=== PATIENT | male | born 1955 | race African-American/Black ===

== ENCOUNTER 2017-02-27 03:49 | Inpatient (IN) ==
[2017-02-27] MEDS ORDERED: ONDANSETRON 4 MG/2 ML VIAL IV STA (04:16)
[2017-02-27] MEDS ORDERED: SODIUM CHLORIDE 0.9% 1,000 ML IV STA (04:16)
[2017-02-27] MEDS ORDERED: PANTOPRAZOLE 40 MG VIAL IV STA (04:16)
[2017-02-27] MEDS ORDERED: PANTOPRAZOLE 40 MG VIAL IV ONE (04:25)
[2017-02-27] MEDS ORDERED: ONDANSETRON 4 MG/2 ML VIAL ONE (04:25)
[2017-02-27 04:26] LABS: Basophils % 0.3 % (0.0-0.8); Eosinophils % 0.2 % (0.00-10.9); Hematocrit 25.3 VOL% (42.0-52.0); Hemoglobin 8.1 GM/DL (14.0-18.0); Immature Granulocytes % 1.2 %; Immature Granulocytes Absolute 0.16 #; Lymphocytes # 1.4 10*3/uL (1.4-4.0); Lymphocytes % 10.1 % (21.2-54.2); Mean Corpuscular Hemoglobin 28 PG (27-34); Mean Corpuscular Volume 88.8 FL (87-102); Mean Platelet Volume 10.1 FL (9.6-12.0); Monocytes # 0.7 10*3/uL (0.11-0.8); Monocytes % 5.2 % (1.7-12.7); Neutrophils # 11.4 10*3/uL (1.4-7.4); Platelet Count 324 T/CUMM (130-400); Red Blood Count 2.85 MC/CUMM (3.8-5.5); White Blood Count 13.7 T/CUMM (4-12)
[2017-02-27 04:35] LABS: INR 1.1; PT Patient Result 11.2 SECS
--- NOTE | 2017-02-27 04:36 | Emergency Department Note ---
Bonifacio Andre Hilary, am scribing for, and in the presence of, Kris Cheatham MD 04:20. Linden Andre Robert M, MD, personally performed the services described in this documentation, ascribed by Vicky Valdovinos in my presence, and it is both accurate and complete 436 . Arrival - Arrival Chief Complaint: GI Bleed/Rectal ED Nursing Triage Note: Pt arrives via ems from home with complaints of abd pain. States that he woke up an vomited some blood and that he felt short of breath afterwards. PT states that he has been having "stomach problems" and that his Primary doctor is suppose to get him an appointment with [facility] to be seen by gastro but that he has not heard from him and that tonight the pain worsened. Pt is in no distress at time of triage. Last BM yesterday Mode of Arrival: Stretcher Limitations: No Limitations Source: Patient, RN Notes Reviewed Time Seen by Provider: 02/27/17 04:10 - History of Present Illness HPI Narrative: Pt is a 61 y/o black male brought to the ED via EMS with c/o abdominal pain which onset a few nights ago. Pt states that he woke up and vomited blood. He has lost a significant amount of weight recently due to a change in diet and reports hat he has been having "stomach problems" and that his Primary doctor is suppose to get him an appointment with [facility] to be seen by gastro but that he has not heard from him and that tonight the pain worsened. Pt also confirms Melena over the past few days. No other complaints or problems stated in the ED. Onset (ago): day(s) Allergies/Adverse Reactions: Allergies Allergy/AdvReac Type Severity Reaction Status Date / Time No Known Allergies Allergy Verified 02/27/17 04:07 Home Medications: Home Medications Medication Instructions Recorded Confirmed Type Furosemide Tab [Lasix Tab] 40 mg PO BID DIURETIC 02/27/17 02/27/17 History HYDROcodone/ACETAMIN 10-325 [[place] 1 tablet PO Q4H PRN 02/27/17 02/27/17 History 10-325] Lisinopril 40 mg PO DAILY 02/27/17 02/27/17 History Review of System - Review of System 12 point system: reviewed and no additional remarkable complaints except as stated - Review of System Constitutional: Absent: fever Gastrointestinal: Present: abdominal pain, hematemesis, melena Medical,Surgical,& Family Hx - Medical History Cardio: History of: Hypertension Gastrointestinal: History of: GERD - Social History Smoking Status: Never smoker Frequency of Alcohol Use: None Type of Drug Use: None Exam Vital Signs: Vital Signs Temperature 97.6 F 02/27/17 03:49 Pulse Rate 105 H 02/27/17 03:49 Respiratory Rate 22 02/27/17 03:49 Blood Pressure 83/59 02/27/17 03:49 O2 Sat by Pulse Oximetry 97 02/27/17 03:49 - General General appearance: alert, in no apparent distress - Head Head exam: Present: atraumatic, normocephalic - Eye Eye exam: Present: normal appearance, PERRL, EOMI - ENT ENT exam: Present: mucous membranes moist, TM's normal bilaterally. Absent: mucous membranes dry - Neck Neck exam: Present: full ROM, trachea midline. Absent: tenderness - Chest Chest inspection: Present: symmetric chest wall rise. Absent: tenderness - Respiratory Respiratory exam: Present: normal lung sounds bilaterally. Absent: respiratory distress - Cardiovascular Cardiovascular exam: Present: regular rate, normal rhythm, normal heart sounds. Absent: murmur, rubs, gallop - Abdominal Exam Abdominal exam: Present: soft, normal bowel sounds. Absent: distention, tenderness - Extremities Exam Extremities exam: Present: full ROM. Absent: tenderness - Back Exam Back exam: Present: full ROM. Absent: tenderness - Neurological Exam Neurological exam: Present: alert, oriented X3, CN II-XII intact. Absent: motor sensory deficit - Psychiatric Psychiatric exam: Present: normal affect, normal mood - Skin Skin exam: Present: warm, dry, intact, normal color. Absent: rash Course - Consultations Consultation #1: ana Andrea PA for the hospitalist service, will evaluate and admit the patient. Time: 05:08 Results - Labs CBC & BMP: 02/27/17 04:10 02/27/17 04:10 Lab Results: I have reviewed the patients labs Labs: Lab Results WBC 13.7 T/CUMM (4-12) H 02/27/17 04:10 RBC 2.85 MC/CUMM (3.8-5.5) L 02/27/17 04:10 Hgb 8.1 GM/DL (14.0-18.0) L 02/27/17 04:10 Hct 25.3 VOL% (42.0-52.0) L 02/27/17 04:10 MCV 88.8 FL (87-102) 02/27/17 04:10 MCH 28 PG (27-34) 02/27/17 04:10 MCHC 32.0 GM/DL (32-36) 02/27/17 04:10 RDW 16.0 % (9.3-17.3) 02/27/17 04:10 Plt Count 324 T/CUMM (130-400) 02/27/17 04:10 MPV 10.1 FL (9.6-12.0) 02/27/17 04:10 Neut % (Auto) 83.0 % (38.7-73.9) H 02/27/17 04:10 Lymph % (Auto) 10.1 % (21.2-54.2) L 02/27/17 04:10 [place] % (Auto) 5.2 % (1.7-12.7) 02/27/17 04:10 Eos % (Auto) 0.2 % (0.00-10.9) 02/27/17 04:10 Baso % (Auto) 0.3 % (0.0-0.8) 02/27/17 04:10 Neut # (Auto) 11.4 10*3/uL (1.4-7.4) H 02/27/17 04:10 Lymph # (Auto) 1.4 10*3/uL (1.4-4.0) 02/27/17 04:10 [place] # (Auto) 0.7 10*3/uL (0.11-0.8) 02/27/17 04:10 Eos # (Auto) 0.0 10*3/uL (0.0-0.87) 02/27/17 04:10 Baso # (Auto) 0.0 10*3/uL (0.0-0.2) 02/27/17 04:10 Immature Gran % 1.2 % 02/27/17 04:10 Nucleated RBC % 0.0 /100WBC 02/27/17 04:10 Immature Gran # 0.16 # 02/27/17 04:10 Nucleated RBCs # 0.00 10*3/uL 02/27/17 04:10 INR 1.1 02/27/17 04:10 PT Patient/Control Mix 11.2 SECS 02/27/17 04:10 Sodium 147 MMOL/L (136-145) H 02/27/17 04:10 Potassium 3.8 MMOL/L (3.5-5.1) 02/27/17 04:10 Chloride 108 MMOL/L (98-107) H 02/27/17 04:10 Carbon Dioxide 30 MMOL/L (21-32) 02/27/17 04:10 Anion Gap 12.8 MMOL/L (5.0-15.0) 02/27/17 04:10 BUN 37 MG/DL (7-18) H 02/27/17 04:10 Creatinine 0.90 MG/DL (0.70-1.30) 02/27/17 04:10 GFR Calculation 166 ML/MIN 02/27/17 04:10 BUN/Creatinine Ratio 41.00 RATIO (6.00-20.00) H 02/27/17 04:10 Glucose 143 MG/DL (74-106) H 02/27/17 04:10 Calculated Osmolality 302.4 MOS/KG (273-304) 02/27/17 04:10 Calcium 8.3 MG/DL (8.5-10.1) L 02/27/17 04:10 Magnesium 1.9 MG/DL (1.8-2.4) 02/27/17 04:10 Total Bilirubin < 0.39 MG/DL (0.2-1.0) 02/27/17 04:10 AST 16 U/L (0-37) 02/27/17 04:10 ALT 26 U/L (16-61) 02/27/17 04:10 Alkaline Phosphatase 53 U/L (45-117) 02/27/17 04:10 Troponin I 0.025 NG/ML (0.00-0.045) 02/27/17 04:10 Total Protein 4.8 G/DL (6.4-8.3) L 02/27/17 04:10 Albumin 2.7 G/DL (3.4-5.0) L 02/27/17 04:10 Globulin 2.1 G/DL (2.3-3.5) L 02/27/17 04:10 Albumin/Globulin Ratio 1.2 RATIO (1.1-2.2) 02/27/17 04:10 Disposition Clinical Impression: Upper GI bleed, Symptomatic anemia Case discussed with: patient, patient's family Disposition: Still a Patient Condition: Stable Time of Disposition: 05:08
[2017-02-27 05:01] LABS: Alanine Aminotransferase 26 U/L (16-61); Albumin 2.7 G/DL (3.4-5.0); Alkaline Phosphatase 53 U/L (45-117); Aspartate Amino Transferase 16 U/L (0-37); Bilirubin,Total < 0.39 MG/DL (0.2-1.0); Blood Urea Nitrogen 37 MG/DL (7-18); Calcium 8.3 MG/DL (8.5-10.1); Glucose 143 MG/DL (74-106); Magnesium 1.9 MG/DL (1.8-2.4); Osmolality,Calculated 302.4 MOS/KG (273-304); Potassium 3.8 MMOL/L (3.5-5.1); Sodium 147 MMOL/L (136-145); Total Protein 4.8 G/DL (6.4-8.3); Troponin I Only 0.025 NG/ML (0.00-0.045)
[2017-02-27] MEDS ORDERED: ONDANSETRON 4 MG/2 ML VIAL IV PRN (05:07)
[2017-02-27] MEDS ORDERED: MORPHINE 2 MG/1 ML SYRINGE IV PRN (05:07)
[2017-02-27] MEDS ORDERED: ACETAMINOPHEN 325 MG TABLET PO PRN (05:07)
--- NOTE | 2017-02-27 05:55 | Hospitalist History & Physical ---
Assessment and Plan - Time spent with patient Time spent with patient: Greater than 30 minutes (1) Upper GI bleed Status: Acute Assessment and plan: H&H 8.1 and 25.3. Patient complained of melena and hematemesis. Type and Screen. IV fluids. Consult GI for possible EGD. Patient is NPO. Current Visit: Yes (2) Symptomatic anemia Status: Acute Assessment and plan: H&H 8.1 and 25.3. IV fluids. Type and screen. Repeat CBC. Current Visit: Yes (3) Hypertension Status: Acute Assessment and plan: Patient unable to provide list of home medication. His daughter agreed to bring them back with her later today. Patient was hypotensive on admission (83/59). After a liter bolus, he normalized to 119 systolic. Start IV fluids at 125 mls/ hr. Hold antihypertensives. Current Visit: Yes History of Present Illness Chief complaint: GI Bleed History of present illness: Mr. Hector is a 61 year old male with a past medical history significant for hypertension, heart failure, obstructive sleep apnea who presents to the ED via EMS with complaints of abdominal pain and hematemesis since last night. The patient reports that he has been experiencing abdominal pain and a "weak stomach " for the past few weeks. He states that he recently noticed dark tarry stool. He admits to a decreased appetite, feeling slightly lightheaded, and increased abdominal pain. The patient mentioned that his PCP was supposed to refer him to a GI specialist in [place], [place]; however, he has yet to see one. He notes that he recently lost approximately 75 pounds in the last year. He states that his blood pressure has been symptomatically lower, and he feels as though this has something to do with his recent weight loss and continued use antihypertensives at the same strength. Preliminary lab work shows WBC 13.7, Hgb 8.1, Hct 25.3. He will be admitted to the hospital medicine service for further evaluation and treatment for GI bleed. GI has been consulted. The patient is a full code. Home Medications Medication Instructions Recorded Confirmed Type Furosemide Tab [Lasix Tab] 40 mg PO BID DIURETIC 02/27/17 02/27/17 History HYDROcodone/ACETAMIN 10-325 [[place] 1 tablet PO Q4H PRN 02/27/17 02/27/17 History 10-325] Lisinopril 40 mg PO DAILY 02/27/17 02/27/17 History Allergies Allergy/AdvReac Type Severity Reaction Status Date / Time No Known Allergies Allergy Verified 02/27/17 04:07 Medical,Surgical,& Family Hx - Medical History Cardio: History of: Hypertension Gastrointestinal: History of: GERD - Surgical History Abdominal Surgeries: Surgical HX of: Appendectomy - Family History Family History: Reports;: Family Hypertension - Social History Smoking Status: Never smoker Have you smoked in the last 12 months: No Frequency of Alcohol Use: None Type of Drug Use: None Marital Status: Single Lives With:: Alone Functional capacity: independent ambulation - Constitutional Constitutional: Present: fatigue, weakness. Absent: chills, night sweats - EENT Eyes: Absent: blurry vision, loss of vision Nose, mouth and throat: Absent: headache(s), sore throat - Cardiovascular Cardiovascular: Present: dyspnea. Absent: edema, radiating jaw, neck or arm pain - Respiratory Respiratory: Present: cough - Gastrointestinal Gastrointestinal: Present: abdominal pain, hematemesis, melena - Genitourinary Genitourinary: Absent: difficulty urinating, dysuria, flank pain, hematuria - Musculoskeletal Musculoskeletal: Absent: back pain, limited range of motion - Neurological Neurological: Absent: confusion, dizziness, syncope - Psychiatric Psychiatric: Absent: anxiety, confusion - Endocrine Endocrine: Absent: cold intolerance, heat intolerance - Hematologic/Lymphatic Hematologic/Lymphatic: Absent: easy bleeding, easy bruising Exam - Constitutional Exam: General appearance: obese, no acute distress - Head Head exam: Present: normocephalic, atraumatic - Eye Eye exam: Present: EOMI. Absent: conjunctival injection, nystagmus Pupils: Present: CRIS, normal accommodation - ENT ENT exam: Present: normal exam, normal external ear exam - Neck Neck exam: Present: normal inspection. Absent: lymphadenopathy, tenderness, thyromegaly - Respiratory Respiratory exam: Present: clear to auscultation bilaterally. Absent: rales, rhonchi, wheezes - Cardiovascular Cardiovascular exam: Present: regular rate and rhythm. Absent: carotid bruit, gallop, rubs - GI/Abdominal GI/Abdominal exam: Present: normal bowel sounds, soft, nontender Absent: ascites, distended, mass - Extremities Exam Extremities exam: Present: normal inspection, normal capillary refill. Absent: edema - Back Exam Back exam: Absent: CVA tenderness (L), CVA tenderness (R) - Neurological Exam Neurological exam: Present: alert, oriented X3 - Psychiatric Psychiatric exam: Present: normal affect, normal mood - Skin Skin exam: Present: normal color, warm, dry Results - Labs CBC & BMP: 02/27/17 04:10 02/27/17 04:10 Lab Results: I have reviewed the past 24 hour labs - EKG EKG results: interpreted by MARQUISE
[2017-02-27] MEDS: SODIUM CHLORIDE 0.9% 1,000 ML IV SCH ×5 (06:33→22:15)
--- NOTE | 2017-02-27 07:49 | EKG Report ---
Stationary ECG Study [facility] ER Test Date: 02/27/2017 3:55:39 AM Pat Name: DIOGENES CLEANING Department: Room: 235 Gender: M Soil Checker: : 1955 Requested by: Kris Cheatham Order Number: [id number] Reading MD: LONA RUEDA Intervals [place] Rate: 110 P: 62 [place]: 140 QRS: -59 QRSD: 107 T: 42 QT: 319 QTc: 384 Interpretive Statements SINUS TACHYCARDIA INCOMPLETE RIGHT BUNDLE BRANCH BLOCK LEFT ANTERIOR FASCICULAR BLOCK Electronically Signed On 02-27-17 17:20:15 CDT by LONA RUEDA [email or web address]
[2017-02-27] MEDS ORDERED: FUROSEMIDE 40 MG TABLET PO SCH (08:00)
[2017-02-27] MEDS ORDERED: PANTOPRAZOLE 40 MG TABLET PO SCH (09:00)
[2017-02-27] MEDS ORDERED: LISINOPRIL 20 MG TABLET PO SCH (09:00)
[2017-02-27] MEDS ORDERED: SODIUM CHLORIDE 0.9% 250 ML IV PRN (09:49)
--- NOTE | 2017-02-27 09:59 | Hospitalist Progress Note ---
Assessment and Plan - Time spent with patient Time spent with patient: Greater than 30 minutes (1) Upper GI bleed Status: Acute Assessment and plan: Large bright red BM this morning may represent brisk upper GI bleed. Patient will require transfer to the ICU, stat HG lkevel, pRBCs, PPI drip, serial Hg. GI is aware. D/C antihypertensives. Bolus NS. Current Visit: Yes Hospitalist: Subjective Interval history: Patient had very large bright red bloody BM this AM and afterwards was noted to be confused and disoriented. DOSIER OPERATOR was called. BP was noted to be 60s systolic however repeat was 100s. NS was bolused. 2 units pRBC ordered stat. Patient was transferred to ICU. Exam - Constitutional Vitals: Period Temp Pulse Resp BP Sys/Watson Pulse Ox Last 24 Hr 97.6 F-98.9 F 88-98 20-20 92-120/57-74 97 General appearance: no acute distress, mild distress, morbidly obese - Head Head exam: Present: normocephalic, atraumatic - Eye Eye exam: Present: EOMI Pupils: Present: CRIS - ENT ENT exam: Present: normal exam - Neck Neck exam: Present: normal inspection - Respiratory Respiratory exam: Present: clear to auscultation bilaterally. Absent: rhonchi, wheezes - Cardiovascular Cardiovascular exam: Present: regular rate and rhythm. Absent: gallop, rubs, systolic murmur - GI/Abdominal GI/Abdominal exam: Present: normal bowel sounds, soft. Absent: distended, firm , guarding, tenderness, rebound - Extremities Exam Extremities exam: Present: normal inspection. Absent: calf tenderness, edema Results - Labs CBC & BMP: 02/27/17 04:10 02/27/17 04:10 Lab Results: I have reviewed the past 24 hour labs
[2017-02-27 10:00] LABS: Hemoglobin 7.6 GM/DL (14.0-18.0)
--- NOTE | 2017-02-27 10:13 | Gastrointestinal Consult Note ---
<Romy Maldonado - Last Filed: 02/27/17 10:07> Assessment and Plan (1) GI bleed Status: Acute Assessment and plan: 02/27-several day history of abdominal pain/discomfort with onset of hematemesis morning and episode of large amount of hematochezia now, symptomatic with hypotension and syncope. Hemoglobin 8.19 on admission now to 7.6. Discussed with Dr. Morataya. Plan for EGD today to further evaluate. Further plan and addendum followed by Dr. Morataya Current Visit: Yes History of Present Illness Chief complaint: Upper and lower GI bleed History of present illness: Mr. Hector is a 61 year old male who was admitted to the hospital early this morning with complaints of abdominal pain and hematemesis, as well as melena. Attempted initially to see the patient however he was in the restroom during that time and I was asked to return after. Before I could return, and FUR SORTER was called due to patient became syncopal with hypotension. Patient was in the restroom he had a very large bright red bloody bowel movement. He is not reported to have any hematemesis since arrival to the ER per nursing staff. Patient is able to provide some history however at this time he is somewhat lethargic unable to provide details. Patient was admitted this morning in with reports of waking up in the middle the night and began vomiting bright red blood. He states his stomach has not felt well for the last several days and went to see his PCP for evaluation and was referred to [facility] to see a merchandise coordinator however he never received confirmation for an appointment for this. He also reports that over the last several days he has noticed some dark tarry stools. He denies having a GI bleed in the past. He reports that he recently has lost a great deal of weight after changing his diet and was able to come off of some of his hypertension medicine. He denies taking any anticoagulants or any NSAID use. Upon admission his hemoglobin was noted at 8.1. He had a stat repeat hemoglobin a few minutes ago and is down to 7.6. BUN /creatinine ratio is 41. Patient denies any fever or chills. Home Medications Medication Instructions Recorded Confirmed Type Furosemide Tab [Lasix Tab] 40 mg PO BID DIURETIC 02/27/17 02/27/17 History HYDROcodone/ACETAMIN 10-325 [[place] 1 tablet PO Q4H PRN 05/19/17 05/19/17 History 10-325] Lisinopril 40 mg PO DAILY 02/27/17 02/27/17 History Allergies Allergy/AdvReac Type Severity Reaction Status Date / Time No Known Allergies Allergy Verified 02/27/17 04:07 Medical,Surgical,& Family Hx - Medical History Cardio: History of: CHF, Hypertension Respiratory: History of: Obstructive Sleep Apnea Gastrointestinal: History of: GERD Musculoskeletal: No history of: Amputation - Surgical History Cardiac Surgeries: Patient Denies: Cardiac Catheterization Neurologic Surgeries: Patient denies: Neurologic Surgery HEENT Surgeries: Patient denies: Tonsilectomy & Adenoidectomy Abdominal Surgeries: Surgical HX of: Appendectomy Patient denies: Abdominal Surgery - Family History Family History: Reports;: Family Hypertension - Social History Smoking Status: Never smoker Frequency of Alcohol Use: None Type of Drug Use: None ROS unobtainable: due to mental status Exam - Constitutional Vitals: Period Temp Pulse Resp BP Sys/Watson Pulse Ox Last 24 Hr 97.6 F-98.9 F 88-98 20-20 92-120/57-74 97 General appearance: no acute distress, over weight - Head Head exam: Present: normal inspection, normocephalic - Eye Eye exam: Present: other (Lids and conjunctive are unremarkable). Absent: scleral icterus - ENT ENT exam: Present: normal exam, normal oropharynx - Neck Neck exam: Present: normal inspection - Respiratory Respiratory exam: Present: clear to auscultation bilaterally. Absent: rales, rhonchi, wheezes - Cardiovascular Cardiovascular exam: Present: regular rate and rhythm. Absent: diastolic murmur , JVD, systolic murmur - GI/Abdominal GI/Abdominal exam: Present: normal bowel sounds, tenderness (Epigastric), soft. Absent: ascites, distended, mass, organomegaly - Extremities Exam Extremities exam: Present: normal inspection, full ROM - Back Exam Back exam: Present: normal inspection - Neurological Exam Neurological exam: Present: alert, altered - Psychiatric Psychiatric exam: Present: other - Skin Skin exam: Present: normal color, warm, dry Results - Labs CBC & BMP: 02/27/17 09:53 02/27/17 04:10 Lab Results: I have reviewed the past 24 hour labs <Vikram Morataya - Last Filed: 02/27/17 12:29> History of Present Illness History of present illness: Mr. Hector is a 61 year old male Exam - Constitutional Vitals: Period Temp Pulse Resp BP Sys/Watson Pulse Ox Last 24 Hr 97.6 F-98.9 F 79-104 18-20 68-120/39-74 97-100 Results - Labs CBC & BMP: 02/27/17 09:53 02/27/17 04:10
[2017-02-27] MEDS: PANTOPRAZOLE INJ 200 MG in SODIUM CHLORIDE 0.9% 250 ML IV SCH (11:04)
[2017-02-27] MEDS ORDERED: PROPOFOL 200 MG/20 ML VIAL IV ONE (12:26)
[2017-02-27] MEDS ORDERED: LIDOCAINE 2% 5 ML VIAL ONE (12:26)
--- NOTE | 2017-02-27 13:05 | History and Physical Update ---
History and Physical Update - History and Physical H&P was reviewed, the patient examined and there: are no changes in the patients condition since last H&P was completed. - Physical Exam Mental Status: alert and oriented Heart: regular rate and rhythm Lung: clear to auscultation Abdomen: within normal limits Vitals: within normal limits
--- NOTE | 2017-02-27 13:12 | Operative Note ---
Date of procedure: 02/27/17 Pre-op diagnosis: Upper GI bleed Procedure: Procedure: Esophagogastroduodenoscopy with epinephrine injection and heater probe coagulation of gastric ulcer visible vessel Brief clinical abstract: Patient is a 61-year-old male who presented with hematemesis and weakness. He had onset of vomiting blood last night. He had systolic blood pressure in the 60s in the emergency room this morning with resuscitation now with normal hemodynamics. He is being transfused with his second unit of packed red blood cells. Indication for procedure: Upper GI bleeding Endoscopic findings:[After informed consent was obtained, the patient was placed in the left lateral decubitus position. The gastroscope was inserted in the upper esophagus under direct vision with no resistance encountered. Esophageal mucosa appeared normal with squamocolumnar junction sharply demarcated at the diaphragmatic indentation. The endoscope was advanced in the stomach which was carefully examined including retroflexed view of the cardia and fundus. There was a moderate amount of old blood in the proximal stomach most of which we were able to suction. Along the lesser curve above the angularis was a large approximately 1.5-2 cm diameter deep ulcer. Prominent visible vessel was present in the base of this. The pyloric channel, duodenal bulb, second and third portion of the duodenum were normal. The endoscope was withdrawn back into the stomach. I attempted twice to place an instinct clip on the vessel but could never get in optimal position endoscopically to do this. Sclerotherapy needle was then advanced. A total of 5 cc of 1: 10,000 concentration epinephrine was injected in and around the visible vessel. Then heater probe on a setting of 30 W was used. The vessel was coagulated with a total of 5 separate 5 second applications administered. There appeared to be adequate ablation of the vessel. It initially bled with coagulation but then good hemostasis was noted afterwards. The endoscope was removed and patient appeared to tolerate the procedure well. Impression: Gastric ulcer-with visible vessel; status post endoscopic therapy as above Recommendations: Continue high-dose PPI therapy and ICU observation for now. gastric ulcer with visible vessel---------------------> Fafter heater probe therapy-------------------------> F Anesthesia: MAC Surgeon / Physician: Vikram Morataya Estimated blood loss: minimal Specimens: none sent Condition: stable Disposition: post procedure unit Results - Labs CBC & BMP: 02/27/17 09:53 02/27/17 04:10 Discharge Plan - Discharge Medications No Action Furosemide Tab [Lasix Tab] 40 mg PO BID DIURETIC Lisinopril 40 mg PO DAILY HYDROcodone/ACETAMIN 10-325 [[place] 10-325] 1 tablet PO Q4H PRN PRN Reason: Pain - Follow Up or Referral - Forms/Instructions
--- NOTE | 2017-02-27 13:13 | Anesthesia Post-Op ---
Anesthesia Post OP - Post Ansesthetic Evaluation Patient seen in post op: Yes Resp: within normal limits CV: within normal limits Mental: within normal limits Temp: within normal limits [id number]: within normal limits Nausea and Vomiting: within normal limits Pain: within normal limits
[2017-02-27 13:56] LABS: Hematocrit 24.1 VOL% (42.0-52.0); Hemoglobin 7.8 GM/DL (14.0-18.0)
[2017-02-27 22:20] LABS: Hematocrit 26.9 VOL% (42.0-52.0); Hemoglobin 8.4 GM/DL (14.0-18.0)
[2017-02-28 05:37] LABS: Basophils % 0.2 % (0.0-0.8); Eosinophils # 0.1 10*3/uL (0.0-0.87); Eosinophils % 0.8 % (0.00-10.9); Hematocrit 29.8 VOL% (42.0-52.0); Hemoglobin 9.3 GM/DL (14.0-18.0); Immature Granulocytes % 1.3 %; Immature Granulocytes Absolute 0.12 #; Lymphocytes # 1.5 10*3/uL (1.4-4.0); Lymphocytes % 16.2 % (21.2-54.2); Mean Corpuscular HGB Conc 31.2 GM/DL (32-36); Mean Corpuscular Hemoglobin 28 PG (27-34); Mean Corpuscular Volume 90.6 FL (87-102); Mean Platelet Volume 10.2 FL (9.6-12.0); Monocytes # 0.7 10*3/uL (0.11-0.8); Monocytes % 7.3 % (1.7-12.7); NRBC # 0.02 10*3/uL; Neutrophils # 6.8 10*3/uL (1.4-7.4); Neutrophils % 74.2 % (38.7-73.9); Platelet Count 282 T/CUMM (130-400); Red Blood Count 3.29 MC/CUMM (3.8-5.5); White Blood Count 9.2 T/CUMM (4-12)
[2017-02-28 06:13] LABS: Calcium 8.3 MG/DL (8.5-10.1); Osmolality,Calculated 298.1 MOS/KG (273-304); Potassium 4.2 MMOL/L (3.5-5.1)
[2017-02-28] MEDS: SODIUM CHLORIDE 0.9% 1,000 ML IV SCH ×2 (07:18→15:45)
--- NOTE | 2017-02-28 10:28 | Gastrointestinal Progress Note ---
Assessment and Plan - Time spent with patient Time spent with patient: Greater than 30 minutes (1) Gastric ulcer Status: Acute Current Visit: Yes (2) Upper GI bleed Status: Acute Current Visit: Yes (3) Blood loss anemia Status: Acute Current Visit: Yes (4) Other specified counseling Status: Acute Current Visit: Yes Exam (Progress Note) - Constitutional Vitals: Period Temp Pulse Resp BP Sys/Watson Pulse Ox Last 24 Hr 96.7 F-99.3 F 76-104 13-23 63-132/37-88 83-100 Results - Labs CBC & BMP: 02/28/17 04:32 02/28/17 04:32 Note Addendum: PLEASE NOTE -- automatic citation of patient information is unavoidable in this electronic note. I have made a reasonable effort to review the information cited , but it is not a part of my evaluation, impression, or recommendation unless specifically discussed in the dictated text that follows. As well, voice recognition software was used in the creation of this clinical note. Reasonable effort was made to identify and correct gross errors. Despite proofreading, errors in catalytic converter operator helper may be present, including nonsense verbiage at times. If you encounter such an error, please contact me at for discussion and correction. -- Angella Chief complaint: gastrointestinal bleeding Subjective: the patient is a 61-year-old male seen for follow-up of gastrointestinal bleeding. The patient underwent upper endoscopy yesterday with finding of a 2 cm ulcer in the gastric antrum with a prominent visible vessel. This was treated with injection of epinephrine and full Gratian of the vessel. The patient was continued on high-dose proton pump inhibitor and monitored in the intensive care unit overnight. The patient received a total of four units of packed red blood cells yesterday. He has remained hemodynamically stable. His blood counts are improved after the transfusions. He is not having nausea or vomiting. He has not had any bowel movements this morning. Medications: Tylenol, [place], morphine, Zofran, Protonix, normal saline infusion Review of Symptoms: 12 point review of symptoms was negative except as noted above Physical examination: Vital Signs: Current vital signs reviewed. General Appearance: well-appearing. Not acutely ill. Head: Normocephalic. Eyes: no scleral icterus. No scleral injection. No conjunctival pallor. Oral Cavity: Odor of breath was normal. No drooling was observed. Lips showed no abnormalities. Lungs: Respiration rhythm and depth was normal. Cardiovascular: Heart rate and rhythm were normal. Abdomen: abdomen was not distended. Abdominal auscultation revealed no abnormalities. Ascites was not discovered. Abdominal palpation revealed no tenderness and no hepatosplenomegaly. Musculoskeletal System: musculoskeletal system was grossly normal. Neurological: level of consciousness was normal. Speech was normal. No coordination/cerebellum abnormalities were noted. Skin: Gen. appearance was normal. Color and pigmentation were normal. No skin lesions were appreciated. Laboratory: white blood count 9.2, hemoglobin 9.3, hematocrit 29.8, platelets 282, INR 1.1, PT 11.2 Radiology: reviewed Impressions: 1. Gastric ulcer -- this has been treated and endoscopically and hemostasis seems to have been achieved. I recommend continued high-dose proton pump inhibitor, advance diet to full liquids, continued monitoring of blood counts, continued aggressive volume management, and further transfusion as indicated. 2. Upper gastrointestinal bleeding -- gastric ulcer as documented above. 3. Acute blood loss anemia -- patient has received transfusion for same. I recommend continued monitoring and further transfusion as indicated. The patient will also need outpatient monitoring and management until blood counts have returned to normal. 4. Other specified counseling -- Patient seen for greater than 30 minutes. Greater than 50% of this time was spent counseling regarding differential diagnosis, likely diagnosis,, diagnostic and therapeutic options, risks, benefits, and alternatives to procedures and medications, informed consent, and plan of care generally. Patient has expressed understanding and wishes to proceed. Recommendations: -- continued proton pump inhibitor -- aggressive volume management -- continued monitoring of blood counts with further transfusion as indicated -- advance diet as tolerated -- inpatient and outpatient monitoring/management of anemia until normal -- we will continue to follow with you
[2017-02-28] MEDS: PANTOPRAZOLE INJ 200 MG in SODIUM CHLORIDE 0.9% 250 ML IV SCH (11:24)
--- NOTE | 2017-02-28 12:39 | Hospitalist Progress Note ---
Assessment and Plan (1) Upper GI bleed Status: Acute Current Visit: Yes (2) Symptomatic anemia Status: Acute Current Visit: Yes (3) Gastric ulcer Status: Acute Current Visit: Yes (4) Blood loss anemia Status: Acute Current Visit: Yes Hospitalist: Subjective Interval history: No acute events overnight. No episodes of bleeding overnight. GI managing. Starting liquid diet today. Exam - Constitutional Vitals: Period Temp Pulse Resp BP Sys/Awtson Pulse Ox Last 24 Hr 96.7 F-99.3 F 76-99 13-23 63-132/37-88 83-100 General appearance: over weight - Head Head exam: Present: normocephalic, atraumatic - Eye Eye exam: Present: EOMI Pupils: Present: CRIS - ENT ENT exam: Present: normal exam - Neck Neck exam: Present: normal inspection - Respiratory Respiratory exam: Present: clear to auscultation bilaterally. Absent: rhonchi, wheezes - Cardiovascular Cardiovascular exam: Present: regular rate and rhythm - GI/Abdominal GI/Abdominal exam: Present: normal bowel sounds, soft. Absent: tenderness, rebound - Extremities Exam Extremities exam: Present: normal inspection - Back Exam Back exam: Present: normal inspection - Neurological Exam Neurological exam: Present: alert, oriented X3 - Psychiatric Psychiatric exam: Present: normal affect, normal mood - Skin Skin exam: Present: warm, intact Results - Labs CBC & BMP: 02/28/17 04:32 02/28/17 04:32
[2017-02-28] MEDS: guaiFENesin 200 MG/10 ML UDCUP PO PRN ×2 (13:02→18:01)
[2017-03-01] MEDS: SODIUM CHLORIDE 0.9% 1,000 ML IV SCH ×4 (00:01→23:01)
[2017-03-01] MEDS: guaiFENesin 200 MG/10 ML UDCUP PO PRN ×2 (01:22→21:22)
[2017-03-01 06:19] LABS: Basophils % 0.2 % (0.0-0.8); Eosinophils # 0.2 10*3/uL (0.0-0.87); Eosinophils % 3.2 % (0.00-10.9); Hematocrit 24.4 VOL% (42.0-52.0); Hemoglobin 7.5 GM/DL (14.0-18.0); Immature Granulocytes % 0.8 %; Immature Granulocytes Absolute 0.05 #; Lymphocytes # 1.3 10*3/uL (1.4-4.0); Lymphocytes % 21.6 % (21.2-54.2); Mean Corpuscular HGB Conc 30.7 GM/DL (32-36); Mean Corpuscular Hemoglobin 28 PG (27-34); Mean Platelet Volume 9.9 FL (9.6-12.0); Monocytes # 0.5 10*3/uL (0.11-0.8); Monocytes % 8.6 % (1.7-12.7); Neutrophils % 65.6 % (38.7-73.9); Platelet Count 270 T/CUMM (130-400); Red Blood Count 2.71 MC/CUMM (3.8-5.5); Red Cell Distribution Width 16.7 % (9.3-17.3)
[2017-03-01 06:50] LABS: Calcium 8.2 MG/DL (8.5-10.1); Magnesium 1.9 MG/DL (1.8-2.4); Osmolality,Calculated 290.4 MOS/KG (273-304); Potassium 3.9 MMOL/L (3.5-5.1)
--- NOTE | 2017-03-01 08:41 | Gastrointestinal Progress Note ---
Assessment and Plan - Time spent with patient Time spent with patient: Greater than 30 minutes (1) Gastric ulcer Status: Acute Current Visit: Yes (2) Upper GI bleed Status: Acute Current Visit: Yes (3) Blood loss anemia Status: Acute Current Visit: Yes (4) Other specified counseling Status: Acute Current Visit: Yes Exam (Progress Note) - Constitutional Vitals: Period Temp Pulse Resp BP Sys/Watson Pulse Ox Last 24 Hr 97.1 F-98.7 F 80-95 18-22 96-153/52-87 92-100 Results - Labs CBC & BMP: 03/01/17 05:44 03/01/17 05:44 Note Addendum: PLEASE NOTE -- automatic citation of patient information is unavoidable in this electronic note. I have made a reasonable effort to review the information cited , but it is not a part of my evaluation, impression, or recommendation unless specifically discussed in the dictated text that follows. As well, voice recognition software was used in the creation of this clinical note. Reasonable effort was made to identify and correct gross errors. Despite proofreading, errors in commissary superintendent may be present, including nonsense verbiage at times. If you encounter such an error, please contact me at for discussion and correction. -- Angella Chief complaint: gastrointestinal bleeding Subjective: the patient is a 61-year-old male seen for follow-up of gastrointestinal bleeding. He had been transferred out of the intensive care unit but had a episode of particular tachycardia transferred back to the intensive care unit. He has remained hemodynamically stable, however. His blood counts are down compared to yesterday. He is not having nausea or vomiting. He had one bowel movement this morning with "a little blood" in it. He is comfortable at present. Medications: Tylenol, [place], morphine, Zofran, Protonix, normal saline infusion Review of Symptoms: 12 point review of symptoms was negative except as noted above Physical examination: Vital Signs: Current vital signs reviewed. General Appearance: well-appearing. Not acutely ill. Head: Normocephalic. Eyes: no scleral icterus. No scleral injection. No conjunctival pallor. Oral Cavity: Odor of breath was normal. No drooling was observed. Lips showed no abnormalities. Lungs: Respiration rhythm and depth was normal. Cardiovascular: Heart rate and rhythm were normal. Abdomen: abdomen was not distended. Abdominal auscultation revealed no abnormalities. Ascites was not discovered. Abdominal palpation revealed no tenderness and no hepatosplenomegaly. Musculoskeletal System: musculoskeletal system was grossly normal. Neurological: level of consciousness was normal. Speech was normal. No coordination/cerebellum abnormalities were noted. Skin: Gen. appearance was normal. Color and pigmentation were normal. No skin lesions were appreciated. Laboratory: white blood count 6.0, hemoglobin 7.5, hematocrit 24.4, platelets 270 Radiology: reviewed Impressions: 1. Gastric ulcer -- this has been treated endoscopically but blood counts have dropped overnight. I recommend continued high-dose proton pump inhibitor, continued monitoring of blood counts, continued aggressive volume management, and further transfusion as indicated. 2. Upper gastrointestinal bleeding -- gastric ulcer as documented above. 3. Acute blood loss anemia -- patient has received transfusion for same. I recommend continued monitoring and further transfusion as indicated. The patient will also need outpatient monitoring and management until blood counts have returned to normal. 4. Other specified counseling -- Patient seen for greater than 30 minutes. Greater than 50% of this time was spent counseling regarding differential diagnosis, likely diagnosis,, diagnostic and therapeutic options, risks, benefits, and alternatives to procedures and medications, informed consent, and plan of care generally. Patient has expressed understanding and wishes to proceed. Recommendations: -- continued proton pump inhibitor -- aggressive volume management -- continued monitoring of blood counts with further transfusion as indicated -- hold NPO for now -- inpatient and outpatient monitoring/management of anemia until normal -- we will continue to follow with you. Dr. Morataya will resume G.I. care for this patient tomorrow.
[2017-03-01] MEDS: PANTOPRAZOLE INJ 200 MG in SODIUM CHLORIDE 0.9% 250 ML IV SCH ×2 (11:15→15:10)
--- NOTE | 2017-03-01 12:24 | Hospitalist Progress Note ---
Assessment and Plan - Time spent with patient Time spent with patient: Greater than 30 minutes (1) Upper GI bleed Status: Acute Assessment and plan: Stable, doing well, stool is still dark. GI is following. Hg stable. Current Visit: Yes Hospitalist: Subjective Interval history: No complaints, stable. No overnight events. Exam - Constitutional Vitals: Period Temp Pulse Resp BP Sys/Watson Pulse Ox Last 24 Hr 97.1 F-98.9 F 68-95 18-22 102-153/56-87 92-100 General appearance: no acute distress - Head Head exam: Present: normocephalic, atraumatic - Eye Eye exam: Present: EOMI Pupils: Present: CRIS - ENT ENT exam: Present: normal exam - Neck Neck exam: Present: normal inspection - Respiratory Respiratory exam: Present: clear to auscultation bilaterally. Absent: rhonchi, wheezes - Cardiovascular Cardiovascular exam: Present: regular rate and rhythm. Absent: gallop, rubs, systolic murmur - GI/Abdominal GI/Abdominal exam: Present: normal bowel sounds, soft. Absent: distended, firm , guarding, tenderness, rebound - Extremities Exam Extremities exam: Present: normal inspection. Absent: calf tenderness, edema Results - Labs CBC & BMP: 03/01/17 05:44 03/01/17 05:44 Lab Results: I have reviewed the past 24 hour labs
--- NOTE | 2017-03-01 13:00 | EKG Report ---
Stationary ECG Study [facility] Test Date: 03/01/2017 12:59:25 PM Pat Name: DIOGENES CLEANING Department: Room: 218 Gender: M Chief Hospital Administrator: : 1955 Requested by: Lisa Chavez Order Number: [id number] Reading MD: LEIF CHINO Intervals [place] Rate: 163 P: 999 ME: 0 QRS: -52 QRSD: 110 T: 63 QT: 258 QTc: 348 Interpretive Statements ATRIAL FLUTTER/TACHYCARDIA WITH RAPID VENTRICULAR RESPONSE LOW QRS VOLTAGE IN PRECORDIAL LEADS INCOMPLETE RIGHT BUNDLE BRANCH BLOCK LEFT ANTERIOR FASCICULAR BLOCK POSSIBLE ANTERIOR MYOCARDIAL INFARCTION, PROBABLY OLD Electronically Signed On 03-02-17 07:02:14 CDT by LEIF CHINO [email or web address]
[2017-03-01] MEDS ORDERED: SODIUM CHLORIDE 0.9% 250 ML IV PRN (13:12)
[2017-03-01 14:00] LABS: Hematocrit 25.6 VOL% (42.0-52.0); Hemoglobin 8.1 GM/DL (14.0-18.0)
[2017-03-01 22:12] LABS: Hematocrit 29.6 VOL% (42.0-52.0); Hemoglobin 9.2 GM/DL (14.0-18.0)
[2017-03-02 03:20] LABS: Hematocrit 28.6 VOL% (42.0-52.0)
[2017-03-02 03:27] LABS: Basophils % 0.2 % (0.0-0.8); Eosinophils # 0.2 10*3/uL (0.0-0.87); Eosinophils % 4.6 % (0.00-10.9); Hematocrit 28.5 VOL% (42.0-52.0); Immature Granulocytes Absolute 0.05 #; Lymphocytes # 1.5 10*3/uL (1.4-4.0); Lymphocytes % 30.5 % (21.2-54.2); Mean Corpuscular HGB Conc 31.6 GM/DL (32-36); Mean Corpuscular Hemoglobin 28 PG (27-34); Mean Corpuscular Volume 88.5 FL (87-102); Mean Platelet Volume 9.8 FL (9.6-12.0); Monocytes # 0.5 10*3/uL (0.11-0.8); Neutrophils # 2.7 10*3/uL (1.4-7.4); Neutrophils % 54.7 % (38.7-73.9); Platelet Count 267 T/CUMM (130-400); Red Blood Count 3.22 MC/CUMM (3.8-5.5); Red Cell Distribution Width 16.7 % (9.3-17.3)
[2017-03-02] MEDS: guaiFENesin 200 MG/10 ML UDCUP PO PRN ×2 (04:07→20:44)
[2017-03-02 04:14] LABS: Calcium 8.4 MG/DL (8.5-10.1); Osmolality,Calculated 284.7 MOS/KG (273-304); Potassium 3.9 MMOL/L (3.5-5.1)
[2017-03-02 05:56] LABS: Hematocrit 29.3 VOL% (42.0-52.0); Hemoglobin 9.2 GM/DL (14.0-18.0)
--- NOTE | 2017-03-02 08:47 | Cardiology Consult Note ---
Assessment and Plan - Time spent with patient Time spent with patient: Greater than 30 minutes (1) Hypertension Status: Chronic Assessment and plan: SEE PLAN OF CARE LISTED BELOW Current Visit: Yes (2) Sleep apnea Status: Chronic Assessment and plan: SEE PLAN OF CARE LISTED BELOW Current Visit: Yes (3) Obesity Status: Chronic Assessment and plan: SEE PLAN OF CARE LISTED BELOW Current Visit: Yes (4) Atrial flutter Status: Acute Assessment and plan: SEE PLAN OF CARE LISTED BELOW Current Visit: Yes (5) Gastric ulcer Status: Acute Assessment and plan: SEE PLAN OF CARE LISTED BELOW Current Visit: Yes (6) Hypertension Status: Chronic Assessment and plan: SEE PLAN OF CARE LISTED BELOW Current Visit: Yes History of Present Illness - Data of Consult Patient: new to practice Consult date: 03/02/17 Requesting Physician: Lisa Pena - Consult Narrative Reason for consult: atrial flutter History of present illness: 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 Hector, 61BM, has previously been followed by a lecturer of portuguese in [place], [place] (he does not remember his name) for history of "irregular heart rhythm." Risk factors include: hypertension, and obesity. History of sleep apnea and uses device routinely. Denies a history of known coronary artery disease, SD. Patient was admitted February 27, 2017 with GI bleed. Reports she has been having dark and tarry stools for several weeks. night, patient began to experience abdominal pain and felt a "weak stomach". Reports that he "coughed up" blood evening and for this reason he felt as if he should be evaluated in the emergency department. He was found to be anemic, hypotensive. He received several units of packed red blood cells. Thursday afternoon underwent EGD and was found to have a bleeding gastric ulcer. He underwent sclerotherapy. Initially, it bled with coagulation but then hemostasis was noted afterwards per EGD report. Thursday afternoon, patient was found to have atrial flutter with a heart rate around 150 bpm. IV Cardizem was initiated and has now been discontinued. This morning, he is in normal sinus rhythm, 75 bpm. Patient denies chest pain, heaviness or tightness. He tells me he has known he has had an irregular heart rhythm for approximately 2 years. He was hospitalized in [place] when this occurred. It sounds as if he received DCCV during the hospital stay. He was given an aspirin to take daily. He denies a history of a CVA or TIA. He has not felt his heart racing until he came to the hospital this weekend. He tells me he is lost over 70 pounds over the past few years. He was told he had severe sleep apnea causing congestive heart failure and he needs to lose weight. This morning, I will order an echocardiogram, fasted lipid profile, TSH, and magnesium. He is taking full liquids this morning. I will add short acting Cardizem as his systolic blood pressure is 150s. Holding anticoagulants at this time due to his recent GI bleed. Will further discuss with Dr. Hunter and await additional recommendations. ASSESSMENT/PLAN: 1. ATRIAL FLUTTER WITH RVR - currently normal sinus rhythm. Will initiate short acting Cardizem. Avoiding anticoagulation at this point. 2. ANEMIA - continue to follow closely. 3. GASTRIC ULCER - sclerotherapy was performed during EGD. We will watch closely for recurrent bleeding. 4. HYPERTENSION - adjust medications accordingly during hospital stay 5. UNKNOWN LIPID STATUS - FLP this morning 6. OBESITY - continued weight loss encouraged 7. SLEEP APNEA - using sleep device routinely. CC: Td Spicer MD - Home Medications and Allergies Home Medications: Home Medications Medication Instructions Recorded Confirmed Type Furosemide Tab [Lasix Tab] 40 mg PO BID DIURETIC 02/27/17 02/27/17 History HYDROcodone/ACETAMIN 10-325 [[place] 1 tablet PO Q4H PRN 02/27/17 02/27/17 History 10-325] Lisinopril 40 mg PO DAILY 02/27/17 02/27/17 History Allergies/Adverse Reactions: Allergies Allergy/AdvReac Type Severity Reaction Status Date / Time No Known Allergies Allergy Verified 02/27/17 04:07 Review of systems: REVIEW OF SYSTEMS: - Constitutional Constitutional: Present: Fatigue. Absent: syncope, anorexia, night sweats - EENT Eyes: Absent: blurry vision, loss of vision, diplopia Ears: Absent: decreased hearing, ear pain, ear discharge - Cardiovascular Cardiovascular: Denies chest pain with exertion, dyspnea on exertion. Occasional bilateral lower extremity edema. Absent: chest pain with deep breath , claudication - Respiratory Respiratory: Recent ROWELL, cough. Absent: wheezing, hemoptysis, change in phlegm color - Gastrointestinal Gastrointestinal: Denies constipation. Recent abdominal pain, hematemesis and melena. - Genitourinary Genitourinary: Absent: difficulty urinating, dysuria, urinary hesitancy, flank pain - Musculoskeletal Musculoskeletal: Present: back pain Absent: joint swelling, muscle cramps, muscle weakness - Neurological Neurological: Present: normal gait without frequent falls. Absent: dizziness, hemiparesis - Psychiatric Psychiatric: Absent: anxiety, depression, difficulty concentrating - Endocrine Endocrine: Present: fatigue. Absent: cold intolerance, heat intolerance, polyuria, polyphagia, polydipsia - Hematologic/Lymphatic Hematologic/Lymphatic: Present: easy bruising. Absent: easy bleeding -Integumentary Integumentary: Absent: lesions, rashes, skin breakdown Medical,Surgical,& Family Hx - Medical History Cardio: History of: CHF, Hypertension No history of: CAD, SD Respiratory: History of: Obstructive Sleep Apnea Gastrointestinal: History of: GERD Musculoskeletal: No history of: Amputation - Surgical History Cardiac Surgeries: Patient Denies: Cardiac Catheterization Neurologic Surgeries: Patient denies: Neurologic Surgery HEENT Surgeries: Patient denies: Tonsilectomy & Adenoidectomy Abdominal Surgeries: Surgical HX of: Appendectomy Patient denies: Abdominal Surgery - Family History Family History: Reports;: Family Hypertension - Social History Smoking Status: Never smoker Frequency of Alcohol Use: None Type of Drug Use: None Physical Examination Vital Signs Temp Pulse Resp BP Pulse Ox 97.6 F 105 H 22 83/59 97 02/27/17 03:49 02/27/17 03:49 02/27/17 03:49 02/27/17 03:49 02/27/17 03:49 General: [Appears well with no apparent distress.] [Pleasant and cooperative. ] [Appears comfortable.] HEENT: [PERRL, normocephalic, atraumatic. Mucous membranes moist. No jaundice noted. Conjunctiva moist and clear, sclerae anicteric] Neck: Difficult to assess for JVD due to habitus. No thyromegaly or lymphadenopathy noted. No carotid bruit appreciated Cardiac: [Regular rate and rhythm.] [No obvious murmur rub or gallop.] Lungs: [Clear to auscultation without accessory muscle use to assist the respiratory pattern.] Oxygen in use via nasal cannula as needed Abdomen: Soft, bowel sounds normoactive. Nontender and nondistended. No abdominal bruit or thrill noted. No masses noted. Musculoskeletal: No fluid collection. Decreased range of motion is noted. Extremities: No clubbing, cyanosis noted. [Trace bilateral lower extremity edema noted..] Upper extremity pulses 2+. Lower extremity pulses 2+. Capillary refill less than 3 seconds. Skin: No unusual lesions or rashes. No skin breakdown appreciated. Neuro: Awake, alert and oriented 3. Moves all extremities well without hemiparesis or paralysis. No essential tremor is appreciated. Result/EKG - Labs CBC & BMP: 03/02/17 05:51 03/02/17 03:09 Lab Results: I have reviewed the past 24 hour labs Labs: Laboratory Results - last 24 hr 03/01/17 03/01/17 03/01/17 13:51 22:08 Unknown WBC RBC Hgb 8.1 L 9.2 L Hct 25.6 L 29.6 L MCV MCH MCHC RDW Plt Count MPV Neut % (Auto) Lymph % (Auto) [place] % (Auto) Eos % (Auto) Baso % (Auto) Neut # (Auto) Lymph # (Auto) [place] # (Auto) Eos # (Auto) Baso # (Auto) Immature Gran % Nucleated RBC % Immature Gran # Nucleated RBCs # Sodium Potassium Chloride Carbon Dioxide Anion Gap BUN Creatinine GFR Calculation BUN/Creatinine Ratio Glucose Calculated Osmolality Calcium Blood Type Cancelled Antibody Screen Cancelled Crossmatch See Detail Blood Bank Comment Cancelled 03/02/17 03/02/17 03/02/17 03:09 03:09 03:09 WBC 5.0 RBC 3.22 L Hgb 9.0 L 9.0 L Hct 28.6 L 28.5 L MCV 88.5 MCH 28 MCHC 31.6 L RDW 16.7 Plt Count 267 MPV 9.8 Neut % (Auto) 54.7 Lymph % (Auto) 30.5 [place]ill % (Auto) 9.0 Eos % (Auto) 4.6 Baso % (Auto) 0.2 Neut # (Auto) 2.7 Lymph # (Auto) 1.5 [place] # (Auto) 0.5 Eos # (Auto) 0.2 Baso # (Auto) 0.0 Immature Gran % 1.0 Nucleated RBC % 0.0 Immature Gran # 0.05 Nucleated RBCs # 0.00 Sodium 145 Potassium 3.9 Chloride 109 H Carbon Dioxide 32 Anion Gap 7.9 BUN 7 Creatinine 0.70 GFR Calculation 191 BUN/Creatinine Ratio 10.00 Glucose 86 Calculated Osmolality 284.7 Calcium 8.4 L Blood Type Antibody Screen Crossmatch Blood Bank Comment 03/02/17 05:51 WBC RBC Hgb 9.2 L Hct 29.3 L MCV MCH MCHC RDW Plt Count MPV Neut % (Auto) Lymph % (Auto) Traill % (Auto) Eos % (Auto) Baso % (Auto) Neut # (Auto) Lymph # (Auto) [place]ill # (Auto) Eos # (Auto) Baso # (Auto) Immature Gran % Nucleated RBC % Immature Gran # Nucleated RBCs # Sodium Potassium Chloride Carbon Dioxide Anion Gap BUN Creatinine GFR Calculation BUN/Creatinine Ratio Glucose Calculated Osmolality Calcium Blood Type Antibody Screen Crossmatch Blood Bank Comment - Diagnostic Findings Procedure: Chest x-ray: report reviewed by me - EKG EKG results: interpreted by nh EKG shows: sinus rhythm, atrial fibrillation (Atrial flutter on Thursday)
[2017-03-02] MEDS ORDERED: DILTIAZEM 30 MG TABLET PO SCH (09:00)
[2017-03-02 09:44] LABS: Hematocrit 31.2 VOL% (42.0-52.0); Hemoglobin 9.9 GM/DL (14.0-18.0)
[2017-03-02 10:23] LABS: Risk Ratio 3.65; VLDL CHOLESTEROL 18.4 MG/DL
[2017-03-02 10:29] LABS: Free T4 (Free Thyroxine) 0.86 NG/DL (0.76-1.46); Thyroid Stimulating Hormone 0.69 uIU/ml (0.358-3.74)
[2017-03-02] MEDS ORDERED: DILTIAZEM 30 MG TABLET PO PRN (10:32)
[2017-03-02] MEDS: METOPROLOL SUCCINATE XL 50 MG TABLET PO SCH (11:07)
--- NOTE | 2017-03-02 11:08 | Physician Query Form ---
CLICK EDIT DOCUMENT TO SELECT QUERY ANSWER --> OK --> SIGN Charlene Rivas RN Clinical Access Services Representative W) [phone] (f) [phone] [email or web address]: Make your selection(s) from the choices in EACH section by typing an "x" and enter comments in the comment section. Please use your independent medical judgment in providing your response. This request does not imply that any particular answer is desired or expected. CLINICAL INDICATORS: (Providers should not edit this section) Based on documentation of "Acute upper GI bleed" "Very large bright red bloody BM this AM and afterwards noted to be confused and disoriented. PAINTER SHIPYARD called. BP noted to be 60's systolic" "NS was bolus and 2 units PRBC ordered stat" Transfused total of 6PRBC. BP 83/59. HR 105 Please clarify which, if any, of the following is the etiology of the above symptoms and treatment rendered: ( ) Hypovolemic shock ( ) Septic shock ( ) Cardiogenic shock ( x) Hemorrhagic shock ( ) Traumatic shock ( ) Shock due to, please specify etiology: ( ) Shock, unknown etiology ( ) Drug induced, please specify substance: ( ) Iatrogenic Hypotension ( ) Orthostatic Hypotension ( ) Hypotension, unknown etiology ( ) Other, please specify: ( ) Clinically unable to determine COMMENTS: PLEASE ALSO DOCUMENT RESPONSE IN PROGRESS NOTES AND/OR DISCHARGE SUMMARY Use of terms such as suspected, likely, or probable (associated with a specific diagnosis that is being evaluated, monitored, or treated as if it exists) are acceptable and can be restated in the discharge summary if not ruled out. MTDD
--- NOTE | 2017-03-02 11:53 | Hospitalist Progress Note ---
Assessment and Plan (1) Upper GI bleed Status: Acute Assessment and plan: Gastric ulcer with visible vessel on EGD Current Visit: Yes (2) Symptomatic anemia Status: Acute Current Visit: Yes (3) Gastric ulcer Status: Acute Assessment and plan: With visible vessel on EGD. S/p repair by GI Still with some blood in his stool Required transfusion yesterday GI following Current Visit: Yes (4) Blood loss anemia Status: Acute Current Visit: Yes (5) Tachycardia Status: Acute Assessment and plan: Cardiology assisting Started metoprolol today has dilt prn Checking echo, tfts Current Visit: Yes Hospitalist: Subjective Interval history: Yesterday patient with episode of tachycardia up to 180. He was given dilt and transferred to the ICU. He was transfused 2 units PRBCs due to drop in H/H. Cardiology was consulted. HR this am is controlled. Started on metoprolol with dilt prn. Will transfer him to the telemetry floor today. He does report a small amount of blood in his stools yesterday. Exam - Constitutional Vitals: Period Temp Pulse Resp BP Sys/Watson Pulse Ox Last 24 Hr 96.9 F-98.9 F 67-90 17-22 109-160/56-100 91-100 General appearance: over weight - Head Head exam: Present: normocephalic, atraumatic - Eye Eye exam: Present: EOMI Pupils: Present: CRIS - ENT ENT exam: Present: normal exam - Neck Neck exam: Present: normal inspection - Respiratory Respiratory exam: Present: clear to auscultation bilaterally. Absent: rhonchi, wheezes - Cardiovascular Cardiovascular exam: Present: regular rate and rhythm - GI/Abdominal GI/Abdominal exam: Present: normal bowel sounds, soft. Absent: tenderness, rebound - Extremities Exam Extremities exam: Present: normal inspection - Back Exam Back exam: Present: normal inspection - Neurological Exam Neurological exam: Present: alert, oriented X3 - Psychiatric Psychiatric exam: Present: normal affect, normal mood - Skin Skin exam: Present: warm, intact Results - Labs CBC & BMP: 03/02/17 09:33 03/02/17 03:09
--- NOTE | 2017-03-02 12:57 | Gastrointestinal Progress Note ---
Assessment and Plan (1) GI bleed Status: Acute Assessment and plan: 03/02-hemoglobin stable at 9.0. Total of 6 units of packed red blood cells transfused since admission. Small amount of hematochezia yesterday. To be transferred to telemetry today. Plan an addendum to followed by Dr. Morataya. 02/27-several day history of abdominal pain/discomfort with onset of hematemesis morning and episode of large amount of hematochezia now, symptomatic with hypotension and syncope. Hemoglobin 8.19 on admission now to 7.6. Discussed with Dr. Morataya. Plan for EGD today to further evaluate. Further plan and addendum followed by Dr. Morataya Current Visit: Yes Gastroenterology - PN: Subj Interval history: CC: GI bleed Patient is seen awake and alert. States he is feeling some better. Denies any abdominal pain. He did report having one small episode of some bright red blood on yesterday but has had no further overt bleeding since this time. He has had 2 bowel movements this morning. Hemoglobin is holding stable at 9.9. He has had a total of 6 units of blood since admission with 2 units transfused yesterday following a drop in his hemoglobin. Denies any nausea or vomiting. Abdomen is soft, nontender. ROS: Denies shortness of breath or chest pain Exam (Progress Note) - Constitutional Vitals: Period Temp Pulse Resp BP Sys/Watson Pulse Ox Last 24 Hr 96.9 F-98.8 F 67-90 17-22 109-186/56-100 91-100 General appearance: normal weight, no acute distress - Head Head exam: Present: normal inspection, normocephalic - Eye Eye exam: Present: other (Lids and conjunctive are unremarkable). Absent: scleral icterus - ENT ENT exam: Present: normal exam, normal oropharynx - Neck Neck exam: Present: normal inspection - Respiratory Respiratory exam: Present: clear to auscultation bilaterally. Absent: rales, rhonchi, wheezes - Cardiovascular Cardiovascular exam: Present: regular rate and rhythm. Absent: diastolic murmur , JVD, systolic murmur - GI/Abdominal GI/Abdominal exam: Present: normal bowel sounds, soft. Absent: ascites, distended, mass, organomegaly, tenderness - Extremities Exam Extremities exam: Present: normal inspection, full ROM - Back Exam Back exam: Present: normal inspection - Neurological Exam Neurological exam: Present: alert, oriented X3 - Psychiatric Psychiatric exam: Present: normal affect, normal mood - Skin Skin exam: Present: normal color, warm, dry Results - Labs CBC & BMP: 03/02/17 09:33 03/02/17 03:09 Lab Results: I have reviewed the past 24 hour labs
[2017-03-02] MEDS: SODIUM CHLORIDE 0.9% 1,000 ML IV SCH (13:15)
--- NOTE | 2017-03-02 19:11 | ECHO Report ---
Richard Hector Exam Date: 03/02/2017 10:36 Referring Physician: Technologist: Anabela Rodriguez Age: 61 Ht (in): 74 Wt (lb): 362 Gender: M Exam Location: [facility] Echo Indications: Atrial flutter, GI Bleed BP: 141 / 78 HR: 69 Rhythm: Atrial flutter Technical Quality: Poor IMPRESSIONS Normal LV systolic function, ejection fraction 65%. Grade 1/4 diastolic dysfunction. Mild concentric left ventricular hypertrophy. Mild biatrial enlargement. Right ventricular dilation with right ventricular hypokinesis. Mild tricuspid regurgitation. Trace to mild mitral regurgitation. Mild pulmonary hypertension. MEASUREMENTS (Male / Female) Normal Values 2D ECHO LV Diastolic Diameter PLAX 4.6 cm 4.2 - 5.9 / 3.9 - 5.3 cm LV Systolic Diameter PLAX 4.0 cm LV Fractional Shortening PLAX 11.2 % IVS Diastolic Thickness 1.2 cm 0.6 - 1.0 / 0.6 - 0.9 cm LVPW Diastolic Thickness 1.4 cm 0.6 - 1.0 / 0.6 - 0.9 cm RV Internal Dim ED PLAX 3.7 cm Aortic Root Diameter 3.7 cm LA Systolic Diameter LX 4.7 cm 3.0 - 4.0 / 2.7 - 3.8 cm DOPPLER TR Peak Velocity 304.0 cm/s TR Peak Gradient 37.0 mmHg FINDINGS Left Ventricle Normal left ventricular cavity size. Mild left ventricular hypertrophy. Left ventricular ejection fraction is estimated at 65%. Right Ventricle The right ventricle is mildly dilated and hypokinetic. Right Atrium The right atrium is mildly enlarged. Left Atrium Mildly enlarged. Mitral Valve Mildly thickened mitral valve. Trace to mild mitral valve regurgitation. Aortic Valve Morphologically normal aortic valve without significant sclerosis or stenosis. There is no aortic regurgitation. Tricuspid Valve Morphologically normal tricuspid valve. Mild tricuspid valve regurgitation. Tricuspid regurgitation velocities suggest a PAP of 47 mmHg. Pulmonic Valve Morphologically normal pulmonic valve without significant stenosis. There is no pulmonic regurgitation. Pericardium Normal pericardium without effusion. Aorta Normal ascending aorta dimension. Alison Boone MD (Electronically Signed) Final Date: 02 Mar 2017 19:09
[2017-03-02] MEDS: PANTOPRAZOLE 40 MG TABLET PO SCH (20:44)
[2017-03-02] MEDS ORDERED: PANTOPRAZOLE 40 MG VIAL IV SCH (21:00)
[2017-03-03 08:52] LABS: Basophils % 0.3 % (0.0-0.8); Eosinophils # 0.2 10*3/uL (0.0-0.87); Eosinophils % 2.3 % (0.00-10.9); Hematocrit 30.6 VOL% (42.0-52.0); Hemoglobin 9.7 GM/DL (14.0-18.0); Immature Granulocytes % 0.9 %; Immature Granulocytes Absolute 0.06 #; Lymphocytes # 0.9 10*3/uL (1.4-4.0); Lymphocytes % 13.3 % (21.2-54.2); Mean Corpuscular HGB Conc 31.7 GM/DL (32-36); Mean Corpuscular Hemoglobin 28 PG (27-34); Mean Corpuscular Volume 88.4 FL (87-102); Mean Platelet Volume 9.8 FL (9.6-12.0); Monocytes # 0.5 10*3/uL (0.11-0.8); Neutrophils # 4.9 10*3/uL (1.4-7.4); Neutrophils % 75.2 % (38.7-73.9); Platelet Count 306 T/CUMM (130-400); Red Blood Count 3.46 MC/CUMM (3.8-5.5); Red Cell Distribution Width 16.6 % (9.3-17.3); White Blood Count 6.5 T/CUMM (4-12)
[2017-03-03] MEDS: PANTOPRAZOLE 40 MG TABLET PO SCH ×2 (09:02→20:44)
[2017-03-03] MEDS: METOPROLOL SUCCINATE XL 50 MG TABLET PO SCH (09:02)
[2017-03-03 09:45] LABS: Calcium 8.9 MG/DL (8.5-10.1); Free T4 (Free Thyroxine) 1.02 NG/DL (0.76-1.46); Osmolality,Calculated 283.7 MOS/KG (273-304); Potassium 4.1 MMOL/L (3.5-5.1); Thyroid Stimulating Hormone 0.998 uIU/ml (0.358-3.74)
--- NOTE | 2017-03-03 10:33 | Gastrointestinal Progress Note ---
Assessment and Plan (1) GI bleed Status: Acute Assessment and plan: 03/03-hemoglobin stable at 9.7. No overt bleeding. Tolerating diet. Okay to discharge from GI standpoint. Plan an addendum to followed by Dr. Morataya 03/02-hemoglobin stable at 9.0. Total of 6 units of packed red blood cells transfused since admission. Small amount of hematochezia yesterday. To be transferred to telemetry today. Plan an addendum to followed by Dr. Morataya. 02/27-several day history of abdominal pain/discomfort with onset of hematemesis morning and episode of large amount of hematochezia now, symptomatic with hypotension and syncope. Hemoglobin 8.19 on admission now to 7.6. Discussed with Dr. Morataya. Plan for EGD today to further evaluate. Further plan and addendum followed by Dr. Morataya Current Visit: Yes Gastroenterology - PN: Subj Interval history: CC: Upper GI bleed Patient is seen awake alert sitting on side of bed. States he had a restful night. Denies any nausea, vomiting or abdominal pain. Denies any overt bleeding. Abdomen is soft, nontender. Hemoglobin is holding at 9.7. He has a good appetite and tolerating his diet well. ROS: Denies shortness of breath or chest pain Exam (Progress Note) - Constitutional Vitals: Period Temp Pulse Resp BP Sys/Watson Pulse Ox Last 24 Hr 97.4 F-98.7 F 54-70 16-21 128-186/73-98 90-99 - Other Additional findings: General appearance: normal weight, no acute distress - Head Head exam: Present: normal inspection, normocephalic - Eye Eye exam: Present: other (Lids and conjunctive are unremarkable). Absent: scleral icterus - ENT ENT exam: Present: normal exam, normal oropharynx - Neck Neck exam: Present: normal inspection - Respiratory Respiratory exam: Present: clear to auscultation bilaterally. Absent: rales, rhonchi, wheezes - Cardiovascular Cardiovascular exam: Present: regular rate and rhythm. Absent: diastolic murmur , JVD, systolic murmur - GI/Abdominal GI/Abdominal exam: Present: normal bowel sounds, soft. Absent: ascites, distended, mass, organomegaly, tenderness - Extremities Exam Extremities exam: Present: normal inspection, full ROM - Back Exam Back exam: Present: normal inspection - Neurological Exam Neurological exam: Present: alert, oriented X3 - Psychiatric Psychiatric exam: Present: normal affect, normal mood - Skin Skin exam: Present: normal color, warm, dry Results - Labs CBC & BMP: 03/03/17 08:25 03/03/17 08:25 Lab Results: I have reviewed the past 24 hour labs
--- NOTE | 2017-03-03 15:11 | Cardiology Progress Note ---
Assessment and Plan - Time spent with patient Time spent with patient: Less than 30 minutes (1) SVT (supraventricular tachycardia) Status: Acute Assessment and plan: SEE PLAN OF CARE LISTED BELOW. Current Visit: Yes (2) Blood loss anemia Status: Acute Assessment and plan: SEE PLAN OF CARE LISTED BELOW. Current Visit: Yes (3) Gastric ulcer Status: Acute Assessment and plan: SEE PLAN OF CARE LISTED BELOW. Current Visit: Yes (4) Hypertension Status: Chronic Assessment and plan: SEE PLAN OF CARE LISTED BELOW. Current Visit: Yes (5) Obesity Status: Chronic Assessment and plan: SEE PLAN OF CARE LISTED BELOW. Current Visit: Yes (6) Sleep apnea Status: Chronic Assessment and plan: SEE PLAN OF CARE LISTED BELOW. 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 Hector, 61BM, has previously been followed by a feather maker in [place], [place] (he does not remember his name) for history of "irregular heart rhythm." Patient was admitted February 27, 2017 with GI bleed. He received several units of packed red blood cells. Thursday afternoon underwent EGD and was found to have a bleeding gastric ulcer. He underwent sclerotherapy. Initially, it bled with coagulation but then hemostasis was noted afterwards per EGD report. Thursday afternoon, he had some hemodynamically stable SVT, EKG morphology suggestive of PAT or macro reentrant SVT. Not typical for atrial flutter or fibrillation. Had symptomatic SVT 2 years ago, which required pharmacological cardioversion. He has had some frequent, asymptomatic PACs but no ACS or CHF. He was started on Toprol XL 50mg PO Daily as well as Cardizem 30mg PO Q6H PRN SVT. Rhythm has been stable throughout the day. FLP was checked and revealed triglycerides 92, cholesterol 124, LDL 78, HDL 34. Echocardiogram was done and revealed EF 65% with grade I/IV diastolic dysfunction, mild LVH, mild biatrial enlargement, mild TR, trace to mild MR, mild pulmonary hypertension. He reports he is feeling much better today. ASSESSMENT/PLAN: 1. SVT - currently normal sinus rhythm. He has been started on Toprol XL. His arrhythmia is morphologically more suggestive of SVT/AT than atrial fibrillation or flutter. He would not be a candidate for anticoagulation at this time, due to acute GI bleed, anemia. We will continue to monitor and replete electrolytes. 2. ANEMIA - continue to follow closely. 3. GASTRIC ULCER - sclerotherapy was performed during EGD. We will watch closely for recurrent bleeding. 4. HYPERTENSION - adjust medications accordingly during hospital stay 5. OBESITY - continued weight loss encouraged 6. SLEEP APNEA - using sleep device routinely. Exam (Progress Note) - Constitutional Vitals: Period Temp Pulse Resp BP Sys/Watson Pulse Ox Last 24 Hr 97.8 F-98.8 F 54-70 16-20 128-163/76-98 90-99 Exam: General: [Appears well with no apparent distress.] [Pleasant and cooperative. ] [Appears comfortable.] HEENT: [PERRL, normocephalic, atraumatic. Mucous membranes moist. No jaundice noted. Conjunctiva moist and clear, sclerae anicteric] Neck: Difficult to assess for JVD due to habitus. No thyromegaly or lymphadenopathy noted. No carotid bruit appreciated Cardiac: [Regular rate and rhythm.] [No obvious murmur rub or gallop.] Lungs: [Clear to auscultation without accessory muscle use to assist the respiratory pattern.] Oxygen in use via nasal cannula as needed Abdomen: Soft, bowel sounds normoactive. Nontender and nondistended. No abdominal bruit or thrill noted. No masses noted. Musculoskeletal: No fluid collection. Decreased range of motion is noted. Extremities: No clubbing, cyanosis noted. [Trace bilateral lower extremity edema noted..] Upper extremity pulses 2+. Lower extremity pulses 2+. Capillary refill less than 3 seconds. Skin: No unusual lesions or rashes. No skin breakdown appreciated. Neuro: Awake, alert and oriented 3. Moves all extremities well without hemiparesis or paralysis. No essential tremor is appreciated. Result/EKG - Labs CBC & BMP: 03/03/17 08:25 03/03/17 08:25 Lab Results: I have reviewed the past 24 hour labs Labs: Laboratory Results - last 24 hr 03/03/17 03/03/17 03/03/17 07:08 08:25 08:25 WBC 6.5 RBC 3.46 L Hgb 9.7 L Hct 30.6 L MCV 88.4 MCH 28 MCHC 31.7 L RDW 16.6 Plt Count 306 MPV 9.8 Neut % (Auto) 75.2 H Lymph % (Auto) 13.3 L Bartholomew % (Auto) 8.0 Eos % (Auto) 2.3 Baso % (Auto) 0.3 Neut # (Auto) 4.9 Lymph # (Auto) 0.9 L Bartholomew # (Auto) 0.5 Eos # (Auto) 0.2 Baso # (Auto) 0.0 Immature Gran % 0.9 Nucleated RBC % 0.0 Immature Gran # 0.06 Nucleated RBCs # 0.00 Sodium 145 Potassium 4.1 Chloride 106 Carbon Dioxide 34 H Anion Gap 9.1 BUN 5 L Creatinine 0.70 GFR Calculation 191 BUN/Creatinine Ratio 7.00 Glucose 86 POC Glucose 94 Hemoglobin A1c Calculated Osmolality 283.7 Calcium 8.9 Magnesium 2.0 Free T4 TSH 3rd Generation 03/03/17 03/03/17 03/03/17 08:25 08:25 11:52 WBC RBC Hgb Hct MCV MCH MCHC RDW Plt Count MPV Neut % (Auto) Lymph % (Auto) Bartholomew % (Auto) Eos % (Auto) Baso % (Auto) Neut # (Auto) Lymph # (Auto) Bartholomew # (Auto) Eos # (Auto) Baso # (Auto) Immature Gran % Nucleated RBC % Immature Gran # Nucleated RBCs # Sodium Potassium Chloride Carbon Dioxide Anion Gap BUN Creatinine GFR Calculation BUN/Creatinine Ratio Glucose POC Glucose 127 H Hemoglobin A1c 6.0 Calculated Osmolality Calcium Magnesium Free T4 1.02 TSH 3rd Generation 0.998 - EKG EKG results: interpreted by me, sinus rhythm
--- NOTE | 2017-03-03 15:38 | Hospitalist Progress Note ---
Hospitalist: Subjective Interval history: No cp, sob, lightheadedness or dizziness. ambulating without difficulty. No nausea, vomiting. Tolerating po. No abd pain. No melena or brbpr. Pt states he just does not feel he is ready for dc. Exam - Constitutional Vitals: Period Temp Pulse Resp BP Sys/Watson Pulse Ox Last 24 Hr 97.8 F-98.8 F 54-70 16-20 128-163/76-98 90-99 Exam: A and O x 3, chronically ill appearing RRR no M CTAB nonlabored Soft, NT, ND, +BS Warm no c/c/e Results - Labs CBC & BMP: 03/03/17 08:25 03/03/17 08:25 - Impressions (1) Upper GI bleed due to gastric ulcer s/p EGD and sclerotherapy Status: Acute Assessment and plan: Current Visit: Yes - PPI. GI has cleared for DC as H and H stable. (2) Acute blood loss anemia due to GIB Status: Acute Current Visit: Yes - a/p transfusion 03/01. H and H stable. Avoid NSAIDS, ASA, or blood thinners. (3) Supraventricular Tachycardia Status: Acute Assessment and plan: Cardiology following Cont metoprolol today has dilt prn Echo showed grade 1/4 diastolic dysfunction. TSH wnl. Current Visit: Yes (4) Essential HTN- relatively controlled. (5) Obesity- recommend dietary and physical activity modifications (6) JACK -DC home in am if cards agrees. Needs CBC in 1 week.
[2017-03-03] MEDS: guaiFENesin 200 MG/10 ML UDCUP PO PRN (21:34)
[2017-03-04 07:28] LABS: Basophils % 0.3 % (0.0-0.8); Eosinophils # 0.2 10*3/uL (0.0-0.87); Eosinophils % 2.2 % (0.00-10.9); Hematocrit 31.2 VOL% (42.0-52.0); Hemoglobin 10.2 GM/DL (14.0-18.0); Immature Granulocytes % 0.6 %; Immature Granulocytes Absolute 0.04 #; Lymphocytes # 1.1 10*3/uL (1.4-4.0); Lymphocytes % 14.8 % (21.2-54.2); Mean Corpuscular HGB Conc 32.7 GM/DL (32-36); Mean Corpuscular Hemoglobin 29 PG (27-34); Mean Corpuscular Volume 87.4 FL (87-102); Mean Platelet Volume 9.6 FL (9.6-12.0); Monocytes # 0.7 10*3/uL (0.11-0.8); Monocytes % 9.2 % (1.7-12.7); NRBC # 0.02 10*3/uL; Neutrophils # 5.2 10*3/uL (1.4-7.4); Neutrophils % 72.9 % (38.7-73.9); Platelet Count 328 T/CUMM (130-400); Red Blood Count 3.57 MC/CUMM (3.8-5.5); Red Cell Distribution Width 16.5 % (9.3-17.3); White Blood Count 7.2 T/CUMM (4-12)
[2017-03-04 07:53] LABS: Calcium 8.9 MG/DL (8.5-10.1); Magnesium 2.1 MG/DL (1.8-2.4); Osmolality,Calculated 286.6 MOS/KG (273-304); Potassium 3.9 MMOL/L (3.5-5.1)
[2017-03-04] MEDS ORDERED: METOPROLOL SUCCINATE XL 50 MG TABLET PO SCH (09:00)
[2017-03-04] MEDS: PANTOPRAZOLE 40 MG TABLET PO SCH (09:38)
--- NOTE | 2017-03-04 12:49 | Discharge Summary ---
Hospital Course - Hospital Course Hospital Course: Patient is a 61-year-old -[place] male with a history of diastolic dysfunction who presented to the hospital with a chief complaint of dark stools , hematemesis, and abdominal pain. Serial H&H's were done. He was transfused 2 units of packed red blood cells on 03/01. He was also treated with IV Protonix every 12. GI was consulted to assist with his management. He underwent an EGD with sclerotherapy by GI. Once. Patient was noted to be hemodynamically stable and H&H was stable GI has cleared him for discharge. He was instructed to avoid any NSAIDs, aspirin, or blood thinners. While hospitalized patient developed supraventricular tachycardia. Cardiology was consulted. Cardiac enzymes were unremarkable. He was started on metoprolol scheduled and diltiazem as needed. Echocardiogram showed grade 1 out of 4 diastolic dysfunction. TSH was within normal limits. Electrolytes were replaced as needed. I suspect he has obstructive sleep apnea and needs an outpatient sleep study with CPAP at night. His home Lasix was changed to as needed for edema and patient instructed to weigh himself daily and if his weight increases or decreases by more than 3 pounds he was notified to call his primary care provider. Once he was cleared by all consultants, patient was discharged to home for ongoing care with recommendations for CBC in approximately 1 week. - Time spent with patient Time with patient DS: Greater than 30 minutes (35 minutes to arrange this discharge) Specialty Discharge - Follow Up or Referrals Follow up with: , PCP [Other] - 03/12/17 1:30 pm (appt with Dr. Rocky Benson on March 12 at 1:30 with lab work (CBC and BMP)) Wade Hunter MD [Physician] - 1 Month (follow up with your regular experience specialist Steve Keith on March 19 at 9:30 AM. Be sure to get a medicaid referral number from Dr. Benson before you go; Dr. Keith will need that before he can see you.) Vikram Morataya MD [Physician] - 1 Month (When you see Dr. Benson on March 12 ask him to refer you to a local fiberglass autobody repairer for follow up.) Clementine Cuba MD [Physician] - 03/30/17 2:15 pm (appt with Dr. Cuba to be evaluated for sleep study) Isidro Jolley MD [Physician] - 2 Weeks (for outpatient sleep study with titration) Discharge Plan - Discharge Data Disposition: Disch To Home/Self Care Condition at Discharge: Stable Discharge Diet: other (soft, cardiac diet) Activity: other (Weigh self daily. If weight increases or decreases by more than 3 pounds, notify MD) Weight Bearing at Discharge: full weight bearing Contact your physician if you experience:: fever over 101, Difficulty voiding, Redness or swelling, Nausea/Vomiting, Shortness of breath, Bleeding, pain uncontrolled by pain medications - Discharge Medications New Metoprolol Succinate Xl [Toprol Xl] 50 mg PO BID #60 tablet Pantoprazole Tab [Protonix Tab] 40 mg PO BID #60 tablet Continue Lisinopril 40 mg PO DAILY HYDROcodone/ACETAMIN 10-325 [Evans 10-325] 1 tablet PO Q4H PRN PRN Reason: Pain Changed Furosemide Tab [Lasix Tab] 40 mg PO BID DIURETIC PRN #0 PRN Reason: Edema - Follow Up or Referral Follow Up: , PCP [Other] - 03/12/17 1:30 pm (appt with Dr. Rocky Benson on March 12 at 1:30 with lab work (CBC and BMP)) Wade Hunter MD [Physician] - 1 Month (follow up with your regular experience specialist Steve Keith on March 19 at 9:30 AM. Be sure to get a medicaid referral number from Dr. Benson before you go; Dr. Keith will need that before he can see you.) Vikram Morataya MD [Physician] - 1 Month (When you see Dr. Benson on March 12 ask him to refer you to a local fiberglass autobody repairer for follow up.) Clementine Cuba MD [Physician] - 03/30/17 2:15 pm (appt with Dr. Cuba to be evaluated for sleep study) Isidro Jolley MD [Physician] - 2 Weeks (for outpatient sleep study with titration) - Forms/Instructions Instructions: Supraventricular Tachycardia (DC), Gastrointestinal Bleeding (DC) Additional Discharge Instructions: cbc, bmp in 1 week Exam - Constitutional Vitals: Period Temp Pulse Resp BP Sys/Watson Pulse Ox Last 24 Hr 97.8 F-99.3 F 62-68 16-22 131-170/69-88 90-100 Exam: Please see physical exam from 03/03/2017 as the physical exam is currently unchanged Discharge Results Procedures and tests throughout hospitalization: Pending Orders 03/05/17 04:00 BMP w/ Mg [Basic Metabolic Panel w/Mg] IN AM CBC [Comp Blood Count Auto Diff] IN AM 03/06/17 04:00 BMP w/ Mg [Basic Metabolic Panel w/Mg] IN AM CBC [Comp Blood Count Auto Diff] IN AM Labs on day of discharge: Labs from last 24 hours 03/04/17 03/04/17 07:20 07:20 WBC 7.2 RBC 3.57 L Hgb 10.2 L Hct 31.2 L MCV 87.4 MCH 29 MCHC 32.7 RDW 16.5 Plt Count 328 MPV 9.6 Neut % (Auto) 72.9 Lymph % (Auto) 14.8 L Moore % (Auto) 9.2 Eos % (Auto) 2.2 Baso % (Auto) 0.3 Neut # (Auto) 5.2 Lymph # (Auto) 1.1 L Moore # (Auto) 0.7 Eos # (Auto) 0.2 Baso # (Auto) 0.0 Immature Gran % 0.6 Nucleated RBC % 0.3 Immature Gran # 0.04 Nucleated RBCs # 0.02 Sodium 146 H Potassium 3.9 Chloride 106 Carbon Dioxide 34 H Anion Gap 9.9 BUN 5 L Creatinine 0.80 GFR Calculation 181 BUN/Creatinine Ratio 6.00 Glucose 90 Calculated Osmolality 286.6 Calcium 8.9 Magnesium 2.1 DS: Provider Date of admission: 02/27/17 05:18 Primary care physician: . No PCP Attending physician on admission: Yimi Jackson MD Consults: 03/01/17 13:24 Consult to Physician [CONS] Routine Comment: atrial flutter RVR paroxysmal Consulting Provider: Migel Perez Consulting Provider Notified: Yes Consult to Specialist Group: Cardiology When should Consulting Provider be notified: Now Person Notified: Dr. Perez Date Notified: 03/01/17 Time Notified: 13:45 Discharging clinician: Adela Canales MD
--- NOTE | 2017-03-04 13:04 | Cardiology Progress Note ---
Assessment and Plan - Time spent with patient Time spent with patient: Less than 30 minutes (1) SVT (supraventricular tachycardia) Status: Acute Assessment and plan: SEE PLAN OF CARE LISTED BELOW. Current Visit: Yes (2) Blood loss anemia Status: Acute Assessment and plan: SEE PLAN OF CARE LISTED BELOW. Current Visit: Yes (3) Gastric ulcer Status: Acute Assessment and plan: SEE PLAN OF CARE LISTED BELOW. Current Visit: Yes (4) Hypertension Status: Chronic Assessment and plan: SEE PLAN OF CARE LISTED BELOW. Current Visit: Yes (5) Obesity Status: Chronic Assessment and plan: SEE PLAN OF CARE LISTED BELOW. Current Visit: Yes (6) Sleep apnea Status: Chronic Assessment and plan: SEE PLAN OF CARE LISTED BELOW. 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 Hector, 61BM, has previously been followed by a it consultant in [place], [place] (he does not remember his name) for history of "irregular heart rhythm." Patient was admitted February 27, 2017 with GI bleed. He received several units of packed red blood cells. Thursday afternoon underwent EGD and was found to have a bleeding gastric ulcer. He underwent sclerotherapy. Initially, it bled with coagulation but then hemostasis was noted afterwards per EGD report. Thursday afternoon, he had some hemodynamically stable SVT, EKG morphology suggestive of PAT or macro reentrant SVT. Not typical for atrial flutter or fibrillation. Had symptomatic SVT 2 years ago, which required pharmacological cardioversion. He has had some frequent, asymptomatic PACs but no ACS or CHF. He was started on Toprol XL 50mg PO Daily as well as Cardizem 30mg PO Q6H PRN SVT. Rhythm has been stable throughout the day. FLP was checked and revealed triglycerides 92, cholesterol 124, LDL 78, HDL 34. Echocardiogram was done and revealed EF 65% with grade I/IV diastolic dysfunction, mild LVH, mild biatrial enlargement, mild TR, trace to mild MR, mild pulmonary hypertension. He reports he is feeling much better. He is being discharged home today. Agree with resuming Lasix and Lisinopril at discharge as his blood pressure has been borderline hypertensive yesterday afternoon and today. I instructed patient he is to check his blood pressure daily since starting new medication (Toprol XL). He needs to follow up with his PCP in 1 week with CBC, BMP. He also needs to follow up with his it consultant in [place], [place] in 2 weeks. ASSESSMENT/PLAN: 1. SVT - currently normal sinus rhythm. He has been started on Toprol XL. His arrhythmia is morphologically more suggestive of SVT/AT than atrial fibrillation or flutter. He would not be a candidate for anticoagulation at this time, due to acute GI bleed, anemia. We will continue to monitor and replete electrolytes. 2. ANEMIA - continue to follow closely. 3. GASTRIC ULCER - sclerotherapy was performed during EGD. We will watch closely for recurrent bleeding. 4. HYPERTENSION - adjust medications accordingly during hospital stay 5. OBESITY - continued weight loss encouraged 6. SLEEP APNEA - using sleep device routinely. Exam (Progress Note) - Constitutional Vitals: Period Temp Pulse Resp BP Sys/Watson Pulse Ox Last 24 Hr 97.8 F-99.3 F 62-68 16-22 131-170/69-88 90-100 Exam: General: [Appears well with no apparent distress.] [Pleasant and cooperative. ] [Appears comfortable.] HEENT: [PERRL, normocephalic, atraumatic. Mucous membranes moist. No jaundice noted. Conjunctiva moist and clear, sclerae anicteric] Neck: Difficult to assess for JVD due to habitus. No thyromegaly or lymphadenopathy noted. No carotid bruit appreciated Cardiac: [Regular rate and rhythm.] [No obvious murmur rub or gallop.] Lungs: [Clear to auscultation without accessory muscle use to assist the respiratory pattern.] Oxygen in use via nasal cannula as needed Abdomen: Soft, bowel sounds normoactive. Nontender and nondistended. No abdominal bruit or thrill noted. No masses noted. Musculoskeletal: No fluid collection. Decreased range of motion is noted. Extremities: No clubbing, cyanosis noted. [Trace bilateral lower extremity edema noted..] Upper extremity pulses 2+. Lower extremity pulses 2+. Capillary refill less than 3 seconds. Skin: No unusual lesions or rashes. No skin breakdown appreciated. Neuro: Awake, alert and oriented 3. Moves all extremities well without hemiparesis or paralysis. No essential tremor is appreciated. Result/EKG - Labs CBC & BMP: 03/04/17 07:20 03/04/17 07:20 Lab Results: I have reviewed the past 24 hour labs Labs: Laboratory Results - last 24 hr 03/04/17 03/04/17 07:20 07:20 WBC 7.2 RBC 3.57 L Hgb 10.2 L Hct 31.2 L MCV 87.4 MCH 29 MCHC 32.7 RDW 16.5 Plt Count 328 MPV 9.6 Neut % (Auto) 72.9 Lymph % (Auto) 14.8 L [place] % (Auto) 9.2 Eos % (Auto) 2.2 Baso % (Auto) 0.3 Neut # (Auto) 5.2 Lymph # (Auto) 1.1 L [place] # (Auto) 0.7 Eos # (Auto) 0.2 Baso # (Auto) 0.0 Immature Gran % 0.6 Nucleated RBC % 0.3 Immature Gran # 0.04 Nucleated RBCs # 0.02 Sodium 146 H Potassium 3.9 Chloride 106 Carbon Dioxide 34 H Anion Gap 9.9 BUN 5 L Creatinine 0.80 GFR Calculation 181 BUN/Creatinine Ratio 6.00 Glucose 90 Calculated Osmolality 286.6 Calcium 8.9 Magnesium 2.1 - EKG EKG results: interpreted by me, sinus rhythm Specialty Discharge - Follow Up or Referrals Follow up with: md, PCP [Other] - 1 Week Wade Hunter MD [Physician] - 1 Month Vikram Morataya MD [Physician] - 1 Month Isidro Jolley MD [Physician] - 2 Weeks (for outpatient sleep study with titration)
[2017-03-04 17:06] VITALS: BP 147/96
== END 2017-03-04 18:20 | disposition home or self-care (01) | DRG 377 ==
LOC: EDBD → EDUNIT# → N.ED 03:49 → SUATTDRO 05:07 → N.EDINP 05:07 → SUATTDRO 05:18 → N.2E 05:46 → N.ICU 10:07 → N.2E 02-28 16:41 → N.ICU 03-01 13:30 → N.TELEN 03-02 12:59
PROVIDERS: ADMIT Family Medicine; ATTEND Pediatrics

== ENCOUNTER 2020-11-10 11:46 | Inpatient (IN) ==
[2020-11-10] MEDS ORDERED: FUROSEMIDE 40 MG/4 ML VIAL IV STA (12:04)
[2020-11-10 13:07] LABS: Basophils % 0.5 % (0.0-0.8); Eosinophils % 0.5 % (0.00-10.9); Hematocrit 39.2 VOL% (42.0-52.0); Hemoglobin 12.4 GM/DL (14.0-18.0); Immature Granulocytes % 0.6 %; Immature Granulocytes Absolute 0.04 #; Lymphocytes # 0.7 10*3/uL (1.4-4.0); Lymphocytes % 10.2 % (21.2-54.2); Mean Corpuscular HGB Conc 31.6 GM/DL (32-36); Mean Corpuscular Volume 91.8 FL (87-102); Mean Platelet Volume 10.2 FL (9.6-12.0); Monocytes % 15.9 % (1.7-12.7); Neutrophils % 72.3 % (38.7-73.9); Platelet Count 334 T/CUMM (130-400); Red Blood Count 4.27 MC/CUMM (3.8-5.5); Red Cell Distribution Width 17.9 % (9.3-17.3); White Blood Count 6.7 T/CUMM (4-12)
[2020-11-10 13:15] LABS: INR 1.3; PT Patient Result 13.5 SECS (9.8-11.9)
[2020-11-10 13:25] LABS: CKMB % 1.2 %; Troponin I 0.029 NG/ML (0.00-0.045)
[2020-11-10 13:33] LABS: Bilirubin,Total 2.2 MG/DL (0.2-1.0); Calcium 8.9 MG/DL (8.5-10.1); Osmolality,Calculated 273.8 MOS/KG (273-304); Potassium 4.3 MMOL/L (3.5-5.1); Total Protein 6.6 G/DL (6.4-8.3)
[2020-11-10] MEDS ORDERED: VANCOMYCIN INJ 1,500 MG in SODIUM CHLORIDE 0.9% 500 ML IV STA (13:51)
[2020-11-10 14:17] LABS: Band Neutrophils 1 % (0-10); Eosinophils 3 % (0-10); Hypochromasia 1+; Lymphocytes 9 % (20-55); Platelet Estimate Normal; Polychromasia Slight; Segmented Neutrophils 73 % (50-85); Total Cells Counted 100
[2020-11-10] MEDS ORDERED: METOPROLOL TARTRATE 50 MG TABLET PO STA (14:33)
[2020-11-10] MEDS ORDERED: GLUCAGON 1 MG VIAL IM PRN (14:48)
[2020-11-10] MEDS ORDERED: DEXTROSE 50% 25 GM/50 ML VIAL IV PRN (14:48)
[2020-11-10] MEDS ORDERED: DOCUSATE SODIUM 100 MG CAPSULE PO PRN (14:48)
[2020-11-10] MEDS ORDERED: ONDANSETRON 4 MG/2 ML VIAL IV PRN (14:48)
[2020-11-10] MEDS ORDERED: MAGNESIUM SULF RIDER 2 GM in PREMIX 1 EACH IV ONE (14:57)
[2020-11-10] MEDS ORDERED: ENOXAPARIN 40 MG/0.4 ML SYRINGE SUBCUT SCH (15:00)
[2020-11-10 15:15] LABS: ABG Base Excess 2.4 MMOL/L (-2.5-2.5); ABG HCO3 26.3 MMOL/L (20-26); ABG Oxygen Saturation 90.6 % (95-100); ABG TCO2 31.1 MMOL/L (23-27)
[2020-11-10 15:19] LABS: ABG PCO2 88.2 MM HG (35-48); ABG PH 7.196 (7.35-7.45)
[2020-11-10 15:25] LABS: Thyroid Stimulating Hormone 1.08 uIU/ml (0.358-3.74)
[2020-11-10 16:12] LABS: Hepatitis B Core IgM Quant < 0.05 Index; Hepatitis B Surface Ag Quant < 0.10 Index; Hepatitis B Surface Ag Result Non-Reactive (NonReactive); Hepatitis C Virus Ab Quant 0.06 Index; Hepatitis C Virus Ab Result Non-Reactive (NonReactive)
[2020-11-10] MEDS ORDERED: ENOXAPARIN 150 MG/ML SYRINGE SUBCUT SCH (17:00)
[2020-11-10 17:23] LABS: ABG Base Excess 4.2 MMOL/L (-2.5-2.5); ABG Oxygen Saturation 91.6 % (95-100); ABG PH 7.275 (7.35-7.45); ABG PO2 70.4 MM HG (80-95); ABG TCO2 30.3 MMOL/L (23-27); Allen Test Positive
[2020-11-10 17:27] LABS: ABG PCO2 73.1 MM HG (35-48)
[2020-11-10] MEDS: FUROSEMIDE 40 MG/4 ML VIAL IV SCH (18:36)
[2020-11-10 21:16] LABS: ABG Base Excess 4.1 MMOL/L (-2.5-2.5); ABG HCO3 27.7 MMOL/L (20-26); ABG Oxygen Saturation 79.7 % (95-100); ABG PO2 50.8 MM HG (80-95); ABG TCO2 30.6 MMOL/L (23-27)
[2020-11-10 23:38] LABS: ABG Base Excess 6.3 MMOL/L (-2.5-2.5); ABG HCO3 35.8 MMOL/L (20-26); ABG Oxygen Saturation 88.3 % (95-100); ABG PH 7.275 (7.35-7.45); ABG PO2 61.4 MM HG (80-95); ABG TCO2 38.2 MMOL/L (23-27); Allen Test Positive; Pt O2 Delivery Device BIPAP
[2020-11-11 00:03] LABS: ABG PCO2 78.9 MM HG (35-48)
[2020-11-11] MEDS: hydrALAZINE 25 MG TABLET PO SCH ×4 (00:15→22:33)
[2020-11-11] MEDS: METOPROLOL TARTRATE 50 MG TABLET PO SCH ×3 (00:15→22:33)
[2020-11-11 03:57] LABS: Bilirubin,Urine Negative (Negative); Blood, Urine Negative (Negative); Glucose,Urine (UA) Negative (Negative); Ketones,Urine Negative (Negative); Nitrite,Urine Negative (Negative); Protein,Urine Negative; Urine Appearance CLEAR (Clear); Urine Color Amber (Yellow); Urine Specific Gravity 1.051 (1.001-1.035)
[2020-11-11 07:24] LABS: Basophils % 0.7 % (0.0-0.8); Eosinophils % 0.7 % (0.00-10.9); Hematocrit 41.2 VOL% (42.0-52.0); Hemoglobin 13.5 GM/DL (14.0-18.0); Immature Granulocytes % 0.4 %; Immature Granulocytes Absolute 0.02 #; Lymphocytes # 0.7 10*3/uL (1.4-4.0); Lymphocytes % 12.2 % (21.2-54.2); Mean Corpuscular HGB Conc 32.8 GM/DL (32-36); Mean Corpuscular Volume 87.8 FL (87-102); Mean Platelet Volume 11.4 FL (9.6-12.0); Monocytes % 16.8 % (1.7-12.7); Neutrophils % 69.2 % (38.7-73.9); Platelet Count 146 T/CUMM (130-400); Red Blood Count 4.69 MC/CUMM (3.8-5.5); Red Cell Distribution Width 17.9 % (9.3-17.3); White Blood Count 5.7 T/CUMM (4-12)
[2020-11-11 07:32] LABS: Bilirubin,Direct 1.7 MG/DL (0.0-0.20); Bilirubin,Indirect 1.3 MG/DL (0.0-1.0); Calcium 9.1 MG/DL (8.5-10.1); Osmolality,Calculated 278.5 MOS/KG (273-304); Potassium 4.7 MMOL/L (3.5-5.1); Risk Ratio 7.82; Total Protein 7.2 G/DL (6.4-8.3); VLDL CHOLESTEROL 16.2 MG/DL
[2020-11-11] MEDS: PANTOPRAZOLE 40 MG TABLET PO SCH (08:50)
[2020-11-11] MEDS: FUROSEMIDE 40 MG/4 ML VIAL IV SCH ×2 (08:50→16:29)
[2020-11-11] MEDS: ASPIRIN EC 325 MG TABLET PO SCH (08:50)
[2020-11-11 09:16] LABS: Band Neutrophils 1 % (0-10); Hypochromasia Slight; Lymphocytes 20 % (20-55); Platelet Estimate Adequate; Segmented Neutrophils 63 % (50-85); Total Cells Counted 100
[2020-11-11 11:04] LABS: ABG HCO3 27.8 MMOL/L (20-26); ABG Oxygen Saturation 90.4 % (95-100); ABG PCO2 52.3 MM HG (35-48); ABG PH 7.375 (7.35-7.45); ABG PO2 56.8 MM HG (80-95); ABG TCO2 26.9 MMOL/L (23-27)
[2020-11-11] MEDS: ENOXAPARIN 40 MG/0.4 ML SYRINGE SUBCUT SCH (11:50)
[2020-11-11 16:18] LABS: ABG Base Excess 6.2 MMOL/L (-2.5-2.5); ABG HCO3 29.9 MMOL/L (20-26); ABG Oxygen Saturation 90.9 % (95-100); ABG PCO2 58.3 MM HG (35-48); ABG PH 7.368 (7.35-7.45); ABG PO2 64.5 MM HG (80-95); ABG TCO2 29.6 MMOL/L (23-27); Allen Test Positive; Pt O2 Delivery Device Room Air
[2020-11-11] MEDS ORDERED: POTASSIUM CHLORIDE 20 MEQ TABLET PO PRN (21:05)
[2020-11-11] MEDS ORDERED: POTASSIUM CHLORIDE RIDER 10 MEQ in PREMIX 1 EACH IV PRN (21:05)
[2020-11-11] MEDS: lisinopriL 20 MG TABLET PO SCH (22:29)
[2020-11-12 04:01] LABS: ABG Base Excess 5.5 MMOL/L (-2.5-2.5); ABG HCO3 31.7 MMOL/L (20-26); ABG Oxygen Saturation 89.8 % (95-100); ABG PCO2 52.7 MM HG (35-48); ABG PH 7.397 (7.35-7.45); ABG PO2 61.5 MM HG (80-95); ABG TCO2 33.3 MMOL/L (23-27); Allen Test Positive; Pt O2 Delivery Device BIPAP
[2020-11-12 05:24] LABS: Basophils # 0.1 10*3/uL (0.0-0.2); Basophils % 0.7 % (0.0-0.8); Eosinophils % 0.1 % (0.00-10.9); Hematocrit 40.8 VOL% (42.0-52.0); Hemoglobin 13.6 GM/DL (14.0-18.0); Immature Granulocytes % 0.4 %; Immature Granulocytes Absolute 0.03 #; Lymphocytes # 0.8 10*3/uL (1.4-4.0); Lymphocytes % 11.1 % (21.2-54.2); Mean Corpuscular HGB Conc 33.3 GM/DL (32-36); Mean Corpuscular Volume 86.8 FL (87-102); Mean Platelet Volume 10.2 FL (9.6-12.0); Monocytes % 12.7 % (1.7-12.7); Platelet Count 364 T/CUMM (130-400); Red Cell Distribution Width 17.7 % (9.3-17.3)
[2020-11-12 06:11] LABS: Calcium 9.8 MG/DL (8.5-10.1); Potassium 4.3 MMOL/L (3.5-5.1)
[2020-11-12 06:14] LABS: Albumin 3.1 G/DL (3.4-5.0); Bilirubin,Direct 1.57 MG/DL (0.0-0.20); Bilirubin,Indirect 1.5 MG/DL (0.0-1.0); Bilirubin,Total 3.1 MG/DL (0.2-1.0); Total Protein 7.6 G/DL (6.4-8.3)
[2020-11-12] MEDS: METOPROLOL TARTRATE 50 MG TABLET PO SCH (09:19)
[2020-11-12] MEDS: FUROSEMIDE 40 MG/4 ML VIAL IV SCH ×2 (09:19→15:46)
[2020-11-12] MEDS: hydrALAZINE 25 MG TABLET PO SCH ×3 (09:19→20:24)
[2020-11-12] MEDS: lisinopriL 20 MG TABLET PO SCH (09:19)
[2020-11-12] MEDS: PANTOPRAZOLE 40 MG TABLET PO SCH (09:19)
[2020-11-12] MEDS: ASPIRIN EC 325 MG TABLET PO SCH (09:19)
[2020-11-12] MEDS: ENOXAPARIN 40 MG/0.4 ML SYRINGE SUBCUT SCH (12:10)
[2020-11-12] MEDS ORDERED: MIDAZOLAM 2 MG/2 ML VIAL IV ONE ×2 (19:07→19:30)
[2020-11-12] MEDS: MIDAZOLAM 100 MG in SODIUM CHLORIDE 0.9% 80 ML IV PRN (19:45)
[2020-11-12] MEDS: TRIAMCINOLONE 0.025% CREAM 15 GM TUBE TOP SCH (20:24)
[2020-11-12 20:40] LABS: ABG Base Excess 4.5 MMOL/L (-2.5-2.5); ABG HCO3 28.5 MMOL/L (20-26); ABG PCO2 55.3 MM HG (35-48); ABG PH 7.362 (7.35-7.45); ABG TCO2 27.9 MMOL/L (23-27)
[2020-11-12] MEDS: PHENYLEPHRINE DRIP 40 MG/250 ML PREMIX IV PRN (21:28)
[2020-11-12 21:35] LABS: Basophils % 0.1 % (0.0-0.8); Hematocrit 36.2 VOL% (42.0-52.0); Hemoglobin 11.7 GM/DL (14.0-18.0); Immature Granulocytes % 0.9 %; Immature Granulocytes Absolute 0.06 #; Lymphocytes # 0.4 10*3/uL (1.4-4.0); Lymphocytes % 6.3 % (21.2-54.2); Mean Corpuscular HGB Conc 32.3 GM/DL (32-36); Mean Corpuscular Volume 88.7 FL (87-102); Mean Platelet Volume 10.1 FL (9.6-12.0); Monocytes % 11.5 % (1.7-12.7); NRBC # 0.02 10*3/uL; Neutrophils % 81.2 % (38.7-73.9); Platelet Count 346 T/CUMM (130-400); Red Blood Count 4.08 MC/CUMM (3.8-5.5); Red Cell Distribution Width 17.9 % (9.3-17.3); White Blood Count 6.7 T/CUMM (4-12)
[2020-11-12 21:46] LABS: INR 1.4; PT Patient Result 14.6 SECS (9.8-11.9); Partial Thromboplastin Time 27.3 SECS (23.9-33.8)
[2020-11-12 21:53] LABS: Albumin 2.6 G/DL (3.4-5.0); Bilirubin,Total 1.7 MG/DL (0.2-1.0); Calcium 8.8 MG/DL (8.5-10.1); Osmolality,Calculated 282.7 MOS/KG (273-304); Potassium 4.1 MMOL/L (3.5-5.1); Total Protein 6.1 G/DL (6.4-8.3)
[2020-11-13] MEDS: MIDAZOLAM 100 MG in SODIUM CHLORIDE 0.9% 80 ML IV PRN ×3 (01:45→21:21)
[2020-11-13 04:00] LABS: ABG Base Excess 7.2 MMOL/L (-2.5-2.5); ABG HCO3 31.2 MMOL/L (20-26); ABG Oxygen Saturation 99.5 % (95-100); ABG PCO2 41.8 MM HG (35-48); ABG PH 7.491 (7.35-7.45); ABG PO2 311.6 MM HG (80-95); ABG TCO2 32.5 MMOL/L (23-27); Allen Test Positive; Pt O2 Delivery Device Ventilator
[2020-11-13 04:32] LABS: Basophils % 0.3 % (0.0-0.8); Eosinophils % 0.1 % (0.00-10.9); Hematocrit 35.6 VOL% (42.0-52.0); Hemoglobin 12.1 GM/DL (14.0-18.0); Immature Granulocytes % 0.8 %; Immature Granulocytes Absolute 0.06 #; Lymphocytes # 0.8 10*3/uL (1.4-4.0); Lymphocytes % 10.1 % (21.2-54.2); Mean Corpuscular Volume 85.6 FL (87-102); Mean Platelet Volume 9.9 FL (9.6-12.0); Monocytes % 15.4 % (1.7-12.7); NRBC # 0.02 10*3/uL; Neutrophils % 73.3 % (38.7-73.9); Platelet Count 350 T/CUMM (130-400); Red Blood Count 4.16 MC/CUMM (3.8-5.5); Red Cell Distribution Width 17.5 % (9.3-17.3); White Blood Count 7.5 T/CUMM (4-12)
[2020-11-13 04:46] LABS: Calcium 8.8 MG/DL (8.5-10.1); Osmolality,Calculated 285.5 MOS/KG (273-304); Potassium 3.8 MMOL/L (3.5-5.1)
[2020-11-13 05:19] LABS: Albumin 2.3 G/DL (3.4-5.0); Bilirubin,Direct 1.22 MG/DL (0.0-0.20); Bilirubin,Indirect 0.7 MG/DL (0.0-1.0); Bilirubin,Total 1.9 MG/DL (0.2-1.0); Total Protein 5.8 G/DL (6.4-8.3)
[2020-11-13] MEDS: PHENYLEPHRINE DRIP 40 MG/250 ML PREMIX IV PRN ×3 (06:19→22:25)
[2020-11-13] MEDS: hydrALAZINE 25 MG TABLET PO SCH (08:03)
[2020-11-13] MEDS: PANTOPRAZOLE 40 MG TABLET PO SCH (08:28)
[2020-11-13] MEDS: RIVAROXABAN 20 MG TABLET PO SCH (08:28)
[2020-11-13] MEDS: ASPIRIN EC 325 MG TABLET PO SCH (08:28)
[2020-11-13] MEDS: methylPREDNISolone SOD SUC 40 MG/1 ML VIAL IV SCH ×2 (08:29→20:00)
[2020-11-13] MEDS: cefTRIAXone 1,000 MG in SYRINGE 1 EACH IV SCH (08:30)
[2020-11-13] MEDS: TRIAMCINOLONE 0.025% CREAM 15 GM TUBE TOP SCH ×2 (09:55→21:06)
[2020-11-13] MEDS: ALBUTEROL/IPRATROPIUM 3 ML NEB RESP TX SCH ×2 (13:50→19:36)
[2020-11-13] MEDS ORDERED: DOCUSATE SODIUM 100 MG/10 ML UDCUP NG PRN (14:00)
[2020-11-14] MEDS: ALBUTEROL/IPRATROPIUM 3 ML NEB RESP TX SCH ×4 (01:50→19:14)
[2020-11-14 03:46] LABS: ABG Base Excess 5.7 MMOL/L (-2.5-2.5); ABG HCO3 28.9 MMOL/L (20-26); ABG Oxygen Saturation 96.5 % (95-100); ABG PCO2 37.1 MM HG (35-48); ABG PH 7.509 (7.35-7.45); ABG PO2 85.2 MM HG (80-95); Allen Test Positive; Pt O2 Delivery Device Ventilator
[2020-11-14 04:10] LABS: Basophils % 0.1 % (0.0-0.8); Hematocrit 37.5 VOL% (42.0-52.0); Hemoglobin 12.6 GM/DL (14.0-18.0); Immature Granulocytes % 0.9 %; Immature Granulocytes Absolute 0.07 #; Lymphocytes # 0.5 10*3/uL (1.4-4.0); Lymphocytes % 5.7 % (21.2-54.2); Mean Corpuscular HGB Conc 33.6 GM/DL (32-36); Mean Corpuscular Volume 84.7 FL (87-102); Mean Platelet Volume 10.1 FL (9.6-12.0); Monocytes % 7.6 % (1.7-12.7); Neutrophils % 85.7 % (38.7-73.9); Platelet Count 331 T/CUMM (130-400); Red Blood Count 4.43 MC/CUMM (3.8-5.5); White Blood Count 8.2 T/CUMM (4-12)
[2020-11-14 04:33] LABS: Calcium 8.8 MG/DL (8.5-10.1); Osmolality,Calculated 286.3 MOS/KG (273-304)
[2020-11-14] MEDS ORDERED: DEXTROSE 50% 25 GM/50 ML VIAL IV PRN (08:09)
[2020-11-14] MEDS: RIVAROXABAN 20 MG TABLET PO SCH (08:54)
[2020-11-14] MEDS: ASPIRIN 325 MG TABLET NG SCH (08:54)
[2020-11-14] MEDS: methylPREDNISolone SOD SUC 40 MG/1 ML VIAL IV SCH ×2 (08:55→20:52)
[2020-11-14] MEDS: cefTRIAXone 1,000 MG in SYRINGE 1 EACH IV SCH (08:58)
[2020-11-14] MEDS: FUROSEMIDE 40 MG/4 ML VIAL IV SCH ×2 (08:58→17:18)
[2020-11-14] MEDS: PANTOPRAZOLE 40 MG VIAL IV SCH (09:01)
[2020-11-14] MEDS: TRIAMCINOLONE 0.025% CREAM 15 GM TUBE TOP SCH ×2 (09:06→21:00)
[2020-11-14] MEDS: METOPROLOL TARTRATE 25 MG TABLET PO SCH ×2 (10:24→20:53)
[2020-11-14] MEDS: MIDAZOLAM 100 MG in SODIUM CHLORIDE 0.9% 80 ML IV PRN ×2 (10:43→18:49)
[2020-11-14] MEDS: INSULIN LISPRO 100 UNIT/ML SUBCUT SCH ×2 (11:12→17:18)
[2020-11-15] MEDS: ALBUTEROL/IPRATROPIUM 3 ML NEB RESP TX SCH ×4 (00:45→19:04)
[2020-11-15] MEDS: INSULIN LISPRO 100 UNIT/ML SUBCUT SCH ×4 (01:15→18:14)
[2020-11-15] MEDS: MIDAZOLAM 100 MG in SODIUM CHLORIDE 0.9% 80 ML IV PRN ×3 (03:15→20:56)
[2020-11-15 04:00] LABS: Basophils % 0.1 % (0.0-0.8); Hematocrit 38.2 VOL% (42.0-52.0); Immature Granulocytes % 0.4 %; Immature Granulocytes Absolute 0.03 #; Lymphocytes # 0.4 10*3/uL (1.4-4.0); Lymphocytes % 5.1 % (21.2-54.2); Mean Corpuscular Volume 84.3 FL (87-102); Mean Platelet Volume 10.4 FL (9.6-12.0); Monocytes % 5.5 % (1.7-12.7); NRBC # 0.03 10*3/uL; Neutrophils % 88.9 % (38.7-73.9); Platelet Count 331 T/CUMM (130-400); Red Blood Count 4.53 MC/CUMM (3.8-5.5); Red Cell Distribution Width 18.5 % (9.3-17.3); White Blood Count 6.9 T/CUMM (4-12)
[2020-11-15 04:19] LABS: ABG Base Excess 7.8 MMOL/L (-2.5-2.5); ABG HCO3 31.6 MMOL/L (20-26); ABG Oxygen Saturation 97.2 % (95-100); ABG PCO2 45.6 MM HG (35-48); ABG PH 7.464 (7.35-7.45); ABG TCO2 28.3 MMOL/L (23-27); Allen Test Positive; Pt O2 Delivery Device Ventilator
[2020-11-15 04:29] LABS: Calcium 8.9 MG/DL (8.5-10.1); Osmolality,Calculated 289.3 MOS/KG (273-304); Potassium 4.2 MMOL/L (3.5-5.1)
[2020-11-15] MEDS: PANTOPRAZOLE 40 MG VIAL IV SCH (08:11)
[2020-11-15] MEDS: cefTRIAXone 1,000 MG in SYRINGE 1 EACH IV SCH (08:11)
[2020-11-15] MEDS: RIVAROXABAN 20 MG TABLET PO SCH (08:12)
[2020-11-15] MEDS: FUROSEMIDE 40 MG/4 ML VIAL IV SCH ×2 (08:12→16:59)
[2020-11-15] MEDS: methylPREDNISolone SOD SUC 40 MG/1 ML VIAL IV SCH ×2 (08:12→20:49)
[2020-11-15] MEDS: ASPIRIN 325 MG TABLET NG SCH (08:12)
[2020-11-15] MEDS: TRIAMCINOLONE 0.025% CREAM 15 GM TUBE TOP SCH ×2 (08:12→21:49)
[2020-11-15] MEDS: METOPROLOL TARTRATE 25 MG TABLET PO SCH ×2 (08:12→21:49)
[2020-11-15] MEDS: SPIRONOLACTONE 50 MG TABLET PER TUBE SCH ×2 (08:27→21:49)
[2020-11-16] MEDS: INSULIN LISPRO 100 UNIT/ML SUBCUT SCH ×4 (00:17→18:28)
[2020-11-16] MEDS: ALBUTEROL/IPRATROPIUM 3 ML NEB RESP TX SCH ×4 (01:23→19:36)
[2020-11-16 04:20] LABS: Basophils % 0.1 % (0.0-0.8); Hemoglobin 12.6 GM/DL (14.0-18.0); Immature Granulocytes % 0.7 %; Immature Granulocytes Absolute 0.06 #; Lymphocytes # 0.3 10*3/uL (1.4-4.0); Lymphocytes % 3.1 % (21.2-54.2); Mean Corpuscular HGB Conc 33.2 GM/DL (32-36); Mean Corpuscular Volume 86.6 FL (87-102); Mean Platelet Volume 10.1 FL (9.6-12.0); Monocytes % 8.8 % (1.7-12.7); NRBC # 0.04 10*3/uL; Neutrophils % 87.3 % (38.7-73.9); Platelet Count 331 T/CUMM (130-400); Red Blood Count 4.39 MC/CUMM (3.8-5.5); Red Cell Distribution Width 18.4 % (9.3-17.3); White Blood Count 8.9 T/CUMM (4-12)
[2020-11-16 04:41] LABS: ABG Base Excess 6.7 MMOL/L (-2.5-2.5); ABG HCO3 31.4 MMOL/L (20-26); ABG Oxygen Saturation 95.4 % (95-100); ABG PCO2 44.9 MM HG (35-48); ABG PH 7.462 (7.35-7.45); ABG TCO2 32.7 MMOL/L (23-27); Allen Test Positive; Pt O2 Delivery Device Ventilator
[2020-11-16 04:47] LABS: Osmolality,Calculated 294.1 MOS/KG (273-304); Potassium 4.3 MMOL/L (3.5-5.1)
[2020-11-16 04:50] LABS: Band Neutrophils 1 % (0-10); Lymphocytes 12 % (20-55); Segmented Neutrophils 82 % (50-85); Total Cells Counted 100
[2020-11-16 04:51] LABS: Platelet Estimate Normal
[2020-11-16] MEDS ORDERED: DIGOXIN 0.5 MG/2 ML AMP IV ONE ×2 (06:53→13:00)
[2020-11-16] MEDS: MIDAZOLAM 100 MG in SODIUM CHLORIDE 0.9% 80 ML IV PRN (08:41)
[2020-11-16] MEDS: METOPROLOL TARTRATE 25 MG TABLET PO SCH (08:42)
[2020-11-16] MEDS: cefTRIAXone 1,000 MG in SYRINGE 1 EACH IV SCH (09:43)
[2020-11-16] MEDS: FUROSEMIDE 40 MG/4 ML VIAL IV SCH (09:43)
[2020-11-16] MEDS: PANTOPRAZOLE 40 MG VIAL IV SCH (09:43)
[2020-11-16] MEDS: ASPIRIN 325 MG TABLET NG SCH (09:43)
[2020-11-16] MEDS: RIVAROXABAN 20 MG TABLET PO SCH (09:43)
[2020-11-16] MEDS: TRIAMCINOLONE 0.025% CREAM 15 GM TUBE TOP SCH ×2 (09:44→21:00)
[2020-11-16] MEDS: methylPREDNISolone SOD SUC 40 MG/1 ML VIAL IV SCH ×2 (09:44→18:28)
[2020-11-16] MEDS: SPIRONOLACTONE 50 MG TABLET PER TUBE SCH (11:41)
[2020-11-17] MEDS: INSULIN LISPRO 100 UNIT/ML SUBCUT SCH ×4 (01:00→19:25)
[2020-11-17] MEDS: methylPREDNISolone SOD SUC 40 MG/1 ML VIAL IV SCH ×3 (01:10→17:32)
[2020-11-17] MEDS: ALBUTEROL/IPRATROPIUM 3 ML NEB RESP TX SCH ×4 (01:23→19:23)
[2020-11-17] MEDS: MIDAZOLAM 100 MG in SODIUM CHLORIDE 0.9% 80 ML IV PRN ×2 (03:15→17:55)
[2020-11-17 03:17] LABS: ABG Base Excess 7.6 MMOL/L (-2.5-2.5); ABG HCO3 31.2 MMOL/L (20-26); ABG Oxygen Saturation 91.5 % (95-100); ABG PCO2 53.1 MM HG (35-48); ABG PH 7.414 (7.35-7.45); ABG PO2 67.1 MM HG (80-95); ABG TCO2 29.6 MMOL/L (23-27); Allen Test Positive; Pt O2 Delivery Device Ventilator
[2020-11-17 04:41] LABS: Basophils % 0.1 % (0.0-0.8); Hematocrit 38.6 VOL% (42.0-52.0); Hemoglobin 12.6 GM/DL (14.0-18.0); Immature Granulocytes % 0.7 %; Immature Granulocytes Absolute 0.07 #; Lymphocytes # 0.2 10*3/uL (1.4-4.0); Lymphocytes % 2.3 % (21.2-54.2); Mean Corpuscular HGB Conc 32.6 GM/DL (32-36); Mean Corpuscular Volume 85.8 FL (87-102); Mean Platelet Volume 10.1 FL (9.6-12.0); Monocytes % 8.4 % (1.7-12.7); Neutrophils % 88.5 % (38.7-73.9); Platelet Count 329 T/CUMM (130-400); Red Cell Distribution Width 18.5 % (9.3-17.3); White Blood Count 10.3 T/CUMM (4-12)
[2020-11-17 05:00] LABS: Lymphocytes 3 % (20-55); Segmented Neutrophils 90 % (50-85); Total Cells Counted 100
[2020-11-17 05:01] LABS: Hypochromasia 1+; Microcytosis 1+; Platelet Estimate Adequate
[2020-11-17 05:12] LABS: Calcium 8.8 MG/DL (8.5-10.1); Osmolality,Calculated 300.1 MOS/KG (273-304); Potassium 4.9 MMOL/L (3.5-5.1)
[2020-11-17] MEDS: cefTRIAXone 1,000 MG in SYRINGE 1 EACH IV SCH (09:31)
[2020-11-17] MEDS: ASPIRIN 325 MG TABLET NG SCH (09:32)
[2020-11-17] MEDS: PANTOPRAZOLE 40 MG VIAL IV SCH (09:32)
[2020-11-17] MEDS: RIVAROXABAN 20 MG TABLET PO SCH (09:32)
[2020-11-17] MEDS: DIGOXIN 0.125 MG TABLET PO SCH (14:24)
[2020-11-17] MEDS: TRIAMCINOLONE 0.025% CREAM 15 GM TUBE TOP SCH ×2 (17:33→21:00)
[2020-11-17] MEDS ORDERED: fentaNYL 100 MCG/2 ML VIAL IV ONE (20:43)
[2020-11-17] MEDS ORDERED: fentaNYL 100 MCG/2 ML VIAL IV PRN (21:04)
[2020-11-17] MEDS ORDERED: ROCURONIUM 100 MG/10 ML VIAL IV ONE ×2 (22:28→22:42)
[2020-11-17] MEDS ORDERED: ETOMIDATE 20 MG/10 ML VIAL IV ONE ×2 (22:28→22:41)
[2020-11-18] MEDS: INSULIN LISPRO 100 UNIT/ML SUBCUT SCH ×4 (00:22→17:53)
[2020-11-18] MEDS: methylPREDNISolone SOD SUC 40 MG/1 ML VIAL IV SCH ×3 (00:32→16:42)
[2020-11-18] MEDS: ALBUTEROL/IPRATROPIUM 3 ML NEB RESP TX SCH ×5 (00:50→19:19)
[2020-11-18 03:22] LABS: ABG Base Excess 8.8 MMOL/L (-2.5-2.5); ABG HCO3 32.5 MMOL/L (20-26); ABG PCO2 45.2 MM HG (35-48); ABG PH 7.479 (7.35-7.45); ABG PO2 78.1 MM HG (80-95); ABG TCO2 29.2 MMOL/L (23-27)
[2020-11-18 05:28] LABS: Basophils % 0.2 % (0.0-0.8); Hematocrit 37.2 VOL% (42.0-52.0); Hemoglobin 12.7 GM/DL (14.0-18.0); Immature Granulocytes % 0.6 %; Immature Granulocytes Absolute 0.06 #; Lymphocytes # 0.2 10*3/uL (1.4-4.0); Lymphocytes % 2.3 % (21.2-54.2); Mean Corpuscular HGB Conc 34.1 GM/DL (32-36); Mean Corpuscular Volume 84.5 FL (87-102); Mean Platelet Volume 10.4 FL (9.6-12.0); Neutrophils % 89.9 % (38.7-73.9); Platelet Count 285 T/CUMM (130-400); Red Cell Distribution Width 18.3 % (9.3-17.3); White Blood Count 10.2 T/CUMM (4-12)
[2020-11-18 05:43] LABS: Calcium 8.8 MG/DL (8.5-10.1); Osmolality,Calculated 303.1 MOS/KG (273-304); Potassium 5.2 MMOL/L (3.5-5.1)
[2020-11-18 05:52] LABS: Lymphocytes 4 % (20-55); Platelet Estimate Normal; Segmented Neutrophils 90 % (50-85); Total Cells Counted 100
[2020-11-18] MEDS: PANTOPRAZOLE 40 MG VIAL IV SCH (08:03)
[2020-11-18] MEDS: ASPIRIN 325 MG TABLET NG SCH (08:03)
[2020-11-18] MEDS: RIVAROXABAN 20 MG TABLET PO SCH (08:03)
[2020-11-18] MEDS: cefTRIAXone 1,000 MG in SYRINGE 1 EACH IV SCH (08:33)
[2020-11-18] MEDS: SPIRONOLACTONE 50 MG TABLET PER TUBE SCH ×2 (08:34→20:59)
[2020-11-18] MEDS: TRIAMCINOLONE 0.025% CREAM 15 GM TUBE TOP SCH ×2 (08:36→20:59)
[2020-11-18] MEDS: DIGOXIN 0.125 MG TABLET PO SCH (12:56)
[2020-11-19] MEDS: INSULIN LISPRO 100 UNIT/ML SUBCUT SCH ×4 (00:30→17:20)
[2020-11-19] MEDS: methylPREDNISolone SOD SUC 40 MG/1 ML VIAL IV SCH ×3 (00:31→16:09)
[2020-11-19 04:19] LABS: ABG Base Excess 7.6 MMOL/L (-2.5-2.5); ABG HCO3 31.3 MMOL/L (20-26); ABG Oxygen Saturation 94.6 % (95-100); ABG PCO2 43.3 MM HG (35-48); ABG PH 7.478 (7.35-7.45); ABG PO2 73.2 MM HG (80-95); ABG TCO2 27.4 MMOL/L (23-27)
[2020-11-19 05:11] LABS: Basophils % 0.2 % (0.0-0.8); Hemoglobin 14.1 GM/DL (14.0-18.0); Immature Granulocytes % 0.9 %; Immature Granulocytes Absolute 0.13 #; Lymphocytes # 0.2 10*3/uL (1.4-4.0); Lymphocytes % 1.3 % (21.2-54.2); Mean Corpuscular HGB Conc 34.4 GM/DL (32-36); Mean Platelet Volume 9.8 FL (9.6-12.0); Monocytes % 10.3 % (1.7-12.7); Neutrophils % 87.3 % (38.7-73.9); Platelet Count 316 T/CUMM (130-400); Red Blood Count 4.88 MC/CUMM (3.8-5.5); Red Cell Distribution Width 18.6 % (9.3-17.3)
[2020-11-19 05:29] LABS: Lymphocytes 4 % (20-55); Nucleated Red Blood Cells 1 (0-5); Platelet Estimate Adequate; Segmented Neutrophils 88 % (50-85); Target Cells Slight; Total Cells Counted 100
[2020-11-19 05:32] LABS: Calcium 9.1 MG/DL (8.5-10.1); Osmolality,Calculated 304.5 MOS/KG (273-304); Potassium 5.6 MMOL/L (3.5-5.1)
[2020-11-19] MEDS: ALBUTEROL/IPRATROPIUM 3 ML NEB RESP TX SCH ×3 (07:03→19:52)
[2020-11-19] MEDS: cefTRIAXone 1,000 MG in SYRINGE 1 EACH IV SCH (08:08)
[2020-11-19] MEDS: ASPIRIN 325 MG TABLET NG SCH (08:08)
[2020-11-19] MEDS: PANTOPRAZOLE 40 MG VIAL IV SCH (08:09)
[2020-11-19] MEDS: RIVAROXABAN 20 MG TABLET PO SCH (08:10)
[2020-11-19] MEDS: TRIAMCINOLONE 0.025% CREAM 15 GM TUBE TOP SCH ×2 (08:10→21:00)
[2020-11-19] MEDS ORDERED: DEXTROSE 5% NACL 0.9% 1,000 ML IV SCH (08:30)
[2020-11-19] MEDS: LACTULOSE 20 GM/30 ML UDCUP PER TUBE SCH ×2 (08:52→21:00)
[2020-11-19] MEDS: DIGOXIN 0.125 MG TABLET PO SCH (13:59)
[2020-11-20] MEDS: INSULIN LISPRO 100 UNIT/ML SUBCUT SCH ×4 (00:15→17:59)
[2020-11-20] MEDS: methylPREDNISolone SOD SUC 40 MG/1 ML VIAL IV SCH ×3 (00:18→17:09)
[2020-11-20] MEDS: ALBUTEROL/IPRATROPIUM 3 ML NEB RESP TX SCH ×4 (02:02→19:20)
[2020-11-20 04:34] LABS: Allen Test Positive; Pt O2 Delivery Device Ventilator
[2020-11-20 04:38] LABS: ABG HCO3 28.8 MMOL/L (20-26); ABG Oxygen Saturation 93.7 % (95-100); ABG PCO2 52.5 MM HG (35-48); ABG PH 7.387 (7.35-7.45); ABG PO2 73.2 MM HG (80-95); ABG TCO2 27.5 MMOL/L (23-27)
[2020-11-20 05:31] LABS: Calcium 9.1 MG/DL (8.5-10.1); Osmolality,Calculated 315.3 MOS/KG (273-304)
[2020-11-20 05:36] LABS: Potassium 6.3 MMOL/L (3.5-5.1)
[2020-11-20 08:16] LABS: Basophils % 0.1 % (0.0-0.8); Hematocrit 38.7 VOL% (42.0-52.0); Hemoglobin 12.9 GM/DL (14.0-18.0); Immature Granulocytes % 1.2 %; Immature Granulocytes Absolute 0.17 #; Lymphocytes # 0.3 10*3/uL (1.4-4.0); Lymphocytes % 1.8 % (21.2-54.2); Mean Corpuscular HGB Conc 33.3 GM/DL (32-36); Mean Corpuscular Volume 85.1 FL (87-102); Mean Platelet Volume 10.6 FL (9.6-12.0); Monocytes % 6.1 % (1.7-12.7); Neutrophils % 90.8 % (38.7-73.9); Platelet Count 312 T/CUMM (130-400); Red Blood Count 4.55 MC/CUMM (3.8-5.5); Red Cell Distribution Width 18.5 % (9.3-17.3); White Blood Count 14.6 T/CUMM (4-12)
[2020-11-20 08:41] LABS: Lymphocytes 2 % (20-55); Platelet Estimate Adequate; Segmented Neutrophils 95 % (50-85); Total Cells Counted 100
[2020-11-20 08:42] LABS: Hypochromasia 1+; Microcytosis 1+; Ovalocytes Slight
[2020-11-20] MEDS ORDERED: SODIUM POLYSTYRENE SULFATE 15 GM/60 ML BOTTLE PER TUBE ONE (09:00)
[2020-11-20] MEDS: PANTOPRAZOLE 40 MG VIAL IV SCH (10:00)
[2020-11-20] MEDS: cefTRIAXone 1,000 MG in SYRINGE 1 EACH IV SCH (10:01)
[2020-11-20] MEDS: RIVAROXABAN 20 MG TABLET PO SCH (10:02)
[2020-11-20] MEDS: LACTULOSE 20 GM/30 ML UDCUP PER TUBE SCH (10:02)
[2020-11-20] MEDS: ASPIRIN CHEW 81 MG TABLET PO SCH (10:02)
[2020-11-20] MEDS: TRIAMCINOLONE 0.025% CREAM 15 GM TUBE TOP SCH ×2 (10:08→20:31)
[2020-11-20] MEDS: METOPROLOL TARTRATE 25 MG TABLET PO SCH ×2 (11:26→20:30)
[2020-11-20 14:21] LABS: Calcium 8.9 MG/DL (8.5-10.1); Osmolality,Calculated 320.3 MOS/KG (273-304)
[2020-11-20 14:23] LABS: Potassium 6.1 MMOL/L (3.5-5.1)
[2020-11-20] MEDS: SODIUM CHLORIDE 0.45% 1,000 ML IV SCH ×2 (14:24→18:28)
[2020-11-20] MEDS ORDERED: SODIUM POLYSTYRENE SULFATE 15 GM/60 ML BOTTLE PO ONE (15:30)
[2020-11-21] MEDS: INSULIN LISPRO 100 UNIT/ML SUBCUT SCH ×4 (00:16→17:32)
[2020-11-21] MEDS: ALBUTEROL/IPRATROPIUM 3 ML NEB RESP TX SCH ×4 (00:20→19:02)
[2020-11-21] MEDS: methylPREDNISolone SOD SUC 40 MG/1 ML VIAL IV SCH ×3 (00:26→16:18)
[2020-11-21 04:40] LABS: Allen Test Positive; Pt O2 Delivery Device Ventilator
[2020-11-21 04:41] LABS: ABG Base Excess 3.4 MMOL/L (-2.5-2.5); ABG HCO3 27.3 MMOL/L (20-26); ABG Oxygen Saturation 90.3 % (95-100); ABG PCO2 54.9 MM HG (35-48); ABG PH 7.353 (7.35-7.45); ABG PO2 64.9 MM HG (80-95); ABG TCO2 26.8 MMOL/L (23-27)
[2020-11-21 05:36] LABS: Osmolality,Calculated 321.4 MOS/KG (273-304); Potassium 5.9 MMOL/L (3.5-5.1)
[2020-11-21] MEDS ORDERED: RIVAROXABAN 15 MG TABLET PO SCH (08:00)
[2020-11-21] MEDS: PANTOPRAZOLE 40 MG VIAL IV SCH (08:04)
[2020-11-21] MEDS: ASPIRIN CHEW 81 MG TABLET PO SCH (08:04)
[2020-11-21] MEDS: cefTRIAXone 1,000 MG in SYRINGE 1 EACH IV SCH (08:05)
[2020-11-21] MEDS: METOPROLOL TARTRATE 25 MG TABLET PO SCH ×2 (08:05→21:30)
[2020-11-21] MEDS: TRIAMCINOLONE 0.025% CREAM 15 GM TUBE TOP SCH ×2 (08:32→20:58)
[2020-11-21] MEDS: SODIUM POLYSTYRENE SULFATE 15 GM/60 ML BOTTLE PO SCH ×2 (09:08→14:36)
[2020-11-21 11:43] LABS: Calcium 8.8 MG/DL (8.5-10.1); Osmolality,Calculated 327.4 MOS/KG (273-304); Potassium 5.7 MMOL/L (3.5-5.1)
[2020-11-22] MEDS: methylPREDNISolone SOD SUC 40 MG/1 ML VIAL IV SCH ×3 (00:30→17:56)
[2020-11-22] MEDS: INSULIN LISPRO 100 UNIT/ML SUBCUT SCH ×4 (00:37→17:56)
[2020-11-22] MEDS: ALBUTEROL/IPRATROPIUM 3 ML NEB RESP TX SCH ×4 (01:39→18:47)
[2020-11-22 03:36] LABS: ABG Base Excess 3.5 MMOL/L (-2.5-2.5); ABG Oxygen Saturation 93.4 % (95-100); ABG PCO2 47.7 MM HG (35-48); ABG PH 7.402 (7.35-7.45); ABG PO2 74.5 MM HG (80-95); ABG TCO2 30.5 MMOL/L (23-27); Allen Test Positive; Pt O2 Delivery Device Ventilator
[2020-11-22 05:06] LABS: Basophils % 0.2 % (0.0-0.8); Hematocrit 38.1 VOL% (42.0-52.0); Hemoglobin 12.7 GM/DL (14.0-18.0); Lymphocytes # 0.2 10*3/uL (1.4-4.0); Lymphocytes % 1.8 % (21.2-54.2); Mean Corpuscular HGB Conc 33.3 GM/DL (32-36); Mean Platelet Volume 10.2 FL (9.6-12.0); Monocytes % 7.2 % (1.7-12.7); Neutrophils % 88.8 % (38.7-73.9); Platelet Count 301 T/CUMM (130-400); Red Blood Count 4.48 MC/CUMM (3.8-5.5); Red Cell Distribution Width 18.7 % (9.3-17.3)
[2020-11-22 05:43] LABS: Uric Acid 9.7 MG/DL (3.5-7.2)
[2020-11-22 05:44] LABS: Osmolality,Calculated 335.1 MOS/KG (273-304); Potassium 5.2 MMOL/L (3.5-5.1)
[2020-11-22 05:47] LABS: Bilirubin,Total 1.8 MG/DL (0.2-1.0); Calcium 8.8 MG/DL (8.5-10.1); Osmolality,Calculated 332.1 MOS/KG (273-304); Potassium 5.4 MMOL/L (3.5-5.1); Total Protein 5.6 G/DL (6.4-8.3)
[2020-11-22 05:53] LABS: Lymphocytes 3 % (20-55); Platelet Estimate Normal; Segmented Neutrophils 92 % (50-85); Total Cells Counted 100
[2020-11-22] MEDS: PANTOPRAZOLE 40 MG VIAL IV SCH (09:26)
[2020-11-22] MEDS: LEVOFLOXACIN INJ 750 MG in PREMIX 1 EACH IV SCH (09:28)
[2020-11-22] MEDS: METOPROLOL TARTRATE 25 MG TABLET PO SCH ×2 (09:49→20:33)
[2020-11-22] MEDS: TRIAMCINOLONE 0.025% CREAM 15 GM TUBE TOP SCH ×2 (09:50→20:15)
[2020-11-22] MEDS: ASPIRIN CHEW 81 MG TABLET PO SCH (10:06)
[2020-11-22] MEDS: SODIUM CHLORIDE 0.9% IV SCH ×2 (10:59→20:15)
[2020-11-22] MEDS: TAZOBACTAM IV SCH ×2 (10:59→20:15)
[2020-11-22] MEDS: PIPERACILLIN IV SCH ×2 (10:59→20:15)
[2020-11-22] MEDS ORDERED: ENOXAPARIN 30 MG/0.3 ML SYRINGE SUBCUT SCH (12:00)
[2020-11-22] MEDS: MORPHINE 4 MG/1 ML VIAL IV PRN ×2 (13:35→20:15)
[2020-11-22] MEDS: FUROSEMIDE INJ 100 MG in SODIUM CHLORIDE 0.9% 90 ML IV SCH (15:11)
[2020-11-22 15:24] LABS: Bacteria,Urine Few /HPF (Few); Bilirubin,Urine Negative (Negative); Blood, Urine Large mg/dL (Negative); Glucose,Urine (UA) Negative (Negative); Granular Casts,Urine 12 /LPF (0-1); Hyaline Casts,Urine 6 /LPF (0-3); Ketones,Urine Negative (Negative); Nitrite,Urine Negative (Negative); Protein,Urine 30 MG/DL; RBC,Urine 876 /HPF (0-4); Squamous Epithelial Cell,Urine Occasional /HPF (0-10); Urine Appearance CLOUDY (Clear); Urine Color Yellow (Yellow); Urine Specific Gravity 1.016 (1.001-1.035); Urine Urobilinogen < 2.0 EU/DL (0.2-1.0); WBC,Urine 88 /HPF (0-6)
[2020-11-22] MEDS ORDERED: AMIODARONE INJ 450 MG in DEXTROSE 5% 241 ML IV SCH (16:00)
[2020-11-22] MEDS ORDERED: AMIODARONE 150 MG/3 ML VIAL ONE (17:16)
[2020-11-22 18:02] LABS: Calcium 8.7 MG/DL (8.5-10.1); Osmolality,Calculated 336.8 MOS/KG (273-304); Potassium 5.4 MMOL/L (3.5-5.1)
[2020-11-22] MEDS: AMIODARONE INJ 450 MG in DEXTROSE 5% 241 ML IV SCH (21:59)
[2020-11-23] MEDS: methylPREDNISolone SOD SUC 40 MG/1 ML VIAL IV SCH ×3 (00:33→16:26)
[2020-11-23] MEDS: INSULIN LISPRO 100 UNIT/ML SUBCUT SCH ×4 (00:37→17:30)
[2020-11-23] MEDS: FUROSEMIDE INJ 100 MG in SODIUM CHLORIDE 0.9% 90 ML IV SCH ×3 (00:38→22:45)
[2020-11-23] MEDS: ALBUTEROL/IPRATROPIUM 3 ML NEB RESP TX SCH ×4 (01:18→19:19)
[2020-11-23 03:07] LABS: ABG Base Excess 5.4 MMOL/L (-2.5-2.5); ABG HCO3 29.1 MMOL/L (20-26); ABG Oxygen Saturation 93.5 % (95-100); ABG PCO2 54.5 MM HG (35-48); ABG PH 7.379 (7.35-7.45); ABG TCO2 28.1 MMOL/L (23-27)
[2020-11-23] MEDS: MORPHINE 4 MG/1 ML VIAL IV PRN ×2 (04:02→08:37)
[2020-11-23 05:01] LABS: Basophils % 0.1 % (0.0-0.8); Hematocrit 37.8 VOL% (42.0-52.0); Hemoglobin 12.4 GM/DL (14.0-18.0); Immature Granulocytes % 2.4 %; Immature Granulocytes Absolute 0.22 #; Lymphocytes # 0.1 10*3/uL (1.4-4.0); Lymphocytes % 1.3 % (21.2-54.2); Mean Corpuscular HGB Conc 32.8 GM/DL (32-36); Mean Corpuscular Volume 86.1 FL (87-102); Mean Platelet Volume 10.2 FL (9.6-12.0); Monocytes % 7.3 % (1.7-12.7); NRBC # 0.02 10*3/uL; Neutrophils % 88.9 % (38.7-73.9); Platelet Count 289 T/CUMM (130-400); Red Blood Count 4.39 MC/CUMM (3.8-5.5); Red Cell Distribution Width 18.5 % (9.3-17.3); White Blood Count 9.1 T/CUMM (4-12)
[2020-11-23 05:20] LABS: Calcium 8.6 MG/DL (8.5-10.1); Osmolality,Calculated 341.7 MOS/KG (273-304); Potassium 4.8 MMOL/L (3.5-5.1)
[2020-11-23 05:23] LABS: Albumin 1.8 G/DL (3.4-5.0); Bilirubin,Total 1.7 MG/DL (0.2-1.0); Calcium 8.3 MG/DL (8.5-10.1); Osmolality,Calculated 340.7 MOS/KG (273-304); Total Protein 5.2 G/DL (6.4-8.3)
[2020-11-23 07:16] LABS: Metamyelocytes 2 %; Segmented Neutrophils 85 % (50-85); Total Cells Counted 100
[2020-11-23 07:17] LABS: Hypochromasia 3+; Microcytosis 1+; Platelet Estimate Normal; Schistocytes Few; Target Cells 2+
[2020-11-23] MEDS: ASPIRIN CHEW 81 MG TABLET PO SCH (08:36)
[2020-11-23] MEDS: METOPROLOL TARTRATE 25 MG TABLET PO SCH ×2 (08:36→21:50)
[2020-11-23] MEDS: PANTOPRAZOLE 40 MG VIAL IV SCH (08:36)
[2020-11-23] MEDS: PIPERACILLIN/TAZOBACTAM 3,375 MG in SODIUM CHLORIDE 0.9% 100 ML IV SCH ×2 (08:47→16:26)
[2020-11-23] MEDS ORDERED: PIPERACILLIN IV SCH (09:00)
[2020-11-23] MEDS ORDERED: SODIUM CHLORIDE 0.9% IV SCH (09:00)
[2020-11-23] MEDS ORDERED: TAZOBACTAM IV SCH (09:00)
[2020-11-23] MEDS: TRIAMCINOLONE 0.025% CREAM 15 GM TUBE TOP SCH ×2 (09:23→21:49)
[2020-11-23] MEDS: AMIODARONE 200 MG TABLET NG SCH ×2 (11:25→21:50)
[2020-11-23] MEDS: HEPARIN DRIP 25,000 UNITS/500 ML PREMIX IV SCH ×2 (11:30→22:50)
[2020-11-23] MEDS: AMIODARONE INJ 450 MG in DEXTROSE 5% 241 ML IV SCH (14:25)
[2020-11-24] MEDS: INSULIN LISPRO 100 UNIT/ML SUBCUT SCH ×4 (00:14→18:36)
[2020-11-24] MEDS: ALBUTEROL/IPRATROPIUM 3 ML NEB RESP TX SCH ×4 (00:21→19:21)
[2020-11-24] MEDS: PIPERACILLIN/TAZOBACTAM 3,375 MG in SODIUM CHLORIDE 0.9% 100 ML IV SCH ×2 (00:36→08:16)
[2020-11-24] MEDS: methylPREDNISolone SOD SUC 40 MG/1 ML VIAL IV SCH ×3 (00:36→16:12)
[2020-11-24] MEDS ORDERED: VECURONIUM 10 MG VIAL IV ONE ×2 (01:00→01:02)
[2020-11-24 04:26] LABS: ABG Base Excess 9.7 MMOL/L (-2.5-2.5); ABG HCO3 33.4 MMOL/L (20-26); ABG Oxygen Saturation 94.3 % (95-100); ABG PH 7.478 (7.35-7.45); ABG PO2 70.3 MM HG (80-95); ABG TCO2 30.2 MMOL/L (23-27); Allen Test Positive; Pt O2 Delivery Device Ventilator
[2020-11-24 04:53] LABS: Basophils % 0.2 % (0.0-0.8); Hematocrit 38.1 VOL% (42.0-52.0); Hemoglobin 12.8 GM/DL (14.0-18.0); Immature Granulocytes % 2.5 %; Immature Granulocytes Absolute 0.27 #; Lymphocytes # 0.2 10*3/uL (1.4-4.0); Mean Corpuscular HGB Conc 33.6 GM/DL (32-36); Mean Corpuscular Volume 84.1 FL (87-102); Mean Platelet Volume 10.2 FL (9.6-12.0); Monocytes % 5.5 % (1.7-12.7); Neutrophils % 89.8 % (38.7-73.9); Platelet Count 291 T/CUMM (130-400); Red Blood Count 4.53 MC/CUMM (3.8-5.5); Red Cell Distribution Width 18.1 % (9.3-17.3); White Blood Count 10.7 T/CUMM (4-12)
[2020-11-24 05:01] LABS: Calcium 8.7 MG/DL (8.5-10.1); Osmolality,Calculated 345.4 MOS/KG (273-304); Potassium 4.5 MMOL/L (3.5-5.1)
[2020-11-24] MEDS: FUROSEMIDE INJ 100 MG in SODIUM CHLORIDE 0.9% 90 ML IV SCH ×2 (07:04→10:48)
[2020-11-24 07:15] LABS: Band Neutrophils 1 % (0-10); Eosinophils 2 % (0-10); Hypochromasia Slight; Lymphocytes 6 % (20-55); Segmented Neutrophils 90 % (50-85); Total Cells Counted 100
[2020-11-24 07:16] LABS: Microcytosis Slight; Poikilocytosis 1+; Polychromasia Few; Schistocytes Few; Spherocytes Few; Target Cells 3+
[2020-11-24 07:17] LABS: Platelet Estimate Adequate
[2020-11-24] MEDS: LEVOFLOXACIN INJ 750 MG in PREMIX 1 EACH IV SCH (08:17)
[2020-11-24] MEDS: PANTOPRAZOLE 40 MG VIAL IV SCH (08:17)
[2020-11-24] MEDS: ASPIRIN CHEW 81 MG TABLET PO SCH (08:18)
[2020-11-24] MEDS: METOPROLOL TARTRATE 25 MG TABLET PO SCH ×2 (08:18→22:16)
[2020-11-24] MEDS: AMIODARONE 200 MG TABLET NG SCH ×2 (08:18→22:16)
[2020-11-24] MEDS: TRIAMCINOLONE 0.025% CREAM 15 GM TUBE TOP SCH ×2 (09:26→22:16)
[2020-11-24] MEDS: HEPARIN DRIP 25,000 UNITS/500 ML PREMIX IV SCH ×2 (11:17→21:55)
[2020-11-24] MEDS ORDERED: FUROSEMIDE INJ 100 MG in SODIUM CHLORIDE 0.9% 90 ML IV SCH (12:00)
[2020-11-25] MEDS: methylPREDNISolone SOD SUC 40 MG/1 ML VIAL IV SCH ×3 (00:23→16:41)
[2020-11-25] MEDS: ALBUTEROL/IPRATROPIUM 3 ML NEB RESP TX SCH ×4 (00:23→18:55)
[2020-11-25] MEDS: INSULIN LISPRO 100 UNIT/ML SUBCUT SCH ×4 (00:23→17:58)
[2020-11-25 04:03] LABS: ABG Base Excess 10.1 MMOL/L (-2.5-2.5); ABG HCO3 33.8 MMOL/L (20-26); ABG Oxygen Saturation 95.6 % (95-100); ABG PCO2 57.6 MM HG (35-48); ABG PH 7.418 (7.35-7.45); ABG PO2 81.7 MM HG (80-95); ABG TCO2 32.1 MMOL/L (23-27); Allen Test Positive; Pt O2 Delivery Device Ventilator
[2020-11-25 05:33] LABS: Basophils % 0.2 % (0.0-0.8); Hematocrit 39.5 VOL% (42.0-52.0); Hemoglobin 12.9 GM/DL (14.0-18.0); Immature Granulocytes % 3.7 %; Immature Granulocytes Absolute 0.46 #; Lymphocytes # 0.2 10*3/uL (1.4-4.0); Lymphocytes % 1.5 % (21.2-54.2); Mean Corpuscular HGB Conc 32.7 GM/DL (32-36); Mean Corpuscular Volume 86.1 FL (87-102); Mean Platelet Volume 10.6 FL (9.6-12.0); Monocytes % 6.2 % (1.7-12.7); Neutrophils % 88.4 % (38.7-73.9); Platelet Count 286 T/CUMM (130-400); Red Blood Count 4.59 MC/CUMM (3.8-5.5); Red Cell Distribution Width 18.4 % (9.3-17.3); White Blood Count 12.6 T/CUMM (4-12)
[2020-11-25 05:43] LABS: Calcium 8.9 MG/DL (8.5-10.1); Osmolality,Calculated 352.7 MOS/KG (273-304); Potassium 4.5 MMOL/L (3.5-5.1)
[2020-11-25 06:01] LABS: Anisocytosis 1+; Band Neutrophils 6 % (0-10); Lymphocytes 5 % (20-55); Macrocytosis 1+; Nucleated Red Blood Cells 1 (0-5); Platelet Estimate Normal; Segmented Neutrophils 82 % (50-85); Target Cells 2+; Total Cells Counted 100
[2020-11-25] MEDS: METOPROLOL TARTRATE 25 MG TABLET PO SCH ×2 (08:16→22:38)
[2020-11-25] MEDS: PANTOPRAZOLE 40 MG VIAL IV SCH (08:18)
[2020-11-25] MEDS: AMIODARONE 200 MG TABLET NG SCH ×2 (08:18→22:38)
[2020-11-25] MEDS: ASPIRIN CHEW 81 MG TABLET PO SCH (08:18)
[2020-11-25] MEDS: TRIAMCINOLONE 0.025% CREAM 15 GM TUBE TOP SCH ×2 (08:19→22:41)
[2020-11-25] MEDS ORDERED: DEXMEDETOMIDINE 400 MCG in SODIUM CHLORIDE 0.9% 96 ML IV PRN (10:09)
[2020-11-25] MEDS: MORPHINE 4 MG/1 ML VIAL IV PRN (11:16)
[2020-11-25] MEDS ORDERED: SODIUM CHLORIDE 0.45% 1,000 ML IV SCH (11:30)
[2020-11-25] MEDS: LINEZOLID INJ 600 MG in PREMIX 1 EACH IV SCH (13:21)
[2020-11-25 13:26] LABS: Bacteria,Urine Occasional /HPF (Few); Bilirubin,Urine Negative (Negative); Blood, Urine Large mg/dL (Negative); Glucose,Urine (UA) Negative (Negative); Granular Casts,Urine 29 /LPF (0-1); Hyaline Casts,Urine 29 /LPF (0-3); Ketones,Urine Negative (Negative); Mucus,Urine Occasional /LPF (Occasional); Nitrite,Urine Negative (Negative); Protein,Urine 100 MG/DL; RBC,Urine 6789 /HPF (0-4); Squamous Epithelial Cell,Urine Occasional /HPF (0-10); Urine Appearance CLOUDY (Clear); Urine Color Red (Yellow); Urine Specific Gravity 1.016 (1.001-1.035); Urine Urobilinogen < 2.0 EU/DL (0.2-1.0); WBC,Urine 289 /HPF (0-6)
[2020-11-25] MEDS ORDERED: METOPROLOL TARTRATE 5 MG/5 ML VIAL IV ONE (16:18)
[2020-11-25] MEDS: DEXMEDETOMIDINE 400 MCG in SODIUM CHLORIDE 0.9% 96 ML IV PRN ×4 (16:41→23:50)
[2020-11-25] MEDS: HEPARIN DRIP 25,000 UNITS/500 ML PREMIX IV SCH ×2 (18:06→21:35)
[2020-11-25] MEDS ORDERED: VECURONIUM 10 MG VIAL IV ONE ×2 (20:39→20:44)
[2020-11-25] MEDS ORDERED: ETOMIDATE 20 MG/10 ML VIAL IV ONE ×2 (20:40→20:44)
[2020-11-26] MEDS: ALBUTEROL/IPRATROPIUM 3 ML NEB RESP TX SCH ×4 (00:21→19:26)
[2020-11-26] MEDS: INSULIN LISPRO 100 UNIT/ML SUBCUT SCH ×4 (00:41→17:35)
[2020-11-26] MEDS: LINEZOLID INJ 600 MG in PREMIX 1 EACH IV SCH ×2 (00:42→12:14)
[2020-11-26] MEDS: methylPREDNISolone SOD SUC 40 MG/1 ML VIAL IV SCH ×3 (00:42→16:37)
[2020-11-26] MEDS: DEXMEDETOMIDINE 400 MCG in SODIUM CHLORIDE 0.9% 96 ML IV PRN ×2 (03:50→07:16)
[2020-11-26 04:32] LABS: ABG Base Excess 10.8 MMOL/L (-2.5-2.5); ABG HCO3 35.5 MMOL/L (20-26); ABG Oxygen Saturation 93.7 % (95-100); ABG PCO2 46.5 MM HG (35-48); ABG PH 7.501 (7.35-7.45); ABG PO2 68.9 MM HG (80-95); Allen Test Positive; Pt O2 Delivery Device Ventilator
[2020-11-26 05:21] LABS: Basophils # 0.1 10*3/uL (0.0-0.2); Basophils % 0.4 % (0.0-0.8); Hematocrit 45.6 VOL% (42.0-52.0); Hemoglobin 14.7 GM/DL (14.0-18.0); Immature Granulocytes % 6.6 %; Immature Granulocytes Absolute 1.15 #; Lymphocytes # 0.3 10*3/uL (1.4-4.0); Lymphocytes % 1.4 % (21.2-54.2); Mean Corpuscular HGB Conc 32.2 GM/DL (32-36); Mean Corpuscular Volume 85.9 FL (87-102); Mean Platelet Volume 10.4 FL (9.6-12.0); Monocytes % 7.4 % (1.7-12.7); NRBC # 0.02 10*3/uL; Neutrophils % 84.2 % (38.7-73.9); Platelet Count 278 T/CUMM (130-400); Red Blood Count 5.31 MC/CUMM (3.8-5.5); Red Cell Distribution Width 18.6 % (9.3-17.3); White Blood Count 17.4 T/CUMM (4-12)
[2020-11-26 05:39] LABS: Band Neutrophils 2 % (0-10); Lymphocytes 1 % (20-55); Platelet Estimate Adequate; Segmented Neutrophils 89 % (50-85); Total Cells Counted 100
[2020-11-26 05:40] LABS: Albumin 2.2 G/DL (3.4-5.0); Bilirubin,Direct 1.41 MG/DL (0.0-0.20); Bilirubin,Total 2.4 MG/DL (0.2-1.0); Calcium 9.2 MG/DL (8.5-10.1); Osmolality,Calculated 346.7 MOS/KG (273-304); Potassium 4.5 MMOL/L (3.5-5.1); Total Protein 6.6 G/DL (6.4-8.3)
[2020-11-26] MEDS: LEVOFLOXACIN INJ 750 MG in PREMIX 1 EACH IV SCH (08:38)
[2020-11-26] MEDS: METOPROLOL TARTRATE 25 MG TABLET PO SCH ×2 (08:40→20:54)
[2020-11-26] MEDS: ASPIRIN CHEW 81 MG TABLET PO SCH (08:40)
[2020-11-26] MEDS: PANTOPRAZOLE 40 MG VIAL IV SCH (08:40)
[2020-11-26] MEDS: AMIODARONE 200 MG TABLET NG SCH ×2 (08:40→20:54)
[2020-11-26] MEDS: TRIAMCINOLONE 0.025% CREAM 15 GM TUBE TOP SCH ×2 (08:41→20:54)
[2020-11-26] MEDS: SODIUM CHLORIDE 0.9% IV PRN ×2 (12:08→18:19)
[2020-11-26] MEDS: DEXMEDETOMIDINE IV PRN ×2 (12:08→18:19)
[2020-11-26] MEDS: HEPARIN DRIP 25,000 UNITS/500 ML PREMIX IV SCH ×2 (12:13→21:50)
[2020-11-27] MEDS: ALBUTEROL/IPRATROPIUM 3 ML NEB RESP TX SCH ×5 (00:20→19:26)
[2020-11-27] MEDS: SODIUM CHLORIDE 0.9% IV PRN ×3 (00:32→16:51)
[2020-11-27] MEDS: DEXMEDETOMIDINE IV PRN ×3 (00:32→16:51)
[2020-11-27] MEDS: INSULIN LISPRO 100 UNIT/ML SUBCUT SCH ×4 (00:43→17:29)
[2020-11-27] MEDS: LINEZOLID INJ 600 MG in PREMIX 1 EACH IV SCH ×2 (00:44→12:12)
[2020-11-27] MEDS: methylPREDNISolone SOD SUC 40 MG/1 ML VIAL IV SCH ×3 (00:44→17:36)
[2020-11-27 03:30] LABS: ABG Base Excess 10.3 MMOL/L (-2.5-2.5); ABG Oxygen Saturation 95.7 % (95-100); ABG PCO2 48.6 MM HG (35-48); ABG PH 7.476 (7.35-7.45); ABG PO2 76.6 MM HG (80-95); ABG TCO2 30.1 MMOL/L (23-27)
[2020-11-27 05:52] LABS: Basophils # 0.1 10*3/uL (0.0-0.2); Basophils % 0.5 % (0.0-0.8); Hemoglobin 14.6 GM/DL (14.0-18.0); Immature Granulocytes % 6.4 %; Immature Granulocytes Absolute 1.26 #; Lymphocytes # 0.4 10*3/uL (1.4-4.0); Lymphocytes % 2.2 % (21.2-54.2); Mean Corpuscular HGB Conc 32.4 GM/DL (32-36); Mean Corpuscular Volume 86.7 FL (87-102); Mean Platelet Volume 11.3 FL (9.6-12.0); Monocytes % 6.6 % (1.7-12.7); Neutrophils % 84.3 % (38.7-73.9); Platelet Count 229 T/CUMM (130-400); Red Blood Count 5.19 MC/CUMM (3.8-5.5); Red Cell Distribution Width 19.6 % (9.3-17.3); White Blood Count 19.8 T/CUMM (4-12)
[2020-11-27 06:10] LABS: Calcium 9.1 MG/DL (8.5-10.1); Potassium 5.7 MMOL/L (3.5-5.1)
[2020-11-27 06:16] LABS: Osmolality,Calculated 333.9 MOS/KG (273-304)
[2020-11-27 06:33] LABS: Lymphocytes 3 % (20-55); Platelet Estimate Adequate; Segmented Neutrophils 92 % (50-85); Target Cells Slight; Total Cells Counted 100
[2020-11-27] MEDS: PANTOPRAZOLE 40 MG VIAL IV SCH (08:29)
[2020-11-27] MEDS: AMIODARONE 200 MG TABLET NG SCH ×2 (08:31→21:51)
[2020-11-27] MEDS: METOPROLOL TARTRATE 25 MG TABLET PO SCH ×2 (08:31→21:54)
[2020-11-27] MEDS: TRIAMCINOLONE 0.025% CREAM 15 GM TUBE TOP SCH ×2 (08:31→21:52)
[2020-11-27] MEDS: ASPIRIN CHEW 81 MG TABLET PO SCH (08:31)
[2020-11-27] MEDS ORDERED: SODIUM POLYSTYRENE SULFATE 15 GM/60 ML BOTTLE PO ONE (09:40)
[2020-11-27] MEDS: HEPARIN DRIP 25,000 UNITS/500 ML PREMIX IV SCH ×2 (11:27→21:58)
[2020-11-27 15:53] LABS: Calcium 8.8 MG/DL (8.5-10.1); Osmolality,Calculated 338.2 MOS/KG (273-304); Potassium 5.2 MMOL/L (3.5-5.1)
[2020-11-27] MEDS: ACETAMINOPHEN 325 MG TABLET PO PRN ×2 (17:45→22:50)
[2020-11-28] MEDS: SODIUM CHLORIDE 0.9% IV PRN ×2 (00:12→07:33)
[2020-11-28] MEDS: DEXMEDETOMIDINE IV PRN ×2 (00:12→07:33)
[2020-11-28] MEDS: INSULIN LISPRO 100 UNIT/ML SUBCUT SCH ×4 (00:42→18:11)
[2020-11-28 03:28] LABS: ABG Base Excess 9.2 MMOL/L (-2.5-2.5); ABG Oxygen Saturation 96.3 % (95-100); ABG PCO2 43.8 MM HG (35-48); ABG PH 7.495 (7.35-7.45); ABG PO2 79.8 MM HG (80-95); ABG TCO2 28.5 MMOL/L (23-27); Allen Test Positive; Pt O2 Delivery Device Ventilator
[2020-11-28 05:26] LABS: Basophils # 0.1 10*3/uL (0.0-0.2); Basophils % 0.3 % (0.0-0.8); Hematocrit 43.7 VOL% (42.0-52.0); Hemoglobin 14.2 GM/DL (14.0-18.0); Immature Granulocytes % 5.3 %; Immature Granulocytes Absolute 0.98 #; Lymphocytes # 0.5 10*3/uL (1.4-4.0); Lymphocytes % 2.4 % (21.2-54.2); Mean Corpuscular HGB Conc 32.5 GM/DL (32-36); Mean Corpuscular Volume 86.9 FL (87-102); Mean Platelet Volume 11.5 FL (9.6-12.0); Monocytes % 6.8 % (1.7-12.7); Neutrophils % 85.2 % (38.7-73.9); Platelet Count 154 T/CUMM (130-400); Red Blood Count 5.03 MC/CUMM (3.8-5.5); Red Cell Distribution Width 19.4 % (9.3-17.3); White Blood Count 18.6 T/CUMM (4-12)
[2020-11-28 05:42] LABS: Calcium 8.6 MG/DL (8.5-10.1); Osmolality,Calculated 332.3 MOS/KG (273-304); Potassium 5.5 MMOL/L (3.5-5.1)
[2020-11-28 05:59] LABS: Band Neutrophils 1 % (0-10); Lymphocytes 4 % (20-55); Metamyelocytes 2 %; Platelet Estimate Normal; Segmented Neutrophils 85 % (50-85); Total Cells Counted 100
[2020-11-28 06:00] LABS: Anisocytosis 1+; Macrocytosis Slight; Target Cells 2+
[2020-11-28] MEDS: ALBUTEROL/IPRATROPIUM 3 ML NEB RESP TX SCH ×3 (06:59→19:31)
[2020-11-28] MEDS: LEVOFLOXACIN INJ 750 MG in PREMIX 1 EACH IV SCH (08:01)
[2020-11-28] MEDS: methylPREDNISolone SOD SUC 40 MG/1 ML VIAL IV SCH ×4 (08:02→23:58)
[2020-11-28] MEDS: PANTOPRAZOLE 40 MG VIAL IV SCH (08:02)
[2020-11-28] MEDS: ASPIRIN CHEW 81 MG TABLET PO SCH (08:02)
[2020-11-28] MEDS: METOPROLOL TARTRATE 25 MG TABLET PO SCH ×2 (08:03→21:46)
[2020-11-28] MEDS: ACETAMINOPHEN 325 MG TABLET PO PRN ×2 (08:03→14:23)
[2020-11-28] MEDS: AMIODARONE 200 MG TABLET NG SCH ×2 (08:04→20:49)
[2020-11-28] MEDS: TRIAMCINOLONE 0.025% CREAM 15 GM TUBE TOP SCH ×2 (08:04→20:49)
[2020-11-28] MEDS: HEPARIN DRIP 25,000 UNITS/500 ML PREMIX IV SCH (10:53)
[2020-11-28] MEDS: LINEZOLID INJ 600 MG in PREMIX 1 EACH IV SCH ×2 (11:41)
[2020-11-28 13:41] LABS: Bilirubin,Urine Negative (Negative); Blood, Urine Large mg/dL (Negative); Glucose,Urine (UA) Negative (Negative); Ketones,Urine Negative (Negative); Nitrite,Urine Negative (Negative); Protein,Urine 100 MG/DL; RBC,Urine 4102 /HPF (0-4); Urine Appearance CLOUDY (Clear); Urine Color Yellow (Yellow); Urine Specific Gravity 1.016 (1.001-1.035); Urine Urobilinogen < 2.0 EU/DL (0.2-1.0)
[2020-11-28] MEDS ORDERED: DIGOXIN 0.5 MG/2 ML AMP IV ONE ×2 (15:42→17:00)
[2020-11-28] MEDS: MORPHINE 4 MG/1 ML VIAL IV PRN (18:15)
[2020-11-29] MEDS: ALBUTEROL/IPRATROPIUM 3 ML NEB RESP TX SCH ×4 (00:35→18:46)
[2020-11-29] MEDS: INSULIN LISPRO 100 UNIT/ML SUBCUT SCH ×4 (01:40→17:39)
[2020-11-29] MEDS: HEPARIN DRIP 25,000 UNITS/500 ML PREMIX IV SCH ×2 (03:32→11:44)
[2020-11-29 04:25] LABS: ABG HCO3 29.8 MMOL/L (20-26); ABG Oxygen Saturation 95.6 % (95-100); ABG PCO2 41.8 MM HG (35-48); ABG PH 7.468 (7.35-7.45); ABG PO2 78.4 MM HG (80-95); ABG TCO2 25.5 MMOL/L (23-27); Allen Test Positive; Pt O2 Delivery Device Ventilator
[2020-11-29 04:44] LABS: Basophils % 0.2 % (0.0-0.8); Hematocrit 39.5 VOL% (42.0-52.0); Hemoglobin 12.5 GM/DL (14.0-18.0); Immature Granulocytes % 2.7 %; Immature Granulocytes Absolute 0.51 #; Lymphocytes # 0.6 10*3/uL (1.4-4.0); Mean Corpuscular HGB Conc 31.6 GM/DL (32-36); Monocytes % 3.3 % (1.7-12.7); Neutrophils % 90.8 % (38.7-73.9); Platelet Count 109 T/CUMM (130-400); Red Blood Count 4.44 MC/CUMM (3.8-5.5); Red Cell Distribution Width 18.9 % (9.3-17.3); White Blood Count 19.2 T/CUMM (4-12)
[2020-11-29] MEDS: MORPHINE 4 MG/1 ML VIAL IV PRN ×2 (05:03→16:20)
[2020-11-29 05:19] LABS: Calcium 8.7 MG/DL (8.5-10.1); Osmolality,Calculated 328.7 MOS/KG (273-304); Potassium 5.8 MMOL/L (3.5-5.1)
[2020-11-29 05:43] LABS: Hypochromasia 1+; Lymphocytes 1 % (20-55); Platelet Estimate Decreased; Segmented Neutrophils 98 % (50-85); Target Cells Slight; Total Cells Counted 100
[2020-11-29] MEDS: METOPROLOL TARTRATE 25 MG TABLET PO SCH ×2 (08:14→20:47)
[2020-11-29] MEDS: PANTOPRAZOLE 40 MG VIAL IV SCH (08:14)
[2020-11-29] MEDS: ASPIRIN CHEW 81 MG TABLET PO SCH (08:14)
[2020-11-29] MEDS: TRIAMCINOLONE 0.025% CREAM 15 GM TUBE TOP SCH ×2 (08:14→20:47)
[2020-11-29] MEDS: AMIODARONE 200 MG TABLET NG SCH ×2 (08:14→20:46)
[2020-11-29] MEDS: methylPREDNISolone SOD SUC 40 MG/1 ML VIAL IV SCH ×2 (08:14→17:06)
[2020-11-29] MEDS: SODIUM POLYSTYRENE SULFATE 15 GM/60 ML BOTTLE PER TUBE SCH ×2 (09:53→17:06)
[2020-11-30] MEDS: INSULIN LISPRO 100 UNIT/ML SUBCUT SCH ×4 (00:01→17:51)
[2020-11-30] MEDS: methylPREDNISolone SOD SUC 40 MG/1 ML VIAL IV SCH ×3 (00:01→15:44)
[2020-11-30] MEDS: ALBUTEROL/IPRATROPIUM 3 ML NEB RESP TX SCH ×4 (00:15→19:42)
[2020-11-30 04:15] LABS: Basophils % 0.2 % (0.0-0.8); Hematocrit 33.9 VOL% (42.0-52.0); Hemoglobin 10.8 GM/DL (14.0-18.0); Immature Granulocytes % 1.9 %; Immature Granulocytes Absolute 0.36 #; Lymphocytes # 0.4 10*3/uL (1.4-4.0); Lymphocytes % 2.1 % (21.2-54.2); Mean Corpuscular HGB Conc 31.9 GM/DL (32-36); Mean Corpuscular Volume 88.3 FL (87-102); Monocytes % 4.1 % (1.7-12.7); Neutrophils % 91.7 % (38.7-73.9); Red Blood Count 3.84 MC/CUMM (3.8-5.5); Red Cell Distribution Width 18.6 % (9.3-17.3); White Blood Count 18.8 T/CUMM (4-12)
[2020-11-30 04:16] LABS: Platelet Count 90 T/CUMM (130-400)
[2020-11-30 04:32] LABS: Calcium 8.4 MG/DL (8.5-10.1); Osmolality,Calculated 338.4 MOS/KG (273-304); Potassium 4.8 MMOL/L (3.5-5.1)
[2020-11-30 04:40] LABS: ABG Base Excess 5.7 MMOL/L (-2.5-2.5); ABG HCO3 29.4 MMOL/L (20-26); ABG Oxygen Saturation 97.4 % (95-100); ABG PCO2 39.4 MM HG (35-48); ABG PH 7.491 (7.35-7.45); ABG PO2 100.6 MM HG (80-95); ABG TCO2 30.6 MMOL/L (23-27); Allen Test Positive; Pt O2 Delivery Device Ventilator
[2020-11-30 04:44] LABS: Hypochromasia Slight; Lymphocytes 1 % (20-55); Platelet Estimate Decreased; Segmented Neutrophils 95 % (50-85); Total Cells Counted 100
[2020-11-30] MEDS: MORPHINE 4 MG/1 ML VIAL IV PRN (05:12)
[2020-11-30] MEDS: PANTOPRAZOLE 40 MG VIAL IV SCH (08:07)
[2020-11-30] MEDS: TRIAMCINOLONE 0.025% CREAM 15 GM TUBE TOP SCH ×2 (08:13→20:13)
[2020-11-30] MEDS: FAMOTIDINE 20 MG/2 ML VIAL IV SCH (08:57)
[2020-11-30] MEDS: METOPROLOL TARTRATE 25 MG TABLET PO SCH ×2 (09:20→20:12)
[2020-11-30] MEDS ORDERED: BUPIVACAINE 0.5% 50 ML VIAL ONE (10:21)
[2020-11-30] MEDS: AMIODARONE 200 MG TABLET NG SCH ×3 (11:33→20:12)
[2020-11-30] MEDS: ASPIRIN CHEW 81 MG TABLET PO SCH ×2 (11:33→15:28)
[2020-11-30] MEDS ORDERED: ROCURONIUM 50 MG/5 ML VIAL IV ONE ×2 (12:16→13:19)
[2020-11-30] MEDS ORDERED: MIDAZOLAM 2 MG/2 ML VIAL ONE (12:16)
[2020-11-30] MEDS ORDERED: SEVOFLURANE 1 UNIT/15 MINUTE INH ONE (13:19)
[2020-11-30] MEDS: FONDAPARINUX 10 MG/0.8 ML SYRINGE SUBCUT SCH (21:05)
[2020-12-01] MEDS: ALBUTEROL/IPRATROPIUM 3 ML NEB RESP TX SCH ×4 (01:46→19:16)
[2020-12-01 04:24] LABS: ABG Base Excess 4.2 MMOL/L (-2.5-2.5); ABG HCO3 28.2 MMOL/L (20-26); ABG Oxygen Saturation 98.1 % (95-100); ABG PCO2 44.2 MM HG (35-48); ABG PH 7.426 (7.35-7.45); ABG TCO2 26.5 MMOL/L (23-27)
[2020-12-01 04:35] LABS: Basophils % 0.1 % (0.0-0.8); Hematocrit 30.8 VOL% (42.0-52.0); Hemoglobin 9.7 GM/DL (14.0-18.0); Immature Granulocytes % 2.5 %; Immature Granulocytes Absolute 0.53 #; Lymphocytes # 0.3 10*3/uL (1.4-4.0); Lymphocytes % 1.2 % (21.2-54.2); Mean Corpuscular HGB Conc 31.5 GM/DL (32-36); Monocytes % 4.9 % (1.7-12.7); NRBC # 0.06 10*3/uL; Neutrophils % 91.3 % (38.7-73.9); Platelet Count 87 T/CUMM (130-400); Red Blood Count 3.46 MC/CUMM (3.8-5.5); White Blood Count 21.4 T/CUMM (4-12)
[2020-12-01 04:53] LABS: Calcium 8.3 MG/DL (8.5-10.1); Osmolality,Calculated 344.4 MOS/KG (273-304); Potassium 4.6 MMOL/L (3.5-5.1)
[2020-12-01 05:02] LABS: Hypochromasia Slight; Platelet Estimate Decreased; Segmented Neutrophils 98 % (50-85); Target Cells Few; Total Cells Counted 100
[2020-12-01] MEDS: INSULIN LISPRO 100 UNIT/ML SUBCUT SCH ×4 (05:58→17:42)
[2020-12-01] MEDS: methylPREDNISolone SOD SUC 40 MG/1 ML VIAL IV SCH ×3 (07:30→15:59)
[2020-12-01] MEDS: AMIODARONE 200 MG TABLET NG SCH ×2 (08:07→20:18)
[2020-12-01] MEDS: ASPIRIN CHEW 81 MG TABLET PO SCH (08:07)
[2020-12-01] MEDS: METOPROLOL TARTRATE 25 MG TABLET PO SCH ×2 (08:07→20:18)
[2020-12-01] MEDS: FAMOTIDINE 20 MG/2 ML VIAL IV SCH (08:07)
[2020-12-01] MEDS: TRIAMCINOLONE 0.025% CREAM 15 GM TUBE TOP SCH ×2 (08:10→22:44)
[2020-12-01] MEDS ORDERED: DEXTROSE 5% 1,000 ML IV SCH (09:00)
[2020-12-01] MEDS: LEVOFLOXACIN INJ 750 MG in PREMIX 1 EACH IV SCH (09:57)
[2020-12-01] MEDS ORDERED: ATROPINE 1 MG/10 ML SYRINGE ONE (11:15)
[2020-12-01] MEDS: DOPamine 800 MG/250 ML PREMIX IV PRN ×2 (11:25→12:11)
[2020-12-01] MEDS ORDERED: DOPamine 800 MG/250 ML PREMIX IV ONE (11:25)
[2020-12-01] MEDS ORDERED: ATROPINE 1 MG/10 ML SYRINGE IV ONE (11:28)
[2020-12-01] MEDS ORDERED: EPINEPHrine 1 MG/10 ML SYRINGE IV ONE (11:30)
[2020-12-01 12:18] LABS: Calcium 8.2 MG/DL (8.5-10.1); Potassium 4.5 MMOL/L (3.5-5.1)
[2020-12-01] MEDS: FONDAPARINUX 10 MG/0.8 ML SYRINGE SUBCUT SCH (20:17)
[2020-12-02] MEDS: methylPREDNISolone SOD SUC 40 MG/1 ML VIAL IV SCH ×4 (00:58→21:04)
[2020-12-02] MEDS: INSULIN LISPRO 100 UNIT/ML SUBCUT SCH ×4 (01:07→17:35)
[2020-12-02] MEDS: ALBUTEROL/IPRATROPIUM 3 ML NEB RESP TX SCH ×4 (01:11→19:11)
[2020-12-02 03:48] LABS: ABG Base Excess 1.3 MMOL/L (-2.5-2.5); ABG Oxygen Saturation 93.8 % (95-100); ABG PCO2 41.6 MM HG (35-48); ABG PH 7.414 (7.35-7.45); ABG PO2 74.1 MM HG (80-95); ABG TCO2 27.3 MMOL/L (23-27)
[2020-12-02 04:07] LABS: Basophils # 0.1 10*3/uL (0.0-0.2); Basophils % 0.3 % (0.0-0.8); Hematocrit 32.9 VOL% (42.0-52.0); Hemoglobin 10.4 GM/DL (14.0-18.0); Immature Granulocytes Absolute 0.97 #; Lymphocytes # 0.4 10*3/uL (1.4-4.0); Lymphocytes % 1.5 % (21.2-54.2); Mean Corpuscular HGB Conc 31.6 GM/DL (32-36); Mean Corpuscular Volume 87.7 FL (87-102); NRBC # 0.17 10*3/uL; Neutrophils % 88.2 % (38.7-73.9); Red Blood Count 3.75 MC/CUMM (3.8-5.5); Red Cell Distribution Width 18.8 % (9.3-17.3)
[2020-12-02 04:17] LABS: Platelet Count 88 T/CUMM (130-400)
[2020-12-02 04:19] LABS: Calcium 8.6 MG/DL (8.5-10.1); Osmolality,Calculated 337.7 MOS/KG (273-304); Potassium 4.7 MMOL/L (3.5-5.1)
[2020-12-02 04:27] LABS: Lymphocytes 1 % (20-55); Platelet Estimate Decreased; Segmented Neutrophils 96 % (50-85); Total Cells Counted 100
[2020-12-02] MEDS ORDERED: DEXTROSE 5% 1,000 ML IV SCH (08:30)
[2020-12-02] MEDS: LEVOFLOXACIN INJ 750 MG in PREMIX 1 EACH IV SCH (08:52)
[2020-12-02] MEDS: ASPIRIN CHEW 81 MG TABLET PO SCH (08:52)
[2020-12-02] MEDS: TRIAMCINOLONE 0.025% CREAM 15 GM TUBE TOP SCH ×2 (08:53→21:05)
[2020-12-02] MEDS: METOPROLOL TARTRATE 25 MG TABLET PO SCH ×2 (08:53→21:05)
[2020-12-02] MEDS: AMIODARONE 200 MG TABLET NG SCH ×2 (08:53→21:05)
[2020-12-02] MEDS: FAMOTIDINE 20 MG/2 ML VIAL IV SCH (08:54)
[2020-12-02] MEDS: MORPHINE 4 MG/1 ML VIAL IV PRN (11:51)
[2020-12-02] MEDS: FONDAPARINUX 10 MG/0.8 ML SYRINGE SUBCUT SCH (21:04)
[2020-12-03] MEDS: INSULIN LISPRO 100 UNIT/ML SUBCUT SCH ×5 (00:25→23:21)
[2020-12-03] MEDS: MORPHINE 4 MG/1 ML VIAL IV PRN (00:29)
[2020-12-03] MEDS: ALBUTEROL/IPRATROPIUM 3 ML NEB RESP TX SCH ×4 (01:02→19:08)
[2020-12-03 02:25] LABS: ABG Base Excess 3.5 MMOL/L (-2.5-2.5); ABG HCO3 27.6 MMOL/L (20-26); ABG Oxygen Saturation 97.4 % (95-100); ABG PCO2 42.7 MM HG (35-48); ABG PH 7.428 (7.35-7.45); ABG PO2 89.7 MM HG (80-95); ABG TCO2 25.9 MMOL/L (23-27); Allen Test Positive; Pt O2 Delivery Device Ventilator
[2020-12-03 05:13] LABS: Basophils % 0.1 % (0.0-0.8); Hematocrit 28.7 VOL% (42.0-52.0); Hemoglobin 9.1 GM/DL (14.0-18.0); Immature Granulocytes % 3.4 %; Immature Granulocytes Absolute 0.68 #; Lymphocytes # 0.5 10*3/uL (1.4-4.0); Lymphocytes % 2.4 % (21.2-54.2); Mean Corpuscular HGB Conc 31.7 GM/DL (32-36); Mean Corpuscular Volume 87.2 FL (87-102); Monocytes % 6.6 % (1.7-12.7); NRBC # 0.05 10*3/uL; Neutrophils % 87.5 % (38.7-73.9); Platelet Count 73 T/CUMM (130-400); Red Blood Count 3.29 MC/CUMM (3.8-5.5); Red Cell Distribution Width 18.6 % (9.3-17.3); White Blood Count 19.8 T/CUMM (4-12)
[2020-12-03 05:32] LABS: Albumin 1.9 G/DL (3.4-5.0); Bilirubin,Direct 0.82 MG/DL (0.0-0.20); Bilirubin,Indirect 0.4 MG/DL (0.0-1.0); Bilirubin,Total 1.2 MG/DL (0.2-1.0); Calcium 8.4 MG/DL (8.5-10.1); Osmolality,Calculated 333.9 MOS/KG (273-304); Potassium 4.4 MMOL/L (3.5-5.1); Total Protein 5.3 G/DL (6.4-8.3)
[2020-12-03 05:52] LABS: Hypochromasia 1+; Lymphocytes 4 % (20-55); Metamyelocytes 1 %; Microcytosis 1+; Segmented Neutrophils 92 % (50-85); Total Cells Counted 100
[2020-12-03 05:53] LABS: Anisocytosis 1+; Platelet Estimate Decreased; Target Cells Few
[2020-12-03] MEDS: TRIAMCINOLONE 0.025% CREAM 15 GM TUBE TOP SCH ×2 (09:41→21:27)
[2020-12-03] MEDS: methylPREDNISolone SOD SUC 40 MG/1 ML VIAL IV SCH ×2 (09:41→21:26)
[2020-12-03] MEDS: FAMOTIDINE 20 MG/2 ML VIAL IV SCH (09:41)
[2020-12-03] MEDS: LEVOFLOXACIN INJ 750 MG in PREMIX 1 EACH IV SCH (09:41)
[2020-12-03] MEDS: METOPROLOL TARTRATE 25 MG TABLET PO SCH ×2 (09:41→21:27)
[2020-12-03] MEDS: AMIODARONE 200 MG TABLET NG SCH ×2 (09:41→21:26)
[2020-12-03] MEDS: ASPIRIN CHEW 81 MG TABLET PO SCH (09:41)
[2020-12-03] MEDS: LACTULOSE 20 GM/30 ML UDCUP NG SCH ×2 (10:20→21:26)
[2020-12-03] MEDS: FONDAPARINUX 10 MG/0.8 ML SYRINGE SUBCUT SCH (21:26)
[2020-12-04] MEDS: ALBUTEROL/IPRATROPIUM 3 ML NEB RESP TX SCH ×4 (00:48→19:31)
[2020-12-04 04:29] LABS: ABG Base Excess 3.6 MMOL/L (-2.5-2.5); ABG HCO3 27.7 MMOL/L (20-26); ABG Oxygen Saturation 98.9 % (95-100); ABG PCO2 44.2 MM HG (35-48); ABG PH 7.419 (7.35-7.45); ABG TCO2 25.9 MMOL/L (23-27); Allen Test Positive; Pt O2 Delivery Device Ventilator
[2020-12-04 05:16] LABS: Basophils % 0.2 % (0.0-0.8); Hematocrit 28.5 VOL% (42.0-52.0); Hemoglobin 8.9 GM/DL (14.0-18.0); Immature Granulocytes % 3.1 %; Immature Granulocytes Absolute 0.59 #; Lymphocytes # 0.4 10*3/uL (1.4-4.0); Lymphocytes % 2.2 % (21.2-54.2); Mean Corpuscular HGB Conc 31.2 GM/DL (32-36); Mean Corpuscular Volume 88.2 FL (87-102); Monocytes % 7.1 % (1.7-12.7); Neutrophils % 87.4 % (38.7-73.9); Red Blood Count 3.23 MC/CUMM (3.8-5.5); Red Cell Distribution Width 18.6 % (9.3-17.3); White Blood Count 19.2 T/CUMM (4-12)
[2020-12-04 05:17] LABS: Platelet Count 71 T/CUMM (130-400)
[2020-12-04 05:31] LABS: Calcium 8.5 MG/DL (8.5-10.1); Potassium 4.1 MMOL/L (3.5-5.1)
[2020-12-04 05:34] LABS: Band Neutrophils 1 % (0-10); Lymphocytes 3 % (20-55); Metamyelocytes 1 %; Microcytosis 1+; Segmented Neutrophils 91 % (50-85); Target Cells Few; Total Cells Counted 100
[2020-12-04 05:35] LABS: Hypochromasia 1+; Ovalocytes Slight; Platelet Estimate Decreased
[2020-12-04] MEDS: INSULIN LISPRO 100 UNIT/ML SUBCUT SCH ×3 (05:37→17:48)
[2020-12-04] MEDS: ASPIRIN CHEW 81 MG TABLET PO SCH (09:12)
[2020-12-04] MEDS: methylPREDNISolone SOD SUC 40 MG/1 ML VIAL IV SCH ×2 (09:12→20:42)
[2020-12-04] MEDS: METOPROLOL TARTRATE 25 MG TABLET PO SCH ×2 (09:13→20:43)
[2020-12-04] MEDS: AMIODARONE 200 MG TABLET NG SCH ×2 (09:13→20:42)
[2020-12-04] MEDS: LACTULOSE 20 GM/30 ML UDCUP NG SCH ×2 (09:13→20:42)
[2020-12-04] MEDS: FAMOTIDINE 20 MG/2 ML VIAL IV SCH (09:13)
[2020-12-04] MEDS: TRIAMCINOLONE 0.025% CREAM 15 GM TUBE TOP SCH ×2 (09:13→20:43)
[2020-12-04] MEDS: LEVOFLOXACIN INJ 750 MG in PREMIX 1 EACH IV SCH (09:13)
[2020-12-04] MEDS ORDERED: METOPROLOL TARTRATE 25 MG TABLET NG ONE (11:54)
[2020-12-04] MEDS: FONDAPARINUX 10 MG/0.8 ML SYRINGE SUBCUT SCH (21:09)
[2020-12-05] MEDS: ALBUTEROL/IPRATROPIUM 3 ML NEB RESP TX SCH ×4 (00:24→19:10)
[2020-12-05] MEDS: INSULIN LISPRO 100 UNIT/ML SUBCUT SCH ×4 (00:48→19:33)
[2020-12-05 04:31] LABS: Allen Test Positive; Pt O2 Delivery Device Ventilator
[2020-12-05 04:32] LABS: ABG Base Excess 3.2 MMOL/L (-2.5-2.5); ABG HCO3 27.3 MMOL/L (20-26); ABG Oxygen Saturation 99.2 % (95-100); ABG PCO2 47.9 MM HG (35-48); ABG PH 7.388 (7.35-7.45); ABG TCO2 26.6 MMOL/L (23-27)
[2020-12-05 06:31] LABS: Basophils % 0.2 % (0.0-0.8); Eosinophils % 0.2 % (0.00-10.9); Hemoglobin 8.8 GM/DL (14.0-18.0); Immature Granulocytes % 3.2 %; Immature Granulocytes Absolute 0.54 #; Lymphocytes # 0.4 10*3/uL (1.4-4.0); Lymphocytes % 2.1 % (21.2-54.2); Mean Corpuscular HGB Conc 31.4 GM/DL (32-36); Mean Corpuscular Volume 88.1 FL (87-102); Monocytes % 7.3 % (1.7-12.7); NRBC # 0.02 10*3/uL; Platelet Count 67 T/CUMM (130-400); Red Blood Count 3.18 MC/CUMM (3.8-5.5); Red Cell Distribution Width 18.6 % (9.3-17.3); White Blood Count 16.7 T/CUMM (4-12)
[2020-12-05 07:04] LABS: Calcium 8.5 MG/DL (8.5-10.1); Osmolality,Calculated 315.3 MOS/KG (273-304); Potassium 4.1 MMOL/L (3.5-5.1)
[2020-12-05 07:11] LABS: Hypochromasia 2+; Lymphocytes 2 % (20-55); Microcytosis 1+; Platelet Estimate Decreased; Segmented Neutrophils 89 % (50-85); Total Cells Counted 100
[2020-12-05] MEDS: ASPIRIN CHEW 81 MG TABLET PO SCH (08:58)
[2020-12-05] MEDS: LEVOFLOXACIN INJ 750 MG in PREMIX 1 EACH IV SCH (08:59)
[2020-12-05] MEDS: methylPREDNISolone SOD SUC 40 MG/1 ML VIAL IV SCH ×2 (08:59→21:57)
[2020-12-05] MEDS: LACTULOSE 20 GM/30 ML UDCUP NG SCH ×2 (08:59→21:56)
[2020-12-05] MEDS: METOPROLOL TARTRATE 25 MG TABLET PO SCH ×2 (08:59→21:56)
[2020-12-05] MEDS: AMIODARONE 200 MG TABLET NG SCH ×2 (08:59→21:56)
[2020-12-05] MEDS: FAMOTIDINE 20 MG/2 ML VIAL IV SCH (09:00)
[2020-12-05] MEDS: TRIAMCINOLONE 0.025% CREAM 15 GM TUBE TOP SCH ×2 (09:01→21:56)
[2020-12-05] MEDS: LORazepam 2 MG/1 ML VIAL IV PRN (22:13)
[2020-12-06] MEDS: ALBUTEROL/IPRATROPIUM 3 ML NEB RESP TX SCH ×4 (00:59→19:29)
[2020-12-06 04:57] LABS: Calcium 8.4 MG/DL (8.5-10.1); Potassium 4.3 MMOL/L (3.5-5.1)
[2020-12-06 04:59] LABS: Basophils % 0.1 % (0.0-0.8); Eosinophils % 0.1 % (0.00-10.9); Hemoglobin 8.5 GM/DL (14.0-18.0); Immature Granulocytes % 3.2 %; Immature Granulocytes Absolute 0.43 #; Lymphocytes # 0.3 10*3/uL (1.4-4.0); Mean Corpuscular HGB Conc 31.5 GM/DL (32-36); Mean Corpuscular Volume 87.9 FL (87-102); Mean Platelet Volume 11.8 FL (9.6-12.0); Monocytes % 6.4 % (1.7-12.7); NRBC # 0.06 10*3/uL; Neutrophils % 88.2 % (38.7-73.9); Red Blood Count 3.07 MC/CUMM (3.8-5.5); Red Cell Distribution Width 18.6 % (9.3-17.3); White Blood Count 13.6 T/CUMM (4-12)
[2020-12-06 05:01] LABS: Platelet Count 69 T/CUMM (130-400)
[2020-12-06 05:18] LABS: Band Neutrophils 1 % (0-10); Hypochromasia 1+; Lymphocytes 2 % (20-55); Microcytosis 1+; Platelet Estimate Decreased; Segmented Neutrophils 94 % (50-85); Total Cells Counted 100
[2020-12-06] MEDS: INSULIN LISPRO 100 UNIT/ML SUBCUT SCH ×4 (05:36→18:49)
[2020-12-06] MEDS ORDERED: LORazepam 2 MG/1 ML VIAL ONE ×2 (08:55→16:37)
[2020-12-06] MEDS: FAMOTIDINE 20 MG/2 ML VIAL IV SCH (09:04)
[2020-12-06] MEDS: ASPIRIN CHEW 81 MG TABLET PO SCH (09:04)
[2020-12-06] MEDS: AMIODARONE 200 MG TABLET NG SCH ×2 (09:04→21:19)
[2020-12-06] MEDS: METOPROLOL TARTRATE 25 MG TABLET PO SCH (09:04)
[2020-12-06] MEDS: LACTULOSE 20 GM/30 ML UDCUP NG SCH ×2 (09:04→22:15)
[2020-12-06] MEDS: methylPREDNISolone SOD SUC 40 MG/1 ML VIAL IV SCH ×2 (09:05→21:21)
[2020-12-06] MEDS: LORazepam 2 MG/1 ML VIAL IV PRN (09:07)
[2020-12-06] MEDS: TRIAMCINOLONE 0.025% CREAM 15 GM TUBE TOP SCH ×2 (09:09→21:21)
[2020-12-06] MEDS ORDERED: METOPROLOL TARTRATE 25 MG TABLET PO ONE (09:42)
[2020-12-06] MEDS: METOPROLOL TARTRATE 50 MG TABLET PO SCH (21:19)
[2020-12-07] MEDS ORDERED: LORazepam 2 MG/1 ML VIAL ONE (00:04)
[2020-12-07] MEDS: LORazepam 2 MG/1 ML VIAL IV PRN ×3 (00:09→23:26)
[2020-12-07] MEDS: ALBUTEROL/IPRATROPIUM 3 ML NEB RESP TX SCH ×4 (00:52→19:55)
[2020-12-07] MEDS: INSULIN LISPRO 100 UNIT/ML SUBCUT SCH ×5 (02:30→23:16)
[2020-12-07 04:41] LABS: Basophils % 0.1 % (0.0-0.8); Hematocrit 29.9 VOL% (42.0-52.0); Hemoglobin 9.3 GM/DL (14.0-18.0); Immature Granulocytes Absolute 0.41 #; Lymphocytes # 0.3 10*3/uL (1.4-4.0); Lymphocytes % 1.9 % (21.2-54.2); Mean Corpuscular HGB Conc 31.1 GM/DL (32-36); Mean Corpuscular Volume 90.3 FL (87-102); Mean Platelet Volume 11.1 FL (9.6-12.0); Monocytes % 4.6 % (1.7-12.7); NRBC # 0.09 10*3/uL; Neutrophils % 90.4 % (38.7-73.9); Red Blood Count 3.31 MC/CUMM (3.8-5.5); Red Cell Distribution Width 19.7 % (9.3-17.3); White Blood Count 13.9 T/CUMM (4-12)
[2020-12-07 04:52] LABS: Calcium 8.8 MG/DL (8.5-10.1); Potassium 4.3 MMOL/L (3.5-5.1)
[2020-12-07 05:17] LABS: Platelet Count 92 T/CUMM (130-400)
[2020-12-07 05:41] LABS: Band Neutrophils 1 % (0-10); Lymphocytes 1 % (20-55); Metamyelocytes 2 %; Myelocytes 1 %; Nucleated Red Blood Cells 2 (0-5); Segmented Neutrophils 90 % (50-85); Total Cells Counted 100
[2020-12-07 05:43] LABS: Hypochromasia 1+; Microcytosis 1+
[2020-12-07 05:44] LABS: Polychromasia Slight; Target Cells Slight
[2020-12-07 05:45] LABS: Platelet Estimate Decreased
[2020-12-07 07:49] LABS: INR 1.1; PT Patient Result 11.4 SECS (9.8-11.9)
[2020-12-07] MEDS ORDERED: LACTATED RINGERS 1,000 ML IV SCH (08:00)
[2020-12-07] MEDS: LACTULOSE 20 GM/30 ML UDCUP NG SCH ×2 (08:10→20:59)
[2020-12-07] MEDS: AMIODARONE 200 MG TABLET NG SCH ×2 (08:10→20:59)
[2020-12-07] MEDS: FAMOTIDINE 20 MG/2 ML VIAL IV SCH (08:10)
[2020-12-07] MEDS: ASPIRIN CHEW 81 MG TABLET PO SCH (08:10)
[2020-12-07] MEDS: METOPROLOL TARTRATE 50 MG TABLET PO SCH ×2 (08:10→20:59)
[2020-12-07] MEDS: TRIAMCINOLONE 0.025% CREAM 15 GM TUBE TOP SCH ×2 (08:11→21:00)
[2020-12-07] MEDS ORDERED: DEXTROSE 5% NACL 0.45% 1,000 ML IV SCH (09:00)
[2020-12-07] MEDS ORDERED: DEXT 5% NACL 0.45% KCL 20 MEQ 20 MEQ/1,000 ML BAG IV SCH (09:00)
[2020-12-07] MEDS: ACETAMINOPHEN 325 MG TABLET PO PRN (20:59)
[2020-12-07] MEDS: MORPHINE 4 MG/1 ML VIAL IV PRN (22:31)
[2020-12-08] MEDS: ALBUTEROL/IPRATROPIUM 3 ML NEB RESP TX SCH ×4 (01:43→19:09)
[2020-12-08 03:43] LABS: Basophils % 0.1 % (0.0-0.8); Eosinophils # 0.4 10*3/uL (0.0-0.87); Eosinophils % 3.6 % (0.00-10.9); Hematocrit 27.9 VOL% (42.0-52.0); Hemoglobin 8.6 GM/DL (14.0-18.0); Immature Granulocytes % 3.4 %; Immature Granulocytes Absolute 0.37 #; Lymphocytes # 0.6 10*3/uL (1.4-4.0); Lymphocytes % 5.5 % (21.2-54.2); Mean Corpuscular HGB Conc 30.8 GM/DL (32-36); Mean Corpuscular Volume 90.6 FL (87-102); Mean Platelet Volume 11.3 FL (9.6-12.0); Monocytes % 4.8 % (1.7-12.7); NRBC # 0.07 10*3/uL; Neutrophils % 82.6 % (38.7-73.9); Red Blood Count 3.08 MC/CUMM (3.8-5.5); Red Cell Distribution Width 19.5 % (9.3-17.3)
[2020-12-08 03:46] LABS: Platelet Count 93 T/CUMM (130-400)
[2020-12-08 03:58] LABS: Calcium 8.5 MG/DL (8.5-10.1); Potassium 3.8 MMOL/L (3.5-5.1)
[2020-12-08 04:12] LABS: Osmolality,Calculated 316.9 MOS/KG (273-304)
[2020-12-08] MEDS: LORazepam 2 MG/1 ML VIAL IV PRN (04:25)
[2020-12-08 04:43] LABS: Eosinophils 2 % (0-10); Lymphocytes 7 % (20-55); Metamyelocytes 2 %; Nucleated Red Blood Cells 1 (0-5); Segmented Neutrophils 85 % (50-85); Total Cells Counted 100
[2020-12-08 04:44] LABS: Hypochromasia 2+; Platelet Estimate Decreased; Target Cells Few
[2020-12-08] MEDS: MORPHINE 4 MG/1 ML VIAL IV PRN (04:58)
[2020-12-08 05:02] LABS: ABG Base Excess 3.9 MMOL/L (-2.5-2.5); ABG HCO3 27.9 MMOL/L (20-26); ABG Oxygen Saturation 99.3 % (95-100); ABG PCO2 42.8 MM HG (35-48); ABG PH 7.432 (7.35-7.45); ABG TCO2 26.2 MMOL/L (23-27); Allen Test Positive; Pt O2 Delivery Device Ventilator
[2020-12-08] MEDS: INSULIN LISPRO 100 UNIT/ML SUBCUT SCH ×3 (06:17→17:26)
[2020-12-08] MEDS: ASPIRIN CHEW 81 MG TABLET PO SCH (08:37)
[2020-12-08] MEDS: AMIODARONE 200 MG TABLET NG SCH ×2 (08:37→20:10)
[2020-12-08] MEDS: METOPROLOL TARTRATE 50 MG TABLET PO SCH ×2 (08:37→20:10)
[2020-12-08] MEDS: LACTULOSE 20 GM/30 ML UDCUP NG SCH ×2 (08:37→20:10)
[2020-12-08] MEDS: TRIAMCINOLONE 0.025% CREAM 15 GM TUBE TOP SCH ×2 (08:39→20:11)
[2020-12-08] MEDS: FAMOTIDINE 8 MG/ML 50 ML/BOTTLE PER TUBE SCH (09:20)
[2020-12-09] MEDS: ALBUTEROL/IPRATROPIUM 3 ML NEB RESP TX SCH ×4 (00:48→19:22)
[2020-12-09] MEDS: METOPROLOL TARTRATE 50 MG TABLET PO SCH ×3 (03:05→20:28)
[2020-12-09] MEDS: AMIODARONE 200 MG TABLET NG SCH ×3 (03:05→20:27)
[2020-12-09] MEDS: INSULIN LISPRO 100 UNIT/ML SUBCUT SCH ×4 (03:06→17:09)
[2020-12-09 04:57] LABS: ABG Base Excess 2.7 MMOL/L (-2.5-2.5); ABG HCO3 26.8 MMOL/L (20-26); ABG Oxygen Saturation 99.7 % (95-100); ABG PCO2 43.6 MM HG (35-48); ABG PH 7.409 (7.35-7.45); ABG TCO2 25.8 MMOL/L (23-27); Allen Test Positive; Pt O2 Delivery Device Ventilator
[2020-12-09] MEDS: LORazepam 2 MG/1 ML VIAL IV PRN (08:13)
[2020-12-09] MEDS: ASPIRIN CHEW 81 MG TABLET PO SCH (08:22)
[2020-12-09] MEDS: FAMOTIDINE 8 MG/ML 50 ML/BOTTLE PER TUBE SCH (08:23)
[2020-12-09] MEDS: LACTULOSE 20 GM/30 ML UDCUP NG SCH ×2 (08:23→17:08)
[2020-12-09 09:45] LABS: Basophils % 0.2 % (0.0-0.8); Eosinophils # 0.4 10*3/uL (0.0-0.87); Eosinophils % 3.8 % (0.00-10.9); Hematocrit 27.1 VOL% (42.0-52.0); Hemoglobin 8.7 GM/DL (14.0-18.0); Immature Granulocytes % 2.9 %; Immature Granulocytes Absolute 0.31 #; Lymphocytes # 0.9 10*3/uL (1.4-4.0); Lymphocytes % 8.5 % (21.2-54.2); Mean Corpuscular HGB Conc 32.1 GM/DL (32-36); Mean Corpuscular Volume 88.6 FL (87-102); Mean Platelet Volume 11.3 FL (9.6-12.0); Monocytes % 5.6 % (1.7-12.7); NRBC # 0.08 10*3/uL; Platelet Count 100 T/CUMM (130-400); Red Blood Count 3.06 MC/CUMM (3.8-5.5); Red Cell Distribution Width 19.6 % (9.3-17.3); White Blood Count 10.8 T/CUMM (4-12)
[2020-12-09 10:06] LABS: Calcium 8.4 MG/DL (8.5-10.1); Osmolality,Calculated 313.1 MOS/KG (273-304)
[2020-12-09 10:12] LABS: Band Neutrophils 14 % (0-10); Eosinophils 4 % (0-10); Lymphocytes 7 % (20-55); Metamyelocytes 2 %; Platelet Estimate Adequate; Segmented Neutrophils 68 % (50-85); Total Cells Counted 100
[2020-12-09 10:13] LABS: Anisocytosis 2+; Macrocytosis Slight; Ovalocytes Few; Poikilocytosis Slight; Smudge Cells Few; Target Cells Few
[2020-12-09] MEDS: TRIAMCINOLONE 0.025% CREAM 15 GM TUBE TOP SCH ×2 (10:22→20:29)
[2020-12-09] MEDS: APIXABAN 5 MG TABLET PO SCH ×2 (13:19→20:26)
[2020-12-10] MEDS: INSULIN LISPRO 100 UNIT/ML SUBCUT SCH ×4 (00:08→17:26)
[2020-12-10] MEDS: LACTULOSE 20 GM/30 ML UDCUP NG SCH ×4 (00:08→17:26)
[2020-12-10] MEDS: ALBUTEROL/IPRATROPIUM 3 ML NEB RESP TX SCH ×4 (02:20→19:12)
[2020-12-10 06:56] LABS: Albumin 1.7 G/DL (3.4-5.0); Bilirubin,Total 2.6 MG/DL (0.2-1.0); Calcium 8.4 MG/DL (8.5-10.1); Potassium 3.5 MMOL/L (3.5-5.1); Total Protein 5.1 G/DL (6.4-8.3)
[2020-12-10] MEDS ORDERED: POTASSIUM PHOSPHATE 30 MMOL in SODIUM CHLORIDE 0.9% 250 ML IV ONE (07:02)
[2020-12-10] MEDS: AMIODARONE 200 MG TABLET NG SCH ×2 (08:34→20:11)
[2020-12-10] MEDS: ASPIRIN CHEW 81 MG TABLET PO SCH (08:34)
[2020-12-10] MEDS: APIXABAN 5 MG TABLET PO SCH ×2 (08:34→20:11)
[2020-12-10] MEDS: METOPROLOL TARTRATE 50 MG TABLET PO SCH ×2 (08:34→20:11)
[2020-12-10] MEDS: TRIAMCINOLONE 0.025% CREAM 15 GM TUBE TOP SCH ×2 (08:35→21:03)
[2020-12-10] MEDS: FAMOTIDINE 8 MG/ML 50 ML/BOTTLE PER TUBE SCH (10:35)
[2020-12-10] MEDS: DESITIN 4OZ/NYSTATIN 15 GRAM MIXTURE PASTE TOP SCH ×2 (16:04→21:03)
[2020-12-10] MEDS: POTASSIUM PHOS/SOD PHOS POWDER 250 MG PACK PO SCH (20:11)
[2020-12-11] MEDS: INSULIN LISPRO 100 UNIT/ML SUBCUT SCH ×4 (00:08→17:41)
[2020-12-11] MEDS: LACTULOSE 20 GM/30 ML UDCUP NG SCH ×4 (00:08→17:34)
[2020-12-11] MEDS: ALBUTEROL/IPRATROPIUM 3 ML NEB RESP TX SCH ×4 (01:45→19:28)
[2020-12-11 03:54] LABS: ABG Base Excess 1.7 MMOL/L (-2.5-2.5); ABG Oxygen Saturation 99.2 % (95-100); ABG PH 7.386 (7.35-7.45); ABG TCO2 25.1 MMOL/L (23-27); Allen Test Positive; Pt O2 Delivery Device Ventilator
[2020-12-11 05:54] LABS: Calcium 7.7 MG/DL (8.5-10.1); Osmolality,Calculated 311.9 MOS/KG (273-304); Potassium 3.7 MMOL/L (3.5-5.1)
[2020-12-11] MEDS: POTASSIUM PHOS/SOD PHOS POWDER 250 MG PACK PO SCH ×2 (09:31→21:40)
[2020-12-11] MEDS: METOPROLOL TARTRATE 50 MG TABLET PO SCH ×2 (09:32→21:40)
[2020-12-11] MEDS: AMIODARONE 200 MG TABLET NG SCH ×2 (09:32→21:40)
[2020-12-11] MEDS: APIXABAN 5 MG TABLET PO SCH ×2 (09:32→21:40)
[2020-12-11] MEDS: ASPIRIN CHEW 81 MG TABLET PO SCH (09:32)
[2020-12-11] MEDS: FAMOTIDINE 8 MG/ML 50 ML/BOTTLE PER TUBE SCH (09:33)
[2020-12-11] MEDS: DESITIN 4OZ/NYSTATIN 15 GRAM MIXTURE PASTE TOP SCH ×2 (09:36→21:40)
[2020-12-11] MEDS: TRIAMCINOLONE 0.025% CREAM 15 GM TUBE TOP SCH ×2 (09:36→21:40)
[2020-12-12] MEDS: ALBUTEROL/IPRATROPIUM 3 ML NEB RESP TX SCH ×4 (01:12→19:34)
[2020-12-12] MEDS: LACTULOSE 20 GM/30 ML UDCUP NG SCH ×5 (01:30→17:21)
[2020-12-12] MEDS: INSULIN LISPRO 100 UNIT/ML SUBCUT SCH ×4 (01:42→17:51)
[2020-12-12] MEDS: LORazepam 2 MG/1 ML VIAL IV PRN ×3 (02:32→14:15)
[2020-12-12 04:17] LABS: ABG HCO3 26.3 MMOL/L (20-26); ABG Oxygen Saturation 99.6 % (95-100); ABG PCO2 46.5 MM HG (35-48); ABG TCO2 25.8 MMOL/L (23-27); Allen Test Positive; Pt O2 Delivery Device Ventilator
[2020-12-12 04:23] LABS: Calcium 7.6 MG/DL (8.5-10.1); Potassium 3.8 MMOL/L (3.5-5.1)
[2020-12-12] MEDS: METOPROLOL TARTRATE 50 MG TABLET PO SCH ×2 (08:09→21:26)
[2020-12-12] MEDS: APIXABAN 5 MG TABLET PO SCH ×2 (08:09→21:26)
[2020-12-12] MEDS: AMIODARONE 200 MG TABLET NG SCH ×2 (08:09→21:26)
[2020-12-12] MEDS: ASPIRIN CHEW 81 MG TABLET PO SCH (08:09)
[2020-12-12] MEDS: FAMOTIDINE 8 MG/ML 50 ML/BOTTLE PER TUBE SCH (08:10)
[2020-12-12] MEDS: DESITIN 4OZ/NYSTATIN 15 GRAM MIXTURE PASTE TOP SCH ×2 (08:11→21:27)
[2020-12-12] MEDS: TRIAMCINOLONE 0.025% CREAM 15 GM TUBE TOP SCH ×2 (08:11→21:27)
[2020-12-12] MEDS: POTASSIUM PHOS/SOD PHOS POWDER 250 MG PACK PO SCH ×2 (08:11→21:26)
[2020-12-12] MEDS ORDERED: FUROSEMIDE 40 MG/4 ML VIAL IV ONE (08:16)
[2020-12-12] MEDS: SKIN HEALING OINT (AQUAPHOR) 50 GM TUBE TOP SCH (16:06)
[2020-12-13] MEDS: ALBUTEROL/IPRATROPIUM 3 ML NEB RESP TX SCH ×4 (01:11→19:31)
[2020-12-13 04:23] LABS: Basophils % 0.2 % (0.0-0.8); Eosinophils # 0.3 10*3/uL (0.0-0.87); Eosinophils % 3.9 % (0.00-10.9); Hemoglobin 7.6 GM/DL (14.0-18.0); Immature Granulocytes % 5.3 %; Immature Granulocytes Absolute 0.43 #; Lymphocytes # 1.3 10*3/uL (1.4-4.0); Lymphocytes % 15.4 % (21.2-54.2); Mean Corpuscular HGB Conc 31.7 GM/DL (32-36); Mean Corpuscular Volume 89.9 FL (87-102); Mean Platelet Volume 11.3 FL (9.6-12.0); Monocytes % 6.3 % (1.7-12.7); NRBC # 0.19 10*3/uL; Neutrophils % 68.9 % (38.7-73.9); Platelet Count 201 T/CUMM (130-400); Red Blood Count 2.67 MC/CUMM (3.8-5.5); Red Cell Distribution Width 21.8 % (9.3-17.3); White Blood Count 8.2 T/CUMM (4-12)
[2020-12-13] MEDS: INSULIN LISPRO 100 UNIT/ML SUBCUT SCH ×4 (04:29→18:06)
[2020-12-13] MEDS: LACTULOSE 20 GM/30 ML UDCUP NG SCH ×4 (04:30→18:06)
[2020-12-13 04:36] LABS: Calcium 7.9 MG/DL (8.5-10.1); Osmolality,Calculated 297.7 MOS/KG (273-304); Potassium 3.8 MMOL/L (3.5-5.1)
[2020-12-13 05:02] LABS: ABG Base Excess 2.5 MMOL/L (-2.5-2.5); ABG HCO3 27.2 MMOL/L (20-26); ABG Oxygen Saturation 97.5 % (95-100); ABG PH 7.419 (7.35-7.45); ABG TCO2 28.5 MMOL/L (23-27); Allen Test Positive; Pt O2 Delivery Device Ventilator
[2020-12-13 05:16] LABS: Band Neutrophils 2 % (0-10); Eosinophils 4 % (0-10); Hypochromasia 1+; Lymphocytes 14 % (20-55); Metamyelocytes 2 %; Microcytosis 1+; Myelocytes 1 %; Nucleated Red Blood Cells 4 (0-5); Segmented Neutrophils 74 % (50-85); Total Cells Counted 100
[2020-12-13 05:17] LABS: Polychromasia Slight; Target Cells Slight
[2020-12-13 05:18] LABS: Atypical Lymphocytes Few
[2020-12-13] MEDS: TRIAMCINOLONE 0.025% CREAM 15 GM TUBE TOP SCH ×2 (09:17→20:28)
[2020-12-13] MEDS: SKIN HEALING OINT (AQUAPHOR) 50 GM TUBE TOP SCH (09:17)
[2020-12-13] MEDS: APIXABAN 5 MG TABLET PO SCH ×2 (09:17→20:27)
[2020-12-13] MEDS: AMIODARONE 200 MG TABLET NG SCH ×2 (09:17→20:27)
[2020-12-13] MEDS: ASPIRIN CHEW 81 MG TABLET PO SCH (09:17)
[2020-12-13] MEDS: POTASSIUM PHOS/SOD PHOS POWDER 250 MG PACK PO SCH ×2 (09:17→20:27)
[2020-12-13] MEDS: METOPROLOL TARTRATE 50 MG TABLET PO SCH ×2 (09:17→20:27)
[2020-12-13] MEDS: FAMOTIDINE 8 MG/ML 50 ML/BOTTLE PER TUBE SCH (09:18)
[2020-12-13] MEDS: DESITIN 4OZ/NYSTATIN 15 GRAM MIXTURE PASTE TOP SCH ×2 (09:18→20:28)
[2020-12-14] MEDS: LACTULOSE 20 GM/30 ML UDCUP NG SCH ×4 (00:40→17:40)
[2020-12-14] MEDS: INSULIN LISPRO 100 UNIT/ML SUBCUT SCH ×4 (01:03→17:25)
[2020-12-14] MEDS: ALBUTEROL/IPRATROPIUM 3 ML NEB RESP TX SCH ×4 (01:09→19:21)
[2020-12-14 04:50] LABS: Basophils % 0.1 % (0.0-0.8); Eosinophils # 0.4 10*3/uL (0.0-0.87); Eosinophils % 4.1 % (0.00-10.9); Hematocrit 23.3 VOL% (42.0-52.0); Hemoglobin 7.3 GM/DL (14.0-18.0); Immature Granulocytes % 6.5 %; Immature Granulocytes Absolute 0.56 #; Lymphocytes # 1.8 10*3/uL (1.4-4.0); Lymphocytes % 21.3 % (21.2-54.2); Mean Corpuscular HGB Conc 31.3 GM/DL (32-36); Mean Corpuscular Volume 88.9 FL (87-102); Mean Platelet Volume 10.7 FL (9.6-12.0); Monocytes % 8.1 % (1.7-12.7); NRBC # 0.39 10*3/uL; Neutrophils % 59.9 % (38.7-73.9); Platelet Count 235 T/CUMM (130-400); Red Blood Count 2.62 MC/CUMM (3.8-5.5); Red Cell Distribution Width 21.9 % (9.3-17.3); White Blood Count 8.6 T/CUMM (4-12)
[2020-12-14 04:51] LABS: Allen Test Positive; Pt O2 Delivery Device Ventilator
[2020-12-14 04:52] LABS: ABG Base Excess 2.4 MMOL/L (-2.5-2.5); ABG HCO3 26.6 MMOL/L (20-26); ABG PCO2 39.2 MM HG (35-48); ABG TCO2 24.8 MMOL/L (23-27)
[2020-12-14 05:14] LABS: Calcium 7.8 MG/DL (8.5-10.1)
[2020-12-14 05:22] LABS: Band Neutrophils 3 % (0-10); Eosinophils 5 % (0-10); Lymphocytes 16 % (20-55); Metamyelocytes 2 %; Myelocytes 2 %; Nucleated Red Blood Cells 7 (0-5); Segmented Neutrophils 68 % (50-85); Total Cells Counted 100
[2020-12-14 05:23] LABS: Hypochromasia 1+; Target Cells Few
[2020-12-14 05:24] LABS: Microcytosis 2+; Platelet Estimate Normal; Polychromasia Slight
[2020-12-14] MEDS: ACETAMINOPHEN 325 MG TABLET PO PRN (05:24)
[2020-12-14] MEDS: DESITIN 4OZ/NYSTATIN 15 GRAM MIXTURE PASTE TOP SCH (09:30)
[2020-12-14] MEDS: POTASSIUM PHOS/SOD PHOS POWDER 250 MG PACK PO SCH ×2 (09:45→20:44)
[2020-12-14] MEDS: FAMOTIDINE 8 MG/ML 50 ML/BOTTLE PER TUBE SCH (09:45)
[2020-12-14] MEDS: AMIODARONE 200 MG TABLET NG SCH ×2 (09:45→20:44)
[2020-12-14] MEDS: ASPIRIN CHEW 81 MG TABLET PO SCH (09:45)
[2020-12-14] MEDS: METOPROLOL TARTRATE 50 MG TABLET PO SCH ×2 (09:45→20:43)
[2020-12-14] MEDS: APIXABAN 5 MG TABLET PO SCH ×2 (09:45→20:43)
[2020-12-14] MEDS: SKIN HEALING OINT (AQUAPHOR) 50 GM TUBE TOP SCH (09:45)
[2020-12-14] MEDS: TRIAMCINOLONE 0.025% CREAM 15 GM TUBE TOP SCH (09:50)
[2020-12-14] MEDS ORDERED: LORazepam 2 MG/1 ML VIAL ONE (20:39)
[2020-12-14] MEDS: LORazepam 2 MG/1 ML VIAL IV PRN (20:44)
[2020-12-15] MEDS: ALBUTEROL/IPRATROPIUM 3 ML NEB RESP TX SCH ×4 (00:52→19:37)
[2020-12-15] MEDS: TRIAMCINOLONE 0.025% CREAM 15 GM TUBE TOP SCH ×3 (00:59→20:54)
[2020-12-15] MEDS: LACTULOSE 20 GM/30 ML UDCUP NG SCH ×5 (00:59→23:52)
[2020-12-15] MEDS: DESITIN 4OZ/NYSTATIN 15 GRAM MIXTURE PASTE TOP SCH ×3 (01:00→20:55)
[2020-12-15] MEDS: INSULIN LISPRO 100 UNIT/ML SUBCUT SCH ×5 (01:01→23:52)
[2020-12-15 03:58] LABS: ABG Base Excess 1.5 MMOL/L (-2.5-2.5); ABG HCO3 26.2 MMOL/L (20-26); ABG Oxygen Saturation 98.6 % (95-100); ABG PCO2 41.5 MM HG (35-48); ABG PH 7.418 (7.35-7.45); ABG PO2 141.4 MM HG (80-95); ABG TCO2 27.5 MMOL/L (23-27)
[2020-12-15 04:53] LABS: Basophils % 0.3 % (0.0-0.8); Eosinophils # 0.4 10*3/uL (0.0-0.87); Eosinophils % 4.6 % (0.00-10.9); Hematocrit 23.3 VOL% (42.0-52.0); Hemoglobin 7.1 GM/DL (14.0-18.0); Immature Granulocytes % 6.5 %; Immature Granulocytes Absolute 0.52 #; Lymphocytes # 1.6 10*3/uL (1.4-4.0); Lymphocytes % 20.5 % (21.2-54.2); Mean Corpuscular HGB Conc 30.5 GM/DL (32-36); Mean Corpuscular Volume 91.7 FL (87-102); Mean Platelet Volume 11.4 FL (9.6-12.0); Monocytes % 7.4 % (1.7-12.7); NRBC # 0.38 10*3/uL; Neutrophils % 60.7 % (38.7-73.9); Platelet Count 267 T/CUMM (130-400); Red Blood Count 2.54 MC/CUMM (3.8-5.5); Red Cell Distribution Width 22.5 % (9.3-17.3)
[2020-12-15 05:10] LABS: Calcium 7.8 MG/DL (8.5-10.1); Osmolality,Calculated 299.6 MOS/KG (273-304); Potassium 3.9 MMOL/L (3.5-5.1)
[2020-12-15 05:24] LABS: Band Neutrophils 2 % (0-10); Eosinophils 8 % (0-10); Hypochromasia 2+; Lymphocytes 19 % (20-55); Microcytosis 1+; Nucleated Red Blood Cells 3 (0-5); Ovalocytes Slight; Platelet Estimate Adequate; Segmented Neutrophils 63 % (50-85); Total Cells Counted 100
[2020-12-15] MEDS: METOPROLOL TARTRATE 50 MG TABLET PO SCH ×2 (08:00→20:54)
[2020-12-15] MEDS: AMIODARONE 200 MG TABLET NG SCH ×2 (08:00→20:54)
[2020-12-15] MEDS: APIXABAN 5 MG TABLET PO SCH ×2 (08:00→20:54)
[2020-12-15] MEDS: POTASSIUM PHOS/SOD PHOS POWDER 250 MG PACK PO SCH ×2 (08:00→20:54)
[2020-12-15] MEDS: ASPIRIN CHEW 81 MG TABLET PO SCH (08:00)
[2020-12-15] MEDS ORDERED: MAGNESIUM SULF RIDER 4 GM in PREMIX 1 EACH IV ONE (08:57)
[2020-12-15] MEDS: FAMOTIDINE 8 MG/ML 50 ML/BOTTLE PER TUBE SCH (09:00)
[2020-12-15] MEDS: LORazepam 2 MG/1 ML VIAL IV PRN (09:00)
[2020-12-15] MEDS: SKIN HEALING OINT (AQUAPHOR) 50 GM TUBE TOP SCH (09:15)
[2020-12-16] MEDS: ALBUTEROL/IPRATROPIUM 3 ML NEB RESP TX SCH ×4 (01:45→19:17)
[2020-12-16 03:44] LABS: ABG Base Excess 2.7 MMOL/L (-2.5-2.5); ABG HCO3 27.6 MMOL/L (20-26); ABG Oxygen Saturation 98.2 % (95-100); ABG PCO2 43.9 MM HG (35-48); ABG PH 7.416 (7.35-7.45); ABG TCO2 28.9 MMOL/L (23-27)
[2020-12-16 03:55] LABS: Basophils % 0.4 % (0.0-0.8); Eosinophils # 0.4 10*3/uL (0.0-0.87); Hematocrit 23.7 VOL% (42.0-52.0); Hemoglobin 7.3 GM/DL (14.0-18.0); Immature Granulocytes % 5.9 %; Immature Granulocytes Absolute 0.58 #; Lymphocytes % 20.4 % (21.2-54.2); Mean Corpuscular HGB Conc 30.8 GM/DL (32-36); Mean Corpuscular Volume 91.2 FL (87-102); Mean Platelet Volume 11.1 FL (9.6-12.0); NRBC # 0.58 10*3/uL; Neutrophils % 62.3 % (38.7-73.9); Platelet Count 299 T/CUMM (130-400); Red Cell Distribution Width 23.7 % (9.3-17.3); White Blood Count 9.8 T/CUMM (4-12)
[2020-12-16 04:22] LABS: Band Neutrophils 6 % (0-10); Eosinophils 5 % (0-10); Hypochromasia 2+; Lymphocytes 16 % (20-55); Microcytosis 1+; Nucleated Red Blood Cells 7 (0-5); Osmolality,Calculated 294.7 MOS/KG (273-304); Platelet Estimate Adequate; Polychromasia Slight; Potassium 4.3 MMOL/L (3.5-5.1); Segmented Neutrophils 64 % (50-85); Total Cells Counted 100
[2020-12-16] MEDS: INSULIN LISPRO 100 UNIT/ML SUBCUT SCH ×4 (06:13→23:56)
[2020-12-16] MEDS: LACTULOSE 20 GM/30 ML UDCUP NG SCH ×4 (06:13→23:56)
[2020-12-16] MEDS: LORazepam 2 MG/1 ML VIAL IV PRN (06:13)
[2020-12-16] MEDS: APIXABAN 5 MG TABLET PO SCH ×2 (08:58→20:34)
[2020-12-16] MEDS: AMIODARONE 200 MG TABLET NG SCH ×2 (08:59→20:34)
[2020-12-16] MEDS: POTASSIUM PHOS/SOD PHOS POWDER 250 MG PACK PO SCH ×2 (08:59→20:34)
[2020-12-16] MEDS: ASPIRIN CHEW 81 MG TABLET PO SCH (08:59)
[2020-12-16] MEDS: METOPROLOL TARTRATE 50 MG TABLET PO SCH ×2 (08:59→20:34)
[2020-12-16] MEDS: SKIN HEALING OINT (AQUAPHOR) 50 GM TUBE TOP SCH (09:02)
[2020-12-16] MEDS: TRIAMCINOLONE 0.025% CREAM 15 GM TUBE TOP SCH ×2 (09:02→21:46)
[2020-12-16] MEDS: DESITIN 4OZ/NYSTATIN 15 GRAM MIXTURE PASTE TOP SCH ×2 (09:02→21:46)
[2020-12-16] MEDS: FAMOTIDINE 8 MG/ML 50 ML/BOTTLE PER TUBE SCH (09:06)
[2020-12-17] MEDS: LORazepam 2 MG/1 ML VIAL IV PRN ×3 (00:35→22:45)
[2020-12-17] MEDS: ALBUTEROL/IPRATROPIUM 3 ML NEB RESP TX SCH ×4 (01:05→19:05)
[2020-12-17 04:01] LABS: ABG Base Excess 3.4 MMOL/L (-2.5-2.5); ABG HCO3 28.6 MMOL/L (20-26); ABG Oxygen Saturation 98.5 % (95-100); ABG PCO2 47.3 MM HG (35-48); ABG PO2 135.4 MM HG (80-95); ABG TCO2 30.1 MMOL/L (23-27)
[2020-12-17 04:30] LABS: Basophils # 0.1 10*3/uL (0.0-0.2); Basophils % 0.6 % (0.0-0.8); Eosinophils # 0.5 10*3/uL (0.0-0.87); Eosinophils % 5.3 % (0.00-10.9); Hematocrit 22.4 VOL% (42.0-52.0); Hemoglobin 6.9 GM/DL (14.0-18.0); Immature Granulocytes % 7.3 %; Immature Granulocytes Absolute 0.66 #; Lymphocytes # 2.1 10*3/uL (1.4-4.0); Mean Corpuscular HGB Conc 30.8 GM/DL (32-36); Mean Corpuscular Volume 91.1 FL (87-102); Mean Platelet Volume 10.7 FL (9.6-12.0); Monocytes % 7.4 % (1.7-12.7); NRBC # 0.45 10*3/uL; Neutrophils % 56.4 % (38.7-73.9); Platelet Count 309 T/CUMM (130-400); Red Blood Count 2.46 MC/CUMM (3.8-5.5); White Blood Count 9.1 T/CUMM (4-12)
[2020-12-17 04:52] LABS: Band Neutrophils 4 % (0-10); Eosinophils 4 % (0-10); Hypochromasia 2+; Lymphocytes 18 % (20-55); Nucleated Red Blood Cells 3 (0-5); Platelet Estimate Adequate; Segmented Neutrophils 64 % (50-85); Total Cells Counted 100
[2020-12-17 04:53] LABS: Microcytosis 1+
[2020-12-17 04:55] LABS: Albumin 1.5 G/DL (3.4-5.0); Bilirubin,Total 2.1 MG/DL (0.2-1.0); Calcium 7.8 MG/DL (8.5-10.1); Osmolality,Calculated 301.3 MOS/KG (273-304); Potassium 4.6 MMOL/L (3.5-5.1); Total Protein 4.8 G/DL (5.0-7.5)
[2020-12-17] MEDS ORDERED: MORPHINE 4 MG/1 ML VIAL IV ONE (05:06)
[2020-12-17] MEDS: LACTULOSE 20 GM/30 ML UDCUP NG SCH ×3 (07:02→22:00)
[2020-12-17] MEDS: INSULIN LISPRO 100 UNIT/ML SUBCUT SCH ×3 (07:02→17:12)
[2020-12-17] MEDS: FAMOTIDINE 8 MG/ML 50 ML/BOTTLE PER TUBE SCH (08:09)
[2020-12-17] MEDS: POTASSIUM PHOS/SOD PHOS POWDER 250 MG PACK PO SCH ×2 (08:10→20:58)
[2020-12-17] MEDS: APIXABAN 5 MG TABLET PO SCH (08:10)
[2020-12-17] MEDS: METOPROLOL TARTRATE 50 MG TABLET PO SCH ×2 (08:10→20:58)
[2020-12-17] MEDS: AMIODARONE 200 MG TABLET NG SCH ×2 (08:10→20:58)
[2020-12-17] MEDS: ASPIRIN CHEW 81 MG TABLET PO SCH (08:10)
[2020-12-17] MEDS: DESITIN 4OZ/NYSTATIN 15 GRAM MIXTURE PASTE TOP SCH ×2 (08:11→20:58)
[2020-12-17] MEDS: TRIAMCINOLONE 0.025% CREAM 15 GM TUBE TOP SCH ×2 (08:11→20:58)
[2020-12-17] MEDS: SKIN HEALING OINT (AQUAPHOR) 50 GM TUBE TOP SCH (08:11)
[2020-12-17] MEDS: cefTRIAXone 1,000 MG in SYRINGE 1 EACH IV SCH (10:14)
[2020-12-17 12:44] LABS: Bilirubin,Urine Small mg/dL (Negative); Blood, Urine Moderate mg/dL (Negative); Glucose,Urine (UA) Negative (Negative); Hyaline Casts,Urine 9 /LPF (0-3); Ketones,Urine Negative (Negative); Mucus,Urine Occasional /LPF (Occasional); Nitrite,Urine Negative (Negative); Protein,Urine 100 MG/DL; RBC,Urine 32 /HPF (0-4); Squamous Epithelial Cell,Urine Occasional /HPF (0-10); Urine Appearance Slightly Hazy (Clear); Urine Color Amber (Yellow); Urine Specific Gravity 1.019 (1.001-1.035); WBC,Urine 39 /HPF (0-6)
[2020-12-17 12:46] LABS: Hematocrit 25.1 VOL% (42.0-52.0); Hemoglobin 7.6 GM/DL (14.0-18.0)
[2020-12-17 19:54] LABS: Hematocrit 19.8 VOL% (42.0-52.0)
[2020-12-17 19:57] LABS: Hemoglobin 5.9 GM/DL (14.0-18.0)
[2020-12-18] MEDS: ALBUTEROL/IPRATROPIUM 3 ML NEB RESP TX SCH ×4 (01:18→20:03)
[2020-12-18] MEDS: INSULIN LISPRO 100 UNIT/ML SUBCUT SCH ×4 (02:35→18:41)
[2020-12-18 04:07] LABS: Hematocrit 28.9 VOL% (42.0-52.0); Hemoglobin 8.8 GM/DL (14.0-18.0)
[2020-12-18 04:22] LABS: Calcium 8.4 MG/DL (8.5-10.1); Osmolality,Calculated 291.8 MOS/KG (273-304); Potassium 4.4 MMOL/L (3.5-5.1)
[2020-12-18] MEDS: LORazepam 2 MG/1 ML VIAL IV PRN (04:46)
[2020-12-18 05:11] LABS: ABG Base Excess 1.8 MMOL/L (-2.5-2.5); ABG HCO3 25.9 MMOL/L (20-26); ABG Oxygen Saturation 88.6 % (95-100); ABG PCO2 54.1 MM HG (35-48); ABG TCO2 26.4 MMOL/L (23-27)
[2020-12-18] MEDS: LACTULOSE 20 GM/30 ML UDCUP NG SCH ×2 (05:53→18:35)
[2020-12-18] MEDS: POTASSIUM PHOS/SOD PHOS POWDER 250 MG PACK PO SCH ×2 (08:25→23:55)
[2020-12-18] MEDS: ASPIRIN CHEW 81 MG TABLET PO SCH (08:25)
[2020-12-18] MEDS: METOPROLOL TARTRATE 50 MG TABLET PO SCH ×2 (08:25→23:55)
[2020-12-18] MEDS: AMIODARONE 200 MG TABLET NG SCH ×2 (08:25→23:55)
[2020-12-18] MEDS: FAMOTIDINE 8 MG/ML 50 ML/BOTTLE PER TUBE SCH (08:26)
[2020-12-18] MEDS: cefTRIAXone 1,000 MG in SYRINGE 1 EACH IV SCH (08:33)
[2020-12-18] MEDS: TRIAMCINOLONE 0.025% CREAM 15 GM TUBE TOP SCH ×2 (08:34→23:55)
[2020-12-18] MEDS: SKIN HEALING OINT (AQUAPHOR) 50 GM TUBE TOP SCH (08:34)
[2020-12-18] MEDS: DESITIN 4OZ/NYSTATIN 15 GRAM MIXTURE PASTE TOP SCH ×2 (08:34→23:55)
[2020-12-18 12:17] LABS: Hematocrit 29.9 VOL% (42.0-52.0); Hemoglobin 9.1 GM/DL (14.0-18.0)
[2020-12-18] MEDS ORDERED: FUROSEMIDE 40 MG/4 ML VIAL IV ONE (14:29)
[2020-12-18] MEDS ORDERED: QUEtiapine 25 MG TABLET PO SCH (21:00)
[2020-12-19] MEDS: ALBUTEROL/IPRATROPIUM 3 ML NEB RESP TX SCH ×4 (01:05→20:02)
[2020-12-19] MEDS: INSULIN LISPRO 100 UNIT/ML SUBCUT SCH ×4 (02:58→19:01)
[2020-12-19 06:05] LABS: Basophils # 0.1 10*3/uL (0.0-0.2); Basophils % 0.7 % (0.0-0.8); Eosinophils # 0.4 10*3/uL (0.0-0.87); Eosinophils % 3.2 % (0.00-10.9); Hematocrit 29.3 VOL% (42.0-52.0); Immature Granulocytes Absolute 0.87 #; Lymphocytes # 2.8 10*3/uL (1.4-4.0); Lymphocytes % 25.6 % (21.2-54.2); Mean Corpuscular HGB Conc 30.7 GM/DL (32-36); Mean Corpuscular Volume 93.9 FL (87-102); Mean Platelet Volume 10.5 FL (9.6-12.0); Monocytes % 9.5 % (1.7-12.7); NRBC # 0.88 10*3/uL; Platelet Count 363 T/CUMM (130-400); Red Blood Count 3.12 MC/CUMM (3.8-5.5); Red Cell Distribution Width 24.2 % (9.3-17.3); White Blood Count 10.9 T/CUMM (4-12)
[2020-12-19 06:30] LABS: Band Neutrophils 2 % (0-10); Eosinophils 1 % (0-10); Lymphocytes 23 % (20-55); Metamyelocytes 1 %; Myelocytes 1 %; Nucleated Red Blood Cells 12 (0-5); Segmented Neutrophils 63 % (50-85); Total Cells Counted 100
[2020-12-19 06:31] LABS: Hypochromasia 2+; Microcytosis 1+; Platelet Estimate Normal; Polychromasia Slight
[2020-12-19 06:39] LABS: Calcium 8.9 MG/DL (8.5-10.1); Osmolality,Calculated 291.1 MOS/KG (273-304); Potassium 4.6 MMOL/L (3.5-5.1)
[2020-12-19] MEDS: LACTULOSE 20 GM/30 ML UDCUP NG SCH ×2 (06:46→19:01)
[2020-12-19] MEDS: ASPIRIN CHEW 81 MG TABLET PO SCH (09:53)
[2020-12-19] MEDS: POTASSIUM PHOS/SOD PHOS POWDER 250 MG PACK PO SCH ×2 (09:53→22:21)
[2020-12-19] MEDS: DESITIN 4OZ/NYSTATIN 15 GRAM MIXTURE PASTE TOP SCH (09:53)
[2020-12-19] MEDS: AMIODARONE 200 MG TABLET NG SCH (09:53)
[2020-12-19] MEDS: TRIAMCINOLONE 0.025% CREAM 15 GM TUBE TOP SCH (09:54)
[2020-12-19] MEDS: SKIN HEALING OINT (AQUAPHOR) 50 GM TUBE TOP SCH (09:54)
[2020-12-19] MEDS: cefTRIAXone 1,000 MG in SYRINGE 1 EACH IV SCH (09:54)
[2020-12-19] MEDS: METOPROLOL TARTRATE 50 MG TABLET PO SCH (09:56)
[2020-12-19] MEDS: FAMOTIDINE 8 MG/ML 50 ML/BOTTLE PER TUBE SCH (09:56)
[2020-12-19] MEDS ORDERED: NOREPINEPHRINE 8 MG in SODIUM CHLORIDE 0.9% 242 ML IV PRN (12:47)
[2020-12-19] MEDS ORDERED: NOREPINEPHRINE 4 MG in SODIUM CHLORIDE 0.9% 246 ML IV PRN (13:00)
[2020-12-19] MEDS ORDERED: NOREPINEPHRINE 4 MG/4 ML VIAL IV ONE (13:04)
[2020-12-19 14:11] LABS: ABG Base Excess -0.1 MMOL/L (-2.5-2.5); ABG HCO3 26.7 MMOL/L (20-26); ABG Oxygen Saturation 99.2 % (95-100); ABG PCO2 55.6 MM HG (35-48); ABG PO2 375.9 MM HG (80-95); ABG TCO2 28.5 MMOL/L (23-27)
[2020-12-19 14:12] LABS: Pt O2 Delivery Device Ventilator
[2020-12-19] MEDS ORDERED: SODIUM CHLORIDE 0.9% 1,000 ML IV ONE (14:30)
[2020-12-19] MEDS: SODIUM CHLORIDE 0.9% 1,000 ML IV SCH (16:00)
[2020-12-19] MEDS: cefTAZidime 2,000 MG in SYRINGE 1 EACH IV SCH ×2 (19:02→22:21)
[2020-12-19 19:43] LABS: CKMB % 11.5 %
[2020-12-19 19:45] LABS: Troponin I 0.504 NG/ML (0.00-0.045)
[2020-12-19] MEDS: APIXABAN 5 MG TABLET PO SCH (22:21)
[2020-12-20] MEDS: DESITIN 4OZ/NYSTATIN 15 GRAM MIXTURE PASTE TOP SCH ×2 (01:13→11:20)
[2020-12-20] MEDS: TRIAMCINOLONE 0.025% CREAM 15 GM TUBE TOP SCH ×2 (01:13→11:19)
[2020-12-20] MEDS: INSULIN LISPRO 100 UNIT/ML SUBCUT SCH ×4 (01:27→17:56)
[2020-12-20] MEDS: ALBUTEROL/IPRATROPIUM 3 ML NEB RESP TX SCH ×4 (01:30→19:08)
[2020-12-20] MEDS: SODIUM CHLORIDE 0.9% 1,000 ML IV SCH ×2 (02:00→12:44)
[2020-12-20 03:36] LABS: ABG Base Excess 3.8 MMOL/L (-2.5-2.5); ABG HCO3 28.3 MMOL/L (20-26); ABG Oxygen Saturation 88.3 % (95-100); ABG PCO2 42.5 MM HG (35-48); ABG PH 7.441 (7.35-7.45); ABG TCO2 29.6 MMOL/L (23-27); Allen Test Positive; Pt O2 Delivery Device Ventilator
[2020-12-20 05:58] LABS: Basophils # 0.1 10*3/uL (0.0-0.2); Basophils % 0.7 % (0.0-0.8); Eosinophils # 0.4 10*3/uL (0.0-0.87); Hematocrit 27.4 VOL% (42.0-52.0); Hemoglobin 8.5 GM/DL (14.0-18.0); Immature Granulocytes % 10.1 %; Immature Granulocytes Absolute 1.22 #; Lymphocytes # 2.7 10*3/uL (1.4-4.0); Lymphocytes % 22.2 % (21.2-54.2); Mean Corpuscular Volume 93.8 FL (87-102); Mean Platelet Volume 10.4 FL (9.6-12.0); Monocytes % 9.1 % (1.7-12.7); Neutrophils % 54.9 % (38.7-73.9); Platelet Count 348 T/CUMM (130-400); Red Blood Count 2.92 MC/CUMM (3.8-5.5); Red Cell Distribution Width 24.5 % (9.3-17.3); White Blood Count 12.1 T/CUMM (4-12)
[2020-12-20 06:23] LABS: Band Neutrophils 4 % (0-10); Eosinophils 3 % (0-10); Hypochromasia 1+; Lymphocytes 15 % (20-55); Metamyelocytes 3 %; Microcytosis 1+; Myelocytes 2 %; Nucleated Red Blood Cells 14 (0-5); Polychromasia Slight; Promyelocytes 1 %; Segmented Neutrophils 65 % (50-85); Total Cells Counted 100
[2020-12-20 06:27] LABS: Albumin 1.6 G/DL (3.4-5.0); Bilirubin,Total 1.6 MG/DL (0.2-1.0); Calcium 8.5 MG/DL (8.5-10.1); Osmolality,Calculated 292.8 MOS/KG (273-304); Potassium 4.2 MMOL/L (3.5-5.1); Total Protein 5.9 G/DL (5.0-7.5)
[2020-12-20 06:31] LABS: CKMB % 12.2 %
[2020-12-20 06:34] LABS: Troponin I 0.323 NG/ML (0.00-0.045)
[2020-12-20] MEDS: LACTULOSE 20 GM/30 ML UDCUP NG SCH ×2 (07:04→18:21)
[2020-12-20] MEDS: cefTAZidime 2,000 MG in SYRINGE 1 EACH IV SCH ×3 (07:08→21:26)
[2020-12-20 10:23] LABS: CKMB % 12.7 %; Troponin I 0.271 NG/ML (0.00-0.045)
[2020-12-20] MEDS: SKIN HEALING OINT (AQUAPHOR) 50 GM TUBE TOP SCH (11:19)
[2020-12-20] MEDS: APIXABAN 5 MG TABLET PO SCH ×2 (11:19→21:25)
[2020-12-20] MEDS: ASPIRIN CHEW 81 MG TABLET PO SCH (11:19)
[2020-12-20] MEDS: FAMOTIDINE 8 MG/ML 50 ML/BOTTLE PER TUBE SCH (11:19)
[2020-12-20] MEDS: POTASSIUM PHOS/SOD PHOS POWDER 250 MG PACK PO SCH ×2 (11:19→21:25)
[2020-12-20] MEDS: METOPROLOL TARTRATE 50 MG TABLET PEG SCH ×2 (13:41→21:25)
[2020-12-20] MEDS: AMIODARONE 200 MG TABLET PEG SCH (13:41)
[2020-12-21] MEDS: ALBUTEROL/IPRATROPIUM 3 ML NEB RESP TX SCH ×4 (01:24→19:32)
[2020-12-21] MEDS: TRIAMCINOLONE 0.025% CREAM 15 GM TUBE TOP SCH ×2 (01:42→08:23)
[2020-12-21] MEDS: DESITIN 4OZ/NYSTATIN 15 GRAM MIXTURE PASTE TOP SCH ×2 (01:42→08:21)
[2020-12-21] MEDS: INSULIN LISPRO 100 UNIT/ML SUBCUT SCH ×5 (02:16→23:40)
[2020-12-21 03:06] LABS: ABG Base Excess 2.9 MMOL/L (-2.5-2.5); ABG HCO3 28.9 MMOL/L (20-26); ABG Oxygen Saturation 96.6 % (95-100); ABG PCO2 52.4 MM HG (35-48); ABG PO2 90.4 MM HG (80-95); ABG TCO2 30.5 MMOL/L (23-27)
[2020-12-21] MEDS: cefTAZidime 2,000 MG in SYRINGE 1 EACH IV SCH ×3 (04:44→20:35)
[2020-12-21 04:56] LABS: Basophils # 0.1 10*3/uL (0.0-0.2); Basophils % 0.5 % (0.0-0.8); Eosinophils # 0.5 10*3/uL (0.0-0.87); Eosinophils % 4.1 % (0.00-10.9); Hematocrit 30.3 VOL% (42.0-52.0); Hemoglobin 8.8 GM/DL (14.0-18.0); Immature Granulocytes % 7.7 %; Immature Granulocytes Absolute 0.84 #; Lymphocytes # 2.4 10*3/uL (1.4-4.0); Lymphocytes % 21.9 % (21.2-54.2); Mean Corpuscular Volume 98.4 FL (87-102); Mean Platelet Volume 10.5 FL (9.6-12.0); Monocytes % 10.6 % (1.7-12.7); NRBC # 0.63 10*3/uL; Neutrophils % 55.2 % (38.7-73.9); Platelet Count 386 T/CUMM (130-400); Red Blood Count 3.08 MC/CUMM (3.8-5.5); Red Cell Distribution Width 25.1 % (9.3-17.3)
[2020-12-21 05:13] LABS: Calcium 8.5 MG/DL (8.5-10.1); Osmolality,Calculated 295.7 MOS/KG (273-304); Potassium 4.6 MMOL/L (3.5-5.1)
[2020-12-21] MEDS: SODIUM CHLORIDE 0.9% 1,000 ML IV SCH ×3 (05:55→18:51)
[2020-12-21] MEDS: LACTULOSE 20 GM/30 ML UDCUP NG SCH ×2 (07:05→18:09)
[2020-12-21 07:15] LABS: Anisocytosis 1+; Band Neutrophils 5 % (0-10); Eosinophils 3 % (0-10); Lymphocytes 19 % (20-55); Macrocytosis 1+; Metamyelocytes 2 %; Nucleated Red Blood Cells 8 (0-5); Segmented Neutrophils 61 % (50-85); Total Cells Counted 100
[2020-12-21 07:16] LABS: Platelet Estimate Normal
[2020-12-21] MEDS: ASPIRIN CHEW 81 MG TABLET PO SCH (08:21)
[2020-12-21] MEDS: SKIN HEALING OINT (AQUAPHOR) 50 GM TUBE TOP SCH (08:21)
[2020-12-21] MEDS: AMIODARONE 200 MG TABLET PEG SCH (08:21)
[2020-12-21] MEDS: POTASSIUM PHOS/SOD PHOS POWDER 250 MG PACK PO SCH ×2 (08:21→20:29)
[2020-12-21] MEDS: METOPROLOL TARTRATE 50 MG TABLET PEG SCH ×2 (08:21→20:33)
[2020-12-21] MEDS: FAMOTIDINE 8 MG/ML 50 ML/BOTTLE PER TUBE SCH (08:21)
[2020-12-21] MEDS: APIXABAN 5 MG TABLET PO SCH ×2 (08:21→20:28)
[2020-12-22] MEDS: ALBUTEROL/IPRATROPIUM 3 ML NEB RESP TX SCH ×4 (00:54→19:24)
[2020-12-22] MEDS: DESITIN 4OZ/NYSTATIN 15 GRAM MIXTURE PASTE TOP SCH ×3 (03:40→20:26)
[2020-12-22] MEDS: TRIAMCINOLONE 0.025% CREAM 15 GM TUBE TOP SCH ×3 (03:40→20:26)
[2020-12-22] MEDS: SODIUM CHLORIDE 0.9% 1,000 ML IV SCH (05:00)
[2020-12-22 05:22] LABS: Calcium 8.4 MG/DL (8.5-10.1); Potassium 5.1 MMOL/L (3.5-5.1)
[2020-12-22 05:29] LABS: Basophils # 0.1 10*3/uL (0.0-0.2); Basophils % 0.7 % (0.0-0.8); Eosinophils # 0.3 10*3/uL (0.0-0.87); Eosinophils % 3.3 % (0.00-10.9); Hematocrit 31.3 VOL% (42.0-52.0); Immature Granulocytes % 8.9 %; Immature Granulocytes Absolute 0.93 #; Lymphocytes # 3.3 10*3/uL (1.4-4.0); Lymphocytes % 31.9 % (21.2-54.2); Mean Corpuscular HGB Conc 28.8 GM/DL (32-36); Mean Platelet Volume 10.2 FL (9.6-12.0); Neutrophils % 43.2 % (38.7-73.9); Platelet Count 364 T/CUMM (130-400); Red Blood Count 3.07 MC/CUMM (3.8-5.5); Red Cell Distribution Width 25.2 % (9.3-17.3); White Blood Count 10.5 T/CUMM (4-12)
[2020-12-22 05:56] LABS: Anisocytosis 2+; Band Neutrophils 12 % (0-10); Eosinophils 4 % (0-10); Lymphocytes 27 % (20-55); Metamyelocytes 2 %; Myelocytes 3 %; Nucleated Red Blood Cells 13 (0-5); Platelet Estimate Normal; Polychromasia 1+; Segmented Neutrophils 36 % (50-85); Target Cells Few; Total Cells Counted 100
[2020-12-22 05:57] LABS: Macrocytosis 2+
[2020-12-22] MEDS: cefTAZidime 2,000 MG in SYRINGE 1 EACH IV SCH ×3 (06:12→20:30)
[2020-12-22] MEDS: INSULIN LISPRO 100 UNIT/ML SUBCUT SCH ×4 (06:54→23:22)
[2020-12-22] MEDS: LACTULOSE 20 GM/30 ML UDCUP NG SCH ×2 (06:54→18:05)
[2020-12-22] MEDS: APIXABAN 5 MG TABLET PO SCH ×2 (08:57→20:26)
[2020-12-22] MEDS: AMIODARONE 200 MG TABLET PEG SCH (08:57)
[2020-12-22] MEDS: ASPIRIN CHEW 81 MG TABLET PO SCH (08:57)
[2020-12-22] MEDS: SKIN HEALING OINT (AQUAPHOR) 50 GM TUBE TOP SCH (08:58)
[2020-12-22] MEDS: POTASSIUM PHOS/SOD PHOS POWDER 250 MG PACK PO SCH ×2 (08:58→20:26)
[2020-12-22] MEDS: METOPROLOL TARTRATE 50 MG TABLET PEG SCH ×2 (08:58→20:26)
[2020-12-22] MEDS: FAMOTIDINE 8 MG/ML 50 ML/BOTTLE PER TUBE SCH (08:58)
[2020-12-23] MEDS: ALBUTEROL/IPRATROPIUM 3 ML NEB RESP TX SCH ×4 (00:03→19:20)
[2020-12-23 01:07] LABS: Allen Test Positive
[2020-12-23 01:19] LABS: ABG Base Excess -5.2 MMOL/L (-2.5-2.5); ABG HCO3 19.9 MMOL/L (20-26); ABG Oxygen Saturation 88.5 % (95-100); ABG PO2 66.5 MM HG (80-95); ABG TCO2 24.5 MMOL/L (23-27)
[2020-12-23 01:21] LABS: ABG PCO2 78.1 MM HG (35-48); ABG PH 7.125 (7.35-7.45)
[2020-12-23 04:01] LABS: Calcium 8.6 MG/DL (8.5-10.1); Osmolality,Calculated 297.1 MOS/KG (273-304); Potassium 5.5 MMOL/L (3.5-5.1)
[2020-12-23 04:33] LABS: ABG Base Excess -2.6 MMOL/L (-2.5-2.5); ABG HCO3 22.2 MMOL/L (20-26); ABG Oxygen Saturation 99.6 % (95-100); ABG PCO2 44.6 MM HG (35-48); ABG PH 7.326 (7.35-7.45); ABG TCO2 21.7 MMOL/L (23-27); Allen Test Positive; Pt O2 Delivery Device Ventilator
[2020-12-23 05:38] LABS: Basophils # 0.1 10*3/uL (0.0-0.2); Basophils % 0.5 % (0.0-0.8); Eosinophils # 0.1 10*3/uL (0.0-0.87); Eosinophils % 0.5 % (0.00-10.9); Hematocrit 30.2 VOL% (42.0-52.0); Hemoglobin 8.6 GM/DL (14.0-18.0); Immature Granulocytes % 14.7 %; Immature Granulocytes Absolute 1.65 #; Lymphocytes # 1.6 10*3/uL (1.4-4.0); Lymphocytes % 14.3 % (21.2-54.2); Mean Corpuscular HGB Conc 28.5 GM/DL (32-36); Mean Corpuscular Volume 103.4 FL (87-102); Mean Platelet Volume 10.6 FL (9.6-12.0); Monocytes % 8.9 % (1.7-12.7); NRBC # 2.81 10*3/uL; Neutrophils % 61.1 % (38.7-73.9); Platelet Count 328 T/CUMM (130-400); Red Blood Count 2.92 MC/CUMM (3.8-5.5); Red Cell Distribution Width 25.1 % (9.3-17.3); White Blood Count 11.2 T/CUMM (4-12)
[2020-12-23] MEDS: cefTAZidime 2,000 MG in SYRINGE 1 EACH IV SCH ×4 (06:21→21:40)
[2020-12-23] MEDS: LACTULOSE 20 GM/30 ML UDCUP NG SCH ×2 (06:47→17:54)
[2020-12-23] MEDS: INSULIN LISPRO 100 UNIT/ML SUBCUT SCH ×3 (06:48→17:55)
[2020-12-23 08:41] LABS: Total Cells Counted 0
[2020-12-23] MEDS: ASPIRIN CHEW 81 MG TABLET PO SCH (08:52)
[2020-12-23] MEDS: APIXABAN 5 MG TABLET PO SCH ×2 (08:52→20:15)
[2020-12-23] MEDS: AMIODARONE 200 MG TABLET PEG SCH (08:52)
[2020-12-23] MEDS: DESITIN 4OZ/NYSTATIN 15 GRAM MIXTURE PASTE TOP SCH ×2 (08:53→20:15)
[2020-12-23] MEDS: POTASSIUM PHOS/SOD PHOS POWDER 250 MG PACK PO SCH (08:53)
[2020-12-23] MEDS: FAMOTIDINE 8 MG/ML 50 ML/BOTTLE PER TUBE SCH (08:53)
[2020-12-23] MEDS: SKIN HEALING OINT (AQUAPHOR) 50 GM TUBE TOP SCH ×2 (08:53→10:11)
[2020-12-23] MEDS: METOPROLOL TARTRATE 50 MG TABLET PEG SCH ×2 (10:00→20:15)
[2020-12-23] MEDS: TRIAMCINOLONE 0.025% CREAM 15 GM TUBE TOP SCH ×2 (11:13→20:15)
[2020-12-23 11:32] LABS: Calcium 8.4 MG/DL (8.5-10.1); Potassium 5.1 MMOL/L (3.5-5.1)
[2020-12-23] MEDS: ACETAMINOPHEN 325 MG TABLET PO PRN (20:19)
[2020-12-24] MEDS: INSULIN LISPRO 100 UNIT/ML SUBCUT SCH ×5 (00:40→23:53)
[2020-12-24] MEDS: ALBUTEROL/IPRATROPIUM 3 ML NEB RESP TX SCH ×4 (01:20→19:30)
[2020-12-24 04:15] LABS: ABG Base Excess 2.7 MMOL/L (-2.5-2.5); ABG HCO3 26.8 MMOL/L (20-26); ABG Oxygen Saturation 99.7 % (95-100); ABG PCO2 32.9 MM HG (35-48); ABG PH 7.496 (7.35-7.45); ABG TCO2 22.3 MMOL/L (23-27); Allen Test Positive; Pt O2 Delivery Device Ventilator
[2020-12-24] MEDS: cefTAZidime 2,000 MG in SYRINGE 1 EACH IV SCH ×3 (04:46→20:35)
[2020-12-24] MEDS: LACTULOSE 20 GM/30 ML UDCUP NG SCH ×2 (05:34→18:22)
[2020-12-24] MEDS: ACETAMINOPHEN 325 MG TABLET PO PRN (08:32)
[2020-12-24] MEDS: METOPROLOL TARTRATE 50 MG TABLET PEG SCH ×2 (08:32→20:28)
[2020-12-24] MEDS: APIXABAN 5 MG TABLET PO SCH ×2 (08:33→20:28)
[2020-12-24] MEDS: ASPIRIN CHEW 81 MG TABLET PO SCH (08:33)
[2020-12-24] MEDS: AMIODARONE 200 MG TABLET PEG SCH (08:33)
[2020-12-24] MEDS: TRIAMCINOLONE 0.025% CREAM 15 GM TUBE TOP SCH ×2 (08:34→20:28)
[2020-12-24] MEDS: SKIN HEALING OINT (AQUAPHOR) 50 GM TUBE TOP SCH (08:34)
[2020-12-24] MEDS: FAMOTIDINE 8 MG/ML 50 ML/BOTTLE PER TUBE SCH (08:34)
[2020-12-24] MEDS: DESITIN 4OZ/NYSTATIN 15 GRAM MIXTURE PASTE TOP SCH ×2 (08:35→20:28)
[2020-12-24] MEDS ORDERED: ACETAMINOPHEN 325 MG/10.15 ML UDCUP PO ONE (11:57)
[2020-12-24] MEDS: DEXMEDETOMIDINE 400 MCG in SODIUM CHLORIDE 0.9% 96 ML IV PRN (13:47)
[2020-12-25] MEDS: ALBUTEROL/IPRATROPIUM 3 ML NEB RESP TX SCH ×4 (02:24→19:30)
[2020-12-25 04:45] LABS: ABG HCO3 26.2 MMOL/L (20-26); ABG Oxygen Saturation 99.6 % (95-100); ABG PCO2 47.8 MM HG (35-48); ABG PH 7.371 (7.35-7.45); ABG TCO2 25.7 MMOL/L (23-27)
[2020-12-25 04:56] LABS: Basophils # 0.1 10*3/uL (0.0-0.2); Basophils % 0.8 % (0.0-0.8); Eosinophils # 0.2 10*3/uL (0.0-0.87); Eosinophils % 2.7 % (0.00-10.9); Hematocrit 27.4 VOL% (42.0-52.0); Hemoglobin 8.2 GM/DL (14.0-18.0); Immature Granulocytes % 9.7 %; Immature Granulocytes Absolute 0.75 #; Lymphocytes # 1.6 10*3/uL (1.4-4.0); Mean Corpuscular HGB Conc 29.9 GM/DL (32-36); Mean Corpuscular Volume 97.5 FL (87-102); Monocytes % 11.9 % (1.7-12.7); NRBC # 0.21 10*3/uL; Neutrophils % 53.9 % (38.7-73.9); Platelet Count 252 T/CUMM (130-400); Red Blood Count 2.81 MC/CUMM (3.8-5.5); Red Cell Distribution Width 26.2 % (9.3-17.3); White Blood Count 7.8 T/CUMM (4-12)
[2020-12-25 05:12] LABS: Albumin 1.5 G/DL (3.4-5.0); Bilirubin,Total 1.3 MG/DL (0.2-1.0); Calcium 8.4 MG/DL (8.5-10.1); Potassium 4.9 MMOL/L (3.5-5.1); Total Protein 5.5 G/DL (5.0-7.5)
[2020-12-25 05:23] LABS: Eosinophils 5 % (0-10); Hypochromasia 1+; Lymphocytes 16 % (20-55); Macrocytosis Slight; Nucleated Red Blood Cells 5 (0-5); Platelet Estimate Adequate; Polychromasia Slight; Segmented Neutrophils 65 % (50-85); Total Cells Counted 100
[2020-12-25] MEDS: LACTULOSE 20 GM/30 ML UDCUP NG SCH ×2 (05:55→17:10)
[2020-12-25] MEDS: cefTAZidime 2,000 MG in SYRINGE 1 EACH IV SCH ×4 (05:55→22:58)
[2020-12-25] MEDS: INSULIN LISPRO 100 UNIT/ML SUBCUT SCH ×2 (05:56→20:22)
[2020-12-25] MEDS: METOPROLOL TARTRATE 50 MG TABLET PEG SCH ×2 (09:00→20:12)
[2020-12-25] MEDS: APIXABAN 5 MG TABLET PO SCH ×2 (09:28→20:12)
[2020-12-25] MEDS: ASPIRIN CHEW 81 MG TABLET PO SCH (09:28)
[2020-12-25] MEDS: FAMOTIDINE 8 MG/ML 50 ML/BOTTLE PER TUBE SCH (09:28)
[2020-12-25] MEDS: TRIAMCINOLONE 0.025% CREAM 15 GM TUBE TOP SCH ×2 (09:28→20:22)
[2020-12-25] MEDS: SKIN HEALING OINT (AQUAPHOR) 50 GM TUBE TOP SCH (09:28)
[2020-12-25] MEDS: AMIODARONE 200 MG TABLET PEG SCH (09:28)
[2020-12-25] MEDS: DESITIN 4OZ/NYSTATIN 15 GRAM MIXTURE PASTE TOP SCH ×2 (09:49→20:23)
[2020-12-25] MEDS ORDERED: FUROSEMIDE 40 MG/4 ML VIAL IM SCH (11:30)
[2020-12-25] MEDS: DEXMEDETOMIDINE 400 MCG in SODIUM CHLORIDE 0.9% 96 ML IV PRN ×2 (12:04→20:21)
[2020-12-25] MEDS ORDERED: CALCIUM CHLORIDE 1,000 MG/10 ML SYRINGE IV ONE (13:21)
[2020-12-25] MEDS ORDERED: SODIUM BICARBONATE 50 MEQ/50 ML SYRINGE IV ONE (13:21)
[2020-12-25] MEDS ORDERED: EPINEPHrine 1 MG/10 ML SYRINGE IV ONE (13:21)
[2020-12-25] MEDS: FUROSEMIDE 40 MG/4 ML VIAL IV SCH (15:20)
[2020-12-25] MEDS: CITALOPRAM 20 MG TABLET PO SCH (20:12)
[2020-12-25] MEDS: QUEtiapine 25 MG TABLET PO SCH (20:12)
[2020-12-26] MEDS: ALBUTEROL/IPRATROPIUM 3 ML NEB RESP TX SCH ×4 (00:40→19:28)
[2020-12-26 05:03] LABS: Basophils % 0.7 % (0.0-0.8); Eosinophils # 0.2 10*3/uL (0.0-0.87); Eosinophils % 3.2 % (0.00-10.9); Hematocrit 29.4 VOL% (42.0-52.0); Hemoglobin 8.8 GM/DL (14.0-18.0); Immature Granulocytes % 8.2 %; Immature Granulocytes Absolute 0.44 #; Lymphocytes # 1.7 10*3/uL (1.4-4.0); Lymphocytes % 31.5 % (21.2-54.2); Mean Corpuscular HGB Conc 29.9 GM/DL (32-36); Mean Corpuscular Volume 99.3 FL (87-102); Mean Platelet Volume 10.4 FL (9.6-12.0); Monocytes % 13.5 % (1.7-12.7); NRBC # 0.06 10*3/uL; Neutrophils % 42.9 % (38.7-73.9); Platelet Count 232 T/CUMM (130-400); Red Blood Count 2.96 MC/CUMM (3.8-5.5); Red Cell Distribution Width 26.3 % (9.3-17.3); White Blood Count 5.3 T/CUMM (4-12)
[2020-12-26] MEDS: cefTAZidime 2,000 MG in SYRINGE 1 EACH IV SCH ×3 (05:05→20:59)
[2020-12-26 05:21] LABS: Albumin 1.7 G/DL (3.4-5.0); Bilirubin,Total 1.1 MG/DL (0.2-1.0); Calcium 8.4 MG/DL (8.5-10.1); Osmolality,Calculated 299.8 MOS/KG (273-304); Potassium 5.1 MMOL/L (3.5-5.1); Total Protein 5.7 G/DL (5.0-7.5)
[2020-12-26 05:24] LABS: Band Neutrophils 3 % (0-10); Eosinophils 6 % (0-10); Lymphocytes 32 % (20-55); Nucleated Red Blood Cells 1 (0-5); Platelet Estimate Adequate; Segmented Neutrophils 43 % (50-85); Total Cells Counted 100
[2020-12-26 05:25] LABS: Hypochromasia 1+; Macrocytosis Slight; Polychromasia Slight
[2020-12-26] MEDS: LACTULOSE 20 GM/30 ML UDCUP NG SCH ×2 (05:46→17:37)
[2020-12-26] MEDS: SKIN HEALING OINT (AQUAPHOR) 50 GM TUBE TOP SCH (08:09)
[2020-12-26] MEDS: AMIODARONE 200 MG TABLET PEG SCH (08:09)
[2020-12-26] MEDS: APIXABAN 5 MG TABLET PO SCH ×2 (08:09→20:58)
[2020-12-26] MEDS: ASPIRIN CHEW 81 MG TABLET PO SCH (08:09)
[2020-12-26] MEDS: DESITIN 4OZ/NYSTATIN 15 GRAM MIXTURE PASTE TOP SCH ×2 (08:10→20:59)
[2020-12-26] MEDS: METOPROLOL TARTRATE 50 MG TABLET PEG SCH ×2 (08:10→20:59)
[2020-12-26] MEDS: FUROSEMIDE 40 MG/4 ML VIAL IV SCH (08:10)
[2020-12-26] MEDS: TRIAMCINOLONE 0.025% CREAM 15 GM TUBE TOP SCH ×2 (08:10→20:59)
[2020-12-26] MEDS: FAMOTIDINE 8 MG/ML 50 ML/BOTTLE PER TUBE SCH (08:10)
[2020-12-26] MEDS: INSULIN LISPRO 100 UNIT/ML SUBCUT SCH ×2 (08:10→20:59)
[2020-12-26] MEDS: QUEtiapine 25 MG TABLET PO SCH ×2 (08:10→20:59)
[2020-12-26] MEDS: DEXMEDETOMIDINE 400 MCG in SODIUM CHLORIDE 0.9% 96 ML IV PRN ×3 (08:11→22:44)
[2020-12-26] MEDS ORDERED: SODIUM BICARBONATE 50 MEQ/50 ML SYRINGE IV ONE (15:32)
[2020-12-26] MEDS ORDERED: EPINEPHrine 1 MG/10 ML SYRINGE IV ONE (15:32)
[2020-12-26] MEDS ORDERED: CALCIUM CHLORIDE 1,000 MG/10 ML SYRINGE IV ONE (15:32)
[2020-12-26] MEDS: CITALOPRAM 20 MG TABLET PO SCH (20:58)
[2020-12-27] MEDS: ALBUTEROL/IPRATROPIUM 3 ML NEB RESP TX SCH ×4 (01:01→20:40)
[2020-12-27 04:41] LABS: Albumin 1.7 G/DL (3.4-5.0); Basophils % 0.4 % (0.0-0.8); Calcium 8.5 MG/DL (8.5-10.1); Eosinophils # 0.2 10*3/uL (0.0-0.87); Hematocrit 30.9 VOL% (42.0-52.0); Immature Granulocytes % 5.5 %; Immature Granulocytes Absolute 0.41 #; Lymphocytes # 1.6 10*3/uL (1.4-4.0); Lymphocytes % 21.4 % (21.2-54.2); Mean Corpuscular HGB Conc 29.1 GM/DL (32-36); Mean Corpuscular Volume 101.3 FL (87-102); Mean Platelet Volume 10.2 FL (9.6-12.0); Monocytes % 11.2 % (1.7-12.7); NRBC # 0.04 10*3/uL; Neutrophils % 59.5 % (38.7-73.9); Osmolality,Calculated 297.8 MOS/KG (273-304); Platelet Count 216 T/CUMM (130-400); Potassium 5.4 MMOL/L (3.5-5.1); Red Blood Count 3.05 MC/CUMM (3.8-5.5); Red Cell Distribution Width 26.3 % (9.3-17.3); Total Protein 5.9 G/DL (5.0-7.5); White Blood Count 7.4 T/CUMM (4-12)
[2020-12-27 04:52] LABS: Band Neutrophils 1 % (0-10); Eosinophils 2 % (0-10); Hypochromasia 1+; Lymphocytes 22 % (20-55); Platelet Estimate Adequate; Segmented Neutrophils 62 % (50-85); Total Cells Counted 100
[2020-12-27 04:53] LABS: Macrocytosis Slight; Polychromasia Slight
[2020-12-27] MEDS: LACTULOSE 20 GM/30 ML UDCUP NG SCH ×2 (05:47→17:25)
[2020-12-27] MEDS: DEXMEDETOMIDINE 400 MCG in SODIUM CHLORIDE 0.9% 96 ML IV PRN (07:00)
[2020-12-27] MEDS: cefTAZidime 2,000 MG in SYRINGE 1 EACH IV SCH ×2 (09:15→17:22)
[2020-12-27] MEDS: QUEtiapine 25 MG TABLET PO SCH ×2 (09:16→21:06)
[2020-12-27] MEDS: ASPIRIN CHEW 81 MG TABLET PO SCH (09:16)
[2020-12-27] MEDS: APIXABAN 5 MG TABLET PO SCH ×2 (09:16→21:06)
[2020-12-27] MEDS: METOPROLOL TARTRATE 50 MG TABLET PEG SCH ×2 (09:16→21:05)
[2020-12-27] MEDS: FUROSEMIDE 40 MG/4 ML VIAL IV SCH (09:16)
[2020-12-27] MEDS: SKIN HEALING OINT (AQUAPHOR) 50 GM TUBE TOP SCH (09:17)
[2020-12-27] MEDS: AMIODARONE 200 MG TABLET PEG SCH (09:17)
[2020-12-27] MEDS: TRIAMCINOLONE 0.025% CREAM 15 GM TUBE TOP SCH ×2 (09:19→21:06)
[2020-12-27] MEDS: INSULIN LISPRO 100 UNIT/ML SUBCUT SCH ×2 (09:22→21:06)
[2020-12-27] MEDS: FAMOTIDINE 8 MG/ML 50 ML/BOTTLE PER TUBE SCH (09:22)
[2020-12-27] MEDS: DESITIN 4OZ/NYSTATIN 15 GRAM MIXTURE PASTE TOP SCH ×2 (09:23→21:09)
[2020-12-27] MEDS: CITALOPRAM 20 MG TABLET PO SCH (21:05)
[2020-12-27 22:33] LABS: Basophils # 0.1 10*3/uL (0.0-0.2); Basophils % 0.6 % (0.0-0.8); Eosinophils # 0.1 10*3/uL (0.0-0.87); Eosinophils % 0.8 % (0.00-10.9); Hematocrit 30.3 VOL% (42.0-52.0); Hemoglobin 8.9 GM/DL (14.0-18.0); Immature Granulocytes % 6.8 %; Immature Granulocytes Absolute 0.83 #; Lymphocytes # 4.5 10*3/uL (1.4-4.0); Lymphocytes % 37.2 % (21.2-54.2); Mean Corpuscular HGB Conc 29.4 GM/DL (32-36); Mean Corpuscular Volume 100.3 FL (87-102); Mean Platelet Volume 10.2 FL (9.6-12.0); Monocytes % 9.6 % (1.7-12.7); NRBC # 0.12 10*3/uL; Platelet Count 227 T/CUMM (130-400); Red Blood Count 3.02 MC/CUMM (3.8-5.5); White Blood Count 12.1 T/CUMM (4-12)
[2020-12-27 22:50] LABS: Albumin 1.8 G/DL (3.4-5.0); Calcium 8.5 MG/DL (8.5-10.1); Potassium 5.9 MMOL/L (3.5-5.1)
[2020-12-27 22:53] LABS: Anisocytosis 1+; Band Neutrophils 4 % (0-10); Eosinophils 1 % (0-10); Hypochromasia 1+; Lymphocytes 39 % (20-55); Metamyelocytes 1 %; Nucleated Red Blood Cells 2 (0-5); Polychromasia 1+; Segmented Neutrophils 49 % (50-85); Target Cells Few; Total Cells Counted 100
[2020-12-27 22:54] LABS: Platelet Estimate Adequate
[2020-12-27] MEDS: fentaNYL 100 MCG/2 ML VIAL IV PRN (23:03)
[2020-12-27] MEDS ORDERED: SODIUM POLYSTYRENE SULFATE 15 GM/60 ML BOTTLE PO ONE (23:30)
[2020-12-27 23:38] LABS: ABG Base Excess 1.8 MMOL/L (-2.5-2.5); ABG HCO3 26.1 MMOL/L (20-26); ABG PCO2 49.4 MM HG (35-48); ABG PH 7.358 (7.35-7.45); ABG TCO2 25.7 MMOL/L (23-27)
[2020-12-28] MEDS: ALBUTEROL/IPRATROPIUM 3 ML NEB RESP TX SCH ×5 (00:15→19:49)
[2020-12-28] MEDS: cefTAZidime 2,000 MG in SYRINGE 1 EACH IV SCH ×3 (01:39→18:01)
[2020-12-28] MEDS ORDERED: HALOPERIDOL 5 MG/ML AMP IM ONE (02:20)
[2020-12-28 04:57] LABS: Basophils % 0.5 % (0.0-0.8); Eosinophils % 0.3 % (0.00-10.9); Hematocrit 28.2 VOL% (42.0-52.0); Hemoglobin 8.3 GM/DL (14.0-18.0); Immature Granulocytes % 4.1 %; Immature Granulocytes Absolute 0.36 #; Lymphocytes # 2.2 10*3/uL (1.4-4.0); Lymphocytes % 24.6 % (21.2-54.2); Mean Corpuscular HGB Conc 29.4 GM/DL (32-36); Mean Corpuscular Volume 98.9 FL (87-102); Mean Platelet Volume 10.5 FL (9.6-12.0); Monocytes % 12.2 % (1.7-12.7); Neutrophils % 58.3 % (38.7-73.9); Platelet Count 196 T/CUMM (130-400); Red Blood Count 2.85 MC/CUMM (3.8-5.5); Red Cell Distribution Width 25.7 % (9.3-17.3); White Blood Count 8.8 T/CUMM (4-12)
[2020-12-28 05:13] LABS: Albumin 1.8 G/DL (3.4-5.0); Bilirubin,Total 1.3 MG/DL (0.2-1.0); Calcium 8.7 MG/DL (8.5-10.1); Osmolality,Calculated 296.1 MOS/KG (273-304); Potassium 5.5 MMOL/L (3.5-5.1); Total Protein 5.8 G/DL (5.0-7.5)
[2020-12-28 05:51] LABS: Band Neutrophils 2 % (0-10); Eosinophils 1 % (0-10); Hypochromasia 1+; Lymphocytes 32 % (20-55); Metamyelocytes 1 %; Myelocytes 1 %; Nucleated Red Blood Cells 4 (0-5); Segmented Neutrophils 53 % (50-85); Total Cells Counted 100
[2020-12-28 05:52] LABS: Anisocytosis 1+; Macrocytosis 1+; Polychromasia Slight; Target Cells Slight
[2020-12-28 05:53] LABS: Platelet Estimate Adequate
[2020-12-28] MEDS: LACTULOSE 20 GM/30 ML UDCUP NG SCH ×2 (06:11→18:04)
[2020-12-28] MEDS: AMIODARONE 200 MG TABLET PEG SCH (08:41)
[2020-12-28] MEDS: QUEtiapine 25 MG TABLET PO SCH (08:41)
[2020-12-28] MEDS: ASPIRIN CHEW 81 MG TABLET PO SCH (08:41)
[2020-12-28] MEDS: ALBUMIN 25% 25 GM in PREMIX 1 EACH IV SCH ×2 (08:42→18:00)
[2020-12-28] MEDS: FUROSEMIDE 40 MG/4 ML VIAL IV SCH (08:42)
[2020-12-28] MEDS: APIXABAN 5 MG TABLET PO SCH ×2 (08:42→20:24)
[2020-12-28] MEDS: FAMOTIDINE 8 MG/ML 50 ML/BOTTLE PER TUBE SCH (08:43)
[2020-12-28] MEDS: SKIN HEALING OINT (AQUAPHOR) 50 GM TUBE TOP SCH (08:44)
[2020-12-28] MEDS: TRIAMCINOLONE 0.025% CREAM 15 GM TUBE TOP SCH ×2 (08:46→20:24)
[2020-12-28] MEDS: INSULIN LISPRO 100 UNIT/ML SUBCUT SCH ×2 (09:16→20:24)
[2020-12-28] MEDS: DESITIN 4OZ/NYSTATIN 15 GRAM MIXTURE PASTE TOP SCH ×2 (10:13→20:24)
[2020-12-28] MEDS ORDERED: MIDAZOLAM 100 MG in SODIUM CHLORIDE 0.9% 80 ML IV PRN (11:49)
[2020-12-28] MEDS ORDERED: QUEtiapine 25 MG TABLET PO SCH (12:00)
[2020-12-28] MEDS: CITALOPRAM 20 MG TABLET PO SCH (20:24)
[2020-12-29] MEDS: fentaNYL 100 MCG/2 ML VIAL IV PRN (00:18)
[2020-12-29] MEDS: ALBUMIN 25% 25 GM in PREMIX 1 EACH IV SCH (00:32)
[2020-12-29] MEDS: ALBUTEROL/IPRATROPIUM 3 ML NEB RESP TX SCH ×4 (01:10→20:25)
[2020-12-29] MEDS: cefTAZidime 2,000 MG in SYRINGE 1 EACH IV SCH ×3 (01:16→18:18)
[2020-12-29 03:39] LABS: Basophils # 0.1 10*3/uL (0.0-0.2); Basophils % 0.6 % (0.0-0.8); Eosinophils # 0.1 10*3/uL (0.0-0.87); Eosinophils % 1.3 % (0.00-10.9); Hematocrit 25.5 VOL% (42.0-52.0); Hemoglobin 7.6 GM/DL (14.0-18.0); Immature Granulocytes % 3.8 %; Lymphocytes # 1.9 10*3/uL (1.4-4.0); Lymphocytes % 24.5 % (21.2-54.2); Mean Corpuscular HGB Conc 29.8 GM/DL (32-36); Mean Corpuscular Volume 97.7 FL (87-102); Monocytes % 14.9 % (1.7-12.7); NRBC # 0.03 10*3/uL; Neutrophils % 54.9 % (38.7-73.9); Platelet Count 188 T/CUMM (130-400); Red Blood Count 2.61 MC/CUMM (3.8-5.5); Red Cell Distribution Width 25.9 % (9.3-17.3); White Blood Count 7.9 T/CUMM (4-12)
[2020-12-29 04:05] LABS: Albumin 2.3 G/DL (3.4-5.0); Bilirubin,Total 1.5 MG/DL (0.2-1.0); Calcium 8.7 MG/DL (8.5-10.1); Eosinophils 4 % (0-10); Hypochromasia 2+; Lymphocytes 26 % (20-55); Microcytosis 1+; Osmolality,Calculated 303.6 MOS/KG (273-304); Platelet Estimate Adequate; Potassium 4.6 MMOL/L (3.5-5.1); Segmented Neutrophils 55 % (50-85); Total Cells Counted 100; Total Protein 5.9 G/DL (5.0-7.5)
[2020-12-29] MEDS: LACTULOSE 20 GM/30 ML UDCUP NG SCH ×2 (06:32→18:18)
[2020-12-29] MEDS: AMIODARONE 200 MG TABLET PEG SCH (09:23)
[2020-12-29] MEDS: APIXABAN 5 MG TABLET PO SCH ×2 (09:23→20:02)
[2020-12-29] MEDS: ASPIRIN CHEW 81 MG TABLET PO SCH (09:23)
[2020-12-29] MEDS: QUEtiapine 25 MG TABLET PO SCH (09:23)
[2020-12-29] MEDS: DESITIN 4OZ/NYSTATIN 15 GRAM MIXTURE PASTE TOP SCH ×2 (09:24→20:03)
[2020-12-29] MEDS: TRIAMCINOLONE 0.025% CREAM 15 GM TUBE TOP SCH ×2 (09:24→20:03)
[2020-12-29] MEDS: SKIN HEALING OINT (AQUAPHOR) 50 GM TUBE TOP SCH (09:24)
[2020-12-29] MEDS: FUROSEMIDE 40 MG/4 ML VIAL IV SCH (09:25)
[2020-12-29] MEDS: FAMOTIDINE 8 MG/ML 50 ML/BOTTLE PER TUBE SCH (09:27)
[2020-12-29] MEDS: INSULIN LISPRO 100 UNIT/ML SUBCUT SCH ×2 (10:05→20:02)
[2020-12-29] MEDS ORDERED: CALCIUM CHLORIDE 1,000 MG/10 ML SYRINGE IV ONE (12:27)
[2020-12-29] MEDS ORDERED: EPINEPHrine 1 MG/10 ML SYRINGE ONE (12:27)
[2020-12-29] MEDS ORDERED: SODIUM BICARBONATE 50 MEQ/50 ML SYRINGE IV ONE (12:27)
[2020-12-29] MEDS: CITALOPRAM 20 MG TABLET PO SCH (20:02)
[2020-12-30] MEDS: cefTAZidime 2,000 MG in SYRINGE 1 EACH IV SCH ×3 (01:13→18:35)
[2020-12-30] MEDS: ALBUTEROL/IPRATROPIUM 3 ML NEB RESP TX SCH ×4 (01:18→19:37)
[2020-12-30 04:45] LABS: Basophils % 0.5 % (0.0-0.8); Eosinophils # 0.2 10*3/uL (0.0-0.87); Eosinophils % 2.1 % (0.00-10.9); Hematocrit 27.3 VOL% (42.0-52.0); Hemoglobin 7.9 GM/DL (14.0-18.0); Immature Granulocytes % 3.2 %; Immature Granulocytes Absolute 0.27 #; Lymphocytes # 1.9 10*3/uL (1.4-4.0); Lymphocytes % 23.1 % (21.2-54.2); Mean Corpuscular HGB Conc 28.9 GM/DL (32-36); Mean Corpuscular Volume 101.5 FL (87-102); Mean Platelet Volume 9.7 FL (9.6-12.0); Monocytes % 14.4 % (1.7-12.7); NRBC # 0.06 10*3/uL; Neutrophils % 56.7 % (38.7-73.9); Platelet Count 203 T/CUMM (130-400); Red Blood Count 2.69 MC/CUMM (3.8-5.5); Red Cell Distribution Width 25.9 % (9.3-17.3); White Blood Count 8.4 T/CUMM (4-12)
[2020-12-30 05:16] LABS: Eosinophils 5 % (0-10); Hypochromasia 1+; Lymphocytes 16 % (20-55); Microcytosis 1+; Nucleated Red Blood Cells 1 (0-5); Platelet Estimate Adequate; Segmented Neutrophils 70 % (50-85); Total Cells Counted 100
[2020-12-30 05:17] LABS: Albumin 2.2 G/DL (3.4-5.0); Bilirubin,Total 1.4 MG/DL (0.2-1.0); Calcium 8.8 MG/DL (8.5-10.1); Osmolality,Calculated 300.7 MOS/KG (273-304); Potassium 4.3 MMOL/L (3.5-5.1)
[2020-12-30] MEDS: LACTULOSE 20 GM/30 ML UDCUP NG SCH ×2 (06:00→18:40)
[2020-12-30] MEDS: APIXABAN 5 MG TABLET PO SCH ×2 (09:49→21:48)
[2020-12-30] MEDS: QUEtiapine 25 MG TABLET PO SCH (09:49)
[2020-12-30] MEDS: AMIODARONE 200 MG TABLET PEG SCH (09:49)
[2020-12-30] MEDS: ASPIRIN CHEW 81 MG TABLET PO SCH (09:49)
[2020-12-30] MEDS: carvediloL 3.125 MG TABLET PO SCH ×2 (09:49→21:48)
[2020-12-30] MEDS: FAMOTIDINE 8 MG/ML 50 ML/BOTTLE PER TUBE SCH (09:49)
[2020-12-30] MEDS: SKIN HEALING OINT (AQUAPHOR) 50 GM TUBE TOP SCH (09:50)
[2020-12-30] MEDS: TRIAMCINOLONE 0.025% CREAM 15 GM TUBE TOP SCH ×2 (09:50→21:50)
[2020-12-30] MEDS: FUROSEMIDE 40 MG/4 ML VIAL IV SCH (09:50)
[2020-12-30] MEDS: DESITIN 4OZ/NYSTATIN 15 GRAM MIXTURE PASTE TOP SCH ×2 (09:51→21:50)
[2020-12-30] MEDS: INSULIN LISPRO 100 UNIT/ML SUBCUT SCH ×2 (10:10→21:50)
[2020-12-30] MEDS: traMADol 50 MG TABLET PER TUBE PRN (21:45)
[2020-12-30] MEDS: CITALOPRAM 20 MG TABLET PO SCH (21:48)
[2020-12-31] MEDS: ALBUTEROL/IPRATROPIUM 3 ML NEB RESP TX SCH ×4 (01:53→21:15)
[2020-12-31] MEDS: cefTAZidime 2,000 MG in SYRINGE 1 EACH IV SCH ×3 (02:12→17:40)
[2020-12-31 04:13] LABS: ABG Base Excess 5.1 MMOL/L (-2.5-2.5); ABG HCO3 31.6 MMOL/L (20-26); ABG Oxygen Saturation 96.9 % (95-100); ABG PCO2 58.5 MM HG (35-48); ABG PH 7.351 (7.35-7.45); ABG PO2 93.6 MM HG (80-95); ABG TCO2 33.4 MMOL/L (23-27)
[2020-12-31 04:40] LABS: Basophils % 0.6 % (0.0-0.8); Eosinophils # 0.2 10*3/uL (0.0-0.87); Eosinophils % 2.5 % (0.00-10.9); Hematocrit 27.3 VOL% (42.0-52.0); Hemoglobin 7.9 GM/DL (14.0-18.0); Immature Granulocytes % 2.9 %; Immature Granulocytes Absolute 0.21 #; Lymphocytes # 1.4 10*3/uL (1.4-4.0); Lymphocytes % 19.8 % (21.2-54.2); Mean Corpuscular HGB Conc 28.9 GM/DL (32-36); Mean Corpuscular Volume 102.6 FL (87-102); Mean Platelet Volume 9.9 FL (9.6-12.0); Monocytes % 14.4 % (1.7-12.7); Neutrophils % 59.8 % (38.7-73.9); Platelet Count 194 T/CUMM (130-400); Red Blood Count 2.66 MC/CUMM (3.8-5.5); Red Cell Distribution Width 25.7 % (9.3-17.3); White Blood Count 7.2 T/CUMM (4-12)
[2020-12-31 04:59] LABS: Calcium 8.9 MG/DL (8.5-10.1); Osmolality,Calculated 300.6 MOS/KG (273-304); Potassium 4.3 MMOL/L (3.5-5.1)
[2020-12-31 05:00] LABS: Band Neutrophils 1 % (0-10); Eosinophils 3 % (0-10); Hypochromasia 2+; Lymphocytes 19 % (20-55); Microcytosis 1+; Platelet Estimate Adequate; Segmented Neutrophils 64 % (50-85); Total Cells Counted 100
[2020-12-31] MEDS: LACTULOSE 20 GM/30 ML UDCUP NG SCH ×2 (06:39→17:43)
[2020-12-31] MEDS: QUEtiapine 25 MG TABLET PO SCH (08:38)
[2020-12-31] MEDS: ASPIRIN CHEW 81 MG TABLET PO SCH (08:38)
[2020-12-31] MEDS: SKIN HEALING OINT (AQUAPHOR) 50 GM TUBE TOP SCH (08:39)
[2020-12-31] MEDS: APIXABAN 5 MG TABLET PO SCH ×2 (08:39→20:19)
[2020-12-31] MEDS: AMIODARONE 200 MG TABLET PEG SCH (08:39)
[2020-12-31] MEDS: carvediloL 3.125 MG TABLET PO SCH ×2 (08:39→20:19)
[2020-12-31] MEDS: TRIAMCINOLONE 0.025% CREAM 15 GM TUBE TOP SCH ×2 (08:39→20:19)
[2020-12-31] MEDS: FUROSEMIDE 40 MG/4 ML VIAL IV SCH (08:40)
[2020-12-31] MEDS: DESITIN 4OZ/NYSTATIN 15 GRAM MIXTURE PASTE TOP SCH ×2 (08:41→20:19)
[2020-12-31] MEDS: INSULIN LISPRO 100 UNIT/ML SUBCUT SCH ×2 (09:06→21:43)
[2020-12-31] MEDS: traMADol 50 MG TABLET PER TUBE PRN ×2 (09:08→20:19)
[2020-12-31] MEDS: FAMOTIDINE 8 MG/ML 50 ML/BOTTLE PER TUBE SCH (12:11)
[2020-12-31] MEDS: CITALOPRAM 20 MG TABLET PO SCH (20:19)
[2021-01-01] MEDS: ALBUTEROL/IPRATROPIUM 3 ML NEB RESP TX SCH ×4 (00:55→19:27)
[2021-01-01] MEDS: cefTAZidime 2,000 MG in SYRINGE 1 EACH IV SCH ×3 (02:11→17:59)
[2021-01-01 04:14] LABS: ABG Base Excess 6.2 MMOL/L (-2.5-2.5); ABG HCO3 30.1 MMOL/L (20-26); ABG Oxygen Saturation 97.8 % (95-100); ABG PH 7.301 (7.35-7.45); ABG PO2 96.2 MM HG (80-95); ABG TCO2 32.2 MMOL/L (23-27); Allen Test Positive; Pt O2 Delivery Device Other
[2021-01-01 04:24] LABS: ABG PCO2 69.5 MM HG (35-48)
[2021-01-01 05:34] LABS: Basophils # 0.1 10*3/uL (0.0-0.2); Basophils % 0.9 % (0.0-0.8); Eosinophils # 0.2 10*3/uL (0.0-0.87); Hematocrit 27.6 VOL% (42.0-52.0); Hemoglobin 8.3 GM/DL (14.0-18.0); Immature Granulocytes % 2.1 %; Immature Granulocytes Absolute 0.17 #; Lymphocytes # 1.6 10*3/uL (1.4-4.0); Lymphocytes % 19.9 % (21.2-54.2); Mean Corpuscular HGB Conc 30.1 GM/DL (32-36); Mean Corpuscular Volume 101.5 FL (87-102); Mean Platelet Volume 9.8 FL (9.6-12.0); Monocytes % 13.5 % (1.7-12.7); NRBC # 0.04 10*3/uL; Neutrophils % 60.6 % (38.7-73.9); Platelet Count 205 T/CUMM (130-400); Red Blood Count 2.72 MC/CUMM (3.8-5.5); Red Cell Distribution Width 24.9 % (9.3-17.3)
[2021-01-01 05:48] LABS: Calcium 8.7 MG/DL (8.5-10.1); Potassium 4.1 MMOL/L (3.5-5.1)
[2021-01-01 05:53] LABS: Band Neutrophils 1 % (0-10); Eosinophils 1 % (0-10); Hypochromasia 1+; Lymphocytes 24 % (20-55); Microcytosis 1+; Platelet Estimate Adequate; Segmented Neutrophils 62 % (50-85); Total Cells Counted 100
[2021-01-01] MEDS: LACTULOSE 20 GM/30 ML UDCUP NG SCH ×2 (06:01→17:59)
[2021-01-01 07:49] LABS: ABG Base Excess 5.7 MMOL/L (-2.5-2.5); ABG HCO3 29.6 MMOL/L (20-26); ABG Oxygen Saturation 95.7 % (95-100); ABG PO2 81.2 MM HG (80-95); ABG TCO2 31.9 MMOL/L (23-27); Allen Test Positive
[2021-01-01 07:50] LABS: ABG PCO2 71.2 MM HG (35-48)
[2021-01-01] MEDS: FAMOTIDINE 8 MG/ML 50 ML/BOTTLE PER TUBE SCH (08:58)
[2021-01-01] MEDS: SKIN HEALING OINT (AQUAPHOR) 50 GM TUBE TOP SCH (08:58)
[2021-01-01] MEDS: APIXABAN 5 MG TABLET PO SCH ×2 (08:59→20:43)
[2021-01-01] MEDS: carvediloL 3.125 MG TABLET PO SCH ×2 (08:59→20:43)
[2021-01-01] MEDS: ASPIRIN CHEW 81 MG TABLET PO SCH (08:59)
[2021-01-01] MEDS: AMIODARONE 200 MG TABLET PEG SCH (08:59)
[2021-01-01] MEDS: TRIAMCINOLONE 0.025% CREAM 15 GM TUBE TOP SCH ×2 (09:01→20:43)
[2021-01-01] MEDS: INSULIN LISPRO 100 UNIT/ML SUBCUT SCH ×2 (09:01→23:16)
[2021-01-01] MEDS: DESITIN 4OZ/NYSTATIN 15 GRAM MIXTURE PASTE TOP SCH ×2 (09:02→20:43)
[2021-01-01] MEDS: QUEtiapine 25 MG TABLET PO SCH (09:02)
[2021-01-01] MEDS: traMADol 50 MG TABLET PER TUBE PRN (17:59)
[2021-01-01] MEDS: CITALOPRAM 20 MG TABLET PO SCH (20:41)
[2021-01-02] MEDS: ALBUTEROL/IPRATROPIUM 3 ML NEB RESP TX SCH ×4 (00:08→20:16)
[2021-01-02] MEDS: cefTAZidime 2,000 MG in SYRINGE 1 EACH IV SCH ×3 (02:36→17:35)
[2021-01-02 04:20] LABS: Basophils # 0.1 10*3/uL (0.0-0.2); Basophils % 0.5 % (0.0-0.8); Red Blood Count 2.87 MC/CUMM (3.8-5.5); Red Cell Distribution Width 24.4 % (9.3-17.3)
[2021-01-02 04:20] LABS: Allen Test Positive
[2021-01-02 04:21] LABS: ABG Base Excess 6.4 MMOL/L (-2.5-2.5); ABG HCO3 30.2 MMOL/L (20-26); ABG Oxygen Saturation 95.7 % (95-100); ABG PO2 82.9 MM HG (80-95); ABG TCO2 33.2 MMOL/L (23-27)
[2021-01-02 04:23] LABS: ABG PCO2 76.9 MM HG (35-48)
[2021-01-02 04:41] LABS: Eosinophils # 0.3 10*3/uL (0.0-0.87); Eosinophils % 2.7 % (0.00-10.9); Hematocrit 29.8 VOL% (42.0-52.0); Immature Granulocytes % 1.9 %; Immature Granulocytes Absolute 0.18 #; Lymphocytes # 1.3 10*3/uL (1.4-4.0); Lymphocytes % 14.4 % (21.2-54.2); Mean Corpuscular HGB Conc 28.2 GM/DL (32-36); Mean Corpuscular Volume 103.8 FL (87-102); Mean Platelet Volume 10.2 FL (9.6-12.0); Monocytes % 12.6 % (1.7-12.7); NRBC # 0.02 10*3/uL; Neutrophils % 67.9 % (38.7-73.9); Platelet Count 227 T/CUMM (130-400); White Blood Count 9.3 T/CUMM (4-12)
[2021-01-02 04:42] LABS: Hemoglobin 8.4 GM/DL (14.0-18.0)
[2021-01-02 04:45] LABS: Eosinophils 7 % (0-10); Hypochromasia 1+; Lymphocytes 12 % (20-55); Microcytosis 1+; Platelet Estimate Adequate; Segmented Neutrophils 70 % (50-85); Total Cells Counted 100
[2021-01-02 04:49] LABS: Albumin 2.1 G/DL (3.4-5.0); Bilirubin,Total 0.9 MG/DL (0.2-1.0); Calcium 8.9 MG/DL (8.5-10.1); Potassium 4.1 MMOL/L (3.5-5.1); Total Protein 6.2 G/DL (6.4-8.2)
[2021-01-02 04:58] LABS: Osmolality,Calculated 302.1 MOS/KG (273-304); Potassium 4.2 MMOL/L (3.5-5.1)
[2021-01-02] MEDS: LACTULOSE 20 GM/30 ML UDCUP NG SCH ×2 (06:27→17:44)
[2021-01-02] MEDS: carvediloL 3.125 MG TABLET PO SCH ×2 (08:59→20:51)
[2021-01-02] MEDS: ASPIRIN CHEW 81 MG TABLET PO SCH (08:59)
[2021-01-02] MEDS: AMIODARONE 200 MG TABLET PEG SCH (08:59)
[2021-01-02] MEDS: lisinopriL 20 MG TABLET PO SCH (08:59)
[2021-01-02] MEDS: QUEtiapine 25 MG TABLET PO SCH (09:00)
[2021-01-02] MEDS: FAMOTIDINE 8 MG/ML 50 ML/BOTTLE PER TUBE SCH (09:01)
[2021-01-02] MEDS: SKIN HEALING OINT (AQUAPHOR) 50 GM TUBE TOP SCH (09:02)
[2021-01-02] MEDS: TRIAMCINOLONE 0.025% CREAM 15 GM TUBE TOP SCH ×2 (09:02→20:51)
[2021-01-02] MEDS: DESITIN 4OZ/NYSTATIN 15 GRAM MIXTURE PASTE TOP SCH ×2 (09:02→20:51)
[2021-01-02] MEDS: INSULIN LISPRO 100 UNIT/ML SUBCUT SCH ×2 (09:04→22:35)
[2021-01-02] MEDS: CITALOPRAM 20 MG TABLET PO SCH (20:51)
[2021-01-03] MEDS: ALBUTEROL/IPRATROPIUM 3 ML NEB RESP TX SCH ×4 (00:10→19:45)
[2021-01-03] MEDS: cefTAZidime 2,000 MG in SYRINGE 1 EACH IV SCH ×3 (02:00→17:51)
[2021-01-03 03:47] LABS: ABG Base Excess 9.6 MMOL/L (-2.5-2.5); ABG HCO3 33.4 MMOL/L (20-26); ABG Oxygen Saturation 99.7 % (95-100); ABG PCO2 43.7 MM HG (35-48); ABG PH 7.497 (7.35-7.45); ABG TCO2 31.4 MMOL/L (23-27)
[2021-01-03 04:48] LABS: Basophils % 0.4 % (0.0-0.8); Eosinophils # 0.2 10*3/uL (0.0-0.87); Eosinophils % 2.1 % (0.00-10.9); Hematocrit 27.9 VOL% (42.0-52.0); Immature Granulocytes % 1.9 %; Immature Granulocytes Absolute 0.17 #; Mean Corpuscular HGB Conc 28.7 GM/DL (32-36); Mean Corpuscular Volume 103.3 FL (87-102); Mean Platelet Volume 10.3 FL (9.6-12.0); Monocytes % 12.9 % (1.7-12.7); NRBC # 0.04 10*3/uL; Neutrophils % 60.7 % (38.7-73.9); Platelet Count 218 T/CUMM (130-400); Red Cell Distribution Width 23.8 % (9.3-17.3)
[2021-01-03 04:54] LABS: Calcium 9.1 MG/DL (8.5-10.1); Osmolality,Calculated 303.9 MOS/KG (273-304); Potassium 3.9 MMOL/L (3.5-5.1)
[2021-01-03 05:14] LABS: Band Neutrophils 1 % (0-10); Eosinophils 2 % (0-10); Lymphocytes 21 % (20-55); Nucleated Red Blood Cells 2 (0-5); Segmented Neutrophils 66 % (50-85); Total Cells Counted 100
[2021-01-03 05:16] LABS: Hypochromasia 2+; Microcytosis 1+; Platelet Estimate Adequate
[2021-01-03] MEDS: LACTULOSE 20 GM/30 ML UDCUP NG SCH ×2 (06:52→17:51)
[2021-01-03] MEDS: INSULIN LISPRO 100 UNIT/ML SUBCUT SCH ×2 (08:09→21:17)
[2021-01-03] MEDS: FAMOTIDINE 8 MG/ML 50 ML/BOTTLE PER TUBE SCH (08:10)
[2021-01-03] MEDS: TRIAMCINOLONE 0.025% CREAM 15 GM TUBE TOP SCH ×2 (08:11→21:18)
[2021-01-03] MEDS: DESITIN 4OZ/NYSTATIN 15 GRAM MIXTURE PASTE TOP SCH ×2 (08:11→21:18)
[2021-01-03] MEDS: SKIN HEALING OINT (AQUAPHOR) 50 GM TUBE TOP SCH (08:11)
[2021-01-03] MEDS: AMIODARONE 200 MG TABLET PEG SCH (08:11)
[2021-01-03] MEDS: ASPIRIN CHEW 81 MG TABLET PO SCH (08:12)
[2021-01-03] MEDS: lisinopriL 20 MG TABLET PO SCH (08:12)
[2021-01-03] MEDS: QUEtiapine 25 MG TABLET PO SCH (08:12)
[2021-01-03] MEDS: traMADol 50 MG TABLET PER TUBE PRN (08:13)
[2021-01-03] MEDS: carvediloL 3.125 MG TABLET PO SCH ×2 (08:13→21:14)
[2021-01-03] MEDS: APIXABAN 5 MG TABLET PO SCH ×2 (09:04→21:15)
[2021-01-03] MEDS ORDERED: FUROSEMIDE 40 MG/4 ML VIAL IV ONE (09:20)
[2021-01-03] MEDS: CITALOPRAM 20 MG TABLET PO SCH (21:14)
[2021-01-04] MEDS: ALBUTEROL/IPRATROPIUM 3 ML NEB RESP TX SCH ×4 (00:57→19:53)
[2021-01-04] MEDS ORDERED: traZODone 50 MG TABLET PO ONE (02:15)
[2021-01-04 03:39] LABS: ABG Base Excess 11.7 MMOL/L (-2.5-2.5); ABG Oxygen Saturation 98.4 % (95-100); ABG PCO2 35.1 MM HG (35-48); ABG PO2 114.5 MM HG (80-95); ABG TCO2 35.1 MMOL/L (23-27)
[2021-01-04 03:51] LABS: ABG PH 7.604 (7.35-7.45)
[2021-01-04 04:49] LABS: Basophils % 0.5 % (0.0-0.8); Eosinophils # 0.2 10*3/uL (0.0-0.87); Eosinophils % 1.9 % (0.00-10.9); Hemoglobin 7.7 GM/DL (14.0-18.0); Immature Granulocytes Absolute 0.17 #; Lymphocytes # 2.1 10*3/uL (1.4-4.0); Lymphocytes % 24.1 % (21.2-54.2); Mean Corpuscular HGB Conc 29.6 GM/DL (32-36); Mean Corpuscular Volume 99.6 FL (87-102); Monocytes % 12.5 % (1.7-12.7); NRBC # 0.05 10*3/uL; Platelet Count 227 T/CUMM (130-400); Red Blood Count 2.61 MC/CUMM (3.8-5.5); Red Cell Distribution Width 23.8 % (9.3-17.3); White Blood Count 8.6 T/CUMM (4-12)
[2021-01-04] MEDS: LACTULOSE 20 GM/30 ML UDCUP NG SCH ×2 (05:03→18:33)
[2021-01-04 05:08] LABS: Calcium 9.1 MG/DL (8.5-10.1); Osmolality,Calculated 299.1 MOS/KG (273-304); Potassium 3.6 MMOL/L (3.5-5.1)
[2021-01-04 05:20] LABS: Anisocytosis 1+; Hypochromasia 2+; Microcytosis 1+
[2021-01-04 05:21] LABS: Platelet Estimate Normal; Polychromasia Slight
[2021-01-04] MEDS: ASPIRIN CHEW 81 MG TABLET PO SCH (08:24)
[2021-01-04] MEDS: AMIODARONE 200 MG TABLET PEG SCH (08:24)
[2021-01-04] MEDS: carvediloL 3.125 MG TABLET PO SCH ×2 (08:25→20:07)
[2021-01-04] MEDS: APIXABAN 5 MG TABLET PO SCH ×2 (08:25→20:07)
[2021-01-04] MEDS: lisinopriL 20 MG TABLET PO SCH (08:25)
[2021-01-04] MEDS: SKIN HEALING OINT (AQUAPHOR) 50 GM TUBE TOP SCH (08:26)
[2021-01-04] MEDS: DESITIN 4OZ/NYSTATIN 15 GRAM MIXTURE PASTE TOP SCH ×2 (08:26→20:09)
[2021-01-04] MEDS: QUEtiapine 25 MG TABLET PO SCH (08:26)
[2021-01-04] MEDS: TRIAMCINOLONE 0.025% CREAM 15 GM TUBE TOP SCH ×2 (08:26→20:09)
[2021-01-04] MEDS: FAMOTIDINE 8 MG/ML 50 ML/BOTTLE PER TUBE SCH (08:28)
[2021-01-04] MEDS ORDERED: POTASSIUM PHOSPHATE 40 MMOL in SODIUM CHLORIDE 0.9% 250 ML IV ONE (10:00)
[2021-01-04] MEDS: INSULIN LISPRO 100 UNIT/ML SUBCUT SCH ×2 (10:52→20:09)
[2021-01-04] MEDS ORDERED: CALCIUM CHLORIDE 1,000 MG/10 ML SYRINGE IV ONE (11:57)
[2021-01-04] MEDS ORDERED: SODIUM BICARBONATE 50 MEQ/50 ML SYRINGE IV ONE (11:57)
[2021-01-04] MEDS ORDERED: EPINEPHrine 1 MG/10 ML SYRINGE IV ONE (11:57)
[2021-01-04] MEDS: CITALOPRAM 20 MG TABLET PO SCH (20:08)
[2021-01-04] MEDS: traZODone 50 MG TABLET PO SCH (20:09)
[2021-01-05] MEDS: ALBUTEROL/IPRATROPIUM 3 ML NEB RESP TX SCH ×4 (00:38→19:38)
[2021-01-05 04:22] LABS: ABG Base Excess 7.2 MMOL/L (-2.5-2.5); ABG HCO3 34.5 MMOL/L (20-26); ABG PCO2 67.7 MM HG (35-48); ABG PH 7.325 (7.35-7.45); ABG TCO2 36.6 MMOL/L (23-27); Allen Test Positive; Pt O2 Delivery Device BIPAP
[2021-01-05 05:39] LABS: Basophils % 0.6 % (0.0-0.8); Eosinophils # 0.2 10*3/uL (0.0-0.87); Eosinophils % 3.1 % (0.00-10.9); Hematocrit 28.4 VOL% (42.0-52.0); Hemoglobin 8.4 GM/DL (14.0-18.0); Immature Granulocytes % 1.7 %; Immature Granulocytes Absolute 0.11 #; Lymphocytes # 1.6 10*3/uL (1.4-4.0); Lymphocytes % 24.8 % (21.2-54.2); Mean Corpuscular HGB Conc 29.6 GM/DL (32-36); Mean Corpuscular Volume 101.1 FL (87-102); Monocytes % 13.4 % (1.7-12.7); NRBC # 0.02 10*3/uL; Neutrophils % 56.4 % (38.7-73.9); Platelet Count 214 T/CUMM (130-400); Red Blood Count 2.81 MC/CUMM (3.8-5.5); Red Cell Distribution Width 23.6 % (9.3-17.3); White Blood Count 6.5 T/CUMM (4-12)
[2021-01-05 05:47] LABS: Calcium 9.1 MG/DL (8.5-10.1); Osmolality,Calculated 297.1 MOS/KG (273-304)
[2021-01-05] MEDS ORDERED: hydrALAZINE 20 MG/1 ML VIAL IV ONE (06:02)
[2021-01-05 06:22] LABS: Anisocytosis 2+; Polychromasia 1+
[2021-01-05 06:23] LABS: Macrocytosis Slight; Microcytosis Slight; Platelet Estimate Adequate
[2021-01-05] MEDS: LACTULOSE 20 GM/30 ML UDCUP NG SCH ×2 (07:03→18:04)
[2021-01-05] MEDS: ASPIRIN CHEW 81 MG TABLET PO SCH (09:02)
[2021-01-05] MEDS: carvediloL 3.125 MG TABLET PO SCH ×2 (09:02→20:21)
[2021-01-05] MEDS: lisinopriL 20 MG TABLET PO SCH (09:02)
[2021-01-05] MEDS: SKIN HEALING OINT (AQUAPHOR) 50 GM TUBE TOP SCH (09:03)
[2021-01-05] MEDS: AMIODARONE 200 MG TABLET PEG SCH (09:03)
[2021-01-05] MEDS: APIXABAN 5 MG TABLET PO SCH ×2 (09:04→20:21)
[2021-01-05] MEDS: DESITIN 4OZ/NYSTATIN 15 GRAM MIXTURE PASTE TOP SCH ×2 (09:05→20:21)
[2021-01-05] MEDS: TRIAMCINOLONE 0.025% CREAM 15 GM TUBE TOP SCH ×2 (09:05→20:21)
[2021-01-05] MEDS: traMADol 50 MG TABLET PER TUBE PRN (09:08)
[2021-01-05] MEDS: QUEtiapine 25 MG TABLET PO SCH (09:13)
[2021-01-05] MEDS: FAMOTIDINE 8 MG/ML 50 ML/BOTTLE PER TUBE SCH (09:13)
[2021-01-05] MEDS: INSULIN LISPRO 100 UNIT/ML SUBCUT SCH ×4 (10:24→23:32)
[2021-01-05] MEDS: CITALOPRAM 20 MG TABLET PO SCH (20:21)
[2021-01-05] MEDS: traZODone 50 MG TABLET PO SCH (20:21)
[2021-01-06] MEDS: ALBUTEROL/IPRATROPIUM 3 ML NEB RESP TX SCH ×4 (00:11→19:10)
[2021-01-06 04:35] LABS: ABG Base Excess 8.6 MMOL/L (-2.5-2.5); ABG HCO3 32.3 MMOL/L (20-26); ABG Oxygen Saturation 98.9 % (95-100); ABG PCO2 64.9 MM HG (35-48); ABG PH 7.352 (7.35-7.45); ABG TCO2 33.4 MMOL/L (23-27); Allen Test Positive; Pt O2 Delivery Device BIPAP
[2021-01-06 05:45] LABS: Basophils % 0.3 % (0.0-0.8); Eosinophils # 0.2 10*3/uL (0.0-0.87); Eosinophils % 2.2 % (0.00-10.9); Hematocrit 26.8 VOL% (42.0-52.0); Hemoglobin 7.8 GM/DL (14.0-18.0); Immature Granulocytes % 1.2 %; Immature Granulocytes Absolute 0.09 #; Lymphocytes % 27.4 % (21.2-54.2); Mean Corpuscular HGB Conc 29.1 GM/DL (32-36); Mean Corpuscular Volume 101.5 FL (87-102); Monocytes % 14.2 % (1.7-12.7); NRBC # 0.03 10*3/uL; Neutrophils % 54.7 % (38.7-73.9); Platelet Count 199 T/CUMM (130-400); Red Blood Count 2.64 MC/CUMM (3.8-5.5); Red Cell Distribution Width 23.1 % (9.3-17.3); White Blood Count 7.3 T/CUMM (4-12)
[2021-01-06 06:13] LABS: Calcium 9.3 MG/DL (8.5-10.1); Osmolality,Calculated 299.1 MOS/KG (273-304); Potassium 3.9 MMOL/L (3.5-5.1)
[2021-01-06] MEDS: LACTULOSE 20 GM/30 ML UDCUP NG SCH ×2 (06:26→17:26)
[2021-01-06] MEDS: INSULIN LISPRO 100 UNIT/ML SUBCUT SCH ×3 (06:28→18:05)
[2021-01-06 06:40] LABS: Anisocytosis 2+; Reactive Lymphocytes Few
[2021-01-06 06:41] LABS: Microcytosis 1+; Platelet Estimate Adequate
[2021-01-06] MEDS: AMIODARONE 200 MG TABLET PEG SCH (08:14)
[2021-01-06] MEDS: carvediloL 3.125 MG TABLET PO SCH ×2 (08:14→20:15)
[2021-01-06] MEDS: QUEtiapine 25 MG TABLET PO SCH (08:14)
[2021-01-06] MEDS: APIXABAN 5 MG TABLET PO SCH ×2 (08:14→20:15)
[2021-01-06] MEDS: ASPIRIN CHEW 81 MG TABLET PO SCH (08:14)
[2021-01-06] MEDS: lisinopriL 20 MG TABLET PO SCH (08:14)
[2021-01-06] MEDS: TRIAMCINOLONE 0.025% CREAM 15 GM TUBE TOP SCH ×2 (08:15→20:16)
[2021-01-06] MEDS: traMADol 50 MG TABLET PER TUBE PRN (08:15)
[2021-01-06] MEDS: SKIN HEALING OINT (AQUAPHOR) 50 GM TUBE TOP SCH (08:15)
[2021-01-06] MEDS: FAMOTIDINE 8 MG/ML 50 ML/BOTTLE PER TUBE SCH (08:16)
[2021-01-06] MEDS: DESITIN 4OZ/NYSTATIN 15 GRAM MIXTURE PASTE TOP SCH ×2 (08:16→20:16)
[2021-01-06] MEDS: MORPHINE 4 MG/1 ML VIAL IV PRN (14:24)
[2021-01-06] MEDS ORDERED: MORPHINE 4 MG/1 ML VIAL IV SCH (18:00)
[2021-01-06] MEDS ORDERED: LACTATED RINGERS 500 ML IV ONE (18:05)
[2021-01-06] MEDS: CITALOPRAM 20 MG TABLET PO SCH (20:15)
[2021-01-06] MEDS: traZODone 50 MG TABLET PO SCH (20:15)
[2021-01-07] MEDS: ALBUTEROL/IPRATROPIUM 3 ML NEB RESP TX SCH ×4 (00:02→18:39)
[2021-01-07 04:34] LABS: Basophils % 0.4 % (0.0-0.8); Eosinophils # 0.2 10*3/uL (0.0-0.87); Eosinophils % 2.5 % (0.00-10.9); Hematocrit 25.4 VOL% (42.0-52.0); Hemoglobin 7.7 GM/DL (14.0-18.0); Immature Granulocytes % 1.7 %; Immature Granulocytes Absolute 0.13 #; Lymphocytes # 2.2 10*3/uL (1.4-4.0); Lymphocytes % 29.1 % (21.2-54.2); Mean Corpuscular HGB Conc 30.3 GM/DL (32-36); Mean Corpuscular Volume 100.4 FL (87-102); Mean Platelet Volume 10.4 FL (9.6-12.0); Monocytes % 11.6 % (1.7-12.7); Neutrophils % 54.7 % (38.7-73.9); Platelet Count 191 T/CUMM (130-400); Red Blood Count 2.53 MC/CUMM (3.8-5.5); Red Cell Distribution Width 22.5 % (9.3-17.3); White Blood Count 7.5 T/CUMM (4-12)
[2021-01-07 04:51] LABS: Bilirubin,Total 1.1 MG/DL (0.2-1.0); Calcium 8.6 MG/DL (8.5-10.1); Total Protein 5.7 G/DL (6.4-8.2)
[2021-01-07 04:54] LABS: ABG Base Excess 10.1 MMOL/L (-2.5-2.5); ABG HCO3 34.2 MMOL/L (20-26); ABG PCO2 44.1 MM HG (35-48); ABG PH 7.507 (7.35-7.45); ABG PO2 157.2 MM HG (80-95); ABG TCO2 35.5 MMOL/L (23-27); Allen Test Positive; Pt O2 Delivery Device BIPAP
[2021-01-07 05:00] LABS: Osmolality,Calculated 292.7 MOS/KG (273-304)
[2021-01-07 05:21] LABS: Hypochromasia 2+; Microcytosis 1+; Platelet Estimate Adequate
[2021-01-07] MEDS: INSULIN LISPRO 100 UNIT/ML SUBCUT SCH ×4 (06:14→17:25)
[2021-01-07] MEDS: LACTULOSE 20 GM/30 ML UDCUP NG SCH ×2 (06:54→17:59)
[2021-01-07] MEDS: APIXABAN 5 MG TABLET PO SCH ×2 (08:30→20:27)
[2021-01-07] MEDS: SKIN HEALING OINT (AQUAPHOR) 50 GM TUBE TOP SCH (08:30)
[2021-01-07] MEDS: carvediloL 3.125 MG TABLET PO SCH ×2 (08:30→20:27)
[2021-01-07] MEDS: TRIAMCINOLONE 0.025% CREAM 15 GM TUBE TOP SCH ×2 (08:30→20:27)
[2021-01-07] MEDS: FAMOTIDINE 8 MG/ML 50 ML/BOTTLE PER TUBE SCH (08:30)
[2021-01-07] MEDS: DESITIN 4OZ/NYSTATIN 15 GRAM MIXTURE PASTE TOP SCH ×2 (08:30→20:28)
[2021-01-07] MEDS: ASPIRIN CHEW 81 MG TABLET PO SCH (08:31)
[2021-01-07] MEDS: AMIODARONE 200 MG TABLET PEG SCH (08:31)
[2021-01-07] MEDS: QUEtiapine 25 MG TABLET PO SCH (08:32)
[2021-01-07] MEDS: MORPHINE 4 MG/1 ML VIAL IV PRN (15:00)
[2021-01-07] MEDS ORDERED: SODIUM CHLORIDE 0.9% 500 ML IV ONE (17:22)
[2021-01-07] MEDS: PHENYLEPHRINE INJ 160 MG in SODIUM CHLORIDE 0.9% 234 ML IV PRN (18:55)
[2021-01-07] MEDS: CITALOPRAM 20 MG TABLET PO SCH (20:27)
[2021-01-07] MEDS: traZODone 50 MG TABLET PO SCH (20:27)
[2021-01-08] MEDS: INSULIN LISPRO 100 UNIT/ML SUBCUT SCH ×5 (00:13→23:48)
[2021-01-08] MEDS: ALBUTEROL/IPRATROPIUM 3 ML NEB RESP TX SCH ×4 (00:54→18:14)
[2021-01-08 06:05] LABS: Basophils # 0.1 10*3/uL (0.0-0.2); Basophils % 0.8 % (0.0-0.8); Eosinophils # 0.1 10*3/uL (0.0-0.87); Eosinophils % 1.8 % (0.00-10.9); Hematocrit 27.5 VOL% (42.0-52.0); Hemoglobin 8.2 GM/DL (14.0-18.0); Immature Granulocytes Absolute 0.13 #; Mean Corpuscular HGB Conc 29.8 GM/DL (32-36); Mean Corpuscular Volume 100.7 FL (87-102); Monocytes % 12.6 % (1.7-12.7); Neutrophils % 52.8 % (38.7-73.9); Platelet Count 180 T/CUMM (130-400); Red Blood Count 2.73 MC/CUMM (3.8-5.5); Red Cell Distribution Width 22.5 % (9.3-17.3); White Blood Count 6.5 T/CUMM (4-12)
[2021-01-08 06:21] LABS: Albumin 2.1 G/DL (3.4-5.0); Bilirubin,Total 2.1 MG/DL (0.2-1.0); Calcium 8.7 MG/DL (8.5-10.1); Osmolality,Calculated 297.6 MOS/KG (273-304); Potassium 4.3 MMOL/L (3.5-5.1); Total Protein 6.1 G/DL (6.4-8.2)
[2021-01-08 06:43] LABS: Atypical Lymphocytes Few; Eosinophils 2 % (0-10); Hypochromasia 1+; Lymphocytes 30 % (20-55); Microcytosis 1+; Platelet Estimate Adequate; Segmented Neutrophils 53 % (50-85); Total Cells Counted 100
[2021-01-08] MEDS: LACTULOSE 20 GM/30 ML UDCUP NG SCH ×2 (06:46→17:06)
[2021-01-08] MEDS: ASPIRIN CHEW 81 MG TABLET PO SCH (08:25)
[2021-01-08] MEDS: carvediloL 3.125 MG TABLET PO SCH ×2 (08:25→21:49)
[2021-01-08] MEDS: APIXABAN 5 MG TABLET PO SCH ×2 (08:25→21:49)
[2021-01-08] MEDS: QUEtiapine 25 MG TABLET PO SCH (08:26)
[2021-01-08] MEDS: AMIODARONE 200 MG TABLET PEG SCH (08:26)
[2021-01-08] MEDS: SKIN HEALING OINT (AQUAPHOR) 50 GM TUBE TOP SCH (08:27)
[2021-01-08] MEDS: FAMOTIDINE 8 MG/ML 50 ML/BOTTLE PER TUBE SCH (08:27)
[2021-01-08] MEDS: DESITIN 4OZ/NYSTATIN 15 GRAM MIXTURE PASTE TOP SCH ×2 (08:28→21:49)
[2021-01-08] MEDS: TRIAMCINOLONE 0.025% CREAM 15 GM TUBE TOP SCH ×2 (08:28→21:49)
[2021-01-08] MEDS: traZODone 50 MG TABLET PO SCH (21:49)
[2021-01-08] MEDS: CITALOPRAM 20 MG TABLET PO SCH (21:49)
[2021-01-09] MEDS: ALBUTEROL/IPRATROPIUM 3 ML NEB RESP TX SCH ×4 (00:25→19:41)
[2021-01-09 03:04] LABS: ABG Base Excess 7.5 MMOL/L (-2.5-2.5); ABG HCO3 30.2 MMOL/L (20-26); ABG Oxygen Saturation 93.3 % (95-100); ABG PCO2 34.8 MM HG (35-48); ABG PH 7.556 (7.35-7.45); ABG PO2 60.1 MM HG (80-95); ABG TCO2 31.2 MMOL/L (23-27); Allen Test Positive; Pt O2 Delivery Device BIPAP
[2021-01-09 05:48] LABS: Basophils # 0.1 10*3/uL (0.0-0.2); Basophils % 0.6 % (0.0-0.8); Eosinophils # 0.2 10*3/uL (0.0-0.87); Eosinophils % 1.9 % (0.00-10.9); Hematocrit 26.5 VOL% (42.0-52.0); Hemoglobin 7.7 GM/DL (14.0-18.0); Immature Granulocytes % 2.8 %; Immature Granulocytes Absolute 0.23 #; Lymphocytes # 2.5 10*3/uL (1.4-4.0); Mean Corpuscular HGB Conc 29.1 GM/DL (32-36); Mean Corpuscular Volume 101.9 FL (87-102); NRBC # 0.09 10*3/uL; Neutrophils % 53.7 % (38.7-73.9); Platelet Count 208 T/CUMM (130-400); Red Cell Distribution Width 21.8 % (9.3-17.3); White Blood Count 8.3 T/CUMM (4-12)
[2021-01-09 06:02] LABS: Calcium 8.5 MG/DL (8.5-10.1); Osmolality,Calculated 293.8 MOS/KG (273-304); Potassium 3.8 MMOL/L (3.5-5.1)
[2021-01-09] MEDS: INSULIN LISPRO 100 UNIT/ML SUBCUT SCH ×3 (06:12→17:49)
[2021-01-09 06:23] LABS: Band Neutrophils 2 % (0-10); Eosinophils 4 % (0-10); Hypochromasia 1+; Lymphocytes 21 % (20-55); Segmented Neutrophils 64 % (50-85); Total Cells Counted 100
[2021-01-09 06:24] LABS: Microcytosis 1+; Platelet Estimate Normal; Polychromasia Slight
[2021-01-09] MEDS: LACTULOSE 20 GM/30 ML UDCUP NG SCH ×2 (07:02→17:49)
[2021-01-09] MEDS: AMIODARONE 200 MG TABLET PEG SCH (08:19)
[2021-01-09] MEDS: ASPIRIN CHEW 81 MG TABLET PO SCH (08:20)
[2021-01-09] MEDS: SKIN HEALING OINT (AQUAPHOR) 50 GM TUBE TOP SCH (08:20)
[2021-01-09] MEDS: FAMOTIDINE 8 MG/ML 50 ML/BOTTLE PER TUBE SCH (08:20)
[2021-01-09] MEDS: APIXABAN 5 MG TABLET PO SCH ×2 (08:20→20:24)
[2021-01-09] MEDS: QUEtiapine 25 MG TABLET PO SCH (08:21)
[2021-01-09] MEDS: DESITIN 4OZ/NYSTATIN 15 GRAM MIXTURE PASTE TOP SCH ×2 (08:21→20:25)
[2021-01-09] MEDS: TRIAMCINOLONE 0.025% CREAM 15 GM TUBE TOP SCH ×2 (08:21→20:25)
[2021-01-09] MEDS: carvediloL 3.125 MG TABLET PO SCH ×2 (08:23→20:24)
[2021-01-09] MEDS ORDERED: PHENYLEPHRINE DRIP 40 MG/250 ML PREMIX IV PRN (09:05)
[2021-01-09] MEDS: acetaZOLAMIDE 250 MG TABLET PO SCH (09:41)
[2021-01-09] MEDS: CITALOPRAM 20 MG TABLET PO SCH (20:24)
[2021-01-09] MEDS: traZODone 50 MG TABLET PO SCH (20:24)
[2021-01-09] MEDS: PHENYLEPHRINE INJ 160 MG in SODIUM CHLORIDE 0.9% 234 ML IV PRN (22:51)
[2021-01-10] MEDS: ALBUTEROL/IPRATROPIUM 3 ML NEB RESP TX SCH ×4 (00:10→20:14)
[2021-01-10] MEDS: INSULIN LISPRO 100 UNIT/ML SUBCUT SCH ×4 (00:37→17:15)
[2021-01-10 04:41] LABS: Basophils # 0.1 10*3/uL (0.0-0.2); Basophils % 0.6 % (0.0-0.8); Eosinophils # 0.2 10*3/uL (0.0-0.87); Eosinophils % 2.7 % (0.00-10.9); Hematocrit 27.1 VOL% (42.0-52.0); Immature Granulocytes % 3.8 %; Immature Granulocytes Absolute 0.32 #; Lymphocytes # 2.4 10*3/uL (1.4-4.0); Lymphocytes % 28.6 % (21.2-54.2); Mean Corpuscular HGB Conc 29.5 GM/DL (32-36); Mean Corpuscular Volume 101.1 FL (87-102); Mean Platelet Volume 10.5 FL (9.6-12.0); Monocytes % 13.3 % (1.7-12.7); NRBC # 0.29 10*3/uL; Platelet Count 235 T/CUMM (130-400); Red Blood Count 2.68 MC/CUMM (3.8-5.5); White Blood Count 8.5 T/CUMM (4-12)
[2021-01-10 05:02] LABS: Bilirubin,Total 0.8 MG/DL (0.2-1.0); Calcium 8.2 MG/DL (8.5-10.1); Osmolality,Calculated 290.3 MOS/KG (273-304); Total Protein 5.9 G/DL (6.4-8.2)
[2021-01-10] MEDS: LACTULOSE 20 GM/30 ML UDCUP NG SCH ×2 (06:14→17:01)
[2021-01-10] MEDS: FAMOTIDINE 8 MG/ML 50 ML/BOTTLE PER TUBE SCH (08:06)
[2021-01-10] MEDS: AMIODARONE 200 MG TABLET PEG SCH (08:08)
[2021-01-10] MEDS: SKIN HEALING OINT (AQUAPHOR) 50 GM TUBE TOP SCH (08:08)
[2021-01-10] MEDS: acetaZOLAMIDE 250 MG TABLET PO SCH (08:08)
[2021-01-10] MEDS: APIXABAN 5 MG TABLET PO SCH ×2 (08:08→20:21)
[2021-01-10] MEDS: carvediloL 3.125 MG TABLET PO SCH ×2 (08:08→20:21)
[2021-01-10] MEDS: ASPIRIN CHEW 81 MG TABLET PO SCH (08:08)
[2021-01-10] MEDS: TRIAMCINOLONE 0.025% CREAM 15 GM TUBE TOP SCH ×2 (08:09→20:21)
[2021-01-10] MEDS: DESITIN 4OZ/NYSTATIN 15 GRAM MIXTURE PASTE TOP SCH ×2 (08:10→20:22)
[2021-01-10] MEDS: QUEtiapine 25 MG TABLET PO SCH (09:50)
[2021-01-10] MEDS: ALBUMIN 25% 25 GM in PREMIX 1 EACH IV SCH ×3 (10:04→23:54)
[2021-01-10] MEDS ORDERED: SODIUM CHLORIDE 0.9% 1,000 ML IV PRN (10:54)
[2021-01-10] MEDS ORDERED: KETOROLAC 30 MG/1 ML VIAL IV ONE (15:04)
[2021-01-10 15:34] LABS: ABG Base Excess 2.4 MMOL/L (-2.5-2.5); ABG HCO3 30.1 MMOL/L (20-26); ABG Oxygen Saturation 90.9 % (95-100); ABG PCO2 64.7 MM HG (35-48); ABG PH 7.285 (7.35-7.45); ABG PO2 66.3 MM HG (80-95)
[2021-01-10] MEDS: CITALOPRAM 20 MG TABLET PO SCH (20:21)
[2021-01-10] MEDS: traZODone 50 MG TABLET PO SCH (20:21)
[2021-01-10 20:54] LABS: ABG Base Excess 4.8 MMOL/L (-2.5-2.5); ABG HCO3 28.8 MMOL/L (20-26); ABG PCO2 39.3 MM HG (35-48); ABG PH 7.472 (7.35-7.45); ABG TCO2 26.3 MMOL/L (23-27)
[2021-01-11] MEDS: INSULIN LISPRO 100 UNIT/ML SUBCUT SCH ×4 (00:07→17:28)
[2021-01-11] MEDS: ALBUTEROL/IPRATROPIUM 3 ML NEB RESP TX SCH ×4 (02:33→19:14)
[2021-01-11 04:20] LABS: Allen Test Positive; Pt O2 Delivery Device Ventilator
[2021-01-11 04:21] LABS: ABG Base Excess 5.7 MMOL/L (-2.5-2.5); ABG HCO3 28.5 MMOL/L (20-26); ABG Oxygen Saturation 99.5 % (95-100); ABG PCO2 34.1 MM HG (35-48); ABG PO2 360.5 MM HG (80-95); ABG TCO2 29.6 MMOL/L (23-27)
[2021-01-11 04:53] LABS: Basophils % 0.5 % (0.0-0.8); Eosinophils # 0.2 10*3/uL (0.0-0.87); Eosinophils % 2.5 % (0.00-10.9); Hematocrit 26.3 VOL% (42.0-52.0); Hemoglobin 8.2 GM/DL (14.0-18.0); Immature Granulocytes % 2.3 %; Immature Granulocytes Absolute 0.18 #; Lymphocytes # 1.8 10*3/uL (1.4-4.0); Lymphocytes % 23.7 % (21.2-54.2); Mean Corpuscular HGB Conc 31.2 GM/DL (32-36); Mean Corpuscular Volume 97.8 FL (87-102); Mean Platelet Volume 10.8 FL (9.6-12.0); Monocytes % 12.5 % (1.7-12.7); NRBC # 0.16 10*3/uL; Neutrophils % 58.5 % (38.7-73.9); Platelet Count 214 T/CUMM (130-400); Red Blood Count 2.69 MC/CUMM (3.8-5.5); Red Cell Distribution Width 20.5 % (9.3-17.3); White Blood Count 7.7 T/CUMM (4-12)
[2021-01-11 05:23] LABS: Albumin 2.7 G/DL (3.4-5.0); Bilirubin,Total 1.1 MG/DL (0.2-1.0); Calcium 8.9 MG/DL (8.5-10.1); Osmolality,Calculated 289.4 MOS/KG (273-304); Potassium 3.9 MMOL/L (3.5-5.1); Total Protein 6.2 G/DL (6.4-8.2)
[2021-01-11] MEDS: LACTULOSE 20 GM/30 ML UDCUP NG SCH ×2 (06:05→17:27)
[2021-01-11] MEDS: APIXABAN 5 MG TABLET PO SCH ×2 (09:05→20:18)
[2021-01-11] MEDS: acetaZOLAMIDE 250 MG TABLET PO SCH (09:06)
[2021-01-11] MEDS: TRIAMCINOLONE 0.025% CREAM 15 GM TUBE TOP SCH ×2 (09:06→20:18)
[2021-01-11] MEDS: FAMOTIDINE 8 MG/ML 50 ML/BOTTLE PER TUBE SCH (09:06)
[2021-01-11] MEDS: AMIODARONE 200 MG TABLET PEG SCH (09:06)
[2021-01-11] MEDS: carvediloL 3.125 MG TABLET PO SCH ×2 (09:06→20:18)
[2021-01-11] MEDS: ASPIRIN CHEW 81 MG TABLET PO SCH (09:06)
[2021-01-11] MEDS: SKIN HEALING OINT (AQUAPHOR) 50 GM TUBE TOP SCH (09:06)
[2021-01-11] MEDS: DESITIN 4OZ/NYSTATIN 15 GRAM MIXTURE PASTE TOP SCH ×2 (09:07→20:18)
[2021-01-11] MEDS: QUEtiapine 25 MG TABLET PO SCH (09:07)
[2021-01-11] MEDS: KETOROLAC 15 MG/1 ML VIAL IV PRN ×2 (09:28→14:50)
[2021-01-11] MEDS: PHENYLEPHRINE INJ 160 MG in SODIUM CHLORIDE 0.9% 234 ML IV PRN (12:18)
[2021-01-11] MEDS ORDERED: SODIUM CHLORIDE 0.9% 500 ML IV ONE (17:40)
[2021-01-11] MEDS: traZODone 50 MG TABLET PO SCH (20:18)
[2021-01-11] MEDS: CITALOPRAM 20 MG TABLET PO SCH (20:18)
[2021-01-12] MEDS: INSULIN LISPRO 100 UNIT/ML SUBCUT SCH ×4 (00:10→18:31)
[2021-01-12] MEDS: ALBUTEROL/IPRATROPIUM 3 ML NEB RESP TX SCH ×4 (01:42→18:08)
[2021-01-12 03:26] LABS: ABG Base Excess 0.7 MMOL/L (-2.5-2.5); ABG Oxygen Saturation 95.4 % (95-100); ABG PCO2 51.9 MM HG (35-48); ABG PH 7.329 (7.35-7.45); ABG PO2 82.3 MM HG (80-95); ABG TCO2 25.1 MMOL/L (23-27)
[2021-01-12] MEDS: LACTULOSE 20 GM/30 ML UDCUP NG SCH ×2 (05:46→18:31)
[2021-01-12] MEDS: carvediloL 3.125 MG TABLET PO SCH ×2 (08:56→20:44)
[2021-01-12] MEDS: ASPIRIN CHEW 81 MG TABLET PO SCH (08:56)
[2021-01-12] MEDS: AMIODARONE 200 MG TABLET PEG SCH (08:56)
[2021-01-12] MEDS: APIXABAN 5 MG TABLET PO SCH ×2 (08:57→20:44)
[2021-01-12] MEDS: DESITIN 4OZ/NYSTATIN 15 GRAM MIXTURE PASTE TOP SCH ×2 (08:58→20:45)
[2021-01-12] MEDS: FAMOTIDINE 8 MG/ML 50 ML/BOTTLE PER TUBE SCH (08:58)
[2021-01-12] MEDS: QUEtiapine 25 MG TABLET PO SCH (08:58)
[2021-01-12] MEDS: SKIN HEALING OINT (AQUAPHOR) 50 GM TUBE TOP SCH (08:58)
[2021-01-12 11:30] LABS: Basophils # 0.1 10*3/uL (0.0-0.2); Basophils % 0.8 % (0.0-0.8); Eosinophils # 0.3 10*3/uL (0.0-0.87); Eosinophils % 3.3 % (0.00-10.9); Hematocrit 30.7 VOL% (42.0-52.0); Hemoglobin 9.2 GM/DL (14.0-18.0); Immature Granulocytes % 3.1 %; Immature Granulocytes Absolute 0.28 #; Lymphocytes # 2.6 10*3/uL (1.4-4.0); Lymphocytes % 28.1 % (21.2-54.2); Mean Corpuscular Volume 101.3 FL (87-102); Mean Platelet Volume 10.7 FL (9.6-12.0); Monocytes % 17.1 % (1.7-12.7); NRBC # 0.29 10*3/uL; Neutrophils % 47.6 % (38.7-73.9); Platelet Count 303 T/CUMM (130-400); Red Blood Count 3.03 MC/CUMM (3.8-5.5); Red Cell Distribution Width 21.2 % (9.3-17.3); White Blood Count 9.2 T/CUMM (4-12)
[2021-01-12 11:49] LABS: Atypical Lymphocytes Few; Eosinophils 6 % (0-10); Hypochromasia 1+; Lymphocytes 33 % (20-55); Macrocytosis Slight; Nucleated Red Blood Cells 1 (0-5); Platelet Estimate Adequate; Polychromasia Slight; Segmented Neutrophils 48 % (50-85); Total Cells Counted 100
[2021-01-12] MEDS: TRIAMCINOLONE 0.025% CREAM 15 GM TUBE TOP SCH ×2 (13:30→20:45)
[2021-01-12] MEDS: CITALOPRAM 20 MG TABLET PO SCH (20:44)
[2021-01-12] MEDS: traZODone 50 MG TABLET PO SCH (21:24)
[2021-01-13] MEDS: ALBUTEROL/IPRATROPIUM 3 ML NEB RESP TX SCH ×4 (02:38→20:05)
[2021-01-13] MEDS: PHENYLEPHRINE INJ 160 MG in SODIUM CHLORIDE 0.9% 234 ML IV PRN (03:04)
[2021-01-13 03:46] LABS: ABG HCO3 25.3 MMOL/L (20-26); ABG Oxygen Saturation 98.6 % (95-100); ABG PCO2 51.5 MM HG (35-48); ABG PH 7.334 (7.35-7.45); ABG TCO2 25.4 MMOL/L (23-27); Allen Test Positive; Pt O2 Delivery Device Ventilator
[2021-01-13 04:13] LABS: Basophils % 0.5 % (0.0-0.8); Eosinophils # 0.4 10*3/uL (0.0-0.87); Eosinophils % 4.6 % (0.00-10.9); Hematocrit 29.2 VOL% (42.0-52.0); Hemoglobin 8.7 GM/DL (14.0-18.0); Immature Granulocytes % 2.3 %; Lymphocytes # 1.9 10*3/uL (1.4-4.0); Lymphocytes % 21.4 % (21.2-54.2); Mean Corpuscular HGB Conc 29.8 GM/DL (32-36); Mean Platelet Volume 10.4 FL (9.6-12.0); Monocytes % 14.1 % (1.7-12.7); NRBC # 0.24 10*3/uL; Neutrophils % 57.1 % (38.7-73.9); Platelet Count 259 T/CUMM (130-400); Red Blood Count 2.89 MC/CUMM (3.8-5.5); Red Cell Distribution Width 20.8 % (9.3-17.3); White Blood Count 8.7 T/CUMM (4-12)
[2021-01-13 04:28] LABS: Calcium 8.7 MG/DL (8.5-10.1); Osmolality,Calculated 288.7 MOS/KG (273-304); Potassium 4.1 MMOL/L (3.5-5.1)
[2021-01-13] MEDS: INSULIN LISPRO 100 UNIT/ML SUBCUT SCH ×2 (04:51→16:08)
[2021-01-13] MEDS: LACTULOSE 20 GM/30 ML UDCUP NG SCH ×2 (05:51→18:27)
[2021-01-13] MEDS: FAMOTIDINE 8 MG/ML 50 ML/BOTTLE PER TUBE SCH (08:05)
[2021-01-13] MEDS: AMIODARONE 200 MG TABLET PEG SCH (08:06)
[2021-01-13] MEDS: ASPIRIN CHEW 81 MG TABLET PO SCH (08:06)
[2021-01-13] MEDS: DESITIN 4OZ/NYSTATIN 15 GRAM MIXTURE PASTE TOP SCH ×2 (08:06→20:21)
[2021-01-13] MEDS: APIXABAN 5 MG TABLET PO SCH ×2 (08:06→20:21)
[2021-01-13] MEDS: TRIAMCINOLONE 0.025% CREAM 15 GM TUBE TOP SCH ×2 (08:06→20:21)
[2021-01-13] MEDS: carvediloL 3.125 MG TABLET PO SCH ×2 (08:09→20:21)
[2021-01-13] MEDS ORDERED: FUROSEMIDE 20 MG/2 ML VIAL IV ONE (09:00)
[2021-01-13] MEDS: SKIN HEALING OINT (AQUAPHOR) 50 GM TUBE TOP SCH (16:08)
[2021-01-13] MEDS: CITALOPRAM 20 MG TABLET PO SCH (20:21)
[2021-01-14] MEDS: ALBUTEROL/IPRATROPIUM 3 ML NEB RESP TX SCH ×4 (01:23→19:21)
[2021-01-14 03:06] LABS: ABG Base Excess 3.2 MMOL/L (-2.5-2.5); ABG HCO3 26.9 MMOL/L (20-26); ABG Oxygen Saturation 97.7 % (95-100); ABG PCO2 37.4 MM HG (35-48); ABG PH 7.474 (7.35-7.45); ABG PO2 105.4 MM HG (80-95)
[2021-01-14 03:55] LABS: Basophils % 0.3 % (0.0-0.8); Eosinophils # 0.8 10*3/uL (0.0-0.87); Eosinophils % 8.7 % (0.00-10.9); Hematocrit 28.6 VOL% (42.0-52.0); Hemoglobin 8.9 GM/DL (14.0-18.0); Immature Granulocytes % 2.1 %; Immature Granulocytes Absolute 0.18 #; Lymphocytes # 1.7 10*3/uL (1.4-4.0); Lymphocytes % 19.7 % (21.2-54.2); Mean Corpuscular HGB Conc 31.1 GM/DL (32-36); Mean Corpuscular Volume 99.7 FL (87-102); Mean Platelet Volume 10.7 FL (9.6-12.0); Monocytes % 14.3 % (1.7-12.7); Neutrophils % 54.9 % (38.7-73.9); Platelet Count 256 T/CUMM (130-400); Red Blood Count 2.87 MC/CUMM (3.8-5.5); Red Cell Distribution Width 20.8 % (9.3-17.3); White Blood Count 8.7 T/CUMM (4-12)
[2021-01-14 04:12] LABS: Calcium 8.7 MG/DL (8.5-10.1); Osmolality,Calculated 290.5 MOS/KG (273-304); Potassium 3.8 MMOL/L (3.5-5.1)
[2021-01-14] MEDS: INSULIN LISPRO 100 UNIT/ML SUBCUT SCH ×2 (04:29→16:12)
[2021-01-14] MEDS: LACTULOSE 20 GM/30 ML UDCUP NG SCH ×4 (06:20→20:47)
[2021-01-14] MEDS: carvediloL 3.125 MG TABLET PO SCH ×2 (09:03→20:47)
[2021-01-14] MEDS: ASPIRIN CHEW 81 MG TABLET PO SCH (09:03)
[2021-01-14] MEDS: APIXABAN 5 MG TABLET PO SCH ×2 (09:04→20:47)
[2021-01-14] MEDS: DESITIN 4OZ/NYSTATIN 15 GRAM MIXTURE PASTE TOP SCH ×2 (09:04→20:48)
[2021-01-14] MEDS: FAMOTIDINE 8 MG/ML 50 ML/BOTTLE PER TUBE SCH (09:04)
[2021-01-14] MEDS: AMIODARONE 200 MG TABLET PEG SCH (09:04)
[2021-01-14] MEDS: SKIN HEALING OINT (AQUAPHOR) 50 GM TUBE TOP SCH (09:04)
[2021-01-14] MEDS: predniSONE 20 MG TABLET PO SCH (09:04)
[2021-01-14] MEDS: TRIAMCINOLONE 0.025% CREAM 15 GM TUBE TOP SCH ×2 (09:05→20:47)
[2021-01-14] MEDS: FUROSEMIDE 40 MG/4 ML VIAL IV SCH (15:59)
[2021-01-15] MEDS: ALBUTEROL/IPRATROPIUM 3 ML NEB RESP TX SCH ×4 (00:23→20:00)
[2021-01-15 04:02] LABS: Basophils % 0.1 % (0.0-0.8); Eosinophils # 0.2 10*3/uL (0.0-0.87); Eosinophils % 2.7 % (0.00-10.9); Hematocrit 27.9 VOL% (42.0-52.0); Hemoglobin 8.6 GM/DL (14.0-18.0); Immature Granulocytes Absolute 0.14 #; Lymphocytes # 1.4 10*3/uL (1.4-4.0); Lymphocytes % 20.7 % (21.2-54.2); Mean Corpuscular HGB Conc 30.8 GM/DL (32-36); Mean Corpuscular Volume 98.2 FL (87-102); Mean Platelet Volume 10.6 FL (9.6-12.0); Monocytes % 14.8 % (1.7-12.7); NRBC # 0.04 10*3/uL; Neutrophils % 59.7 % (38.7-73.9); Platelet Count 249 T/CUMM (130-400); Red Blood Count 2.84 MC/CUMM (3.8-5.5); Red Cell Distribution Width 21.1 % (9.3-17.3); White Blood Count 6.9 T/CUMM (4-12)
[2021-01-15 04:19] LABS: Albumin 2.4 G/DL (3.4-5.0); Calcium 8.7 MG/DL (8.5-10.1); Osmolality,Calculated 286.7 MOS/KG (273-304); Potassium 3.8 MMOL/L (3.5-5.1); Total Protein 6.1 G/DL (6.4-8.2)
[2021-01-15 04:37] LABS: Allen Test Positive; Pt O2 Delivery Device Ventilator
[2021-01-15 04:39] LABS: ABG Base Excess 2.3 MMOL/L (-2.5-2.5); ABG HCO3 26.4 MMOL/L (20-26); ABG Oxygen Saturation 99.2 % (95-100); ABG PCO2 39.1 MM HG (35-48); ABG PH 7.448 (7.35-7.45); ABG TCO2 27.6 MMOL/L (23-27)
[2021-01-15] MEDS: INSULIN LISPRO 100 UNIT/ML SUBCUT SCH ×2 (04:44→16:12)
[2021-01-15] MEDS: FUROSEMIDE 40 MG/4 ML VIAL IV SCH ×2 (08:50→16:13)
[2021-01-15] MEDS: LACTULOSE 20 GM/30 ML UDCUP NG SCH ×3 (08:55→20:15)
[2021-01-15] MEDS: APIXABAN 5 MG TABLET PO SCH ×2 (08:55→20:15)
[2021-01-15] MEDS: AMIODARONE 200 MG TABLET PEG SCH (08:56)
[2021-01-15] MEDS: predniSONE 20 MG TABLET PO SCH (08:56)
[2021-01-15] MEDS: ASPIRIN CHEW 81 MG TABLET PO SCH (08:56)
[2021-01-15] MEDS: carvediloL 3.125 MG TABLET PO SCH ×2 (08:58→20:15)
[2021-01-15] MEDS: DESITIN 4OZ/NYSTATIN 15 GRAM MIXTURE PASTE TOP SCH ×2 (09:01→20:15)
[2021-01-15] MEDS: TRIAMCINOLONE 0.025% CREAM 15 GM TUBE TOP SCH ×2 (09:02→20:15)
[2021-01-15] MEDS: SKIN HEALING OINT (AQUAPHOR) 50 GM TUBE TOP SCH (09:02)
[2021-01-15] MEDS: FAMOTIDINE 8 MG/ML 50 ML/BOTTLE PER TUBE SCH (09:55)
[2021-01-16] MEDS: ALBUTEROL/IPRATROPIUM 3 ML NEB RESP TX SCH ×4 (00:51→19:08)
[2021-01-16 04:00] LABS: Basophils % 0.2 % (0.0-0.8); Eosinophils # 0.2 10*3/uL (0.0-0.87); Eosinophils % 2.4 % (0.00-10.9); Hematocrit 26.3 VOL% (42.0-52.0); Hemoglobin 8.2 GM/DL (14.0-18.0); Immature Granulocytes % 1.6 %; Lymphocytes # 1.5 10*3/uL (1.4-4.0); Lymphocytes % 23.4 % (21.2-54.2); Mean Corpuscular HGB Conc 31.2 GM/DL (32-36); Mean Corpuscular Volume 98.5 FL (87-102); Mean Platelet Volume 10.6 FL (9.6-12.0); Monocytes % 15.8 % (1.7-12.7); NRBC # 0.02 10*3/uL; Neutrophils % 56.6 % (38.7-73.9); Platelet Count 246 T/CUMM (130-400); Red Blood Count 2.67 MC/CUMM (3.8-5.5); Red Cell Distribution Width 21.1 % (9.3-17.3); White Blood Count 6.3 T/CUMM (4-12)
[2021-01-16 04:25] LABS: Albumin 2.6 G/DL (3.4-5.0); Bilirubin,Total 1.1 MG/DL (0.2-1.0); Calcium 8.8 MG/DL (8.5-10.1); Osmolality,Calculated 282.7 MOS/KG (273-304); Potassium 3.6 MMOL/L (3.5-5.1); Total Protein 5.9 G/DL (6.4-8.2)
[2021-01-16 04:36] LABS: ABG Base Excess 4.7 MMOL/L (-2.5-2.5); ABG HCO3 28.7 MMOL/L (20-26); ABG PCO2 41.2 MM HG (35-48); ABG PH 7.456 (7.35-7.45); ABG TCO2 26.1 MMOL/L (23-27); Allen Test Positive; Pt O2 Delivery Device Ventilator
[2021-01-16 05:13] LABS: Eosinophils 2 % (0-10); Lymphocytes 25 % (20-55); Metamyelocytes 2 %; Platelet Estimate Normal; Segmented Neutrophils 57 % (50-85); Total Cells Counted 100
[2021-01-16 05:14] LABS: Anisocytosis 1+; Hypochromasia 2+; Macrocytosis 1+; Polychromasia 2+
[2021-01-16] MEDS: INSULIN LISPRO 100 UNIT/ML SUBCUT SCH ×2 (05:18→15:27)
[2021-01-16] MEDS: LACTULOSE 20 GM/30 ML UDCUP NG SCH ×3 (08:02→20:24)
[2021-01-16] MEDS: predniSONE 20 MG TABLET PO SCH (08:02)
[2021-01-16] MEDS: carvediloL 3.125 MG TABLET PO SCH (08:02)
[2021-01-16] MEDS: FUROSEMIDE 40 MG/4 ML VIAL IV SCH ×2 (08:02→16:21)
[2021-01-16] MEDS: ASPIRIN CHEW 81 MG TABLET PO SCH (08:02)
[2021-01-16] MEDS: AMIODARONE 200 MG TABLET PEG SCH (08:02)
[2021-01-16] MEDS: TRIAMCINOLONE 0.025% CREAM 15 GM TUBE TOP SCH ×2 (08:03→20:25)
[2021-01-16] MEDS: SKIN HEALING OINT (AQUAPHOR) 50 GM TUBE TOP SCH (08:03)
[2021-01-16] MEDS: DESITIN 4OZ/NYSTATIN 15 GRAM MIXTURE PASTE TOP SCH ×2 (08:04→20:25)
[2021-01-16] MEDS: FAMOTIDINE 8 MG/ML 50 ML/BOTTLE PER TUBE SCH (08:07)
[2021-01-16] MEDS: APIXABAN 5 MG TABLET PO SCH ×2 (08:08→20:24)
[2021-01-16] MEDS: ERGOCALCIFEROL 50,000 UNIT CAPSULE PO SCH (13:01)
[2021-01-16 15:09] LABS: ABG Base Excess 2.6 MMOL/L (-2.5-2.5); ABG HCO3 26.7 MMOL/L (20-26); ABG Oxygen Saturation 96.9 % (95-100); ABG PCO2 62.9 MM HG (35-48); ABG PH 7.293 (7.35-7.45); ABG PO2 99.4 MM HG (80-95); ABG TCO2 28.2 MMOL/L (23-27); Allen Test Positive
[2021-01-17] MEDS: ALBUTEROL/IPRATROPIUM 3 ML NEB RESP TX SCH ×4 (01:48→19:59)
[2021-01-17 03:22] LABS: ABG Base Excess 4.5 MMOL/L (-2.5-2.5); ABG HCO3 28.5 MMOL/L (20-26); ABG PCO2 57.7 MM HG (35-48); ABG PH 7.343 (7.35-7.45); ABG TCO2 29.2 MMOL/L (23-27)
[2021-01-17] MEDS: INSULIN LISPRO 100 UNIT/ML SUBCUT SCH ×2 (04:46→16:59)
[2021-01-17 04:53] LABS: Calcium 9.2 MG/DL (8.5-10.1); Osmolality,Calculated 288.1 MOS/KG (273-304); Potassium 3.6 MMOL/L (3.5-5.1)
[2021-01-17] MEDS: ASPIRIN CHEW 81 MG TABLET PO SCH (08:07)
[2021-01-17] MEDS: AMIODARONE 200 MG TABLET PEG SCH (08:07)
[2021-01-17] MEDS: APIXABAN 5 MG TABLET PO SCH ×2 (08:07→20:07)
[2021-01-17] MEDS: FUROSEMIDE 40 MG/4 ML VIAL IV SCH ×2 (08:08→17:00)
[2021-01-17] MEDS: FAMOTIDINE 8 MG/ML 50 ML/BOTTLE PER TUBE SCH (08:08)
[2021-01-17] MEDS: LACTULOSE 20 GM/30 ML UDCUP NG SCH ×3 (08:08→20:07)
[2021-01-17] MEDS: predniSONE 20 MG TABLET PO SCH (08:08)
[2021-01-17] MEDS: TRIAMCINOLONE 0.025% CREAM 15 GM TUBE TOP SCH ×2 (08:09→20:07)
[2021-01-17] MEDS: DESITIN 4OZ/NYSTATIN 15 GRAM MIXTURE PASTE TOP SCH ×2 (08:09→20:07)
[2021-01-17] MEDS: SKIN HEALING OINT (AQUAPHOR) 50 GM TUBE TOP SCH (08:09)
[2021-01-17] MEDS: ACETAMINOPHEN 325 MG TABLET PO PRN (08:19)
[2021-01-17] MEDS ORDERED: MAGNESIUM SULF RIDER 4 GM in PREMIX 1 EACH IV PRN (09:01)
[2021-01-17] MEDS: MAGNESIUM SULF RIDER 2 GM in PREMIX 1 EACH IV PRN (10:34)
[2021-01-17] MEDS: POTASSIUM CHLORIDE 20 MEQ/15 ML UDCUP PER TUBE SCH (15:27)
[2021-01-18] MEDS: FUROSEMIDE 40 MG/4 ML VIAL IV SCH ×3 (00:15→15:21)
[2021-01-18] MEDS: ALBUTEROL/IPRATROPIUM 3 ML NEB RESP TX SCH ×4 (01:13→19:43)
[2021-01-18 03:02] LABS: ABG Base Excess 5.1 MMOL/L (-2.5-2.5); ABG Oxygen Saturation 98.7 % (95-100); ABG PH 7.285 (7.35-7.45); ABG TCO2 31.3 MMOL/L (23-27)
[2021-01-18 03:04] LABS: ABG PCO2 70.4 MM HG (35-48)
[2021-01-18 05:40] LABS: Basophils % 0.4 % (0.0-0.8); Eosinophils # 0.1 10*3/uL (0.0-0.87); Eosinophils % 2.1 % (0.00-10.9); Hematocrit 27.2 VOL% (42.0-52.0); Hemoglobin 8.5 GM/DL (14.0-18.0); Immature Granulocytes % 0.8 %; Immature Granulocytes Absolute 0.04 #; Lymphocytes # 1.2 10*3/uL (1.4-4.0); Lymphocytes % 26.2 % (21.2-54.2); Mean Corpuscular HGB Conc 31.3 GM/DL (32-36); Mean Corpuscular Volume 100.7 FL (87-102); Mean Platelet Volume 10.3 FL (9.6-12.0); Monocytes % 16.9 % (1.7-12.7); Neutrophils % 53.6 % (38.7-73.9); Platelet Count 213 T/CUMM (130-400); Red Cell Distribution Width 19.9 % (9.3-17.3); White Blood Count 4.7 T/CUMM (4-12)
[2021-01-18 05:59] LABS: Calcium 9.3 MG/DL (8.5-10.1); Potassium 3.8 MMOL/L (3.5-5.1)
[2021-01-18] MEDS: INSULIN LISPRO 100 UNIT/ML SUBCUT SCH ×2 (06:08→16:20)
[2021-01-18 06:16] LABS: Hypochromasia 1+; Macrocytosis 1+; Platelet Estimate Normal; Target Cells Slight
[2021-01-18] MEDS: LACTULOSE 20 GM/30 ML UDCUP NG SCH ×3 (08:11→21:21)
[2021-01-18] MEDS: ASPIRIN CHEW 81 MG TABLET PO SCH (08:12)
[2021-01-18] MEDS: AMIODARONE 200 MG TABLET PEG SCH (08:12)
[2021-01-18] MEDS: predniSONE 20 MG TABLET PO SCH (08:12)
[2021-01-18] MEDS: APIXABAN 5 MG TABLET PO SCH ×2 (08:12→21:21)
[2021-01-18] MEDS: POTASSIUM CHLORIDE 20 MEQ/15 ML UDCUP PER TUBE SCH (08:12)
[2021-01-18] MEDS: SKIN HEALING OINT (AQUAPHOR) 50 GM TUBE TOP SCH (08:26)
[2021-01-18] MEDS: TRIAMCINOLONE 0.025% CREAM 15 GM TUBE TOP SCH ×2 (08:26→21:20)
[2021-01-18] MEDS: FAMOTIDINE 8 MG/ML 50 ML/BOTTLE PER TUBE SCH (08:26)
[2021-01-18] MEDS: DESITIN 4OZ/NYSTATIN 15 GRAM MIXTURE PASTE TOP SCH ×2 (08:26→21:20)
[2021-01-18 08:44] LABS: Lymphocytes 25 % (20-55); Segmented Neutrophils 67 % (50-85); Total Cells Counted 100
[2021-01-18] MEDS: RIFAXIMIN 550 MG TABLET PO SCH ×2 (09:57→21:21)
[2021-01-18] MEDS: carvediloL 3.125 MG TABLET PO SCH (21:21)
[2021-01-19] MEDS: FUROSEMIDE 40 MG/4 ML VIAL IV SCH ×3 (00:16→16:12)
[2021-01-19] MEDS: ALBUTEROL/IPRATROPIUM 3 ML NEB RESP TX SCH ×4 (00:53→19:24)
[2021-01-19 04:34] LABS: ABG Base Excess 9.8 MMOL/L (-2.5-2.5); ABG HCO3 34.3 MMOL/L (20-26); ABG Oxygen Saturation 97.9 % (95-100); ABG PCO2 46.4 MM HG (35-48); ABG PH 7.487 (7.35-7.45); ABG PO2 104.1 MM HG (80-95); ABG TCO2 35.8 MMOL/L (23-27); Allen Test Positive; Pt O2 Delivery Device BIPAP
[2021-01-19] MEDS: INSULIN LISPRO 100 UNIT/ML SUBCUT SCH ×2 (05:48→16:03)
[2021-01-19 06:01] LABS: Basophils % 0.3 % (0.0-0.8); Eosinophils # 0.3 10*3/uL (0.0-0.87); Hematocrit 27.8 VOL% (42.0-52.0); Hemoglobin 8.5 GM/DL (14.0-18.0); Immature Granulocytes % 0.5 %; Immature Granulocytes Absolute 0.03 #; Lymphocytes # 1.8 10*3/uL (1.4-4.0); Lymphocytes % 29.2 % (21.2-54.2); Mean Corpuscular HGB Conc 30.6 GM/DL (32-36); Mean Platelet Volume 10.5 FL (9.6-12.0); Monocytes % 16.2 % (1.7-12.7); Neutrophils % 48.8 % (38.7-73.9); Platelet Count 248 T/CUMM (130-400); Red Blood Count 2.78 MC/CUMM (3.8-5.5); Red Cell Distribution Width 19.8 % (9.3-17.3)
[2021-01-19 06:21] LABS: Albumin 2.6 G/DL (3.4-5.0); Bilirubin,Total 1.1 MG/DL (0.2-1.0); Calcium 9.3 MG/DL (8.5-10.1); Potassium 3.7 MMOL/L (3.5-5.1); Total Protein 6.1 G/DL (6.4-8.2)
[2021-01-19 06:28] LABS: Band Neutrophils 2 % (0-10); Eosinophils 8 % (0-10); Lymphocytes 31 % (20-55); Platelet Estimate Normal; Segmented Neutrophils 45 % (50-85); Smudge Cells Few; Total Cells Counted 100
[2021-01-19 06:29] LABS: Anisocytosis 1+; Atypical Lymphocytes Few; Macrocytosis 1+; Reactive Lymphocytes Slight
[2021-01-19] MEDS: AMIODARONE 200 MG TABLET PEG SCH (08:24)
[2021-01-19] MEDS: APIXABAN 5 MG TABLET PO SCH ×2 (08:24→20:07)
[2021-01-19] MEDS: carvediloL 3.125 MG TABLET PO SCH ×2 (08:24→20:07)
[2021-01-19] MEDS: RIFAXIMIN 550 MG TABLET PO SCH ×2 (08:24→20:07)
[2021-01-19] MEDS: ASPIRIN CHEW 81 MG TABLET PO SCH (08:24)
[2021-01-19] MEDS: predniSONE 10 MG TABLET PO SCH (08:24)
[2021-01-19] MEDS: POTASSIUM CHLORIDE 20 MEQ/15 ML UDCUP PER TUBE SCH (08:25)
[2021-01-19] MEDS: LACTULOSE 20 GM/30 ML UDCUP NG SCH ×3 (08:25→20:07)
[2021-01-19] MEDS: DESITIN 4OZ/NYSTATIN 15 GRAM MIXTURE PASTE TOP SCH ×2 (08:26→20:09)
[2021-01-19] MEDS: FAMOTIDINE 8 MG/ML 50 ML/BOTTLE PER TUBE SCH (08:26)
[2021-01-19] MEDS: TRIAMCINOLONE 0.025% CREAM 15 GM TUBE TOP SCH ×2 (08:27→20:08)
[2021-01-19] MEDS: SKIN HEALING OINT (AQUAPHOR) 50 GM TUBE TOP SCH (08:28)
[2021-01-20] MEDS ORDERED: ALBUTEROL/IPRATROPIUM 3 ML NEB RESP TX ONE (00:02)
[2021-01-20] MEDS: FUROSEMIDE 40 MG/4 ML VIAL IV SCH ×2 (00:11→08:06)
[2021-01-20] MEDS: ALBUTEROL/IPRATROPIUM 3 ML NEB RESP TX SCH ×4 (00:12→20:45)
[2021-01-20 04:39] LABS: ABG Base Excess 13.4 MMOL/L (-2.5-2.5); ABG HCO3 37.2 MMOL/L (20-26); ABG PCO2 49.3 MM HG (35-48); ABG PH 7.501 (7.35-7.45); ABG TCO2 35.2 MMOL/L (23-27); Allen Test Positive; Pt O2 Delivery Device BIPAP
[2021-01-20] MEDS: INSULIN LISPRO 100 UNIT/ML SUBCUT SCH ×2 (04:46→16:08)
[2021-01-20 06:43] LABS: Calcium 9.3 MG/DL (8.5-10.1); Osmolality,Calculated 285.1 MOS/KG (273-304); Potassium 3.6 MMOL/L (3.5-5.1)
[2021-01-20] MEDS: POTASSIUM CHLORIDE 20 MEQ/15 ML UDCUP PER TUBE SCH (08:05)
[2021-01-20] MEDS: AMIODARONE 200 MG TABLET PEG SCH (08:05)
[2021-01-20] MEDS: carvediloL 3.125 MG TABLET PO SCH ×2 (08:05→20:43)
[2021-01-20] MEDS: LACTULOSE 20 GM/30 ML UDCUP NG SCH ×3 (08:05→20:44)
[2021-01-20] MEDS: ASPIRIN CHEW 81 MG TABLET PO SCH (08:05)
[2021-01-20] MEDS: RIFAXIMIN 550 MG TABLET PO SCH ×2 (08:05→20:43)
[2021-01-20] MEDS: predniSONE 10 MG TABLET PO SCH (08:05)
[2021-01-20] MEDS: APIXABAN 5 MG TABLET PO SCH ×2 (08:05→20:44)
[2021-01-20] MEDS: TRIAMCINOLONE 0.025% CREAM 15 GM TUBE TOP SCH ×2 (08:10→21:00)
[2021-01-20] MEDS: SKIN HEALING OINT (AQUAPHOR) 50 GM TUBE TOP SCH (08:11)
[2021-01-20] MEDS: DESITIN 4OZ/NYSTATIN 15 GRAM MIXTURE PASTE TOP SCH ×2 (08:11→21:00)
[2021-01-20] MEDS: FAMOTIDINE 8 MG/ML 50 ML/BOTTLE PER TUBE SCH (08:11)
[2021-01-20 17:16] LABS: Potassium 4.2 MMOL/L (3.5-5.1)
[2021-01-21] MEDS: ALBUTEROL/IPRATROPIUM 3 ML NEB RESP TX SCH ×4 (00:56→18:00)
[2021-01-21 04:34] LABS: Basophils % 0.4 % (0.0-0.8); Eosinophils # 0.4 10*3/uL (0.0-0.87); Eosinophils % 5.6 % (0.00-10.9); Hematocrit 29.7 VOL% (42.0-52.0); Hemoglobin 9.1 GM/DL (14.0-18.0); Immature Granulocytes % 0.5 %; Immature Granulocytes Absolute 0.04 #; Lymphocytes # 2.3 10*3/uL (1.4-4.0); Lymphocytes % 29.8 % (21.2-54.2); Mean Corpuscular HGB Conc 30.6 GM/DL (32-36); Mean Corpuscular Volume 99.3 FL (87-102); Mean Platelet Volume 9.7 FL (9.6-12.0); Monocytes % 13.7 % (1.7-12.7); Platelet Count 278 T/CUMM (130-400); Red Blood Count 2.99 MC/CUMM (3.8-5.5); Red Cell Distribution Width 18.8 % (9.3-17.3); White Blood Count 7.7 T/CUMM (4-12)
[2021-01-21 04:42] LABS: ABG HCO3 35.1 MMOL/L (20-26); ABG Oxygen Saturation 97.5 % (95-100); ABG PCO2 39.6 MM HG (35-48); ABG PH 7.566 (7.35-7.45); ABG PO2 89.5 MM HG (80-95); ABG TCO2 36.4 MMOL/L (23-27); Allen Test Positive; Pt O2 Delivery Device BIPAP
[2021-01-21 05:00] LABS: Calcium 9.3 MG/DL (8.5-10.1); Osmolality,Calculated 288.8 MOS/KG (273-304); Potassium 3.9 MMOL/L (3.5-5.1)
[2021-01-21] MEDS: INSULIN LISPRO 100 UNIT/ML SUBCUT SCH ×2 (05:08→18:01)
[2021-01-21] MEDS: ASPIRIN CHEW 81 MG TABLET PO SCH (08:52)
[2021-01-21] MEDS: FAMOTIDINE 8 MG/ML 50 ML/BOTTLE PER TUBE SCH (08:52)
[2021-01-21] MEDS: RIFAXIMIN 550 MG TABLET PO SCH ×2 (08:52→20:23)
[2021-01-21] MEDS: POTASSIUM CHLORIDE 20 MEQ/15 ML UDCUP PER TUBE SCH (08:52)
[2021-01-21] MEDS: carvediloL 3.125 MG TABLET PO SCH ×2 (08:52→20:23)
[2021-01-21] MEDS: predniSONE 10 MG TABLET PO SCH (08:52)
[2021-01-21] MEDS: AMIODARONE 200 MG TABLET PEG SCH (08:53)
[2021-01-21] MEDS: APIXABAN 5 MG TABLET PO SCH ×2 (08:53→20:23)
[2021-01-21] MEDS: TRIAMCINOLONE 0.025% CREAM 15 GM TUBE TOP SCH ×2 (08:54→20:23)
[2021-01-21] MEDS: SKIN HEALING OINT (AQUAPHOR) 50 GM TUBE TOP SCH (08:54)
[2021-01-21] MEDS: DESITIN 4OZ/NYSTATIN 15 GRAM MIXTURE PASTE TOP SCH ×2 (08:55→20:23)
[2021-01-21] MEDS: LACTULOSE 20 GM/30 ML UDCUP NG SCH (08:56)
[2021-01-21] MEDS: ACETAMINOPHEN 325 MG TABLET PO PRN (11:30)
[2021-01-21] MEDS: MAGNESIUM SULF RIDER 2 GM in PREMIX 1 EACH IV PRN (12:26)
[2021-01-22] MEDS: ALBUTEROL/IPRATROPIUM 3 ML NEB RESP TX SCH ×4 (00:03→19:38)
[2021-01-22] MEDS: INSULIN LISPRO 100 UNIT/ML SUBCUT SCH (06:26)
[2021-01-22] MEDS: POTASSIUM CHLORIDE 20 MEQ/15 ML UDCUP PER TUBE SCH (10:22)
[2021-01-22] MEDS: APIXABAN 5 MG TABLET PO SCH ×2 (10:23→20:49)
[2021-01-22] MEDS: ASPIRIN CHEW 81 MG TABLET PO SCH (10:23)
[2021-01-22] MEDS: RIFAXIMIN 550 MG TABLET PO SCH ×2 (10:23→20:49)
[2021-01-22] MEDS: LACTULOSE 20 GM/30 ML UDCUP NG SCH (10:23)
[2021-01-22] MEDS: carvediloL 3.125 MG TABLET PO SCH ×2 (10:23→20:49)
[2021-01-22] MEDS: predniSONE 10 MG TABLET PO SCH (10:23)
[2021-01-22] MEDS: AMIODARONE 200 MG TABLET PEG SCH (10:23)
[2021-01-22] MEDS: TRIAMCINOLONE 0.025% CREAM 15 GM TUBE TOP SCH ×2 (10:24→21:30)
[2021-01-22] MEDS: FAMOTIDINE 8 MG/ML 50 ML/BOTTLE PER TUBE SCH (10:24)
[2021-01-22] MEDS: DESITIN 4OZ/NYSTATIN 15 GRAM MIXTURE PASTE TOP SCH (10:26)
[2021-01-22] MEDS: SKIN HEALING OINT (AQUAPHOR) 50 GM TUBE TOP SCH (11:16)
[2021-01-23] MEDS: ALBUTEROL/IPRATROPIUM 3 ML NEB RESP TX SCH ×4 (01:06→19:10)
[2021-01-23] MEDS: DESITIN 4OZ/NYSTATIN 15 GRAM MIXTURE PASTE TOP SCH ×3 (03:45→20:25)
[2021-01-23 06:53] LABS: Basophils % 0.4 % (0.0-0.8); Eosinophils # 0.5 10*3/uL (0.0-0.87); Eosinophils % 6.7 % (0.00-10.9); Hemoglobin 9.3 GM/DL (14.0-18.0); Immature Granulocytes % 0.6 %; Immature Granulocytes Absolute 0.05 #; Lymphocytes # 1.9 10*3/uL (1.4-4.0); Lymphocytes % 23.2 % (21.2-54.2); Mean Corpuscular Volume 102.3 FL (87-102); Mean Platelet Volume 10.4 FL (9.6-12.0); Monocytes % 14.2 % (1.7-12.7); Neutrophils % 54.9 % (38.7-73.9); Platelet Count 279 T/CUMM (130-400); Red Blood Count 3.03 MC/CUMM (3.8-5.5); Red Cell Distribution Width 18.3 % (9.3-17.3); White Blood Count 8.1 T/CUMM (4-12)
[2021-01-23 08:16] LABS: Albumin 2.6 G/DL (3.4-5.0); Bilirubin,Total 0.9 MG/DL (0.2-1.0); Calcium 9.2 MG/DL (8.5-10.1); Osmolality,Calculated 278.5 MOS/KG (273-304); Potassium 4.2 MMOL/L (3.5-5.1); Total Protein 6.3 G/DL (6.4-8.2)
[2021-01-23] MEDS: SKIN HEALING OINT (AQUAPHOR) 50 GM TUBE TOP SCH (09:06)
[2021-01-23] MEDS: LACTULOSE 20 GM/30 ML UDCUP NG SCH (09:07)
[2021-01-23] MEDS: ERGOCALCIFEROL 50,000 UNIT CAPSULE PO SCH (09:07)
[2021-01-23] MEDS: FAMOTIDINE 8 MG/ML 50 ML/BOTTLE PER TUBE SCH (09:07)
[2021-01-23] MEDS: AMIODARONE 200 MG TABLET PEG SCH (09:08)
[2021-01-23] MEDS: RIFAXIMIN 550 MG TABLET PO SCH ×2 (09:08→20:24)
[2021-01-23] MEDS: predniSONE 10 MG TABLET PO SCH (09:08)
[2021-01-23] MEDS: APIXABAN 5 MG TABLET PO SCH ×2 (09:08→20:24)
[2021-01-23] MEDS: ASPIRIN CHEW 81 MG TABLET PO SCH (09:08)
[2021-01-23] MEDS: carvediloL 3.125 MG TABLET PO SCH ×2 (09:08→20:24)
[2021-01-23] MEDS: POTASSIUM CHLORIDE 20 MEQ/15 ML UDCUP PER TUBE SCH (09:08)
[2021-01-23] MEDS: TRIAMCINOLONE 0.025% CREAM 15 GM TUBE TOP SCH ×2 (09:28→20:25)
[2021-01-24] MEDS: ALBUTEROL/IPRATROPIUM 3 ML NEB RESP TX SCH ×4 (00:04→19:48)
[2021-01-24] MEDS: APIXABAN 5 MG TABLET PO SCH ×2 (08:51→20:13)
[2021-01-24] MEDS: LACTULOSE 20 GM/30 ML UDCUP NG SCH (08:51)
[2021-01-24] MEDS: RIFAXIMIN 550 MG TABLET PO SCH ×2 (08:51→20:13)
[2021-01-24] MEDS: carvediloL 3.125 MG TABLET PO SCH ×2 (08:52→20:13)
[2021-01-24] MEDS: predniSONE 10 MG TABLET PO SCH (08:52)
[2021-01-24] MEDS: AMIODARONE 200 MG TABLET PEG SCH (08:52)
[2021-01-24] MEDS: ASPIRIN CHEW 81 MG TABLET PO SCH (08:52)
[2021-01-24] MEDS: FAMOTIDINE 8 MG/ML 50 ML/BOTTLE PER TUBE SCH (09:02)
[2021-01-24] MEDS: POTASSIUM CHLORIDE 20 MEQ/15 ML UDCUP PER TUBE SCH (09:02)
[2021-01-24] MEDS: DESITIN 4OZ/NYSTATIN 15 GRAM MIXTURE PASTE TOP SCH ×2 (09:03→20:13)
[2021-01-24] MEDS: TRIAMCINOLONE 0.025% CREAM 15 GM TUBE TOP SCH ×2 (09:03→20:13)
[2021-01-24] MEDS: SKIN HEALING OINT (AQUAPHOR) 50 GM TUBE TOP SCH (09:03)
[2021-01-25] MEDS: ALBUTEROL/IPRATROPIUM 3 ML NEB RESP TX SCH ×4 (00:04→19:10)
[2021-01-25] MEDS: APIXABAN 5 MG TABLET PO SCH ×2 (08:51→21:23)
[2021-01-25] MEDS: ASPIRIN CHEW 81 MG TABLET PO SCH (08:51)
[2021-01-25] MEDS: predniSONE 10 MG TABLET PO SCH (08:51)
[2021-01-25] MEDS: RIFAXIMIN 550 MG TABLET PO SCH ×2 (08:51→21:23)
[2021-01-25] MEDS: LACTULOSE 20 GM/30 ML UDCUP NG SCH (08:51)
[2021-01-25] MEDS: POTASSIUM CHLORIDE 20 MEQ/15 ML UDCUP PER TUBE SCH (08:51)
[2021-01-25] MEDS: carvediloL 3.125 MG TABLET PO SCH ×2 (08:51→21:23)
[2021-01-25] MEDS: SKIN HEALING OINT (AQUAPHOR) 50 GM TUBE TOP SCH (08:52)
[2021-01-25] MEDS: AMIODARONE 200 MG TABLET PEG SCH (08:52)
[2021-01-25] MEDS: TRIAMCINOLONE 0.025% CREAM 15 GM TUBE TOP SCH ×2 (08:52→21:34)
[2021-01-25] MEDS: DESITIN 4OZ/NYSTATIN 15 GRAM MIXTURE PASTE TOP SCH ×2 (08:52→21:34)
[2021-01-25] MEDS: FAMOTIDINE 8 MG/ML 50 ML/BOTTLE PER TUBE SCH (08:53)
[2021-01-26] MEDS: ALBUTEROL/IPRATROPIUM 3 ML NEB RESP TX SCH ×4 (00:35→18:14)
[2021-01-26 05:38] LABS: Basophils % 0.5 % (0.0-0.8); Eosinophils % 0.3 % (0.00-10.9); Hematocrit 31.1 VOL% (42.0-52.0); Hemoglobin 9.2 GM/DL (14.0-18.0); Immature Granulocytes % 0.5 %; Immature Granulocytes Absolute 0.03 #; Lymphocytes # 1.8 10*3/uL (1.4-4.0); Mean Corpuscular HGB Conc 29.6 GM/DL (32-36); Mean Corpuscular Volume 103.7 FL (87-102); Mean Platelet Volume 10.5 FL (9.6-12.0); Monocytes % 14.9 % (1.7-12.7); Neutrophils % 55.8 % (38.7-73.9); Platelet Count 262 T/CUMM (130-400); Red Cell Distribution Width 17.3 % (9.3-17.3); White Blood Count 6.4 T/CUMM (4-12)
[2021-01-26 06:01] LABS: Albumin 2.5 G/DL (3.4-5.0); Calcium 8.9 MG/DL (8.5-10.1); Osmolality,Calculated 277.5 MOS/KG (273-304); Potassium 4.4 MMOL/L (3.5-5.1); Total Protein 6.3 G/DL (6.4-8.2)
[2021-01-26] MEDS: LACTULOSE 20 GM/30 ML UDCUP NG SCH (08:44)
[2021-01-26] MEDS: AMIODARONE 200 MG TABLET PEG SCH (08:45)
[2021-01-26] MEDS: POTASSIUM CHLORIDE 20 MEQ/15 ML UDCUP PER TUBE SCH (08:45)
[2021-01-26] MEDS: carvediloL 3.125 MG TABLET PO SCH ×2 (08:45→20:29)
[2021-01-26] MEDS: ACETAMINOPHEN 325 MG TABLET PO PRN (08:45)
[2021-01-26] MEDS: SKIN HEALING OINT (AQUAPHOR) 50 GM TUBE TOP SCH (08:46)
[2021-01-26] MEDS: ASPIRIN CHEW 81 MG TABLET PO SCH (08:46)
[2021-01-26] MEDS: APIXABAN 5 MG TABLET PO SCH ×2 (08:46→20:29)
[2021-01-26] MEDS: DESITIN 4OZ/NYSTATIN 15 GRAM MIXTURE PASTE TOP SCH ×2 (08:46→20:29)
[2021-01-26] MEDS: TRIAMCINOLONE 0.025% CREAM 15 GM TUBE TOP SCH ×2 (08:46→20:29)
[2021-01-26] MEDS: predniSONE 10 MG TABLET PO SCH (08:46)
[2021-01-26] MEDS: FAMOTIDINE 8 MG/ML 50 ML/BOTTLE PER TUBE SCH (08:46)
[2021-01-26] MEDS: RIFAXIMIN 550 MG TABLET PO SCH (20:29)
[2021-01-26] MEDS: traMADol 50 MG TABLET PO PRN (22:11)
[2021-01-27] MEDS: ALBUTEROL/IPRATROPIUM 3 ML NEB RESP TX SCH ×4 (00:44→18:21)
[2021-01-27] MEDS: traMADol 50 MG TABLET PO PRN (03:50)
[2021-01-27] MEDS: LACTULOSE 20 GM/30 ML UDCUP NG SCH (10:10)
[2021-01-27] MEDS: TRIAMCINOLONE 0.025% CREAM 15 GM TUBE TOP SCH ×2 (10:10→21:01)
[2021-01-27] MEDS: POTASSIUM CHLORIDE 20 MEQ/15 ML UDCUP PER TUBE SCH (10:10)
[2021-01-27] MEDS: SKIN HEALING OINT (AQUAPHOR) 50 GM TUBE TOP SCH (10:11)
[2021-01-27] MEDS: DESITIN 4OZ/NYSTATIN 15 GRAM MIXTURE PASTE TOP SCH ×2 (10:11→21:01)
[2021-01-27] MEDS: APIXABAN 5 MG TABLET PO SCH ×2 (10:12→21:01)
[2021-01-27] MEDS: AMIODARONE 200 MG TABLET PEG SCH (10:12)
[2021-01-27] MEDS: predniSONE 10 MG TABLET PO SCH (10:12)
[2021-01-27] MEDS: carvediloL 3.125 MG TABLET PO SCH ×2 (10:12→21:01)
[2021-01-27] MEDS: ASPIRIN CHEW 81 MG TABLET PO SCH (10:12)
[2021-01-27] MEDS: RIFAXIMIN 550 MG TABLET PO SCH ×2 (10:14→21:01)
[2021-01-27] MEDS: FAMOTIDINE 8 MG/ML 50 ML/BOTTLE PER TUBE SCH (10:15)
[2021-01-28] MEDS: ALBUTEROL/IPRATROPIUM 3 ML NEB RESP TX SCH ×4 (01:59→19:05)
[2021-01-28] MEDS: FAMOTIDINE 8 MG/ML 50 ML/BOTTLE PER TUBE SCH (08:06)
[2021-01-28] MEDS: SKIN HEALING OINT (AQUAPHOR) 50 GM TUBE TOP SCH (08:06)
[2021-01-28] MEDS: DESITIN 4OZ/NYSTATIN 15 GRAM MIXTURE PASTE TOP SCH ×2 (08:07→21:05)
[2021-01-28] MEDS: TRIAMCINOLONE 0.025% CREAM 15 GM TUBE TOP SCH ×2 (08:07→21:05)
[2021-01-28] MEDS: LACTULOSE 20 GM/30 ML UDCUP NG SCH (08:07)
[2021-01-28] MEDS: predniSONE 10 MG TABLET PO SCH (08:08)
[2021-01-28] MEDS: POTASSIUM CHLORIDE 20 MEQ/15 ML UDCUP PER TUBE SCH (08:08)
[2021-01-28] MEDS: carvediloL 3.125 MG TABLET PO SCH ×2 (08:08→20:47)
[2021-01-28] MEDS: ASPIRIN CHEW 81 MG TABLET PO SCH (08:08)
[2021-01-28] MEDS: AMIODARONE 200 MG TABLET PEG SCH (08:08)
[2021-01-28] MEDS: RIFAXIMIN 550 MG TABLET PO SCH ×2 (08:08→20:47)
[2021-01-28] MEDS: APIXABAN 5 MG TABLET PO SCH ×2 (08:08→20:47)
[2021-01-29] MEDS: ALBUTEROL/IPRATROPIUM 3 ML NEB RESP TX SCH ×4 (00:46→19:50)
[2021-01-29] MEDS: traMADol 50 MG TABLET PO PRN (03:02)
[2021-01-29 04:00] LABS: Basophils % 0.5 % (0.0-0.8); Eosinophils # 0.2 10*3/uL (0.0-0.87); Eosinophils % 3.6 % (0.00-10.9); Hematocrit 30.5 VOL% (42.0-52.0); Hemoglobin 9.2 GM/DL (14.0-18.0); Immature Granulocytes % 0.6 %; Immature Granulocytes Absolute 0.04 #; Lymphocytes # 1.6 10*3/uL (1.4-4.0); Lymphocytes % 25.2 % (21.2-54.2); Mean Corpuscular HGB Conc 30.2 GM/DL (32-36); Mean Corpuscular Volume 100.3 FL (87-102); Mean Platelet Volume 10.3 FL (9.6-12.0); Monocytes % 14.2 % (1.7-12.7); Neutrophils % 55.9 % (38.7-73.9); Platelet Count 230 T/CUMM (130-400); Red Blood Count 3.04 MC/CUMM (3.8-5.5); Red Cell Distribution Width 16.9 % (9.3-17.3); White Blood Count 6.2 T/CUMM (4-12)
[2021-01-29 04:16] LABS: Albumin 2.4 G/DL (3.4-5.0); Bilirubin,Total 0.6 MG/DL (0.2-1.0); Osmolality,Calculated 273.8 MOS/KG (273-304); Potassium 4.3 MMOL/L (3.5-5.1); Total Protein 6.1 G/DL (6.4-8.2)
[2021-01-29] MEDS: LACTULOSE 20 GM/30 ML UDCUP NG SCH (08:12)
[2021-01-29] MEDS: carvediloL 3.125 MG TABLET PO SCH ×2 (08:12→20:16)
[2021-01-29] MEDS: APIXABAN 5 MG TABLET PO SCH ×2 (08:12→20:16)
[2021-01-29] MEDS: RIFAXIMIN 550 MG TABLET PO SCH ×2 (08:12→20:16)
[2021-01-29] MEDS: ASPIRIN CHEW 81 MG TABLET PO SCH (08:12)
[2021-01-29] MEDS: predniSONE 10 MG TABLET PO SCH (08:12)
[2021-01-29] MEDS: POTASSIUM CHLORIDE 20 MEQ/15 ML UDCUP PER TUBE SCH (08:12)
[2021-01-29] MEDS: AMIODARONE 200 MG TABLET PEG SCH (08:12)
[2021-01-29] MEDS: SKIN HEALING OINT (AQUAPHOR) 50 GM TUBE TOP SCH (08:13)
[2021-01-29] MEDS: FAMOTIDINE 8 MG/ML 50 ML/BOTTLE PER TUBE SCH (08:13)
[2021-01-29] MEDS: TRIAMCINOLONE 0.025% CREAM 15 GM TUBE TOP SCH ×2 (08:13→20:22)
[2021-01-29] MEDS: DESITIN 4OZ/NYSTATIN 15 GRAM MIXTURE PASTE TOP SCH ×2 (08:14→20:22)
[2021-01-29 16:03] VITALS: BP 130/76
[2021-01-30] MEDS: ALBUTEROL/IPRATROPIUM 3 ML NEB RESP TX SCH ×3 (01:14→13:22)
[2021-01-30] MEDS: FAMOTIDINE 8 MG/ML 50 ML/BOTTLE PER TUBE SCH (09:29)
[2021-01-30] MEDS: ASPIRIN CHEW 81 MG TABLET PO SCH (09:30)
[2021-01-30] MEDS: TRIAMCINOLONE 0.025% CREAM 15 GM TUBE TOP SCH (09:30)
[2021-01-30] MEDS: SKIN HEALING OINT (AQUAPHOR) 50 GM TUBE TOP SCH (09:30)
[2021-01-30] MEDS: LACTULOSE 20 GM/30 ML UDCUP NG SCH (09:30)
[2021-01-30] MEDS: predniSONE 10 MG TABLET PO SCH (09:30)
[2021-01-30] MEDS: AMIODARONE 200 MG TABLET PEG SCH (09:31)
[2021-01-30] MEDS: RIFAXIMIN 550 MG TABLET PO SCH (09:31)
[2021-01-30] MEDS: DESITIN 4OZ/NYSTATIN 15 GRAM MIXTURE PASTE TOP SCH (09:31)
[2021-01-30] MEDS: carvediloL 3.125 MG TABLET PO SCH (09:31)
[2021-01-30] MEDS: APIXABAN 5 MG TABLET PO SCH (09:31)
[2021-01-30] MEDS: POTASSIUM CHLORIDE 20 MEQ/15 ML UDCUP PER TUBE SCH (09:31)
[2021-01-30] MEDS: ERGOCALCIFEROL 50,000 UNIT CAPSULE PO SCH (09:35)
== END 2021-01-30 18:05 | DRG 4 ==
LOC: EDBD → N.EDINP 11:46 → N.ED 11:46 → SUATTDRO 14:48 → N.EDINP 17:03 → N.TELEN 18:10 → N.ICU 11-12 18:35 → SUATTDRO 11-12 18:38 → N.ICU 11-30 13:10 → N.TELES 12-18 17:05 → N.ICU 12-19 12:38 → N.TELEN 12-27 14:00 → N.CC 12-27 22:23 → N.ICU 01-20 22:22
PROVIDERS: ADMIT Internal Medicine; ATTEND Internal Medicine
PROC: EGDWPEG (ICD-10-PCS; 2020-12-07 11:05)

== ENCOUNTER 2021-09-24 08:38 | Inpatient (IN) ==
[2021-09-24] MEDS ORDERED: FUROSEMIDE 100 MG/10 ML VIAL IV STA (09:51)
[2021-09-24] MEDS ORDERED: FUROSEMIDE 40 MG/4 ML VIAL ONE (11:20)
[2021-09-24 12:36] LABS: Basophils % 0.1 % (0.0-0.8); Hematocrit 36.1 VOL% (42.0-52.0); Immature Granulocytes % 0.7 %; Lymphocytes # 1.1 10*3/uL (1.4-4.0); Lymphocytes % 7.5 % (21.2-54.2); Mean Corpuscular HGB Conc 30.5 GM/DL (32-36); Mean Corpuscular Volume 92.6 FL (87-102); Mean Platelet Volume 10.6 FL (9.6-12.0); Monocytes % 6.8 % (1.7-12.7); Neutrophils % 84.9 % (38.7-73.9); Platelet Count 289 T/CUMM (130-400); Red Cell Distribution Width 17.3 % (9.3-17.3); White Blood Count 14.9 T/CUMM (4-12)
[2021-09-24 12:55] LABS: Anisocytosis 2+; Platelet Estimate Normal
[2021-09-24 12:56] LABS: Macrocytosis 1+; Polychromasia Slight
[2021-09-24 12:57] LABS: Albumin 3.4 G/DL (3.4-5.0); Bilirubin,Total 1.6 MG/DL (0.20-1.00); Osmolality,Calculated 281.3 MOS/KG (273-304); Total Protein 6.9 G/DL (6.4-8.2)
[2021-09-24] MEDS ORDERED: ALBUTEROL 2.5 MG/3 ML NEB RESP TX PRN (13:48)
[2021-09-24] MEDS ORDERED: ONDANSETRON 4 MG/2 ML VIAL IV PRN (13:48)
[2021-09-24] MEDS ORDERED: DEXTROSE 50% 25 GM/50 ML SYRINGE IV PRN (13:48)
[2021-09-24] MEDS ORDERED: BISACODYL 5 MG TABLET PO PRN (13:48)
[2021-09-24] MEDS ORDERED: GLUCAGON 1 MG VIAL IM PRN (13:48)
[2021-09-24] MEDS ORDERED: hydrALAZINE 20 MG/1 ML VIAL IV PRN (13:48)
[2021-09-24] MEDS ORDERED: guaiFENesin/DM ER 600-30 MG TABLET PO PRN (13:48)
[2021-09-24 14:13] LABS: Bilirubin,Urine Negative (Negative); Blood, Urine Moderate mg/dL (Negative); Glucose,Urine (UA) Negative (Negative); Ketones,Urine Negative (Negative); Mucus,Urine Occasional /LPF (Occasional); Nitrite,Urine Negative (Negative); Protein,Urine Negative; RBC,Urine 26 /HPF (0-4); Squamous Epithelial Cell,Urine Occasional /HPF (0-10); Urine Appearance CLEAR (Clear); Urine Color Yellow (Yellow); Urine Specific Gravity 1.009 (1.001-1.035)
[2021-09-24 14:33] LABS: ABG HCO3 38.5 MMOL/L (20-26); ABG Oxygen Saturation 93.4 % (95-100); ABG PCO2 60.7 MM HG (35-48); ABG TCO2 40.4 MMOL/L (23-27)
[2021-09-24] MEDS: FUROSEMIDE 40 MG/4 ML VIAL IV SCH (16:16)
[2021-09-24] MEDS: cefTRIAXone 1,000 MG in SODIUM CHLORIDE 0.9% 100 ML IV SCH (16:16)
[2021-09-24] MEDS: carvediloL 6.25 MG TABLET PO SCH (22:07)
[2021-09-24] MEDS: APIXABAN 5 MG TABLET PO SCH (22:07)
[2021-09-25 06:08] LABS: Basophils % 0.1 % (0.0-0.8); Eosinophils % 0.3 % (0.00-10.9); Hematocrit 31.8 VOL% (42.0-52.0); Hemoglobin 9.4 GM/DL (14.0-18.0); Immature Granulocytes % 0.5 %; Immature Granulocytes Absolute 0.04 #; Lymphocytes # 0.9 10*3/uL (1.4-4.0); Lymphocytes % 11.8 % (21.2-54.2); Mean Corpuscular HGB Conc 29.6 GM/DL (32-36); Mean Corpuscular Volume 93.3 FL (87-102); Mean Platelet Volume 10.4 FL (9.6-12.0); Neutrophils % 78.3 % (38.7-73.9); Platelet Count 272 T/CUMM (130-400); Red Blood Count 3.41 MC/CUMM (3.8-5.5); Red Cell Distribution Width 17.2 % (9.3-17.3); White Blood Count 7.5 T/CUMM (4-12)
[2021-09-25 06:16] LABS: Osmolality,Calculated 284.1 MOS/KG (273-304); Potassium 3.7 MMOL/L (3.5-5.1)
[2021-09-25] MEDS ORDERED: FUROSEMIDE 40 MG TABLET PO PRN (08:04)
[2021-09-25] MEDS: FUROSEMIDE 40 MG/4 ML VIAL IV SCH (09:05)
[2021-09-25] MEDS: carvediloL 6.25 MG TABLET PO SCH ×2 (09:22→22:30)
[2021-09-25] MEDS: FAMOTIDINE 20 MG TABLET PO SCH (09:22)
[2021-09-25] MEDS: ROSUVASTATIN 10 MG TABLET PO SCH (09:22)
[2021-09-25] MEDS: APIXABAN 5 MG TABLET PO SCH ×2 (09:22→22:30)
[2021-09-25] MEDS: AMIODARONE 200 MG TABLET PO SCH (09:22)
[2021-09-25] MEDS ORDERED: FUROSEMIDE 40 MG/4 ML VIAL IV ONE (14:11)
[2021-09-25] MEDS: cefTRIAXone 1,000 MG in SODIUM CHLORIDE 0.9% 100 ML IV SCH (15:31)
[2021-09-26 05:57] LABS: Basophils % 0.1 % (0.0-0.8); Eosinophils # 0.5 10*3/uL (0.0-0.87); Eosinophils % 4.5 % (0.00-10.9); Hematocrit 30.7 VOL% (42.0-52.0); Hemoglobin 9.4 GM/DL (14.0-18.0); Immature Granulocytes % 0.5 %; Immature Granulocytes Absolute 0.05 #; Lymphocytes # 0.7 10*3/uL (1.4-4.0); Lymphocytes % 6.5 % (21.2-54.2); Mean Corpuscular HGB Conc 30.6 GM/DL (32-36); Mean Corpuscular Volume 90.8 FL (87-102); Mean Platelet Volume 10.9 FL (9.6-12.0); Monocytes % 8.3 % (1.7-12.7); Neutrophils % 80.1 % (38.7-73.9); Platelet Count 262 T/CUMM (130-400); Red Blood Count 3.38 MC/CUMM (3.8-5.5); Red Cell Distribution Width 16.9 % (9.3-17.3)
[2021-09-26 06:21] LABS: Calcium 8.7 MG/DL (8.5-10.1); Osmolality,Calculated 277.7 MOS/KG (273-304); Potassium 3.7 MMOL/L (3.5-5.1)
[2021-09-26] MEDS: AMIODARONE 200 MG TABLET PO SCH (09:27)
[2021-09-26] MEDS: ROSUVASTATIN 10 MG TABLET PO SCH (09:27)
[2021-09-26] MEDS: APIXABAN 5 MG TABLET PO SCH ×2 (09:27→20:15)
[2021-09-26] MEDS: carvediloL 6.25 MG TABLET PO SCH ×2 (09:27→20:15)
[2021-09-26] MEDS: FAMOTIDINE 20 MG TABLET PO SCH (09:27)
[2021-09-26] MEDS ORDERED: FUROSEMIDE 20 MG/2 ML VIAL IV ONE ×2 (12:43→18:00)
[2021-09-26] MEDS: PIPERACILLIN/TAZOBACTAM 3,375 MG in SODIUM CHLORIDE 0.9% 100 ML IV SCH ×2 (13:15→19:44)
[2021-09-26] MEDS: LINEZOLID INJ 600 MG/300 ML PREMIX IV SCH (16:05)
[2021-09-27] MEDS: LINEZOLID INJ 600 MG/300 ML PREMIX IV SCH ×2 (01:36→14:00)
[2021-09-27] MEDS: PIPERACILLIN/TAZOBACTAM 3,375 MG in SODIUM CHLORIDE 0.9% 100 ML IV SCH ×2 (03:41→17:21)
[2021-09-27 05:48] LABS: Basophils % 0.2 % (0.0-0.8); Eosinophils # 0.8 10*3/uL (0.0-0.87); Eosinophils % 6.4 % (0.00-10.9); Hematocrit 32.7 VOL% (42.0-52.0); Immature Granulocytes % 0.4 %; Immature Granulocytes Absolute 0.05 #; Lymphocytes # 1.1 10*3/uL (1.4-4.0); Lymphocytes % 8.1 % (21.2-54.2); Mean Corpuscular HGB Conc 30.6 GM/DL (32-36); Mean Corpuscular Volume 91.3 FL (87-102); Mean Platelet Volume 10.3 FL (9.6-12.0); Monocytes % 9.1 % (1.7-12.7); Neutrophils % 75.8 % (38.7-73.9); Platelet Count 313 T/CUMM (130-400); Red Blood Count 3.58 MC/CUMM (3.8-5.5); Red Cell Distribution Width 16.7 % (9.3-17.3); White Blood Count 13.2 T/CUMM (4-12)
[2021-09-27 06:22] LABS: Calcium 8.8 MG/DL (8.5-10.1); Osmolality,Calculated 275.1 MOS/KG (273-304); Potassium 3.8 MMOL/L (3.5-5.1)
[2021-09-27] MEDS: APIXABAN 5 MG TABLET PO SCH ×2 (09:45→21:15)
[2021-09-27] MEDS: carvediloL 6.25 MG TABLET PO SCH ×2 (09:45→21:15)
[2021-09-27] MEDS: FAMOTIDINE 20 MG TABLET PO SCH (09:45)
[2021-09-27] MEDS: AMIODARONE 200 MG TABLET PO SCH (09:46)
[2021-09-27] MEDS: ROSUVASTATIN 10 MG TABLET PO SCH (09:46)
[2021-09-27] MEDS ORDERED: FUROSEMIDE 20 MG/2 ML VIAL IV ONE (16:05)
[2021-09-27] MEDS: ACETAMINOPHEN 325 MG TABLET PO PRN (21:18)
[2021-09-28] MEDS: LINEZOLID INJ 600 MG/300 ML PREMIX IV SCH ×2 (01:23→17:24)
[2021-09-28] MEDS: PIPERACILLIN/TAZOBACTAM 3,375 MG in SODIUM CHLORIDE 0.9% 100 ML IV SCH ×3 (03:38→18:53)
[2021-09-28 09:20] LABS: Basophils % 0.1 % (0.0-0.8); Eosinophils # 0.1 10*3/uL (0.0-0.87); Eosinophils % 0.4 % (0.00-10.9); Hematocrit 32.3 VOL% (42.0-52.0); Hemoglobin 9.9 GM/DL (14.0-18.0); Immature Granulocytes % 0.3 %; Immature Granulocytes Absolute 0.04 #; Lymphocytes % 6.7 % (21.2-54.2); Mean Corpuscular HGB Conc 30.7 GM/DL (32-36); Mean Corpuscular Volume 90.7 FL (87-102); Mean Platelet Volume 10.3 FL (9.6-12.0); Monocytes % 5.8 % (1.7-12.7); Neutrophils % 86.7 % (38.7-73.9); Platelet Count 353 T/CUMM (130-400); Red Blood Count 3.56 MC/CUMM (3.8-5.5); Red Cell Distribution Width 16.3 % (9.3-17.3)
[2021-09-28 09:33] LABS: Calcium 9.1 MG/DL (8.5-10.1); Osmolality,Calculated 275.1 MOS/KG (273-304); Potassium 3.8 MMOL/L (3.5-5.1)
[2021-09-28] MEDS: carvediloL 6.25 MG TABLET PO SCH ×2 (09:49→20:29)
[2021-09-28] MEDS: FAMOTIDINE 20 MG TABLET PO SCH (09:49)
[2021-09-28] MEDS: AMIODARONE 200 MG TABLET PO SCH (09:49)
[2021-09-28] MEDS: APIXABAN 5 MG TABLET PO SCH ×2 (09:49→20:29)
[2021-09-28] MEDS: ROSUVASTATIN 10 MG TABLET PO SCH (09:49)
[2021-09-28 13:48] LABS: Bilirubin,Urine Negative (Negative); Blood, Urine Large mg/dL (Negative); Glucose,Urine (UA) Negative (Negative); Ketones,Urine Negative (Negative); Nitrite,Urine Negative (Negative); Protein,Urine 100 MG/DL; RBC,Urine 2026 /HPF (0-4); Squamous Epithelial Cell,Urine Occasional /HPF (0-10); Urine Appearance CLOUDY (Clear); Urine Color Amber (Yellow); Urine Specific Gravity 1.027 (1.001-1.035); Urine Urobilinogen < 2.0 EU/DL (<2.0)
[2021-09-28] MEDS: ACETAMINOPHEN 325 MG TABLET PO PRN (22:47)
[2021-09-29] MEDS: LINEZOLID INJ 600 MG/300 ML PREMIX IV SCH ×2 (01:43→15:54)
[2021-09-29] MEDS: PIPERACILLIN/TAZOBACTAM 3,375 MG in SODIUM CHLORIDE 0.9% 100 ML IV SCH ×3 (03:06→18:08)
[2021-09-29 05:41] LABS: Basophils % 0.2 % (0.0-0.8); Eosinophils % 0.3 % (0.00-10.9); Hematocrit 32.2 VOL% (42.0-52.0); Hemoglobin 9.6 GM/DL (14.0-18.0); Immature Granulocytes % 0.3 %; Immature Granulocytes Absolute 0.03 #; Lymphocytes # 1.5 10*3/uL (1.4-4.0); Lymphocytes % 12.4 % (21.2-54.2); Mean Corpuscular HGB Conc 29.8 GM/DL (32-36); Mean Corpuscular Volume 93.3 FL (87-102); Mean Platelet Volume 10.5 FL (9.6-12.0); Monocytes % 7.2 % (1.7-12.7); Neutrophils % 79.6 % (38.7-73.9); Platelet Count 310 T/CUMM (130-400); Red Blood Count 3.45 MC/CUMM (3.8-5.5); Red Cell Distribution Width 16.4 % (9.3-17.3)
[2021-09-29 06:00] LABS: Calcium 8.6 MG/DL (8.5-10.1); Osmolality,Calculated 273.2 MOS/KG (273-304); Potassium 3.7 MMOL/L (3.5-5.1)
[2021-09-29] MEDS: AMIODARONE 200 MG TABLET PO SCH (09:55)
[2021-09-29] MEDS: APIXABAN 5 MG TABLET PO SCH ×2 (09:55→20:53)
[2021-09-29] MEDS: carvediloL 6.25 MG TABLET PO SCH ×2 (09:55→20:53)
[2021-09-29] MEDS: ROSUVASTATIN 10 MG TABLET PO SCH (09:55)
[2021-09-29] MEDS: FAMOTIDINE 20 MG TABLET PO SCH (09:56)
[2021-09-30] MEDS: PIPERACILLIN/TAZOBACTAM 3,375 MG in SODIUM CHLORIDE 0.9% 100 ML IV SCH ×3 (01:54→17:33)
[2021-09-30 05:12] LABS: Basophils % 0.1 % (0.0-0.8); Eosinophils # 1.1 10*3/uL (0.0-0.87); Eosinophils % 10.3 % (0.00-10.9); Hematocrit 29.4 VOL% (42.0-52.0); Immature Granulocytes % 0.6 %; Immature Granulocytes Absolute 0.07 #; Lymphocytes # 1.3 10*3/uL (1.4-4.0); Lymphocytes % 11.7 % (21.2-54.2); Mean Corpuscular HGB Conc 30.6 GM/DL (32-36); Mean Platelet Volume 9.9 FL (9.6-12.0); Monocytes % 9.6 % (1.7-12.7); Neutrophils % 67.7 % (38.7-73.9); Platelet Count 306 T/CUMM (130-400); Red Blood Count 3.23 MC/CUMM (3.8-5.5); Red Cell Distribution Width 16.1 % (9.3-17.3); White Blood Count 10.9 T/CUMM (4-12)
[2021-09-30] MEDS: LINEZOLID INJ 600 MG/300 ML PREMIX IV SCH ×2 (05:27→16:04)
[2021-09-30 05:43] LABS: Calcium 8.5 MG/DL (8.5-10.1); Potassium 3.6 MMOL/L (3.5-5.1)
[2021-09-30] MEDS: ROSUVASTATIN 10 MG TABLET PO SCH (09:32)
[2021-09-30] MEDS: APIXABAN 5 MG TABLET PO SCH ×2 (09:33→20:33)
[2021-09-30] MEDS: carvediloL 6.25 MG TABLET PO SCH ×2 (09:34→20:33)
[2021-09-30] MEDS: FAMOTIDINE 20 MG TABLET PO SCH (09:34)
[2021-09-30] MEDS: AMIODARONE 200 MG TABLET PO SCH (09:34)
[2021-09-30] MEDS: allopurinoL 100 MG TABLET PO SCH ×2 (12:53→20:33)
[2021-10-01] MEDS: LINEZOLID INJ 600 MG/300 ML PREMIX IV SCH ×2 (02:33→17:06)
[2021-10-01] MEDS: PIPERACILLIN/TAZOBACTAM 3,375 MG in SODIUM CHLORIDE 0.9% 100 ML IV SCH ×3 (02:35→17:46)
[2021-10-01 06:42] LABS: Basophils % 0.3 % (0.0-0.8); Eosinophils # 1.3 10*3/uL (0.0-0.87); Eosinophils % 10.8 % (0.00-10.9); Hematocrit 31.6 VOL% (42.0-52.0); Hemoglobin 9.5 GM/DL (14.0-18.0); Immature Granulocytes % 0.8 %; Immature Granulocytes Absolute 0.09 #; Lymphocytes % 16.6 % (21.2-54.2); Mean Corpuscular HGB Conc 30.1 GM/DL (32-36); Mean Corpuscular Volume 91.3 FL (87-102); Mean Platelet Volume 9.8 FL (9.6-12.0); Monocytes % 10.5 % (1.7-12.7); Platelet Count 326 T/CUMM (130-400); Red Blood Count 3.46 MC/CUMM (3.8-5.5)
[2021-10-01 07:07] LABS: Calcium 8.9 MG/DL (8.5-10.1); Osmolality,Calculated 279.8 MOS/KG (273-304); Potassium 3.8 MMOL/L (3.5-5.1)
[2021-10-01] MEDS: AMIODARONE 200 MG TABLET PO SCH (09:39)
[2021-10-01] MEDS: allopurinoL 100 MG TABLET PO SCH ×2 (09:40→20:26)
[2021-10-01] MEDS: FAMOTIDINE 20 MG TABLET PO SCH (09:40)
[2021-10-01] MEDS: carvediloL 6.25 MG TABLET PO SCH ×2 (09:40→20:27)
[2021-10-01] MEDS: ROSUVASTATIN 10 MG TABLET PO SCH (09:40)
[2021-10-01] MEDS: APIXABAN 5 MG TABLET PO SCH ×2 (11:30→20:27)
[2021-10-01] MEDS: FUROSEMIDE 20 MG/2 ML VIAL IV SCH (17:07)
[2021-10-01] MEDS: ACETAMINOPHEN 325 MG TABLET PO PRN (19:32)
[2021-10-02] MEDS: LINEZOLID INJ 600 MG/300 ML PREMIX IV SCH ×2 (01:04→15:04)
[2021-10-02] MEDS: PIPERACILLIN/TAZOBACTAM 3,375 MG in SODIUM CHLORIDE 0.9% 100 ML IV SCH ×3 (02:08→16:56)
[2021-10-02 05:34] LABS: Basophils % 0.3 % (0.0-0.8); Eosinophils # 1.5 10*3/uL (0.0-0.87); Eosinophils % 12.2 % (0.00-10.9); Hematocrit 30.8 VOL% (42.0-52.0); Hemoglobin 9.2 GM/DL (14.0-18.0); Immature Granulocytes % 0.8 %; Lymphocytes # 2.6 10*3/uL (1.4-4.0); Lymphocytes % 21.4 % (21.2-54.2); Mean Corpuscular HGB Conc 29.9 GM/DL (32-36); Mean Corpuscular Volume 92.8 FL (87-102); Mean Platelet Volume 9.6 FL (9.6-12.0); Monocytes % 12.9 % (1.7-12.7); Neutrophils % 52.4 % (38.7-73.9); Platelet Count 343 T/CUMM (130-400); Red Blood Count 3.32 MC/CUMM (3.8-5.5); White Blood Count 12.3 T/CUMM (4-12)
[2021-10-02 05:59] LABS: Calcium 9.3 MG/DL (8.5-10.1); Osmolality,Calculated 276.8 MOS/KG (273-304)
[2021-10-02 06:04] LABS: Band Neutrophils 1 % (0-10); Eosinophils 9 % (0-10); Hypochromia 1+; Lymphocytes 22 % (20-55); Microcytosis 1+; Platelet Estimate Adequate; Segmented Neutrophils 54 % (50-85); Total Cells Counted 100
[2021-10-02] MEDS: FUROSEMIDE 20 MG/2 ML VIAL IV SCH ×2 (09:48→16:10)
[2021-10-02] MEDS: ROSUVASTATIN 10 MG TABLET PO SCH (09:48)
[2021-10-02] MEDS: AMIODARONE 200 MG TABLET PO SCH (09:48)
[2021-10-02] MEDS: carvediloL 6.25 MG TABLET PO SCH ×2 (09:51→20:14)
[2021-10-02] MEDS: APIXABAN 5 MG TABLET PO SCH ×2 (09:52→20:14)
[2021-10-02] MEDS: allopurinoL 100 MG TABLET PO SCH ×2 (09:52→20:14)
[2021-10-02] MEDS: FAMOTIDINE 20 MG TABLET PO SCH (09:52)
[2021-10-03] MEDS: PIPERACILLIN/TAZOBACTAM 3,375 MG in SODIUM CHLORIDE 0.9% 100 ML IV SCH ×3 (01:20→16:09)
[2021-10-03] MEDS: LINEZOLID INJ 600 MG/300 ML PREMIX IV SCH ×2 (05:24→17:50)
[2021-10-03] MEDS: AMIODARONE 200 MG TABLET PO SCH (08:42)
[2021-10-03] MEDS: ACETAMINOPHEN 325 MG TABLET PO PRN (08:42)
[2021-10-03] MEDS: FAMOTIDINE 20 MG TABLET PO SCH (08:44)
[2021-10-03] MEDS: allopurinoL 100 MG TABLET PO SCH ×2 (08:44→20:13)
[2021-10-03] MEDS: ROSUVASTATIN 10 MG TABLET PO SCH (08:44)
[2021-10-03] MEDS: carvediloL 6.25 MG TABLET PO SCH ×2 (08:44→20:13)
[2021-10-03] MEDS: FUROSEMIDE 20 MG/2 ML VIAL IV SCH ×2 (08:44→15:24)
[2021-10-03] MEDS: APIXABAN 5 MG TABLET PO SCH ×2 (08:44→20:13)
[2021-10-03] MEDS: MULTIVITAMIN (CENTRUM) TABLET PO SCH (08:47)
[2021-10-04] MEDS: AMIODARONE 200 MG TABLET PO SCH (09:08)
[2021-10-04] MEDS: MULTIVITAMIN (CENTRUM) TABLET PO SCH (09:08)
[2021-10-04] MEDS: FAMOTIDINE 20 MG TABLET PO SCH (09:08)
[2021-10-04] MEDS: allopurinoL 100 MG TABLET PO SCH ×2 (09:08→20:20)
[2021-10-04] MEDS: carvediloL 6.25 MG TABLET PO SCH (09:08)
[2021-10-04] MEDS: ROSUVASTATIN 10 MG TABLET PO SCH (09:09)
[2021-10-04] MEDS: APIXABAN 5 MG TABLET PO SCH ×2 (09:09→20:19)
[2021-10-04] MEDS: FUROSEMIDE 20 MG/2 ML VIAL IV SCH ×3 (09:12→20:21)
[2021-10-04] MEDS: ACETAMINOPHEN 325 MG TABLET PO PRN (16:11)
[2021-10-04] MEDS: carvediloL 3.125 MG TABLET PO SCH (20:19)
[2021-10-05] MEDS: FAMOTIDINE 20 MG TABLET PO SCH (08:57)
[2021-10-05] MEDS: MULTIVITAMIN (CENTRUM) TABLET PO SCH (08:57)
[2021-10-05] MEDS: AMIODARONE 200 MG TABLET PO SCH (08:57)
[2021-10-05] MEDS: carvediloL 3.125 MG TABLET PO SCH ×2 (08:57→20:26)
[2021-10-05] MEDS: allopurinoL 100 MG TABLET PO SCH ×2 (08:57→20:26)
[2021-10-05] MEDS: metOLazone 5 MG TABLET PO SCH (08:57)
[2021-10-05] MEDS: ROSUVASTATIN 10 MG TABLET PO SCH (08:57)
[2021-10-05] MEDS: APIXABAN 5 MG TABLET PO SCH ×2 (08:57→20:26)
[2021-10-05] MEDS: FUROSEMIDE 20 MG/2 ML VIAL IV SCH ×2 (09:02→16:18)
[2021-10-06] MEDS: metOLazone 5 MG TABLET PO SCH (09:34)
[2021-10-06] MEDS: ROSUVASTATIN 10 MG TABLET PO SCH (09:34)
[2021-10-06] MEDS: AMIODARONE 200 MG TABLET PO SCH (09:34)
[2021-10-06] MEDS: MULTIVITAMIN (CENTRUM) TABLET PO SCH (09:34)
[2021-10-06] MEDS: APIXABAN 5 MG TABLET PO SCH ×2 (09:34→21:39)
[2021-10-06] MEDS: carvediloL 3.125 MG TABLET PO SCH ×2 (09:34→21:39)
[2021-10-06] MEDS: allopurinoL 100 MG TABLET PO SCH ×2 (09:34→21:39)
[2021-10-06] MEDS: FAMOTIDINE 20 MG TABLET PO SCH (09:34)
[2021-10-06] MEDS: FUROSEMIDE 20 MG/2 ML VIAL IV SCH ×2 (09:35→16:19)
[2021-10-06] MEDS: LINACLOTIDE 145 MCG CAPSULE PO SCH (11:14)
[2021-10-06] MEDS: ACETAMINOPHEN 325 MG TABLET PO PRN (21:44)
[2021-10-07] MEDS: FUROSEMIDE 20 MG/2 ML VIAL IV SCH ×2 (09:30→18:51)
[2021-10-07] MEDS: FAMOTIDINE 20 MG TABLET PO SCH (09:32)
[2021-10-07] MEDS: metOLazone 5 MG TABLET PO SCH (09:32)
[2021-10-07] MEDS: MULTIVITAMIN (CENTRUM) TABLET PO SCH (09:32)
[2021-10-07] MEDS: AMIODARONE 200 MG TABLET PO SCH (09:32)
[2021-10-07] MEDS: APIXABAN 5 MG TABLET PO SCH ×2 (09:32→20:57)
[2021-10-07] MEDS: ROSUVASTATIN 10 MG TABLET PO SCH (09:32)
[2021-10-07] MEDS: allopurinoL 100 MG TABLET PO SCH ×2 (09:32→20:57)
[2021-10-07] MEDS: carvediloL 3.125 MG TABLET PO SCH ×2 (09:33→20:57)
[2021-10-07] MEDS: LINACLOTIDE 145 MCG CAPSULE PO SCH ×2 (09:35→09:39)
[2021-10-08 07:47] VITALS: BP 125/76
[2021-10-08] MEDS: FUROSEMIDE 20 MG/2 ML VIAL IV SCH (10:23)
[2021-10-08] MEDS: allopurinoL 100 MG TABLET PO SCH (10:24)
[2021-10-08] MEDS: ROSUVASTATIN 10 MG TABLET PO SCH (10:24)
[2021-10-08] MEDS: MULTIVITAMIN (CENTRUM) TABLET PO SCH (10:24)
[2021-10-08] MEDS: metOLazone 5 MG TABLET PO SCH (10:24)
[2021-10-08] MEDS: APIXABAN 5 MG TABLET PO SCH (10:24)
[2021-10-08] MEDS: carvediloL 3.125 MG TABLET PO SCH (10:24)
[2021-10-08] MEDS: FAMOTIDINE 20 MG TABLET PO SCH (10:25)
[2021-10-08] MEDS: AMIODARONE 200 MG TABLET PO SCH (10:25)
[2021-10-08] MEDS: LINACLOTIDE 145 MCG CAPSULE PO SCH (10:28)
[2021-10-08] MEDS ORDERED: APIXABAN 5 MG TABLET PO SCH (21:00)
== END 2021-10-08 17:38 | disposition home health service (06) | DRG 314 ==
LOC: N.ED 08:38 → N.TELES 13:48 → SUATTDRO 13:48 → N.TELES 17:43
PROVIDERS: ADMIT Internal Medicine; ATTEND Hospitalist

== ENCOUNTER 2021-10-27 16:57 | Inpatient (IN) ==
[2021-10-27 21:09] LABS: Basophils % 0.3 % (0.0-0.8); Hematocrit 34.7 VOL% (42.0-52.0); Hemoglobin 10.7 GM/DL (14.0-18.0); Immature Granulocytes % 0.3 %; Immature Granulocytes Absolute 0.01 #; Lymphocytes # 1.7 10*3/uL (1.4-4.0); Lymphocytes % 43.3 % (21.2-54.2); Mean Corpuscular HGB Conc 30.8 GM/DL (32-36); Mean Corpuscular Volume 86.1 FL (87-102); Mean Platelet Volume 10.1 FL (9.6-12.0); Monocytes % 16.8 % (1.7-12.7); Neutrophils % 39.3 % (38.7-73.9); Platelet Count 196 T/CUMM (130-400); Red Blood Count 4.03 MC/CUMM (3.8-5.5); White Blood Count 3.9 T/CUMM (4-12)
[2021-10-27 21:17] LABS: INR 1.3; PT Patient Result 13.8 SECS (10.5-12.0)
[2021-10-27 21:40] LABS: Albumin 2.5 G/DL (3.4-5.0); Bilirubin,Total 0.5 MG/DL (0.20-1.00); Calcium 8.2 MG/DL (8.5-10.1); Osmolality,Calculated 274.5 MOS/KG (273-304); Potassium 3.5 MMOL/L (3.5-5.1); Total Protein 7.3 G/DL (6.4-8.2)
[2021-10-27 21:45] LABS: Band Neutrophils 7 % (0-10); Lymphocytes 37 % (20-55); Segmented Neutrophils 43 % (50-85); Total Cells Counted 100
[2021-10-27 21:46] LABS: Hypochromia 2+; Microcytosis Slight; Platelet Estimate Adequate
[2021-10-27] MEDS ORDERED: cefTRIAXone 1,000 MG in SODIUM CHLORIDE 0.9% 100 ML IV STA (22:01)
[2021-10-27] MEDS ORDERED: AZITHROMYCIN INJ 500 MG in SODIUM CHLORIDE 0.9% 250 ML IV STA (22:01)
[2021-10-27] MEDS ORDERED: FUROSEMIDE 40 MG/4 ML VIAL IV STA (22:01)
[2021-10-27] MEDS ORDERED: DOCUSATE SODIUM 100 MG CAPSULE PO PRN (22:13)
[2021-10-27] MEDS ORDERED: PROMETHAZINE 25 MG TABLET PO PRN (22:13)
[2021-10-27] MEDS ORDERED: GLUCAGON 1 MG VIAL IM PRN (22:13)
[2021-10-27] MEDS ORDERED: hydrALAZINE 20 MG/1 ML VIAL IV PRN (22:13)
[2021-10-27] MEDS ORDERED: diphenhydrAMINE CAP 25 MG CAPSULE PO PRN (22:13)
[2021-10-27] MEDS ORDERED: NICOTINE 21 MG/24 HR PATCH TRANSDERM PRN (22:13)
[2021-10-27] MEDS ORDERED: ZALEPLON 5 MG CAPSULE PO PRN (22:13)
[2021-10-27] MEDS ORDERED: ACETAMINOPHEN 325 MG TABLET PO PRN (22:13)
[2021-10-27] MEDS ORDERED: guaiFENesin/DM ER 600-30 MG TABLET PO PRN (22:13)
[2021-10-27] MEDS ORDERED: ONDANSETRON 4 MG/2 ML VIAL IV PRN (22:13)
[2021-10-27] MEDS ORDERED: DEXTROSE 10% 250 ML BAG IV PRN (22:29)
[2021-10-28] MEDS ORDERED: REMDESIVIR 200 MG in SODIUM CHLORIDE 0.9% 210 ML IV ONE
[2021-10-28 05:04] LABS: Basophils % 0.5 % (0.0-0.8); Hematocrit 36.7 VOL% (42.0-52.0); Immature Granulocytes % 0.5 %; Immature Granulocytes Absolute 0.01 #; Lymphocytes # 1.1 10*3/uL (1.4-4.0); Lymphocytes % 50.7 % (21.2-54.2); Mean Corpuscular Volume 88.9 FL (87-102); Mean Platelet Volume 10.4 FL (9.6-12.0); Monocytes % 10.3 % (1.7-12.7); Platelet Count 200 T/CUMM (130-400); Red Blood Count 4.13 MC/CUMM (3.8-5.5); Red Cell Distribution Width 17.2 % (9.3-17.3); White Blood Count 2.1 T/CUMM (4-12)
[2021-10-28 05:28] LABS: Albumin 2.4 G/DL (3.4-5.0); Bilirubin,Total 0.6 MG/DL (0.20-1.00); Osmolality,Calculated 276.4 MOS/KG (273-304); Potassium 3.4 MMOL/L (3.5-5.1); Total Protein 7.1 G/DL (6.4-8.2)
[2021-10-28 05:34] LABS: Eosinophils 1 % (0-10); Lymphocytes 39 % (20-55); Platelet Estimate Adequate; Segmented Neutrophils 47 % (50-85); Total Cells Counted 100
[2021-10-28 05:35] LABS: Hypochromia 1+; Microcytosis Slight
[2021-10-28] MEDS: BARICITINIB 2 MG TABLET PO SCH (05:47)
[2021-10-28] MEDS: ALBUTEROL INHALER 18 GM INH SCH ×3 (09:05→21:17)
[2021-10-28] MEDS ORDERED: POTASSIUM CHLORIDE 20 MEQ TABLET PO ONE (10:03)
[2021-10-28] MEDS ORDERED: FUROSEMIDE 40 MG/4 ML VIAL IV SCH (10:30)
[2021-10-28] MEDS ORDERED: DEXAMETHASONE INJ 10 MG in SODIUM CHLORIDE 0.9% 50 ML IV SCH (10:30)
[2021-10-28 10:43] LABS: ABG HCO3 33.4 MMOL/L (20-26); ABG Oxygen Saturation 78.7 % (95-100); ABG PH 7.301 (7.35-7.45); ABG PO2 49.6 MM HG (80-95); ABG TCO2 36.4 MMOL/L (23-27)
[2021-10-28] MEDS: ASCORBIC ACID 500 MG TABLET PO SCH ×2 (10:52→21:00)
[2021-10-28] MEDS: CHOLECALCIFEROL 1,000 UNIT TABLET PO SCH (10:52)
[2021-10-28 10:53] LABS: ABG PCO2 80.5 MM HG (35-48)
[2021-10-28] MEDS: FUROSEMIDE 40 MG/4 ML VIAL IV SCH ×2 (11:13→23:18)
[2021-10-28] MEDS: ZINC GLUCONATE 50 MG TABLET PO SCH (11:33)
[2021-10-28] MEDS: APIXABAN 5 MG TABLET PO SCH ×2 (11:33→21:00)
[2021-10-28] MEDS: DEXAMETHASONE 10 MG/1 ML VIAL IV SCH (11:33)
[2021-10-28 11:59] LABS: Bilirubin,Urine Negative (Negative); Blood, Urine Large mg/dL (Negative); Glucose,Urine (UA) Negative (Negative); Hyaline Casts,Urine 28 /LPF (0-3); Ketones,Urine 5 mg/dL (Negative); Mucus,Urine Occasional /LPF (Occasional); Nitrite,Urine Negative (Negative); Protein,Urine 100 MG/DL; RBC,Urine 3235 /HPF (0-4); Squamous Epithelial Cell,Urine Occasional /HPF (0-10); Urine Appearance CLOUDY (Clear); Urine Color Amber (Yellow); Urine Urobilinogen < 2.0 EU/DL (<2.0)
[2021-10-28 13:13] LABS: ABG Base Excess 10.1 MMOL/L (-2.5-2.5); ABG HCO3 33.7 MMOL/L (20-26); ABG Oxygen Saturation 89.7 % (95-100); ABG PH 7.293 (7.35-7.45); ABG TCO2 36.7 MMOL/L (23-27)
[2021-10-28 13:15] LABS: ABG PCO2 82.5 MM HG (35-48)
[2021-10-28] MEDS ORDERED: FUROSEMIDE 40 MG TABLET PO SCH (16:00)
[2021-10-28] MEDS: carvediloL 6.25 MG TABLET PO SCH (21:00)
[2021-10-28] MEDS: AMIODARONE 200 MG TABLET PO SCH (21:00)
[2021-10-28] MEDS: hydrOXYzine HCL 25 MG TABLET PO SCH (21:00)
[2021-10-28] MEDS: AZITHROMYCIN INJ 500 MG in SODIUM CHLORIDE 0.9% 250 ML IV SCH (21:00)
[2021-10-28] MEDS: RIFAXIMIN 550 MG TABLET PO SCH (21:00)
[2021-10-29] MEDS: ALBUTEROL INHALER 18 GM INH SCH ×4 (03:00→19:22)
[2021-10-29 03:51] LABS: ABG Base Excess 9.7 MMOL/L (-2.5-2.5); ABG HCO3 32.7 MMOL/L (20-26); ABG Oxygen Saturation 58.9 % (95-100); ABG PH 7.292 (7.35-7.45); ABG TCO2 36.5 MMOL/L (23-27); Allen Test Positive; Pt O2 Delivery Device BIPAP
[2021-10-29 03:53] LABS: ABG PCO2 82.7 MM HG (35-48); ABG PO2 36.4 MM HG (80-95)
[2021-10-29 04:07] LABS: Hematocrit 38.2 VOL% (42.0-52.0); Hemoglobin 11.4 GM/DL (14.0-18.0); Immature Granulocytes % 1.1 %; Immature Granulocytes Absolute 0.01 #; Lymphocytes # 0.5 10*3/uL (1.4-4.0); Lymphocytes % 51.6 % (21.2-54.2); Mean Corpuscular HGB Conc 29.8 GM/DL (32-36); Mean Corpuscular Volume 89.7 FL (87-102); Mean Platelet Volume 10.3 FL (9.6-12.0); Monocytes % 5.3 % (1.7-12.7); Platelet Count 220 T/CUMM (130-400); Red Blood Count 4.26 MC/CUMM (3.8-5.5); Red Cell Distribution Width 17.1 % (9.3-17.3)
[2021-10-29 04:29] LABS: Albumin 2.2 G/DL (3.4-5.0); Bilirubin,Total 0.6 MG/DL (0.20-1.00); Calcium 8.4 MG/DL (8.5-10.1); Osmolality,Calculated 281.4 MOS/KG (273-304); Potassium 4.1 MMOL/L (3.5-5.1); Total Protein 6.7 G/DL (6.4-8.2)
[2021-10-29 04:45] LABS: ABG Base Excess 9.4 MMOL/L (-2.5-2.5); ABG HCO3 32.6 MMOL/L (20-26); ABG Oxygen Saturation 70.2 % (95-100); ABG PH 7.312 (7.35-7.45); ABG PO2 42.1 MM HG (80-95); ABG TCO2 35.3 MMOL/L (23-27)
[2021-10-29 04:47] LABS: ABG PCO2 76.7 MM HG (35-48)
[2021-10-29 04:48] LABS: Lymphocytes 51 % (20-55); Platelet Estimate Normal; Segmented Neutrophils 42 % (50-85); Total Cells Counted 100
[2021-10-29] MEDS: amLODIPine 10 MG TABLET PO SCH (08:55)
[2021-10-29] MEDS: APIXABAN 5 MG TABLET PO SCH ×2 (08:57→20:08)
[2021-10-29] MEDS: hydrOXYzine HCL 25 MG TABLET PO SCH ×2 (08:57→20:08)
[2021-10-29] MEDS: ASCORBIC ACID 500 MG TABLET PO SCH ×2 (08:57→20:08)
[2021-10-29] MEDS: carvediloL 6.25 MG TABLET PO SCH ×2 (08:57→20:09)
[2021-10-29] MEDS: ZINC GLUCONATE 50 MG TABLET PO SCH (08:58)
[2021-10-29] MEDS: CHOLECALCIFEROL 1,000 UNIT TABLET PO SCH (08:58)
[2021-10-29] MEDS: AMIODARONE 200 MG TABLET PO SCH ×2 (08:58→20:08)
[2021-10-29] MEDS: FAMOTIDINE 20 MG TABLET PO SCH (08:58)
[2021-10-29] MEDS: BARICITINIB 2 MG TABLET PO SCH (08:59)
[2021-10-29] MEDS: ROSUVASTATIN 10 MG TABLET PO SCH (08:59)
[2021-10-29] MEDS: RIFAXIMIN 550 MG TABLET PO SCH ×2 (08:59→20:08)
[2021-10-29] MEDS: REMDESIVIR 100 MG in SODIUM CHLORIDE 0.9% 100 ML IV SCH (09:05)
[2021-10-29] MEDS: DEXAMETHASONE 10 MG/1 ML VIAL IV SCH (09:05)
[2021-10-29] MEDS: TRIAMCINOLONE 0.1% CREAM 15 GM TUBE TOP SCH (09:13)
[2021-10-29] MEDS: FUROSEMIDE 40 MG/4 ML VIAL IV SCH ×2 (10:57→22:03)
[2021-10-29] MEDS: AZITHROMYCIN INJ 500 MG in SODIUM CHLORIDE 0.9% 250 ML IV SCH (20:09)
[2021-10-30] MEDS: ALBUTEROL INHALER 18 GM INH SCH ×4 (00:22→19:24)
[2021-10-30 05:06] LABS: ABG Base Excess 12.6 MMOL/L (-2.5-2.5); ABG HCO3 40.3 MMOL/L (20-26); ABG Oxygen Saturation 94.7 % (95-100); ABG PH 7.376 (7.35-7.45); ABG PO2 74.9 MM HG (80-95); ABG TCO2 42.4 MMOL/L (23-27)
[2021-10-30 05:10] LABS: ABG PCO2 70.3 MM HG (35-48)
[2021-10-30 05:55] LABS: Hematocrit 34.7 VOL% (42.0-52.0); Hemoglobin 10.5 GM/DL (14.0-18.0); Immature Granulocytes % 0.5 %; Immature Granulocytes Absolute 0.01 #; Lymphocytes # 0.7 10*3/uL (1.4-4.0); Mean Corpuscular HGB Conc 30.3 GM/DL (32-36); Mean Corpuscular Volume 88.1 FL (87-102); Mean Platelet Volume 10.5 FL (9.6-12.0); Monocytes % 10.4 % (1.7-12.7); Neutrophils % 51.1 % (38.7-73.9); Platelet Count 233 T/CUMM (130-400); Red Blood Count 3.94 MC/CUMM (3.8-5.5); White Blood Count 1.9 T/CUMM (4-12)
[2021-10-30 06:13] LABS: Calcium 8.6 MG/DL (8.5-10.1); Osmolality,Calculated 285.4 MOS/KG (273-304)
[2021-10-30 06:17] LABS: Hypochromia 1+; Lymphocytes 28 % (20-55); Microcytosis 1+; Platelet Estimate Adequate; Segmented Neutrophils 61 % (50-85); Total Cells Counted 100
[2021-10-30] MEDS: CHOLECALCIFEROL 1,000 UNIT TABLET PO SCH (09:42)
[2021-10-30] MEDS: FAMOTIDINE 20 MG TABLET PO SCH (09:42)
[2021-10-30] MEDS: ZINC GLUCONATE 50 MG TABLET PO SCH (09:42)
[2021-10-30] MEDS: hydrOXYzine HCL 25 MG TABLET PO SCH ×2 (09:42→21:04)
[2021-10-30] MEDS: AMIODARONE 200 MG TABLET PO SCH ×2 (09:42→21:04)
[2021-10-30] MEDS: ASCORBIC ACID 500 MG TABLET PO SCH ×2 (09:43→21:04)
[2021-10-30] MEDS: BARICITINIB 2 MG TABLET PO SCH (09:43)
[2021-10-30] MEDS: ROSUVASTATIN 10 MG TABLET PO SCH (09:43)
[2021-10-30] MEDS: APIXABAN 5 MG TABLET PO SCH ×2 (09:43→21:04)
[2021-10-30] MEDS: RIFAXIMIN 550 MG TABLET PO SCH ×2 (09:43→21:05)
[2021-10-30] MEDS: amLODIPine 10 MG TABLET PO SCH (09:43)
[2021-10-30] MEDS: TRIAMCINOLONE 0.1% CREAM 15 GM TUBE TOP SCH (09:44)
[2021-10-30] MEDS: DEXAMETHASONE 10 MG/1 ML VIAL IV SCH (09:44)
[2021-10-30] MEDS: REMDESIVIR 100 MG in SODIUM CHLORIDE 0.9% 100 ML IV SCH (10:04)
[2021-10-30] MEDS: carvediloL 6.25 MG TABLET PO SCH ×2 (10:04→21:04)
[2021-10-30] MEDS: FUROSEMIDE 40 MG/4 ML VIAL IV SCH ×2 (10:46→22:04)
[2021-10-30] MEDS: SKIN HEALING OINT (AQUAPHOR) 50 GM TUBE TOP SCH (16:53)
[2021-10-30] MEDS: AZITHROMYCIN INJ 500 MG in SODIUM CHLORIDE 0.9% 250 ML IV SCH (21:04)
[2021-10-31] MEDS: ALBUTEROL INHALER 18 GM INH SCH ×4 (00:37→18:08)
[2021-10-31 03:21] LABS: ABG Base Excess 16.8 MMOL/L (-2.5-2.5); ABG HCO3 40.8 MMOL/L (20-26); ABG Oxygen Saturation 96.2 % (95-100); ABG PH 7.413 (7.35-7.45); ABG PO2 82.8 MM HG (80-95); ABG TCO2 40.7 MMOL/L (23-27)
[2021-10-31 03:22] LABS: ABG PCO2 70.3 MM HG (35-48)
[2021-10-31 06:37] LABS: Hematocrit 32.9 VOL% (42.0-52.0); Immature Granulocytes % 0.5 %; Immature Granulocytes Absolute 0.01 #; Lymphocytes # 0.5 10*3/uL (1.4-4.0); Lymphocytes % 24.1 % (21.2-54.2); Mean Corpuscular HGB Conc 30.4 GM/DL (32-36); Mean Corpuscular Volume 86.4 FL (87-102); Monocytes % 11.3 % (1.7-12.7); Neutrophils % 64.1 % (38.7-73.9); Platelet Count 237 T/CUMM (130-400); Red Blood Count 3.81 MC/CUMM (3.8-5.5); Red Cell Distribution Width 17.1 % (9.3-17.3)
[2021-10-31 06:59] LABS: Calcium 8.6 MG/DL (8.5-10.1); Osmolality,Calculated 286.3 MOS/KG (273-304)
[2021-10-31 07:06] LABS: Hypochromia 1+; Lymphocytes 18 % (20-55); Microcytosis 1+; Platelet Estimate Adequate; Segmented Neutrophils 75 % (50-85); Total Cells Counted 100
[2021-10-31] MEDS: ASCORBIC ACID 500 MG TABLET PO SCH ×2 (08:52→21:15)
[2021-10-31] MEDS: ZINC GLUCONATE 50 MG TABLET PO SCH (08:53)
[2021-10-31] MEDS: CHOLECALCIFEROL 1,000 UNIT TABLET PO SCH (08:53)
[2021-10-31] MEDS: ROSUVASTATIN 10 MG TABLET PO SCH (08:53)
[2021-10-31] MEDS: amLODIPine 10 MG TABLET PO SCH (08:53)
[2021-10-31] MEDS: RIFAXIMIN 550 MG TABLET PO SCH ×2 (08:53→21:15)
[2021-10-31] MEDS: FAMOTIDINE 20 MG TABLET PO SCH (08:53)
[2021-10-31] MEDS: BARICITINIB 2 MG TABLET PO SCH (08:53)
[2021-10-31] MEDS: SKIN HEALING OINT (AQUAPHOR) 50 GM TUBE TOP SCH (08:54)
[2021-10-31] MEDS: carvediloL 6.25 MG TABLET PO SCH ×2 (08:54→21:15)
[2021-10-31] MEDS: APIXABAN 5 MG TABLET PO SCH ×2 (08:54→21:15)
[2021-10-31] MEDS: hydrOXYzine HCL 25 MG TABLET PO SCH ×2 (08:54→21:15)
[2021-10-31] MEDS: AMIODARONE 200 MG TABLET PO SCH ×2 (08:54→21:15)
[2021-10-31] MEDS: DEXAMETHASONE 10 MG/1 ML VIAL IV SCH (08:54)
[2021-10-31] MEDS: TRIAMCINOLONE 0.1% CREAM 15 GM TUBE TOP SCH (08:55)
[2021-10-31] MEDS: REMDESIVIR 100 MG in SODIUM CHLORIDE 0.9% 100 ML IV SCH (09:55)
[2021-10-31] MEDS: FUROSEMIDE 40 MG/4 ML VIAL IV SCH ×2 (10:27→22:45)
[2021-10-31] MEDS: AZITHROMYCIN INJ 500 MG in SODIUM CHLORIDE 0.9% 250 ML IV SCH (21:15)
[2021-11-01] MEDS: ALBUTEROL INHALER 18 GM INH SCH ×4 (00:35→22:18)
[2021-11-01 04:37] LABS: ABG Base Excess 16.8 MMOL/L (-2.5-2.5); ABG Oxygen Saturation 94.3 % (95-100); ABG PH 7.391 (7.35-7.45); ABG PO2 73.4 MM HG (80-95); ABG TCO2 47.3 MMOL/L (23-27)
[2021-11-01 04:39] LABS: ABG PCO2 75.8 MM HG (35-48)
[2021-11-01 06:01] LABS: Hematocrit 36.7 VOL% (42.0-52.0); Hemoglobin 11.1 GM/DL (14.0-18.0); Immature Granulocytes % 0.8 %; Immature Granulocytes Absolute 0.02 #; Lymphocytes # 0.5 10*3/uL (1.4-4.0); Lymphocytes % 18.5 % (21.2-54.2); Mean Corpuscular HGB Conc 30.2 GM/DL (32-36); Mean Corpuscular Volume 87.2 FL (87-102); Mean Platelet Volume 10.8 FL (9.6-12.0); Monocytes % 9.2 % (1.7-12.7); Neutrophils % 71.5 % (38.7-73.9); Platelet Count 230 T/CUMM (130-400); Red Blood Count 4.21 MC/CUMM (3.8-5.5); White Blood Count 2.5 T/CUMM (4-12)
[2021-11-01 06:36] LABS: Calcium 8.8 MG/DL (8.5-10.1); Osmolality,Calculated 285.4 MOS/KG (273-304)
[2021-11-01] MEDS: REMDESIVIR 100 MG in SODIUM CHLORIDE 0.9% 100 ML IV SCH (09:14)
[2021-11-01] MEDS: ROSUVASTATIN 10 MG TABLET PO SCH (09:16)
[2021-11-01] MEDS: SKIN HEALING OINT (AQUAPHOR) 50 GM TUBE TOP SCH (09:16)
[2021-11-01] MEDS: APIXABAN 5 MG TABLET PO SCH ×2 (09:17→22:19)
[2021-11-01] MEDS: hydrOXYzine HCL 25 MG TABLET PO SCH ×2 (09:17→22:20)
[2021-11-01] MEDS: THEOPHYLLINE ER (24 HR) 400 MG CAPSULE PO SCH (09:17)
[2021-11-01] MEDS: BARICITINIB 2 MG TABLET PO SCH (09:17)
[2021-11-01] MEDS: CHOLECALCIFEROL 1,000 UNIT TABLET PO SCH (09:17)
[2021-11-01] MEDS: ASCORBIC ACID 500 MG TABLET PO SCH ×2 (09:17→22:20)
[2021-11-01] MEDS: predniSONE 20 MG TABLET PO SCH (09:17)
[2021-11-01] MEDS: FUROSEMIDE 40 MG TABLET PO SCH (09:17)
[2021-11-01] MEDS: amLODIPine 10 MG TABLET PO SCH (09:18)
[2021-11-01] MEDS: carvediloL 6.25 MG TABLET PO SCH ×2 (09:18→22:20)
[2021-11-01] MEDS: AMIODARONE 200 MG TABLET PO SCH ×2 (09:18→22:20)
[2021-11-01] MEDS: TRIAMCINOLONE 0.1% CREAM 15 GM TUBE TOP SCH (09:18)
[2021-11-01] MEDS: RIFAXIMIN 550 MG TABLET PO SCH ×2 (09:18→22:20)
[2021-11-01] MEDS: FAMOTIDINE 20 MG TABLET PO SCH (09:18)
[2021-11-01] MEDS: ZINC GLUCONATE 50 MG TABLET PO SCH (09:18)
[2021-11-01] MEDS: AZITHROMYCIN INJ 500 MG in SODIUM CHLORIDE 0.9% 250 ML IV SCH (22:20)
[2021-11-02] MEDS: ALBUTEROL INHALER 18 GM INH SCH ×4 (01:51→22:12)
[2021-11-02 04:47] LABS: ABG Base Excess 17.5 MMOL/L (-2.5-2.5); ABG HCO3 41.6 MMOL/L (20-26); ABG Oxygen Saturation 96.5 % (95-100); ABG PH 7.355 (7.35-7.45); ABG PO2 88.1 MM HG (80-95); ABG TCO2 42.9 MMOL/L (23-27)
[2021-11-02 04:54] LABS: ABG PCO2 85.1 MM HG (35-48)
[2021-11-02 05:00] LABS: Basophils % 0.3 % (0.0-0.8); Hematocrit 36.9 VOL% (42.0-52.0); Hemoglobin 11.1 GM/DL (14.0-18.0); Immature Granulocytes % 1.3 %; Immature Granulocytes Absolute 0.05 #; Lymphocytes # 0.8 10*3/uL (1.4-4.0); Lymphocytes % 21.5 % (21.2-54.2); Mean Corpuscular HGB Conc 30.1 GM/DL (32-36); Mean Corpuscular Volume 87.2 FL (87-102); Monocytes % 13.4 % (1.7-12.7); Neutrophils % 63.5 % (38.7-73.9); Platelet Count 289 T/CUMM (130-400); Red Blood Count 4.23 MC/CUMM (3.8-5.5); Red Cell Distribution Width 17.2 % (9.3-17.3); White Blood Count 3.7 T/CUMM (4-12)
[2021-11-02 05:27] LABS: Calcium 8.8 MG/DL (8.5-10.1); Osmolality,Calculated 286.3 MOS/KG (273-304)
[2021-11-02] MEDS: SKIN HEALING OINT (AQUAPHOR) 50 GM TUBE TOP SCH (09:29)
[2021-11-02] MEDS: RIFAXIMIN 550 MG TABLET PO SCH ×2 (09:30→22:13)
[2021-11-02] MEDS: FAMOTIDINE 20 MG TABLET PO SCH (09:30)
[2021-11-02] MEDS: BARICITINIB 2 MG TABLET PO SCH (09:30)
[2021-11-02] MEDS: CHOLECALCIFEROL 1,000 UNIT TABLET PO SCH (09:30)
[2021-11-02] MEDS: AMIODARONE 200 MG TABLET PO SCH ×2 (09:30→22:12)
[2021-11-02] MEDS: hydrOXYzine HCL 25 MG TABLET PO SCH ×2 (09:31→22:13)
[2021-11-02] MEDS: ZINC GLUCONATE 50 MG TABLET PO SCH (09:31)
[2021-11-02] MEDS: ROSUVASTATIN 10 MG TABLET PO SCH (09:31)
[2021-11-02] MEDS: carvediloL 6.25 MG TABLET PO SCH ×2 (09:31→22:13)
[2021-11-02] MEDS: ASCORBIC ACID 500 MG TABLET PO SCH ×2 (09:31→22:13)
[2021-11-02] MEDS: FUROSEMIDE 40 MG TABLET PO SCH (09:31)
[2021-11-02] MEDS: THEOPHYLLINE ER (24 HR) 400 MG CAPSULE PO SCH (09:31)
[2021-11-02] MEDS: amLODIPine 10 MG TABLET PO SCH (09:31)
[2021-11-02] MEDS: APIXABAN 5 MG TABLET PO SCH (09:31)
[2021-11-02] MEDS: predniSONE 20 MG TABLET PO SCH (09:31)
[2021-11-02] MEDS: TRIAMCINOLONE 0.1% CREAM 15 GM TUBE TOP SCH (09:34)
[2021-11-02] MEDS: acetaZOLAMIDE 250 MG TABLET PO SCH (09:43)
[2021-11-02 13:21] LABS: Bilirubin,Urine Negative (Negative); Blood, Urine Moderate mg/dL (Negative); Glucose,Urine (UA) Negative (Negative); Ketones,Urine Negative (Negative); Mucus,Urine Occasional /LPF (Occasional); Nitrite,Urine Negative (Negative); Protein,Urine 30 MG/DL; RBC,Urine 563 /HPF (0-4); Urine Appearance CLEAR (Clear); Urine Color Yellow (Yellow); Urine Urobilinogen < 2.0 EU/DL (<2.0)
[2021-11-02] MEDS: AZITHROMYCIN INJ 500 MG in SODIUM CHLORIDE 0.9% 250 ML IV SCH (23:12)
[2021-11-03] MEDS: ALBUTEROL INHALER 18 GM INH SCH ×4 (02:39→22:13)
[2021-11-03 04:54] LABS: Hematocrit 37.3 VOL% (42.0-52.0); Hemoglobin 11.3 GM/DL (14.0-18.0); Immature Granulocytes % 1.9 %; Immature Granulocytes Absolute 0.07 #; Mean Corpuscular HGB Conc 30.3 GM/DL (32-36); Mean Corpuscular Volume 86.9 FL (87-102); Mean Platelet Volume 10.1 FL (9.6-12.0); Neutrophils % 59.1 % (38.7-73.9); Platelet Count 293 T/CUMM (130-400); Red Blood Count 4.29 MC/CUMM (3.8-5.5); Red Cell Distribution Width 17.3 % (9.3-17.3); White Blood Count 3.6 T/CUMM (4-12)
[2021-11-03 05:15] LABS: Calcium 8.6 MG/DL (8.5-10.1); Potassium 4.2 MMOL/L (3.5-5.1)
[2021-11-03 05:51] LABS: Osmolality,Calculated 282.5 MOS/KG (273-304)
[2021-11-03] MEDS ORDERED: FUROSEMIDE 20 MG/2 ML VIAL IV ONE (08:43)
[2021-11-03] MEDS: AMIODARONE 200 MG TABLET PO SCH ×2 (09:49→22:15)
[2021-11-03] MEDS: THEOPHYLLINE ER (24 HR) 400 MG CAPSULE PO SCH (09:50)
[2021-11-03] MEDS: predniSONE 20 MG TABLET PO SCH (09:50)
[2021-11-03] MEDS: CHOLECALCIFEROL 1,000 UNIT TABLET PO SCH (09:50)
[2021-11-03] MEDS: amLODIPine 10 MG TABLET PO SCH (09:50)
[2021-11-03] MEDS: FUROSEMIDE 40 MG TABLET PO SCH (09:50)
[2021-11-03] MEDS: ROSUVASTATIN 10 MG TABLET PO SCH (09:50)
[2021-11-03] MEDS: RIFAXIMIN 550 MG TABLET PO SCH ×2 (09:50→22:14)
[2021-11-03] MEDS: FAMOTIDINE 20 MG TABLET PO SCH (09:50)
[2021-11-03] MEDS: acetaZOLAMIDE 250 MG TABLET PO SCH (09:50)
[2021-11-03] MEDS: hydrOXYzine HCL 25 MG TABLET PO SCH ×2 (09:51→22:15)
[2021-11-03] MEDS: carvediloL 6.25 MG TABLET PO SCH ×2 (09:51→22:14)
[2021-11-03] MEDS: ZINC GLUCONATE 50 MG TABLET PO SCH (09:51)
[2021-11-03] MEDS: ASCORBIC ACID 500 MG TABLET PO SCH ×2 (09:51→22:14)
[2021-11-03] MEDS: APIXABAN 5 MG TABLET PO SCH ×2 (09:51→22:14)
[2021-11-03] MEDS: SKIN HEALING OINT (AQUAPHOR) 50 GM TUBE TOP SCH (09:57)
[2021-11-03] MEDS: TRIAMCINOLONE 0.1% CREAM 15 GM TUBE TOP SCH (09:57)
[2021-11-03] MEDS: AZITHROMYCIN INJ 500 MG in SODIUM CHLORIDE 0.9% 250 ML IV SCH (22:43)
[2021-11-04] MEDS: ALBUTEROL INHALER 18 GM INH SCH ×2 (02:01→07:16)
[2021-11-04 02:57] LABS: Basophils % 0.2 % (0.0-0.8); Hematocrit 37.9 VOL% (42.0-52.0); Hemoglobin 11.7 GM/DL (14.0-18.0); Immature Granulocytes % 1.5 %; Immature Granulocytes Absolute 0.07 #; Lymphocytes # 0.9 10*3/uL (1.4-4.0); Lymphocytes % 19.8 % (21.2-54.2); Mean Corpuscular HGB Conc 30.9 GM/DL (32-36); Mean Corpuscular Volume 85.6 FL (87-102); Monocytes % 12.4 % (1.7-12.7); Neutrophils % 66.1 % (38.7-73.9); Platelet Count 326 T/CUMM (130-400); Red Blood Count 4.43 MC/CUMM (3.8-5.5); Red Cell Distribution Width 17.2 % (9.3-17.3)
[2021-11-04 02:58] LABS: White Blood Count 4.7 T/CUMM (4-12)
[2021-11-04 03:15] LABS: Calcium 8.8 MG/DL (8.5-10.1)
[2021-11-04 03:37] LABS: Osmolality,Calculated 278.8 MOS/KG (273-304); Potassium 4.5 MMOL/L (3.5-5.1)
[2021-11-04] MEDS: carvediloL 6.25 MG TABLET PO SCH ×2 (09:54→22:08)
[2021-11-04] MEDS: SKIN HEALING OINT (AQUAPHOR) 50 GM TUBE TOP SCH (09:54)
[2021-11-04] MEDS: FUROSEMIDE 40 MG TABLET PO SCH (09:54)
[2021-11-04] MEDS: predniSONE 20 MG TABLET PO SCH (09:54)
[2021-11-04] MEDS: FAMOTIDINE 20 MG TABLET PO SCH (09:54)
[2021-11-04] MEDS: amLODIPine 10 MG TABLET PO SCH (09:55)
[2021-11-04] MEDS: ASCORBIC ACID 500 MG TABLET PO SCH ×2 (09:55→21:58)
[2021-11-04] MEDS: acetaZOLAMIDE 250 MG TABLET PO SCH (09:55)
[2021-11-04] MEDS: RIFAXIMIN 550 MG TABLET PO SCH ×2 (09:55→21:58)
[2021-11-04] MEDS: ROSUVASTATIN 10 MG TABLET PO SCH (09:55)
[2021-11-04] MEDS: THEOPHYLLINE ER (24 HR) 400 MG CAPSULE PO SCH (09:55)
[2021-11-04] MEDS: APIXABAN 5 MG TABLET PO SCH ×2 (09:55→21:58)
[2021-11-04] MEDS: hydrOXYzine HCL 25 MG TABLET PO SCH ×2 (09:55→21:58)
[2021-11-04] MEDS: CHOLECALCIFEROL 1,000 UNIT TABLET PO SCH (09:55)
[2021-11-04] MEDS: AMIODARONE 200 MG TABLET PO SCH ×2 (09:56→21:58)
[2021-11-04] MEDS: ZINC GLUCONATE 50 MG TABLET PO SCH (10:01)
[2021-11-04] MEDS: TRIAMCINOLONE 0.1% CREAM 15 GM TUBE TOP SCH (12:48)
[2021-11-04] MEDS: AZITHROMYCIN INJ 500 MG in SODIUM CHLORIDE 0.9% 250 ML IV SCH (21:59)
[2021-11-05] MEDS: SKIN HEALING OINT (AQUAPHOR) 50 GM TUBE TOP SCH (10:54)
[2021-11-05] MEDS: ROSUVASTATIN 10 MG TABLET PO SCH (10:55)
[2021-11-05] MEDS: carvediloL 6.25 MG TABLET PO SCH ×2 (10:55→21:55)
[2021-11-05] MEDS: acetaZOLAMIDE 250 MG TABLET PO SCH (10:55)
[2021-11-05] MEDS: predniSONE 20 MG TABLET PO SCH (10:55)
[2021-11-05] MEDS: hydrOXYzine HCL 25 MG TABLET PO SCH ×2 (10:55→21:55)
[2021-11-05] MEDS: AMIODARONE 200 MG TABLET PO SCH ×2 (10:55→21:55)
[2021-11-05] MEDS: FAMOTIDINE 20 MG TABLET PO SCH (10:55)
[2021-11-05] MEDS: APIXABAN 5 MG TABLET PO SCH ×2 (10:55→21:55)
[2021-11-05] MEDS: FUROSEMIDE 40 MG TABLET PO SCH (10:55)
[2021-11-05] MEDS: amLODIPine 10 MG TABLET PO SCH (10:55)
[2021-11-05] MEDS: TRIAMCINOLONE 0.1% CREAM 15 GM TUBE TOP SCH (10:55)
[2021-11-05] MEDS: ASCORBIC ACID 500 MG TABLET PO SCH ×2 (10:56→21:55)
[2021-11-05] MEDS: THEOPHYLLINE ER (24 HR) 400 MG CAPSULE PO SCH (10:56)
[2021-11-05] MEDS: ZINC GLUCONATE 50 MG TABLET PO SCH (10:56)
[2021-11-05] MEDS: CHOLECALCIFEROL 1,000 UNIT TABLET PO SCH (10:56)
[2021-11-06 05:41] LABS: Basophils % 0.3 % (0.0-0.8); Hemoglobin 10.9 GM/DL (14.0-18.0); Immature Granulocytes % 1.9 %; Immature Granulocytes Absolute 0.13 #; Lymphocytes # 1.3 10*3/uL (1.4-4.0); Lymphocytes % 18.4 % (21.2-54.2); Mean Corpuscular HGB Conc 31.1 GM/DL (32-36); Mean Corpuscular Volume 85.2 FL (87-102); Monocytes % 16.3 % (1.7-12.7); Neutrophils % 63.1 % (38.7-73.9); Platelet Count 406 T/CUMM (130-400); Red Blood Count 4.11 MC/CUMM (3.8-5.5); Red Cell Distribution Width 17.9 % (9.3-17.3); White Blood Count 6.9 T/CUMM (4-12)
[2021-11-06 05:54] LABS: Calcium 8.9 MG/DL (8.5-10.1); Potassium 4.7 MMOL/L (3.5-5.1)
[2021-11-06 06:05] LABS: Eosinophils 1 % (0-10); Hypochromia 1+; Lymphocytes 20 % (20-55); Microcytosis 1+; Platelet Estimate Adequate; Segmented Neutrophils 65 % (50-85); Total Cells Counted 100
[2021-11-06] MEDS: acetaZOLAMIDE 250 MG TABLET PO SCH (09:31)
[2021-11-06] MEDS: amLODIPine 10 MG TABLET PO SCH (09:31)
[2021-11-06] MEDS: THEOPHYLLINE ER (24 HR) 400 MG CAPSULE PO SCH (09:31)
[2021-11-06] MEDS: CHOLECALCIFEROL 1,000 UNIT TABLET PO SCH (09:31)
[2021-11-06] MEDS: ZINC GLUCONATE 50 MG TABLET PO SCH (09:31)
[2021-11-06] MEDS: ROSUVASTATIN 10 MG TABLET PO SCH (09:31)
[2021-11-06] MEDS: FAMOTIDINE 20 MG TABLET PO SCH (09:31)
[2021-11-06] MEDS: hydrOXYzine HCL 25 MG TABLET PO SCH ×2 (09:32→21:39)
[2021-11-06] MEDS: AMIODARONE 200 MG TABLET PO SCH ×2 (09:32→21:39)
[2021-11-06] MEDS: ASCORBIC ACID 500 MG TABLET PO SCH ×2 (09:32→21:38)
[2021-11-06] MEDS: FUROSEMIDE 40 MG TABLET PO SCH (09:32)
[2021-11-06] MEDS: APIXABAN 5 MG TABLET PO SCH ×2 (09:32→21:39)
[2021-11-06] MEDS: SKIN HEALING OINT (AQUAPHOR) 50 GM TUBE TOP SCH (09:33)
[2021-11-06] MEDS: carvediloL 6.25 MG TABLET PO SCH ×2 (09:33→21:39)
[2021-11-06] MEDS: predniSONE 20 MG TABLET PO SCH (09:33)
[2021-11-06] MEDS: TRIAMCINOLONE 0.1% CREAM 15 GM TUBE TOP SCH (09:33)
[2021-11-07] MEDS: carvediloL 6.25 MG TABLET PO SCH ×2 (09:14→21:18)
[2021-11-07] MEDS: ZINC GLUCONATE 50 MG TABLET PO SCH (09:14)
[2021-11-07] MEDS: hydrOXYzine HCL 25 MG TABLET PO SCH ×2 (09:14→21:15)
[2021-11-07] MEDS: CHOLECALCIFEROL 1,000 UNIT TABLET PO SCH (09:14)
[2021-11-07] MEDS: ASCORBIC ACID 500 MG TABLET PO SCH ×2 (09:15→21:15)
[2021-11-07] MEDS: predniSONE 20 MG TABLET PO SCH (09:15)
[2021-11-07] MEDS: FAMOTIDINE 20 MG TABLET PO SCH (09:15)
[2021-11-07] MEDS: AMIODARONE 200 MG TABLET PO SCH ×2 (09:15→21:16)
[2021-11-07] MEDS: APIXABAN 5 MG TABLET PO SCH ×2 (09:15→21:15)
[2021-11-07] MEDS: FUROSEMIDE 40 MG TABLET PO SCH (09:15)
[2021-11-07] MEDS: THEOPHYLLINE ER (24 HR) 400 MG CAPSULE PO SCH (09:15)
[2021-11-07] MEDS: amLODIPine 10 MG TABLET PO SCH (09:15)
[2021-11-07] MEDS: ROSUVASTATIN 10 MG TABLET PO SCH (09:15)
[2021-11-07] MEDS: acetaZOLAMIDE 250 MG TABLET PO SCH (09:15)
[2021-11-07] MEDS: TRIAMCINOLONE 0.1% CREAM 15 GM TUBE TOP SCH (09:18)
[2021-11-07] MEDS: SKIN HEALING OINT (AQUAPHOR) 50 GM TUBE TOP SCH (09:18)
[2021-11-07] MEDS: ALBUTEROL INHALER 18 GM INH SCH (18:42)
[2021-11-08] MEDS: carvediloL 6.25 MG TABLET PO SCH ×2 (10:02→21:52)
[2021-11-08] MEDS: FAMOTIDINE 20 MG TABLET PO SCH (10:02)
[2021-11-08] MEDS: hydrOXYzine HCL 25 MG TABLET PO SCH ×2 (10:02→21:52)
[2021-11-08] MEDS: ROSUVASTATIN 10 MG TABLET PO SCH (10:03)
[2021-11-08] MEDS: FUROSEMIDE 40 MG TABLET PO SCH (10:03)
[2021-11-08] MEDS: ZINC GLUCONATE 50 MG TABLET PO SCH (10:03)
[2021-11-08] MEDS: predniSONE 20 MG TABLET PO SCH (10:03)
[2021-11-08] MEDS: amLODIPine 10 MG TABLET PO SCH (10:03)
[2021-11-08] MEDS: THEOPHYLLINE ER (24 HR) 400 MG CAPSULE PO SCH (10:03)
[2021-11-08] MEDS: acetaZOLAMIDE 250 MG TABLET PO SCH (10:03)
[2021-11-08] MEDS: APIXABAN 5 MG TABLET PO SCH ×2 (10:03→21:52)
[2021-11-08] MEDS: ASCORBIC ACID 500 MG TABLET PO SCH ×2 (10:03→21:52)
[2021-11-08] MEDS: AMIODARONE 200 MG TABLET PO SCH ×2 (10:03→21:52)
[2021-11-08] MEDS: SKIN HEALING OINT (AQUAPHOR) 50 GM TUBE TOP SCH (10:04)
[2021-11-08] MEDS: TRIAMCINOLONE 0.1% CREAM 15 GM TUBE TOP SCH (10:04)
[2021-11-08] MEDS: CHOLECALCIFEROL 1,000 UNIT TABLET PO SCH (10:04)
[2021-11-09] MEDS: acetaZOLAMIDE 250 MG TABLET PO SCH (10:32)
[2021-11-09] MEDS: hydrOXYzine HCL 25 MG TABLET PO SCH ×2 (10:32→21:51)
[2021-11-09] MEDS: AMIODARONE 200 MG TABLET PO SCH ×2 (10:32→21:51)
[2021-11-09] MEDS: FAMOTIDINE 20 MG TABLET PO SCH (10:32)
[2021-11-09] MEDS: APIXABAN 5 MG TABLET PO SCH ×2 (10:33→21:51)
[2021-11-09] MEDS: ROSUVASTATIN 10 MG TABLET PO SCH (10:33)
[2021-11-09] MEDS: predniSONE 20 MG TABLET PO SCH (10:33)
[2021-11-09] MEDS: carvediloL 6.25 MG TABLET PO SCH ×2 (10:33→21:51)
[2021-11-09] MEDS: CHOLECALCIFEROL 1,000 UNIT TABLET PO SCH (10:33)
[2021-11-09] MEDS: amLODIPine 10 MG TABLET PO SCH (10:33)
[2021-11-09] MEDS: FUROSEMIDE 40 MG TABLET PO SCH (10:33)
[2021-11-09] MEDS: ASCORBIC ACID 500 MG TABLET PO SCH ×2 (10:33→21:51)
[2021-11-09] MEDS: THEOPHYLLINE ER (24 HR) 400 MG CAPSULE PO SCH (10:33)
[2021-11-09] MEDS: ZINC GLUCONATE 50 MG TABLET PO SCH (10:33)
[2021-11-09] MEDS: TRIAMCINOLONE 0.1% CREAM 15 GM TUBE TOP SCH (10:34)
[2021-11-09] MEDS: SKIN HEALING OINT (AQUAPHOR) 50 GM TUBE TOP SCH (10:34)
[2021-11-10] MEDS: hydrOXYzine HCL 25 MG TABLET PO SCH ×2 (10:39→20:24)
[2021-11-10] MEDS: APIXABAN 5 MG TABLET PO SCH ×2 (10:39→20:24)
[2021-11-10] MEDS: THEOPHYLLINE ER (24 HR) 400 MG CAPSULE PO SCH (10:39)
[2021-11-10] MEDS: acetaZOLAMIDE 250 MG TABLET PO SCH (10:39)
[2021-11-10] MEDS: ASCORBIC ACID 500 MG TABLET PO SCH ×2 (10:39→20:24)
[2021-11-10] MEDS: carvediloL 6.25 MG TABLET PO SCH ×2 (10:39→20:24)
[2021-11-10] MEDS: FUROSEMIDE 40 MG TABLET PO SCH (10:39)
[2021-11-10] MEDS: CHOLECALCIFEROL 1,000 UNIT TABLET PO SCH (10:39)
[2021-11-10] MEDS: ROSUVASTATIN 10 MG TABLET PO SCH (10:40)
[2021-11-10] MEDS: ZINC GLUCONATE 50 MG TABLET PO SCH (10:40)
[2021-11-10] MEDS: amLODIPine 10 MG TABLET PO SCH (10:40)
[2021-11-10] MEDS: predniSONE 20 MG TABLET PO SCH (10:40)
[2021-11-10] MEDS: AMIODARONE 200 MG TABLET PO SCH ×2 (10:40→20:24)
[2021-11-10] MEDS: FAMOTIDINE 20 MG TABLET PO SCH (10:40)
[2021-11-10] MEDS: TRIAMCINOLONE 0.1% CREAM 15 GM TUBE TOP SCH (10:43)
[2021-11-10] MEDS: SKIN HEALING OINT (AQUAPHOR) 50 GM TUBE TOP SCH (10:43)
[2021-11-10 11:47] LABS: Basophils % 0.3 % (0.0-0.8); Hemoglobin 11.1 GM/DL (14.0-18.0); Immature Granulocytes % 1.5 %; Immature Granulocytes Absolute 0.11 #; Lymphocytes # 1.3 10*3/uL (1.4-4.0); Lymphocytes % 18.2 % (21.2-54.2); Mean Corpuscular HGB Conc 30.8 GM/DL (32-36); Mean Corpuscular Volume 86.1 FL (87-102); Mean Platelet Volume 9.5 FL (9.6-12.0); Monocytes % 22.5 % (1.7-12.7); Neutrophils % 57.5 % (38.7-73.9); Platelet Count 431 T/CUMM (130-400); Red Blood Count 4.18 MC/CUMM (3.8-5.5); Red Cell Distribution Width 18.2 % (9.3-17.3); White Blood Count 7.2 T/CUMM (4-12)
[2021-11-10 11:59] LABS: Calcium 9.1 MG/DL (8.5-10.1); Osmolality,Calculated 276.8 MOS/KG (273-304); Potassium 4.4 MMOL/L (3.5-5.1)
[2021-11-10 12:25] LABS: Atypical Lymphocytes Few; Eosinophils 1 % (0-10); Hypochromia 1+; Lymphocytes 20 % (20-55); Polychromasia Slight; Segmented Neutrophils 56 % (50-85); Total Cells Counted 100
[2021-11-10 12:26] LABS: Ovalocytes Few; Platelet Estimate Increased; Stomatocytes Few; Target Cells Slight
[2021-11-11] MEDS: ASCORBIC ACID 500 MG TABLET PO SCH ×2 (09:34→21:48)
[2021-11-11] MEDS: amLODIPine 10 MG TABLET PO SCH (09:34)
[2021-11-11] MEDS: acetaZOLAMIDE 250 MG TABLET PO SCH (09:34)
[2021-11-11] MEDS: FUROSEMIDE 40 MG TABLET PO SCH (09:34)
[2021-11-11] MEDS: FAMOTIDINE 20 MG TABLET PO SCH (09:34)
[2021-11-11] MEDS: CHOLECALCIFEROL 1,000 UNIT TABLET PO SCH (09:35)
[2021-11-11] MEDS: ROSUVASTATIN 10 MG TABLET PO SCH (09:35)
[2021-11-11] MEDS: THEOPHYLLINE ER (24 HR) 400 MG CAPSULE PO SCH (09:35)
[2021-11-11] MEDS: predniSONE 20 MG TABLET PO SCH (09:35)
[2021-11-11] MEDS: APIXABAN 5 MG TABLET PO SCH ×2 (09:35→21:48)
[2021-11-11] MEDS: hydrOXYzine HCL 25 MG TABLET PO SCH ×2 (09:35→21:48)
[2021-11-11] MEDS: ZINC GLUCONATE 50 MG TABLET PO SCH (09:35)
[2021-11-11] MEDS: carvediloL 6.25 MG TABLET PO SCH ×2 (09:35→21:51)
[2021-11-11] MEDS: AMIODARONE 200 MG TABLET PO SCH ×2 (09:35→21:48)
[2021-11-11] MEDS: ALBUTEROL INHALER 18 GM INH SCH ×3 (09:36→15:13)
[2021-11-11] MEDS: SKIN HEALING OINT (AQUAPHOR) 50 GM TUBE TOP SCH (09:36)
[2021-11-11] MEDS: TRIAMCINOLONE 0.1% CREAM 15 GM TUBE TOP SCH (09:44)
[2021-11-12] MEDS: hydrOXYzine HCL 25 MG TABLET PO SCH (08:17)
[2021-11-12] MEDS: APIXABAN 5 MG TABLET PO SCH (08:17)
[2021-11-12] MEDS: AMIODARONE 200 MG TABLET PO SCH (08:18)
[2021-11-12] MEDS: ROSUVASTATIN 10 MG TABLET PO SCH (08:18)
[2021-11-12] MEDS: FAMOTIDINE 20 MG TABLET PO SCH (08:18)
[2021-11-12] MEDS: acetaZOLAMIDE 250 MG TABLET PO SCH (08:18)
[2021-11-12] MEDS: THEOPHYLLINE ER (24 HR) 400 MG CAPSULE PO SCH (08:18)
[2021-11-12] MEDS: FUROSEMIDE 40 MG TABLET PO SCH (08:18)
[2021-11-12] MEDS: amLODIPine 10 MG TABLET PO SCH (08:18)
[2021-11-12] MEDS: CHOLECALCIFEROL 1,000 UNIT TABLET PO SCH (08:18)
[2021-11-12] MEDS: predniSONE 20 MG TABLET PO SCH (08:18)
[2021-11-12] MEDS: carvediloL 6.25 MG TABLET PO SCH (08:20)
[2021-11-12] MEDS: ZINC GLUCONATE 50 MG TABLET PO SCH (08:20)
[2021-11-12] MEDS: ASCORBIC ACID 500 MG TABLET PO SCH (08:21)
[2021-11-12] MEDS: ALBUTEROL INHALER 18 GM INH SCH ×3 (08:22→10:10)
[2021-11-12] MEDS: SKIN HEALING OINT (AQUAPHOR) 50 GM TUBE TOP SCH (08:22)
[2021-11-12] MEDS: TRIAMCINOLONE 0.1% CREAM 15 GM TUBE TOP SCH (08:23)
[2021-11-12 11:23] VITALS: BP 137/73
== END 2021-11-12 13:33 | disposition home health service (06) | DRG 177 ==
LOC: N.ED 16:57 → N.EDINP 22:13 → SUATTDRO 22:13 → N.CC 10-29 13:38 → N.TELEN 11-01 15:53
PROVIDERS: ADMIT Internal Medicine; ATTEND Internal Medicine Geriatric Medicine

== ENCOUNTER 2021-12-22 17:18 | Inpatient (IN) ==
[2021-12-22] MEDS ORDERED: ONDANSETRON 4 MG/2 ML VIAL IV PRN (19:35)
[2021-12-22] MEDS ORDERED: GLUCAGON 1 MG VIAL IM PRN (19:35)
[2021-12-22] MEDS ORDERED: hydrALAZINE 20 MG/1 ML VIAL IV PRN (19:35)
[2021-12-22] MEDS ORDERED: guaiFENesin/DM ER 600-30 MG TABLET PO PRN (19:35)
[2021-12-22] MEDS ORDERED: LACTULOSE 20 GM/30 ML UDCUP PO PRN (19:44)
[2021-12-22] MEDS ORDERED: DEXTROSE 10% 250 ML BAG IV PRN (19:54)
[2021-12-22] MEDS ORDERED: carvediloL 3.125 MG TABLET PO SCH (21:00)
[2021-12-22] MEDS: FUROSEMIDE 40 MG/4 ML VIAL IV SCH (21:24)
[2021-12-22] MEDS: DOCUSATE SODIUM 100 MG CAPSULE PO SCH (21:28)
[2021-12-22] MEDS: APIXABAN 5 MG TABLET PO SCH (21:28)
[2021-12-22] MEDS: RIFAXIMIN 550 MG TABLET PO SCH (21:28)
[2021-12-23] MEDS: ALBUTEROL 2.5 MG/3 ML NEB RESP TX SCH ×4 (00:44→19:38)
[2021-12-23 04:50] LABS: Arterial Base Excess iSTAT 7 MMOL/L (-2.5-2.5); Arterial O2 Saturation iSTAT 88 % (95-100); Arterial PCO2 iSTAT 82 MM HG (35-48); Arterial PO2 iSTAT 67 MM HG (80-95); Arterial Total CO2 iSTAT 38 MMO/L (23-27); Arterial pH iSTAT 7.249 (7.35-7.45)
[2021-12-23 06:22] LABS: Basophils % 0.3 % (0.0-0.8); Eosinophils # 0.1 10*3/uL (0.0-0.87); Hematocrit 30.3 VOL% (42.0-52.0); Immature Granulocytes % 0.3 %; Immature Granulocytes Absolute 0.02 #; Lymphocytes % 14.2 % (21.2-54.2); Mean Corpuscular HGB Conc 29.7 GM/DL (32-36); Mean Corpuscular Volume 88.3 FL (87-102); Mean Platelet Volume 9.4 FL (9.6-12.0); Monocytes % 13.6 % (1.7-12.7); Neutrophils % 70.6 % (38.7-73.9); Platelet Count 265 T/CUMM (130-400); Red Blood Count 3.43 MC/CUMM (3.8-5.5); Red Cell Distribution Width 20.6 % (9.3-17.3); White Blood Count 7.2 T/CUMM (4-12)
[2021-12-23 06:52] LABS: Calcium 8.6 MG/DL (8.5-10.1); Potassium 3.8 MMOL/L (3.5-5.1); Thyroid Stimulating Hormone 0.429 uIU/ml (0.358-3.74)
[2021-12-23] MEDS ORDERED: PANTOPRAZOLE 40 MG TABLET PO SCH (09:00)
[2021-12-23] MEDS ORDERED: amLODIPine 10 MG TABLET PO SCH (09:00)
[2021-12-23 09:06] LABS: Arterial Base Excess iSTAT 7 MMOL/L (-2.5-2.5); Arterial Bicarbonate iSTAT 36.6 MMOL/L (20-26); Arterial O2 Saturation iSTAT 87 % (95-100); Arterial PCO2 iSTAT 87 MM HG (35-48); Arterial PO2 iSTAT 66 MM HG (80-95); Arterial Total CO2 iSTAT 39 MMO/L (23-27); Arterial pH iSTAT 7.234 (7.35-7.45)
[2021-12-23] MEDS: FAMOTIDINE 20 MG TABLET PO SCH (09:33)
[2021-12-23] MEDS: carvediloL 3.125 MG TABLET PO SCH ×2 (09:33→16:32)
[2021-12-23] MEDS: DOCUSATE SODIUM 100 MG CAPSULE PO SCH ×2 (09:33→20:48)
[2021-12-23] MEDS: RIFAXIMIN 550 MG TABLET PO SCH ×2 (09:33→20:48)
[2021-12-23] MEDS: APIXABAN 5 MG TABLET PO SCH ×2 (09:34→20:48)
[2021-12-23] MEDS: ROSUVASTATIN 10 MG TABLET PO SCH (09:34)
[2021-12-23] MEDS: FUROSEMIDE 40 MG/4 ML VIAL IV SCH ×2 (09:40→16:36)
[2021-12-23 10:36] LABS: Arterial Base Excess iSTAT 7 MMOL/L (-2.5-2.5); Arterial Bicarbonate iSTAT 35.4 MMOL/L (20-26); Arterial O2 Saturation iSTAT 69 % (95-100); Arterial PCO2 iSTAT 72 MM HG (35-48); Arterial PO2 iSTAT 42 MM HG (80-95); Arterial Total CO2 iSTAT 38 MMO/L (23-27); Arterial pH iSTAT 7.302 (7.35-7.45)
[2021-12-23 14:46] LABS: Arterial Base Excess iSTAT 9 MMOL/L (-2.5-2.5); Arterial O2 Saturation iSTAT 88 % (95-100); Arterial PCO2 iSTAT 79 MM HG (35-48); Arterial PO2 iSTAT 65 MM HG (80-95); Arterial Total CO2 iSTAT 39 MMO/L (23-27); Arterial pH iSTAT 7.282 (7.35-7.45)
[2021-12-23] MEDS: ACETAMINOPHEN 325 MG TABLET PO PRN (20:48)
[2021-12-24] MEDS: ALBUTEROL 2.5 MG/3 ML NEB RESP TX SCH ×4 (00:20→19:45)
[2021-12-24] MEDS: ACETAMINOPHEN 325 MG TABLET PO PRN (00:45)
[2021-12-24 06:07] LABS: Basophils % 0.3 % (0.0-0.8); Eosinophils # 0.2 10*3/uL (0.0-0.87); Eosinophils % 1.4 % (0.00-10.9); Hemoglobin 8.8 GM/DL (14.0-18.0); Immature Granulocytes % 0.7 %; Immature Granulocytes Absolute 0.08 #; Lymphocytes # 1.2 10*3/uL (1.4-4.0); Lymphocytes % 11.4 % (21.2-54.2); Mean Corpuscular HGB Conc 30.3 GM/DL (32-36); Mean Corpuscular Volume 87.6 FL (87-102); Mean Platelet Volume 9.9 FL (9.6-12.0); Monocytes % 13.1 % (1.7-12.7); Neutrophils % 73.1 % (38.7-73.9); Platelet Count 248 T/CUMM (130-400); Red Blood Count 3.31 MC/CUMM (3.8-5.5); Red Cell Distribution Width 20.5 % (9.3-17.3); White Blood Count 10.7 T/CUMM (4-12)
[2021-12-24 06:28] LABS: Albumin 2.5 G/DL (3.4-5.0); Bilirubin,Direct 0.16 MG/DL (0.0-0.20); Bilirubin,Indirect 0.3 MG/DL (0.0-1.0); Bilirubin,Total 0.5 MG/DL (0.20-1.00); Total Protein 6.6 G/DL (6.4-8.2)
[2021-12-24 06:29] LABS: Calcium 8.6 MG/DL (8.5-10.1); Osmolality,Calculated 283.4 MOS/KG (273-304); Potassium 3.6 MMOL/L (3.5-5.1)
[2021-12-24 06:30] LABS: Hypochromia 1+; Lymphocytes 11 % (20-55); Microcytosis 1+; Platelet Estimate Adequate; Segmented Neutrophils 77 % (50-85); Total Cells Counted 100
[2021-12-24] MEDS: carvediloL 3.125 MG TABLET PO SCH ×2 (08:41→16:30)
[2021-12-24] MEDS: APIXABAN 5 MG TABLET PO SCH ×2 (08:41→21:52)
[2021-12-24] MEDS: ROSUVASTATIN 10 MG TABLET PO SCH (08:41)
[2021-12-24] MEDS: FAMOTIDINE 20 MG TABLET PO SCH (08:41)
[2021-12-24] MEDS: RIFAXIMIN 550 MG TABLET PO SCH ×2 (08:41→21:52)
[2021-12-24] MEDS: DOCUSATE SODIUM 100 MG CAPSULE PO SCH ×2 (08:41→21:52)
[2021-12-24] MEDS: FUROSEMIDE 40 MG/4 ML VIAL IV SCH ×2 (08:42→16:32)
[2021-12-24 11:32] LABS: % Iron Saturation 9.1 % (18-50)
[2021-12-24 11:54] LABS: Folate 8.44 NG/ML (5.38-24.0)
[2021-12-25] MEDS: ALBUTEROL 2.5 MG/3 ML NEB RESP TX SCH ×4 (01:40→19:35)
[2021-12-25 06:52] LABS: Basophils % 0.2 % (0.0-0.8); Eosinophils # 0.4 10*3/uL (0.0-0.87); Eosinophils % 2.8 % (0.00-10.9); Immature Granulocytes % 0.6 %; Immature Granulocytes Absolute 0.09 #; Lymphocytes # 1.5 10*3/uL (1.4-4.0); Mean Corpuscular Volume 87.3 FL (87-102); Mean Platelet Volume 9.3 FL (9.6-12.0); Neutrophils % 74.4 % (38.7-73.9); Platelet Count 243 T/CUMM (130-400); Red Blood Count 3.32 MC/CUMM (3.8-5.5); Red Cell Distribution Width 20.4 % (9.3-17.3); White Blood Count 15.1 T/CUMM (4-12)
[2021-12-25 07:14] LABS: Calcium 8.2 MG/DL (8.5-10.1); Osmolality,Calculated 285.1 MOS/KG (273-304); Potassium 3.6 MMOL/L (3.5-5.1)
[2021-12-25] MEDS: RIFAXIMIN 550 MG TABLET PO SCH ×2 (09:35→22:14)
[2021-12-25] MEDS: FAMOTIDINE 20 MG TABLET PO SCH (09:35)
[2021-12-25] MEDS: carvediloL 3.125 MG TABLET PO SCH ×2 (09:35→17:32)
[2021-12-25] MEDS: ROSUVASTATIN 10 MG TABLET PO SCH (09:35)
[2021-12-25] MEDS: DOCUSATE SODIUM 100 MG CAPSULE PO SCH ×2 (09:35→22:14)
[2021-12-25] MEDS: APIXABAN 5 MG TABLET PO SCH ×2 (09:35→22:14)
[2021-12-25] MEDS: FUROSEMIDE 40 MG/4 ML VIAL IV SCH ×2 (09:35→17:31)
[2021-12-25] MEDS: FERROUS SULFATE 325 MG TABLET PO SCH ×2 (13:02→22:13)
[2021-12-25] MEDS: MENTHOL/ZINC OXIDE OINT 71 GM JAR TOP SCH (22:14)
[2021-12-26] MEDS: ALBUTEROL 2.5 MG/3 ML NEB RESP TX SCH ×3 (01:40→13:07)
[2021-12-26 06:39] LABS: Basophils % 0.2 % (0.0-0.8); Eosinophils # 0.5 10*3/uL (0.0-0.87); Eosinophils % 5.5 % (0.00-10.9); Hematocrit 31.7 VOL% (42.0-52.0); Hemoglobin 9.4 GM/DL (14.0-18.0); Immature Granulocytes % 0.6 %; Immature Granulocytes Absolute 0.05 #; Lymphocytes # 1.1 10*3/uL (1.4-4.0); Lymphocytes % 12.5 % (21.2-54.2); Mean Corpuscular HGB Conc 29.7 GM/DL (32-36); Mean Corpuscular Volume 89.8 FL (87-102); Mean Platelet Volume 9.1 FL (9.6-12.0); Monocytes % 13.5 % (1.7-12.7); Neutrophils % 67.7 % (38.7-73.9); Platelet Count 226 T/CUMM (130-400); Red Blood Count 3.53 MC/CUMM (3.8-5.5); Red Cell Distribution Width 20.8 % (9.3-17.3); White Blood Count 8.6 T/CUMM (4-12)
[2021-12-26 06:58] LABS: Calcium 8.3 MG/DL (8.5-10.1); Osmolality,Calculated 277.5 MOS/KG (273-304); Potassium 3.5 MMOL/L (3.5-5.1)
[2021-12-26] MEDS ORDERED: CIPROFLOXACIN 500 MG TABLET PO SCH (08:00)
[2021-12-26] MEDS ORDERED: SULFAMETHOX/TRIMETHOPRIM 800-160 MG TABLET PO SCH (08:00)
[2021-12-26] MEDS ORDERED: LACTULOSE 20 GM/30 ML UDCUP PO SCH (09:00)
[2021-12-26] MEDS: FAMOTIDINE 20 MG TABLET PO SCH (09:18)
[2021-12-26] MEDS: RIFAXIMIN 550 MG TABLET PO SCH (09:18)
[2021-12-26] MEDS: carvediloL 3.125 MG TABLET PO SCH (09:18)
[2021-12-26] MEDS: APIXABAN 5 MG TABLET PO SCH (09:18)
[2021-12-26] MEDS: MENTHOL/ZINC OXIDE OINT 71 GM JAR TOP SCH (09:18)
[2021-12-26] MEDS: ROSUVASTATIN 10 MG TABLET PO SCH (09:18)
[2021-12-26] MEDS: FERROUS SULFATE 325 MG TABLET PO SCH (09:18)
[2021-12-26] MEDS: FUROSEMIDE 40 MG/4 ML VIAL IV SCH (09:18)
[2021-12-26] MEDS: DOCUSATE SODIUM 100 MG CAPSULE PO SCH (09:19)
[2021-12-26 11:59] VITALS: BP 140/73
== END 2021-12-26 14:07 | DRG 291 ==
LOC: N.3E → OBSVTOIN 18:30 → SUATTDRO 18:30
PROVIDERS: ADMIT Internal Medicine; ATTEND Hospitalist